=== PATIENT | female | born 1945 | race Caucasian/White ===

== ENCOUNTER → 2020-04-21 13:17 | Outpatient (BNVA) | payer MEDICARE, SELFPAY | PROVIDERS: Family Provider Family Medicine; Referring Provider Family Medicine; Visit Provider Specialist | DX: M25.551 Pain in right hip (principal) | CPT/HCPCS: 73502; 87081 ==

== ENCOUNTER 2020-05-14 16:09 | Outpatient (CLI) | payer MEDICARE, SELFPAY ==
--- NOTE | 2020-05-14 16:59 | PC.NURSE ---
Pt swabbed for COVID, specimen sent to lab.
[2020-05-16 11:09] LABS: Coronavirus Lab Test PTC SEE REPORT
== END 2020-05-14 16:10 | disposition home or self-care (01) ==
LOC: LAB 16:12
PROVIDERS: Visit Provider Specialist
DX: Z01.812 Encounter for preprocedural laboratory examination (principal)
CPT/HCPCS: 87635

== ENCOUNTER 2020-05-18 10:47 | Observation (INO) | payer MEDICARE, SELFPAY ==
--- NOTE | 2020-05-04 10:10 | ANES.PREANE2 ---
Pre-Anesthetic Assessment Pre-Anesthetic Assessment: Height/Weight: Height 1.7 m Weight 76.657 kg Preop Diagnosis: Degenerative osteoarthritis right hip Proposed Procedure: Operation Date: 05/18/20 07:00 Proposed Procedures p Total Hip Arthroplasty/Right/ 40965 M16.11(Right) - Carlita Rodriguez MD Familial anesthetic complications: None Social: Social History: No tobacco Comment: former smoker Exam: Pre-Anes Outpt Exam: alert, oriented x 3, clear to auscultation bilaterally and regular rate & rhythm Airway: Cervical ROM: WNL MP: 2 Dentition: False Pulmonary: Pulmonary: COPD (oxygen prn (2 L NC)) and Sleep apnea (has cpap but doesn't use) CV/HEM: CV/HEM: CAD (2009 stent) and HTN : : None reported Hepatic: Hepatic: None reported GI: GI: GERD Metabolic: Metabolic: DM Musc/skel: Musc/skel: None reported Neuropsych: Neuropsych: None reported Anesthetic Plan: ASA status: 3 Anesthesia: General Risk of > 500 ml blood loss (7ml/kg in children): No PFSH Anesthesia PFSH: Medical History (Updated 04/23/20 @ 12:13 by Carlita Rodriguez MD) Accelerated essential hypertension Angio-edema Osteoarthritis Type 2 diabetes mellitus Surgical History History of right knee joint replacement History of right knee surgery Hx of appendectomy Family History Mother Cancer Diabetes Father Cancer Social History Smoking and tobacco status: former smoker Alcohol intake: never Data Anesthesia Cardiac Studies: No Data to Display
[2020-05-04 10:19] LABS: Add Urine Microscopic? NO
[2020-05-04 10:20] LABS: Basophils % 0.2 %; Eosinophils # 0.1 10^3/uL (0.0-0.8); Eosinophils % 0.6 %; Hematocrit 48.6 % (37.0-47.0); Lymphocytes # 1.3 10^3/uL (0.8-4.8); Mean Corpuscular HGB Conc 30.9 g/dL (30.0-36.0); Mean Corpuscular Hemoglobin 27.9 pg (28.0-34.0); Mean Corpuscular Volume 90.5 fL (81-99); Mean Platelet Volume 9.5 fL (7.4-10.4); Monocytes # 0.5 10^3/uL (0.2-0.9); Monocytes % 5.4 %; Neutrophils % 80.5 %; Nucleated Red Blood Cells % 0 %; Platelet Count 330 10^3/cmm (130-400); Red Blood Count 5.37 10^6/uL (4.1-5.3); Red Cell Distribution Width 14.7 % (12.1-15.1); White Blood Count 9.9 10^3/uL (4.0-10.0)
[2020-05-04 10:34] LABS: Alanine Aminotransferase 20 U/L (0-33); Albumin Level 4.6 g/dL (3.5-5.2); Alkaline Phosphatase 69 IU/L (35-105); Anion Gap 19.9 (5-19); Aspartate Amino Transferase 22 U/L (0-32); Bilirubin Urine Neg (NEGATIVE); Blood Urea Nitrogen 27 mg/dL (8-23); Blood Urine Neg (Negative); Calcium 10.2 mg/dL (8.5-10.5); Carbon Dioxide 27 mmol/L (22-29); Chloride 100 mmol/L (98-107); Creatinine Clr Calc Pharmacy 51.8911; Globulin 3.5 g/dL (1.3-4.6); Glucose 126 mg/dL (65-115); Glucose Urine UA Norm (Normal); Ketones Urine Negative (Negative); Leukocyte Esterase Urine Negative (Negative); Nitrate Urine Negative (Negative); Osmolality Calculated 293 mOsm/kg (285-295); Potassium 4.9 mmol/L (3.5-5.1); Protein Urine Neg (Negative); Sodium 142 mmol/L (136-145); Total Bilirubin 0.3 mg/dL (0.15-1.2); Total Protein 8.1 g/dL (6.6-8.7); Urine Appearance Clear (CLEAR); Urine Color Yellow (Yellow); Urobilinogen Urine Norm (Negative)
[2020-05-18] VITALS (21 sets, daily range): BP systolic 89–153; BP diastolic 52–80; PULSE 54–98; RESP 16–22; TEMP 35.9–37.3; O2SAT 90–98
[2020-05-18] MEDS: sodium chloride 0.9% 1,000 ML 30 ML IV (06:41)
[2020-05-18] MEDS: CELEcoxib 200 mg Capsule 400 MG PO (06:42)
[2020-05-18 06:46] LABS: Glucose Point of Care 134 mg/dL (70-110)
--- NOTE | 2020-05-18 06:53 | W.PM.OPSUD ---
Surgery/Procedure H&P Update DATE OF PROCEDURE: May 18, 2020 DATE H&P PERFORMED: 04/21/20 H&P UPDATE INFORMATION: I have reviewed H&P completed within last 30 days, I have examined patient prior to procedure and H&P is in [facility] on date indicated PREOP DIAGNOSIS: Degenerative osteoarthritis right hip PLANNED PROCEDURE: Operation Date: 05/18/20 07:00 Proposed Procedures p Total Hip Arthroplasty/Right/ 48792 M16.11(Right) - Carlita Rodriguez MD
--- NOTE | 2020-05-18 06:55 | P.ANESASSM_ITS ---
Pre-Anesthetic Assessment Pre-Anesthetic Assessment: Height/Weight: Height 1.7 m Weight 76.657 kg Temp Pulse Resp BP Pulse Ox 99.2 F 86 20 H 153/80 90 05/18/20 06:24 05/18/20 06:24 05/18/20 06:24 05/18/20 06:24 05/18/20 06:24 Preop Diagnosis: Degenerative osteoarthritis right hip Proposed Procedure: Operation Date: 05/18/20 07:00 Proposed Procedures p Total Hip Arthroplasty/Right/ 19036 M16.11(Right) - Carlita Rodriguez MD Was Beta Ildefonso taken within 24 hours: Yes Last intake: Intake Last Liquid Date 05/18/20 Last Liquid Time 00:00 Last Solid Date 05/18/20 Last Solid Time 00:00 Social: Social History: No alcohol and No tobacco Exam: Pre-Anes Outpt Exam: alert, oriented x 3, clear to auscultation bilatera lly and regular rate & rhythm Airway: Submandibular: WNL Cervical ROM: WNL MP: 2 History/ROS: No significant complaints Pulmonary: Pulmonary: COPD CV/HEM: CV/HEM: CAD (S/P Stent x 1 in 2008) : : None reported Hepatic: Hepatic: None reported GI: GI: None reported Metabolic: Metabolic: DM Musc/skel: Musc/skel: OA/DJD Neuropsych: Neuropsych: None reported Comments: Anesthetic Plan: ASA status: 3 Anesthesia: General Risk of > 500 ml blood loss (7ml/kg in children): Yes, adequate IV access and fluids planned Meds/Allergies Current Medications: Current Medications Generic Name Dose Route Start Last Admin Trade Name Freq PRN Reason Stop Dose Admin Sodium Chloride 1,000 mls @ 30 ml s/hr 05/18/20 06:30 05/18/20 06:41 Sodium Chloride 0.9% IV 05/19/20 06:29 30 mls/hr .Q24H JUDY Administration PFSH Anesthesia PFSH: Medical History (Updated 04/23/20 @ 12:13 by Carlita Rodriguez MD) Accelerated essential hypertension Angio-edema Osteoarthritis Type 2 diabetes mellitus Surgical History History of right knee joint replacement History of right knee surgery Hx of appendectomy Family History Mother Cancer Diabetes Father Cancer Social History Smoking and tobacco status: former smoker Alcohol intake: never Data Anesthesia CBC & Chem 7: 05/04/20 10:05 05/04/20 10:05 Other Labs: Laboratory Results - last 48 hr 05/18/20 06:43 POC Glucose 134 Cardiac Studies: No Data to Display
[2020-05-18] MEDS: ceFAZolin 1,000 mg SDV 1000 MG IRRIGATION (08:09)
[2020-05-18] MEDS: vancomycin 1,000 MG SDV 1000 MG XX (08:10)
--- NOTE | 2020-05-18 09:57 | XRR_ITS ---
PROCEDURE INFORMATION: Exam: XR Pelvis Exam date and time: 05/18/2020 10:21 AM Age: 75 years old Clinical indication: Condition or disease; Other: S/P right total hip arthroplasty; Additional info: Status post right total hip arthroplasty TECHNIQUE: Imaging protocol: XR pelvis. Views: 1 or 2 view. COMPARISON: CR XR hip RT 2-3V wo/w pel* [id number] 04/21/2020 1:23 PM FINDINGS: Bones/joints: Right hip replacement in satisfactory alignment and position. No acute fracture. Soft tissues: Postoperative changes. XR/XR pelvis 1-2V* [id number] IMPRESSION: Satisfactory appearance status post right hip arthroplasty.
--- NOTE | 2020-05-18 10:02 | P.OP_ITS ---
Operative Report Date of procedure: May 18, 2020 Pre-op Diagnosis: Degenerative osteoarthritis right hip Post-op diagnosis: same (With severe limited range of motion, very large osteophytes, and near autofusion.) Post-op Findings: Severe degenerative osteoarthritis significant limitation in range of motion Procedure Done: Right total hip arthroplasty utilizing the following implants from the Karyn Accolade II total hip system: The size 52 mm solid back acetabular shell with an E alpha code and an MDM liner size 42 mm inner diameter by E alpha code. An Accolade II size 7 x 127 degree neck angle hip stem, femoral head size 28 mm outer diameter and +0 mm offset inside of an MDM insert size inner diameter 28 mm to match the 42E Specimens removed/disposition: Femoral head, disposed of Pathology: none sent Director Of [facility]: [facility] OR technicians Anesthesia: General (Intubated, ASA 3) Estimated blood loss (mL): 500 IV fluids (mL): 1,000 Urine output (mL): 100 Complications: None Findings: The hip was stable at 90 degrees of flexion with 30 degrees of adduction and 80 degrees of internal rotation. It was also stable to toe hang and to external rotation. Range of motion was significantly improved Condition: stable Disposition: PACU (Then to floor for observation and postoperative pain management and early physical therapy) Brief History: This 75-year-old woman presented with complaints of severe right hip pain with significant reduction in range of motion. She has had significant limitations in her activities of daily living. Risks and complications of surgery were discussed with the patient. She understood and wished to proceed. Consents were signed. Questions were answered. Procedure: Patient was brought to the operating theater. She was transferred to the operating room table and subsequently administered a general anesthetic intubated, ASA 3. Following administration of adequate anesthesia, the patient was placed in full lateral position and held in position with a pegboard. The patient's right lower extremity was then prepped and draped in usual fashion utilizing DuraPrep. It was draped free. Following prepping and draping a surgical pause was performed. At the time of surgical pause, we identified the site and side of surgery. We also identified the patient and preoperative surgical markings. Confirmation was made of equipment availability. Additionally, the patient's preoperative IV antibiotic, Ancef 2 g and TXA 1 g preoperatively was confirmed as being given in a timely fashion and being the appropriate. An additional dose was to be given postoperatively as well. Following the surgical pause, an incision was made centering over the patient's greater trochanter continuing proximally and distally as necessary to allow access to the hip joint. Dissection continued through skin and soft tissues using a scalpel, and hemostasis was obtained using electrocautery. The tensor fascia joey was identified and incised longitudinally. Sciatic nerve was identified and protected throughout the surgical procedure. A Charnley U retractor was placed after the tensor fascia joey had been incised longitudinally, and the sciatic nerve had been identified. The hip had significant limitation in range of motion, and most particularly, and internal rotation. Retractors were placed, and the piriformis muscle was identified and tagged. Piriformis muscle along with the remaining short external rotators were then incised from the posterior aspect of the hip joint. These were retracted posteriorly. The capsule was entered in a T-type fashion with the edges being tagged. Upon entry through the capsule, there were large osteophytes covering all the way nearly to the greater trochanter along all sides of the neck. In this manner, the hip was nearly autofused accounting for the severe reduction in range of motion. Head was noted to be very deformed. Appropriate osteotomy was performed of the femoral neck following hip dislocation. We then evaluated the acetabulum. The femur was retracted anteriorly. Soft tissues were retracted, osteophytes were excised, and the labrum was removed. We then began reaming with initial deepening of the acetabulum secondary to findings on preoperative x-ray. Reaming was accomplished sequentially. We reamed to a size 51 to allow for a size 52 acetabular shell. The acetabulum was impacted into position. The dome hole was filled with the appropriate metal plug. Also, we confirmed that the acetabular insert was completely seated prior to addressing the femur. After the acetabulum was in appropriate position, we placed the MDM liner without difficulty. The cup was noted to seat nicely and had good fixation upon impact. Attention was directed to the proximal femur. The proximal femur was lifted out of the wound. A canal finder was passed after the box chisel. The reamer was used to lateralize. We then began broaching. We broached sequentially, and initially placed a size 6 broach in position for trial reduction. A trial reduction was accomplished with a +0 mm femoral head inside the appropriate MDM insert. This construct was felt to be too loose and with concern for instability, we decided to increase to a size 7. With the size 7 broach, a trial reduction was again accomplished. This gave excellent stability, and with this in place, we had the above stabilities, and at that time, we felt that we had acceptable leg lengths. It had been determined preoperatively, that we would likely increase the leg length slightly, secondary to the patient's severe deformities. Therefore, the +0 mm offset femoral head was chosen. Therefore, trial components were removed after the hip was dislocated. The size 7 Accolade II 127 degree neck angle hip stem was impacted into position without difficulty and onto this was placed a +0 mm offset femoral head with the appropriate MDM liner. The hip was then reduced without difficulty. With this construct, we had the above-noted stability. The stem was noted to seat nicely prior to placement of the femoral head. The wound was then copiously irrigated with 20 mL of Betadine and 500 mL of normal saline mixed together. Subsequently, we suctioned this out and irrigated the wound copiously with lactated Ringer's. Following reduction of the prosthesis once again, we confirmed the stability of the hip. Leg lengths were also felt to be satisfactory. Being satisfied with the prosthesis, attention was directed to closure. Closure was accomplished with 0 Vicryl in the capsular tissues. Piriformis was reattached with 0 Vicryl as well. Tensor fascia joey was closed with 0 Vicryl in an interrupted fashion. The subcutaneous tissues were closed with 2-0 Monocryl. Vancomycin powder and a Gelfoam thrombin mixture was placed into the wound as well. The skin was closed with a running 3-0 Monocryl followed by Exofin and Steri-Strips. This was covered with Telfa and Tegaderm. The patient was placed in an abduction pillow. She was returned the Recovery Room in a satisfactory condition and will be discharged to the floor for postoperative rehabilitation and pain management. There were no complications. Associated Problem List Diagnoses (1) Primary osteoarthritis of right hip:
[2020-05-18] MEDS: fentaNYL 50 mcg/mL INJ 2mL IVP ×2 (10:15→10:33)
--- NOTE | 2020-05-18 10:30 | SUR.PHASEI ---
PT AWAKES EASILY TO VOICE , PT NOW ON 3LNC SATS 93-94% NO DISTRESS PT C/O OF PAIN EARLIER SEE PAIN MEDS PT STATES PAIN IS (MUCH BETTER) NOW, IV PATENT, DWYER TO DD YELLOW URINE NOTED TO TUBING, ABD PILLOW AND DRESSING TO RT HIP D/I X RAYS DONE, STRONG REGULAR PULSE NOTED TO RT FOOT , BILAT FOOT PUMPS ON AND WORKING.
--- NOTE | 2020-05-18 11:12 | SUR.PHASEI ---
1100 PT AWAKE ALERT TO FLOOR PER BED PT TALKATIVE WITH STAFF IN ROOM, BP 107/61, HR 63, RESP 18, SATS ON 3LNC 91%
[2020-05-18 11:44] LABS: Glucose Point of Care 152 mg/dL (70-110)
[2020-05-18] MEDS: sodium chloride 0.9% 1,000 ML 100 ML IV ×2 (11:47→20:41)
[2020-05-18] MEDS: CELEcoxib 200 mg Capsule PO (11:50)
[2020-05-18] MEDS: chlorhexidine gluconate 0.12% Btl 473 mL 30 ML MUCOUS MEM ×3 (14:35→20:42)
[2020-05-18] MEDS: metformin 500 mg Tablet 1000 MG PO (17:18)
[2020-05-18] MEDS: sennosides-docusate Tablet 2 TAB PO (17:18)
[2020-05-18] MEDS: mupirocin oint 22 gm 1 APPLIC NASAL (17:18)
[2020-05-18] MEDS: iron polysaccharide complex 150 mg Capsule PO (17:18)
[2020-05-18] MEDS: calcium carbonate 500 mg Chew Tablet 1000 MG PO (17:18)
[2020-05-18 20:07] LABS: Glucose Point of Care 146 mg/dL (70-110)
[2020-05-18] MEDS: oxyCODONE 5 mg IR Tab/Cap PO (20:42)
[2020-05-19] MEDS: CELEcoxib 200 mg Capsule PO ×2 (00:08→11:41)
[2020-05-19 00:58] VITALS: BP 110/64; PULSE 74; RESP 18; TEMP 36.5; O2SAT 93
[2020-05-19 04:26] VITALS: PULSE 89; RESP 18; O2SAT 95
[2020-05-19 04:45] LABS: Basophils % 0.3 %; Eosinophils # 0.1 10^3/uL (0.0-0.8); Eosinophils % 1.7 %; Hematocrit 34.6 % (37.0-47.0); Hemoglobin 10.3 g/dL (11.5-15.3); Lymphocytes # 1.3 10^3/uL (0.8-4.8); Lymphocytes % 20.2 %; Mean Corpuscular HGB Conc 29.8 g/dL (30.0-36.0); Mean Corpuscular Hemoglobin 27.9 pg (28.0-34.0); Mean Corpuscular Volume 93.8 fL (81-99); Mean Platelet Volume 10.5 fL (7.4-10.4); Monocytes # 0.5 10^3/uL (0.2-0.9); Monocytes % 8.3 %; Neutrophils # 4.49 10^3/uL (1.8-7.7); Nucleated Red Blood Cells % 0 %; Platelet Count 209 10^3/cmm (130-400); Red Blood Count 3.69 10^6/uL (4.1-5.3); White Blood Count 6.5 10^3/uL (4.0-10.0)
[2020-05-19 05:23] LABS: Anion Gap 9.2 (5-19); Blood Urea Nitrogen 19 mg/dL (8-23); Calcium 7.7 mg/dL (8.5-10.5); Carbon Dioxide 28 mmol/L (22-29); Chloride 107 mmol/L (98-107); Glucose 129 mg/dL (65-115); Osmolality Calculated 288 mOsm/kg (285-295); Potassium 4.2 mmol/L (3.5-5.1); Sodium 140 mmol/L (136-145)
[2020-05-19 05:29] VITALS: BP 105/66; PULSE 73; RESP 18; TEMP 36.5; O2SAT 95
[2020-05-19] MEDS: FUROsemide 20 mg Tablet PO (06:36)
[2020-05-19] MEDS: sodium chloride 0.9% 1,000 ML 100 ML IV (06:37)
[2020-05-19 06:59] LABS: Glucose Point of Care 135 mg/dL (70-110)
[2020-05-19 07:14] VITALS: BP 112/64; PULSE 76; RESP 18; TEMP 36.4; O2SAT 95
[2020-05-19] MEDS: iron polysaccharide complex 150 mg Capsule PO (09:24)
[2020-05-19] MEDS: potassium chloride ER 10 mEq Tablet 20 MEQ PO (09:24)
[2020-05-19] MEDS: multivitamin therapeutic Tablet 1 TAB PO (09:24)
[2020-05-19] MEDS: calcium carbonate 500 mg Chew Tablet 1000 MG PO (09:24)
[2020-05-19] MEDS: pantoprazole DR 40 mg Tablet PO (09:24)
[2020-05-19] MEDS: amlodipine 10 mg Tablet PO (09:24)
[2020-05-19] MEDS: sennosides-docusate Tablet 2 TAB PO (09:24)
[2020-05-19] MEDS: atorvastatin 40 mg Tablet 20 MG PO (09:24)
[2020-05-19] MEDS: atenolol 50 mg Tablet PO (09:24)
[2020-05-19] MEDS: metformin 500 mg Tablet 1000 MG PO (09:24)
[2020-05-19] MEDS: cholecalciferol (vitamin D3) 1,000 unit Tablet 1000 UNIT PO (09:24)
[2020-05-19] MEDS: aspirin 325 mg EC Tablet PO (09:24)
[2020-05-19] MEDS: chlorhexidine gluconate 0.12% Btl 473 mL 30 ML MUCOUS MEM (09:26)
[2020-05-19] MEDS: mupirocin oint 22 gm 1 APPLIC NASAL (09:27)
--- NOTE | 2020-05-19 09:57 | P.DS_ITS ---
Discharge Providers Date of Admission: 05/18/20 10:47 Date of Discharge: May 19, 2020 Attending Provider at Admission: Carlita Rodriguez MD Attending Provider at Discharge: Carilta Rodriguez MD Primary Care Provider: Micky Lindo Diagnoses at Discharge Discharge Diagnosis (1) Primary osteoarthritis of right hip: Status: Acute (2) History of total right hip arthroplasty: Status: Acute Reason for Visit Reason for Visit: Primary osteoarthritis right hip Physical Exam Urinary Catheter Management^: F: Cath Placed During This Visit: yes, but has since been removed by the nurse Reason for Continuing Indwelling Catheter: Decision to DC Catheter Urinary Catheter Date of Insertion: 05/18/20 Urinary Catheter Time of Insertion: : Date Urinary Catheter Removed: 05/19/20 Time Urinary Catheter Discontinued: : Discharge Data Data Completed and Pending: Completed Studies During Hospitalization Category Date Time Status XR pelvis 1-2V* 7 2170 Routine Exams 05/18/20 09:57 Completed Pending at discharge Category Date Time Status Complete Blood Co unt w/Auto AM LABS Lab 05/20/20 04:00 Ordered Complete Blood Co unt w/Auto AM LABS Lab 05/21/20 04:00 Ordered Labs from last 24 hours 05/19/20 05/19/20 05/19/20 06:53 04:10 04:10 WBC 6.5 RBC 3.69 L Hgb 10.3 L Hct 34.6 L MCV 93.8 MCH 27.9 L MCHC 29.8 L RDW 15.0 Plt Count 209 MPV 10.5 H Neut % (Auto) 69.0 Lymph % (Auto) 20.2 [place] % (Auto) 8.3 Eos % (Auto) 1.7 Baso % (Auto) 0.3 Neut # (Auto) 4.49 Lymph # (Auto) 1.3 [place] # (Auto) 0.5 Eos # (Auto) 0.1 Baso # (Auto) 0.0 Nucleated RBC % (a uto) 0 Nucleated RBCs # 0.0 Sodium 140 Potassium 4.2 Chloride 107 Carbon Dioxide 28 Anion Gap 9.2 BUN 19 Creatinine 0.8 Glucose 129 H POC Glucose 135 Calculated Osmolal ity 288 Calcium 7.7 L 05/18/20 05/18/20 20:03 11:41 WBC RBC Hgb Hct MCV MCH MCHC RDW Plt Count MPV Neut % (Auto) Lymph % (Auto) [place] % (Auto) Eos % (Auto) Baso % (Auto) Neut # (Auto) Lymph # (Auto) [place] # (Auto) Eos # (Auto) Baso # (Auto) Nucleated RBC % (a uto) Nucleated RBCs # Sodium Potassium Chloride Carbon Dioxide Anion Gap BUN Creatinine Glucose POC Glucose 146 152 Calculated Osmolal ity Calcium Vitals: Last Vital Signs Temp 97.6 F 05/19/20 07:14 Pulse 76 05/19/20 07:14 Resp 18 05/19/20 07:14 BP 112/64 05/19/20 07:14 Pulse Ox 95 05/19/20 07:14 Discharge Plan Discharge Patient Disposition: Home Health Service Condition: Stable Prescriptions: No Action albuterol sulfate 2.5 mg /3 mL (0.083 %) solution for nebulization 2.5 mg INHALATION Q4H PRN (Reason: Shortness Of Breath Or Wheezing) RF: 0 aspirin [Adult Low Dose Aspirin] 81 mg tablet,delayed release (DR/EC) 81 mg PO DAILY RF: 0 atenolol 50 mg tablet 50 mg PO DAILY RF: 0 atorvastatin 20 mg tablet 20 mg PO DAILY RF: 0 furosemide 20 mg tablet 20 mg PO QAM RF: 0 metformin 1,000 mg tablet 1,000 mg PO BID RF: 0 nitroglycerin [Nitrostat] 0.4 mg tablet, sublingual 0.4 mg SUBLINGUAL Q5M PRN (Reason: Chest Pain) RF: 0 pantoprazole 40 mg tablet,delayed release (DR/EC) 40 mg PO DAILY RF: 0 potassium chloride 20 mEq tablet extended release 20 meq PO DAILY RF: 0 amlodipine benzoate 10 mg 10 mg PO DAILY RF: 0 Discharge Orders: Discharge Order (Routine); Ordered 05/19/20 Ordered By: Carlita Rodriguez Referrals: Carlita Rodriguez MD [Physician] - 05/31/20 8:15 am Micky Lindo MD [Primary Care Provider] - 05/26/20 10:00 am Discharge Diet: Advance as tolerated, Usual diet and Diabetic Discharge Activity: Limit activity as instructed, Use walker/crutches as instructed and As per PT/OT instructions Activity Restrictions/Additional Instructions: Posterior hip precautions. Work with home health physical therapy. Coding Level of Care Code Acute Conductor Orchestra for g Fwd Diagnoses Primary osteoarthritis of right hip M16.11 History of total right hip arthroplasty Z96.641
--- NOTE | 2020-05-19 10:05 | P.DS_ITS ---
Discharge Providers Date of Admission: 05/18/20 10:47 Date of Discharge: May 19, 2020 Attending Provider at Admission: Carlita Rodriguez MD Attending Provider at Discharge: Carlita Rodriguez MD Primary Care Provider: Micky Lindo Diagnoses at Discharge Discharge Diagnosis (1) Primary osteoarthritis of right hip: Status: Acute (2) History of total right hip arthroplasty: Status: Acute Reason for Visit Reason for Visit: Primary osteoarthritis right hip Hospital Course Hospital Course: Patient was admitted for same-day surgery. She underwent a right total hip arthroplasty for severe degenerative osteoarthritis of the right hip. This was uneventful. She was admitted under observation status to manage pain and begin physical therapy. On the first postoperative day, the patient was doing well. She had taken very minimal pain medication and complained of no pain. She felt safe and stable to go home. She worked with physical therapy and provided continues to have an uneventful course of physical therapy today, the patient will be discharged to home to follow-up with me in the office as scheduled. Discharge Summary: The patient was admitted for same-day surgery for the following procedure: Right total hip arthroplasty utilizing the following implants from the [employer] Accolade II total hip system: The size 52 mm solid back acetabular shell with an E alpha code and an MDM liner size 42 mm inner diameter by E alpha code. An Accolade II size 7 x 127 degree neck angle hip stem, femoral head size 28 mm outer diameter and +0 mm offset inside of an MDM insert size inner diameter 28 mm to match the 42E. She was discharged home on the first postoperative day. Physical Exam Const: COMMON NORMALS: no acute distress, average body habitus, patient oriented x3 and alert GENERAL APPEARANCE: cooperative and comfortable ORIENTATION/CONSCIOUSNESS: Yes awake HENMT: COMMON NORMALS: normocephalic and atraumatic HEAD & SCALP: normocephalic and atraumatic Eye: GENERAL EYE: appearance normal, both eyes and all related structures Chest: COMMONS NORMALS: normal inspection of the chest Resp: COMMON NORMALS: normal respiratory effort EFFORT & INSPECTION: Yes able to speak in complete sentences and Yes symmetric chest movement Extremity: GENERAL: Yes normal exam except as noted RIGHT LOWER EXTREMITY: Yes hip joint Right hip: Yes inspection (There is minimal to no swelling about the hip joint. There is no drainage on the dressing.), Yes palpation (Minimal to no tenderness.), Yes ROM (Not evaluated) and Yes neurovascular exam (Intact for both motor and sensory function. Pulses are intact. There is no evidence of DVT.) Neuro: COMMON NORMALS: patient oriented x3 SENSORIUM/ORIENTATION: Yes alert Psych: COMMON NORMALS: mental status grossly normal APPEARANCE: Yes grossly normal ATTITUDE: Yes calm and Yes engaged ATTENTION/CONCENTRATION: Yes attention grossly intact Skin: COMMON NORMALS: no rashes or lesions noted GENERAL SKIN EXAM: no rashes or lesions noted Urinary Catheter Management^: F: Cath Placed During This Visit: yes, but has since been removed by the nurse Reason for Continuing Indwelling Catheter: Decision to DC Catheter Urinary Catheter Date of Insertion: 05/18/20 Urinary Catheter Time of Insertion: 07: Date Urinary Catheter Removed: 05/19/20 Time Urinary Catheter Discontinued: 06:20 Discharge Data Data Completed and Pending: Completed Studies During Hospitalization Category Date Time Status XR pelvis 1-2V* 7 2170 Routine Exams 05/18/20 09:57 Completed Pending at discharge Category Date Time Status Complete Blood Co unt w/Auto AM LABS Lab 05/20/20 04:00 Ordered Complete Blood Co unt w/Auto AM LABS Lab 05/21/20 04:00 Ordered Labs from last 24 hours 05/19/20 05/19/20 05/19/20 06:53 04:10 04:10 WBC 6.5 RBC 3.69 L Hgb 10.3 L Hct 34.6 L MCV 93.8 MCH 27.9 L MCHC 29.8 L RDW 15.0 Plt Count 209 MPV 10.5 H Neut % (Auto) 69.0 Lymph % (Auto) 20.2 [place] % (Auto) 8.3 Eos % (Auto) 1.7 Baso % (Auto) 0.3 Neut # (Auto) 4.49 Lymph # (Auto) 1.3 [place] # (Auto) 0.5 Eos # (Auto) 0.1 Baso # (Auto) 0.0 Nucleated RBC % (a uto) 0 Nucleated RBCs # 0.0 Sodium 140 Potassium 4.2 Chloride 107 Carbon Dioxide 28 Anion Gap 9.2 BUN 19 Creatinine 0.8 Glucose 129 H POC Glucose 135 Calculated Osmolal ity 288 Calcium 7.7 L 05/18/20 05/18/20 20:03 11:41 WBC RBC Hgb Hct MCV MCH MCHC RDW Plt Count MPV Neut % (Auto) Lymph % (Auto) [place] % (Auto) Eos % (Auto) Baso % (Auto) Neut # (Auto) Lymph # (Auto) [place] # (Auto) Eos # (Auto) Baso # (Auto) Nucleated RBC % (a uto) Nucleated RBCs # Sodium Potassium Chloride Carbon Dioxide Anion Gap BUN Creatinine Glucose POC Glucose 146 152 Calculated Osmolal ity Calcium Vitals: Last Vital Signs Temp 97.6 F 05/19/20 07:14 Pulse 76 05/19/20 07:14 Resp 18 05/19/20 07:14 BP 112/64 05/19/20 07:14 Pulse Ox 95 05/19/20 07:14 Discharge Plan Discharge Patient Disposition: Home Health Service Condition: Stable Prescriptions: New celecoxib 200 mg Capsule 200 mg PO DAILY Qty: 30 RF: 0 acetaminophen 500 mg Tablet 1,000 mg PO Q8H Qty: 0 RF: 0 aspirin 325 mg Tablet,Delayed Release (Dr/Ec) 325 mg PO DAILY Qty: 0 RF: 0 oxycodone 5 mg Tablet 5 - 10 mg PO Q4H PRN (Reason: Moderate Pain) Qty: 30 RF: 0 Continued albuterol sulfate 2.5 mg /3 mL (0.083 %) solution for nebulization 2.5 mg INHALATION Q4H PRN (Reason: Shortness Of Breath Or Wheezing) RF: 0 atenolol 50 mg tablet 50 mg PO DAILY RF: 0 atorvastatin 20 mg tablet 20 mg PO DAILY RF: 0 furosemide 20 mg tablet 20 mg PO QAM RF: 0 metformin 1,000 mg tablet 1,000 mg PO BID RF: 0 nitroglycerin [Nitrostat] 0.4 mg tablet, sublingual 0.4 mg SUBLINGUAL Q5M PRN (Reason: Chest Pain) RF: 0 pantoprazole 40 mg tablet,delayed release (DR/EC) 40 mg PO DAILY RF: 0 potassium chloride 20 mEq tablet extended release 20 meq PO DAILY RF: 0 amlodipine benzoate 10 mg 10 mg PO DAILY RF: 0 Held aspirin [Adult Low Dose Aspirin] 81 mg tablet,delayed release (DR/EC) 81 mg PO DAILY RF: 0 Hold Instructions: Resume on 06/19/20. Resume this dose after 1 month of 325 mg per day. Discharge Orders: Discharge Order (Routine); Ordered 05/19/20 Ordered By: Carlita Rodriguez Referrals: Carlita Rodriguez MD [Physician] - 05/31/20 8:15 am Micky Lindo MD [Primary Care Provider] - 05/26/20 10:00 am Discharge Diet: Advance as tolerated, Usual diet and Diabetic Discharge Activity: Limit activity as instructed, Use walker/crutches as instructed and As per PT/OT instructions Patient Instructions: Acetaminophen (By mouth), Aspirin (By mouth), Celecoxib (By mouth), Osteoarthritis (DC) Activity Restrictions/Additional Instructions: Posterior hip precautions. Work with home health physical therapy. Discharge Attestations Time Spent in Discharge Care*: greater than 30 min Specific Discharge Activities: Specific discharge activities: educating patient, discussing with pcp/other providers, documenting/other paperwork and evaluating patient/reviewing data Quality Metrics Clinical Quality Measures During this hospital stay, did patient experience: None Coding Level of Care Code Acute Circuit Recorder for Stanleyg Fwd Diagnoses Primary osteoarthritis of right hip M16.11 History of total right hip arthroplasty Z96.641
--- NOTE | 2020-05-19 10:08 | PC.CHAP ---
Pastoral Care Encounter/Spiritual Assessment Type of Contact [] Declined intensive care unit nurse visit [] Patient/Family/Request visit [] Outpatient visit [] Follow-up visit [] Physician referral [] Code/Alert [x] Routine visit [] Staff referral [] Actively dying [] Patient sleeping [] Family support [] [] Out of room [] Palliative care [] [] Receiving care in room [] Pre-surgical visit [] Trauma [] Long length of stay [] ICU visit [] Other: Relational/Emotional Strength [] Patient feels connected with others/family/visitors/staff [] Distress [] Loneliness/isolation [] Abandonment Spirituality of Patient [] Person of Alanis [] Attends Pentecostalism of their Alanis [] Believes in Prayer [] Reads Bible or Baptism materials [] 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 Interventions [x] Prayer [x] Active listening [x] Non-anxious presence [x] Spiritual/emotional support [] Crisis/trauma care [] Spiritual counseling [] Bereavement support [] Provided bereavement packet [] Provided Bible/devotional materials [] Provided toy/stuffed animal, coloring book to patient or family member [] Provided Communion [] Anointing/[place] [] Salvation [x] Completed spiritual assessment [] Other: Impact on Illness or Injury [] Angry [] Fearful [] Anxious [] Often cries [] Exhaustion [] Unable to work [] Unable to attend tenriism [] Unable to walk/stand [] Unable to read [] Unable to drive [] Unable to eat/drink [] Unable to sleep [] Unable to be with family [] Patient intubated [] Other: Summary Patient setting in chair.. feeling stronger. Looking to go home soon Time spent with patient 10 min
[2020-05-19 11:08] VITALS: BP 118/71; PULSE 84; RESP 18; TEMP 36.8; O2SAT 92
[2020-05-19] MEDS: acetaminophen 500 mg Tablet 1000 MG PO (11:40)
--- NOTE | 2020-05-19 12:52 | PC.NURSE ---
discharge instructions given to patient, patient verbalized understanding of instructions. patient called her for ride home. patient dressed and iv discontinued. patient waiting on for ride home.
[2020-05-19 14:23] VITALS: BP 118/71; PULSE 84; RESP 18; TEMP 36.8; O2SAT 92
== END 2020-05-19 14:24 | disposition home health service (06) ==
LOC: MEDSURG 10:48
PROVIDERS: Admitting Provider Specialist; PCP Family Medicine; Visit Provider Specialist
PROC: (CPT 27130; principal; 2020-05-18 07:00)
DX: M16.11 Unilateral primary osteoarthritis, right hip (principal); J44.9 Chronic obstructive pulmonary disease, unspecified; I25.10 Atherosclerotic heart disease of native coronary artery without angina pectoris; Z95.5 Presence of coronary angioplasty implant and graft; E11.9 Type 2 diabetes mellitus without complications; Z79.84 Long term (current) use of oral hypoglycemic drugs; M19.90 Unspecified osteoarthritis, unspecified site; Z87.891 Personal history of nicotine dependence; Z99.81 Dependence on supplemental oxygen; Z79.82 Long term (current) use of aspirin; Z96.651 Presence of right artificial knee joint
CPT/HCPCS: 27130; 12345; 36415; 36416; 51702; 72170; 80048; 80053; 81003; 82962; 85025; 96361; 96365; 96366; 97116; 97161; 97166; 97530; C1776; G0378; J0131; J0690; J2370; J2405; J2704; J2710; J3010; J3370; J3490; J7030

== ENCOUNTER → 2020-05-31 08:13 | Outpatient (BNVA) | payer MEDICARE, SELFPAY | PROVIDERS: PCP Family Medicine; Visit Provider Specialist | DX: Z96.641 Presence of right artificial hip joint (principal) | CPT/HCPCS: 73502 ==

== ENCOUNTER 2020-06-30 23:59 | Inpatient (IN) | payer MEDICARE, SELFPAY ==
[2020-07-01] VITALS (23 sets, daily range): BP systolic 95–139; BP diastolic 46–72; PULSE 76–116; RESP 18–44; TEMP 36.8–36.9; O2SAT 86–98; BMI 26.4
--- NOTE | 2020-07-01 00:03 | XR_ITS ---
WS: [id number] Portable AP upright chest, 07/01/2020. Clinical Data: sob Comparison: Portable chest, 11/07/2016. Findings: No nodules, masses or effusions are seen. The heart is normal. The pulmonary vascularity is not increased. No pneumonia or pneumothorax is seen. The diffuse calcified pleural plaques remain un changed. There is a calcified plaque at the left diaphragm with flattening. The aortic arch and desce nding aorta show calcification and mild tortuosity. Monitor leads are on the chest wall. XR/XR chest 1V portable [id number] Impression: 1. Atherosclerosis and hyperinflation. 2. No change in bilateral calcified pleural plaques.
--- NOTE | 2020-07-01 00:03 | ECG_ITS ---
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 Measurements Intervals [place] Rate: 109 P: 69 MO: 131 QRS: 76 QRSD: 79 T: -16 QT: 311 QTc: 420 Interpretive Statements SINUS TACHYCARDIA POSSIBLE LEFT ATRIAL ENLARGEMENT [-0.1mV P WAVE IN V1/V2] NONSPECIFIC ST & T-WAVE ABNORMALITY Compared to ECG 11/03/2016 14:57:47 Sinus rhythm no longer present Sinus arrhythmia no longer present Possible ischemia no longer present T-wave abnormality still present Electronically Signed On 07-02-2020 20:37:56 CDT by Deisy Bar M.D. [email or web address]
[2020-07-01] MEDS: ipratropium-albuterol 3 mL Neb INHALATION (00:10)
[2020-07-01 00:26] LABS: ABG PCO2 47.4 mmHg (35-45); ABG PH Result 7.35 (7.35-7.45); Arterial Blood Gas Hematocrit 33.4 % (37-47); Base Excess ABG 0.2 mmol/L (-2.0-2.0); Blood Gas Operator Identificat HARKR; Blood Gas Sample Site Brachial, right; Blood Gas Sample Type Arterial; Carboxyhemoglobin 1.3 %THgb (0.4-20.1); HCO3 ABG 26.1 mmol/L (22-26); HGB O2 Sat 97.9 % (95-100); Methemoglobin 0.8 % (0.4-1.5); Oxygen Device BIPAP; Total Hemoglobin 10.9 g/dL (12-16)
[2020-07-01 00:26] LABS: INR 0.92 (0.8-1.2)
--- NOTE | 2020-07-01 00:26 | ED_ITS ---
HPI - SOB/Dyspnea General: Chief Complaint: Shortness of Breath/Dyspnea Stated Complaint: SOB Time Seen by Provider: 07/01/20 00:00 Source: patient and EMS Mode of arrival: EMS Limitations: no limitations History of Present Illness: HPI Narrative: 75-year-old female who is here by EMS as a COPD exacerbation. Patient has a long history of COPD and is typically on 2 L. When EMS arrived she was in the 70s and and quite distressed. Patient brought in on CPAP and placed on BiPAP here. Patient denies any cough or fever. She is had no chest pain. Patient is in distress currently. MD elicited complaint: shortness of breath Pertinent past history: COPD Onset (ago): hour(s) Associated symptoms: Deny abdominal pain, chest pain, fever(s), nausea or vomiting Review of Systems Const: Denies: fever(s), chills, body aches or change in appetite Eyes: Denies: blurry vision or eye discomfort ENMT: Denies: throat pain or dental pain Card: Denies: chest pain Resp: Reports: dyspnea and wheezing GI: Denies: abdominal pain, nausea, vomiting or diarrhea : Denies: dysuria Musc: Denies: neck pain or back pain Skin/Breast: Denies: rash Neuro: Denies: headache(s) Psych: Denies: depression Tank/Lymph: Denies: easy bruising All/Imm: Denies: urticaria PFSH ED PFSH: Medical History Accelerated essential hypertension Angio-edema CAD (coronary artery disease) Carotid artery disease COPD (chronic obstructive pulmonary disease) Cyst at back: removed Diabetes LUNA (obstructive sleep apnea) Osteoarthritis Oxygen dependent Peripheral vascular disease Primary osteoarthritis of left hip Primary osteoarthritis of right hip Type 2 diabetes mellitus Urolithiasis Surgical History History of cardiac cath History of right knee joint replacement History of right knee surgery History of total right hip arthroplasty Hx of appendectomy Family History Mother Cancer Diabetes Father Cancer Social History Smoking and tobacco status: former smoker Alcohol intake: never Substance/Drug Use: never Household members: spouse Housing: House Physical Exam Const: COMMON NORMALS: patient oriented x3 GENERAL APPEARANCE: in distress HENMT: COMMON NORMALS: normocephalic and atraumatic HEAD & SCALP: normocephalic and atraumatic Eye: COMMON NORMALS: Equal, round and reactive pupils present and EOMs intact bilaterally PUPIL: Yes Equal, round and reactive pupils present Neck/C-Spine: COMMON NORMALS: full ROM and supple Chest: COMMONS NORMALS: normal inspection of the chest and normal palpation of entire chest wall Resp: EFFORT & INSPECTION: Yes tachypneic, Yes respiratory distress and Yes labored AUSCULTATION: wheezes and diminished lung sounds Cardio: COMMON NORMALS: regular rhythm and No murmurs present (Cardio) RATE: tachycardic RHYTHM: regular rhythm GI: COMMON NORMALS: Normal to inspection, nondistended, normoactive bowel sounds present, Soft to palpation, non-tender and no masses PALPATION: Yes Soft to palpation Extremity: COMMON NORMALS: normal to inspection and full ROM Neuro: COMMON NORMALS: patient oriented x3, moves all extremities and no focal motor deficits Psych: COMMON NORMALS: mental status grossly normal, Normal thought process present and cooperative THOUGHT PROCESS: Normal thought process present Skin: COMMON NORMALS: no rashes or lesions noted and no wounds GENERAL SKIN EXAM: no rashes or lesions noted Course Vital Signs: Vital signs: Vital Signs Pulse Rate 95 07/01/20 03:28 Respiratory Rate 19 H 07/01/20 03:20 Blood Pressure 127/72 07/01/20 03:02 Pulse Oximetry 96 07/01/20 03:25 MDM - SOB/Dyspnea MDM Narrative: Medical decision making narrative: Patient presents here with COPD exacerbation. Patient improved on BiPAP and was able to transfer to oxygen. Patient then became in more distress and placed back on BiPAP and is doing well currently. CT shows no PE. Patient has no fever no signs of coronavirus. I spoke to hospitalist and will admit at this time. Lab Data: Labs: Lab Results 07/01/20 07/01/20 07/01/20 Range/Units 00:10 00:10 00:10 WBC 11.4 H (4.0-10.0) 10^3/ uL RBC 4.26 (4.1-5.3) 10^6/u L Hgb 11.0 L (11.5-15.3) g/dL Hct 38.2 (37.0-47.0) % MCV 89.7 (81-99) fL MCH 25.8 L (28.0-34.0) pg MCHC 28.8 L (30.0-36.0) g/dL RDW 15.8 H (12.1-15.1) % Plt Count 395 (130-400) 10^3/c mm MPV 9.8 (7.4-10.4) fL Neut % (Auto) 80.8 % Lymph % (Auto) 11.5 % [place] % (Auto) 5.1 % Eos % (Auto) 1.8 % Baso % (Auto) 0.4 % Neut # (Auto) 9.20 H (1.8-7.7) 10^3/u L Lymph # (Auto) 1.3 (0.8-4.8) 10^3/u L [place] # (Auto) 0.6 (0.2-0.9) 10^3/u L Eos # (Auto) 0.2 (0.0-0.8) 10^3/u L Baso # (Auto) 0.0 (0.0-0.1) 10^3/u L Nucleated RBC % (a uto) 0 % Nucleated RBCs # 0.0 /100WBC PT 12.60 (12.1-14.9) SECO NDS INR 0.92 (0.8-1.2) Specimen Type Sample Site ABG pH (7.35-7.45) ABG pCO2 (35-45) mmHg ABG pO2 (80.0-100.0) mmH g ABG HCO3 (22-26) mmol/L ABG Base Excess (-2.0-2.0) mmol/ L Malik Test Hematocrit (37-47) % Hgb O2 Saturation (95-100) % Carboxyhemoglobin (0.4-20.1) %THgb Methemoglobin (0.4-1.5) % Total Hemoglobin (12-16) g/dL O2 Delivery Device FiO2 % Needle Punch Machine Operator ID Sodium 142 (136-145) mmol/L Potassium 3.7 (3.5-5.1) mmol/L Chloride 103 (98-107) mmol/L Carbon Dioxide 27 (22-29) mmol/L Anion Gap 15.7 (5-19) BUN 19 (8-23) mg/dL Creatinine 0.7 (0.5-0.9) mg/dL GFR Calculation Not Reportable Glucose 168 H (65-115) mg/dL Calculated Osmolal ity 294 (285-295) mOsm/k g Calcium 8.7 (8.5-10.5) mg/dL Total Bilirubin 0.4 (0.15-1.2) mg/dL AST 17 (0-32) U/L ALT 15 (0-33) U/L Alkaline Phosphata se 77 (35-105) IU/L NT-Pro-B Natriuret Pep 910 H (0-450) pg/mL Total Protein 7.2 (6.6-8.7) g/dL Albumin 4.0 (3.5-5.2) g/dL Globulin 3.2 (1.3-4.6) g/dL 07/01/20 Range/Units 00:15 WBC (4.0-10.0) 10^3/ uL RBC (4.1-5.3) 10^6/u L Hgb (11.5-15.3) g/dL Hct (37.0-47.0) % MCV (81-99) fL MCH (28.0-34.0) pg MCHC (30.0-36.0) g/dL RDW (12.1-15.1) % Plt Count (130-400) 10^3/c mm MPV (7.4-10.4) fL Neut % (Auto) % Lymph % (Auto) % [place] % (Auto) % Eos % (Auto) % Baso % (Auto) % Neut # (Auto) (1.8-7.7) 10^3/u L Lymph # (Auto) (0.8-4.8) 10^3/u L [place] # (Auto) (0.2-0.9) 10^3/u L Eos # (Auto) (0.0-0.8) 10^3/u L Baso # (Auto) (0.0-0.1) 10^3/u L Nucleated RBC % (a uto) % Nucleated RBCs # /100WBC PT (12.1-14.9) SECO NDS INR (0.8-1.2) Specimen Type Arterial Sample Site Brachial, right ABG pH 7.35 (7.35-7.45) ABG pCO2 47.4 H (35-45) mmHg ABG pO2 155.0 H (80.0-100.0) mmH g ABG HCO3 26.1 H (22-26) mmol/L ABG Base Excess 0.2 (-2.0-2.0) mmol/ L Malik Test N/a Hematocrit 33.4 L (37-47) % Hgb O2 Saturation 97.9 (95-100) % Carboxyhemoglobin 1.3 (0.4-20.1) %THgb Methemoglobin 0.8 (0.4-1.5) % Total Hemoglobin 10.9 L (12-16) g/dL O2 Delivery Device Bipap FiO2 45.0 % Needle Punch Machine Operator ID Harkr Sodium (136-145) mmol/L Potassium (3.5-5.1) mmol/L Chloride (98-107) mmol/L Carbon Dioxide (22-29) mmol/L Anion Gap (5-19) BUN (8-23) mg/dL Creatinine (0.5-0.9) mg/dL GFR Calculation Glucose (65-115) mg/dL Calculated Osmolal ity (285-295) mOsm/k g Calcium (8.5-10.5) mg/dL Total Bilirubin (0.15-1.2) mg/dL AST (0-32) U/L ALT (0-33) U/L Alkaline Phosphata se (35-105) IU/L NT-Pro-B Natriuret Pep (0-450) pg/mL Total Protein (6.6-8.7) g/dL Albumin (3.5-5.2) g/dL Globulin (1.3-4.6) g/dL Imaging Data^: CT Chest: Radiologist's impression: [address] [address] [address] Scan Report Signed Patient: Purvi Mathis Unit #: [id number] : 1945 Age/Sex: 75 / F ADM Date: 06/30/20 Loc: ER Room/Bed: Attending Dr: Ordering Provider/Ordering MD: Marian Christian MD Date of Service: 07/01/20 Procedure(s): CT angio chest PE protcl [id number] Accession Number(s): [id number] Report Number: [id number] PROCEDURE INFORMATION: Exam: CT Angiography Chest With Contrast Exam date and time: 07/01/2020 1:47 AM Age: 75 years old Clinical indication: Shortness of breath; Chest pain; Additional info: SOB TECHNIQUE: Imaging protocol: Computed tomographic angiography of the chest with intravenous contrast. 3D rendering (Not supervised by radiologist): MIP and/or 3D reconstructed images were created by the technologist. Radiation optimization: All CT scans at this facility use at least one of these dose optimization techniques: automated exposure control; mA and/or kV adjustment per patient size (includes targeted exams where dose is matched to clinical indication); or iterative reconstruction. Contrast material: OMNI 350; Contrast volume: 95 ml; Contrast route: INTRAVENOUS (IV); COMPARISON: CR XR chest 1V portable [id number] 07/01/2020 12:14 AM RADIATION DOSE METRICS: Total DLP (mGy-cm): 690.92 FINDINGS: Pulmonary arteries: Normal. No pulmonary emboli. Aorta: Unremarkable. No aortic aneurysm. No aortic dissection. Lungs: Lungs COPD changes are present. No consolidation. No masses. Pleural space: Bilateral extensive calcified pleural plaques are present. Small bilateral pleural effusions are seen, larger on the left. Heart: Unremarkable. No cardiomegaly. No pericardial effusion. Lymph nodes: Unremarkable. No enlarged lymph nodes. Bones/joints: Unremarkable. No acute fracture. Soft tissues: Unremarkable. CT/CT angio chest PE protcl [id number] IMPRESSION: 1. The examination is negative for pulmonary embolism. Negative for aortic aneurysm or dissection. 2. Extensive pleural plaques are present. Bilateral small pleural effusions are seen. Most common etiology for bilateral small pleural effusions is CHF. No pulmonary edema is seen at this time. 3. COPD changes are noted. EKG Data^: EKG 1: Attestation: I personally reviewed and interpreted this EKG as follows: EKG Interpretation Date: 07/01/20 EKG interpretation time: 00:13 Interpretation: sinus tach hr [address] or t wave abnormalities qrs 79 qtc 375 Discharge Plan Discharge Patient Disposition: Admitted As Inpatient Admit Provider: Jennifer Burch Clinical Impression: COPD exacerbation Condition: Stable Discharge Date/Time: 07/01/20 03:35 Coding Level of Care Code ED Screw Machine Operator for Chg Fwd Exam Comprehensive
[2020-07-01 00:29] LABS: Basophils % 0.4 %; Eosinophils # 0.2 10^3/uL (0.0-0.8); Eosinophils % 1.8 %; Hematocrit 38.2 % (37.0-47.0); Lymphocytes # 1.3 10^3/uL (0.8-4.8); Lymphocytes % 11.5 %; Mean Corpuscular HGB Conc 28.8 g/dL (30.0-36.0); Mean Corpuscular Hemoglobin 25.8 pg (28.0-34.0); Mean Corpuscular Volume 89.7 fL (81-99); Mean Platelet Volume 9.8 fL (7.4-10.4); Monocytes # 0.6 10^3/uL (0.2-0.9); Monocytes % 5.1 %; Neutrophils % 80.8 %; Nucleated Red Blood Cells % 0 %; Platelet Count 395 10^3/cmm (130-400); Red Blood Count 4.26 10^6/uL (4.1-5.3); Red Cell Distribution Width 15.8 % (12.1-15.1); White Blood Count 11.4 10^3/uL (4.0-10.0)
[2020-07-01 00:58] LABS: Alanine Aminotransferase 15 U/L (0-33); Alkaline Phosphatase 77 IU/L (35-105); Anion Gap 15.7 (5-19); Aspartate Amino Transferase 17 U/L (0-32); Blood Urea Nitrogen 19 mg/dL (8-23); Calcium 8.7 mg/dL (8.5-10.5); Carbon Dioxide 27 mmol/L (22-29); Chloride 103 mmol/L (98-107); Globulin 3.2 g/dL (1.3-4.6); Glucose 168 mg/dL (65-115); NT Pro B Type Natriuretic Pept 910 pg/mL (0-450); Osmolality Calculated 294 mOsm/kg (285-295); Potassium 3.7 mmol/L (3.5-5.1); Sodium 142 mmol/L (136-145); Total Bilirubin 0.4 mg/dL (0.15-1.2); Total Protein 7.2 g/dL (6.6-8.7)
[2020-07-01] MEDS: sodium chloride 0.9% 1,000 ML 999 ML IV (00:59)
--- NOTE | 2020-07-01 01:17 | PC.NURSE ---
Trial with home O2 of 2L, saturation 86% so increased to 4L.
--- NOTE | 2020-07-01 01:29 | CTR_ITS ---
PROCEDURE INFORMATION: Exam: CT Angiography Chest With Contrast Exam date and time: 07/01/2020 1:47 AM Age: 75 years old Clinical indication: Shortness of breath; Chest pain; Additional info: SOB TECHNIQUE: Imaging protocol: Computed tomographic angiography of the chest with intravenous contrast. 3D rendering (Not supervised by radiologist): MIP and/or 3D reconstructed images were created by the technologist. Radiation optimization: All CT scans at this facility use at least one of these dose optimization techniques: automated exposure control; mA and/or kV adjustment per patient size (includes targeted exams where dose is matched to clinical indication); or iterative reconstruction. Contrast material: OMNI 350; Contrast volume: 95 ml; Contrast route: INTRAVENOUS (IV); COMPARISON: CR XR chest 1V portable [id number] 07/01/2020 12:14 AM RADIATION DOSE METRICS: Total DLP (mGy-cm): 690.92 FINDINGS: Pulmonary arteries: Normal. No pulmonary emboli. Aorta: Unremarkable. No aortic aneurysm. No aortic dissection. Lungs: Lungs COPD changes are present. No consolidation. No masses. Pleural space: Bilateral extensive calcified pleural plaques are present. Small bilateral pleural effusions are seen, larger on the left. Heart: Unremarkable. No cardiomegaly. No pericardial effusion. Lymph nodes: Unremarkable. No enlarged lymph nodes. Bones/joints: Unremarkable. No acute fracture. Soft tissues: Unremarkable. CT/CT angio chest PE protcl [id number] IMPRESSION: 1. The examination is negative for pulmonary embolism. Negative for aortic aneurysm or dissection. 2. Extensive pleural plaques are present. Bilateral small pleural effusions are seen. Most common etiology for bilateral small pleural effusions is CHF. No pulmonary edema is seen at this time. 3. COPD changes are noted. Radiation Dose CTDIVOL = (mGy): DLP = 690.92 (mGy-cm)
[2020-07-01] MEDS: iohexol 350 mg/mL 100 mL Btl IV (02:36)
--- NOTE | 2020-07-01 03:24 | PM.HP ---
Providers/Chief Complaint Primary Care Provider: Micky Lindo Chief Complaint: SOB History of Present Illness Purvi Mathis is a 75 year old female who has history of nocturnal hypoxemia uses 2 L of oxygen at night, obstructive sleep apnea, type 2 diabetes, coronary disease, recent right knee replacement came in today with gradual worsening of shortness of breath. Patient is stating that even before her knee surgery she was experiencing shortness of breath on exertion, her symptoms have been getting worse over time, now the shortness of breath is happening on mild activities and at rest, she has not noticed any fever, nausea, vomiting, chest pain, palpitations, diarrhea, dysuria. No sick contacts. Patient has been using celecoxib since her surgery along high-dose aspirin. Diagnostics in the ER revealed mild leukocytosis, she was hypoxic requiring 6 to 8 L of oxygen currently on BiPAP settings 12 and 6 with good tidal volume 500-600, her heart rate increased after getting 7.5 mg of albuterol, right-sided pneumonia, PE ruled out, she is afebrile, received normal saline in the ER, clinically fluid overloaded, BNP 900, her ABG was taken while she was on BiPAP looks compensated Review of Systems Const: Reports: chills, body aches and fatigue; Denies: fever(s) Eyes: Denies: change in vision ENMT: Denies: throat pain Card: Reports: edema, swelling of feet/ankles, dyspnea on exertion and orthopnea; Denies: chest pain, palpitations or irregular heart rhythm Resp: Reports: dyspnea; Denies: productive cough or non-productive cough GI: Denies: abdominal pain, nausea, vomiting, diarrhea or constipation : Denies: flank pain Musc: Denies: neck pain Skin/Breast: Denies: rash Neuro: Denies: headache(s) Psych: Reports: anxiety Endo: Denies: polyuria Tank/Lymph: Denies: easy bruising All/Imm: Denies: urticaria Medications/Allergies Home Medications Medication Instructions Recorded Confirmed Last Taken Type albuterol sulfate 2.5 mg INHALATION Q4H PRN 04/21/20 05/31/20 Unknown History aspirin 81 mg tablet,delayed 81 mg PO DAILY 04/21/20 05/31/20 05/16/20 History release atenolol 50 mg tablet 50 mg PO DAILY 04/21/20 05/31/20 05/18/20 05:00 History atorvastatin 20 mg tablet 20 mg PO DAILY 04/21/20 05/31/20 05/17/20 History furosemide 20 mg tablet 20 mg PO QAM 04/21/20 05/31/20 05/17/20 History metformin 1,000 mg tablet 1,000 mg PO BID 04/21/20 05/31/20 05/17/20 History nitroglycerin 0.4 mg sublingual 0.4 mg SUBLINGUAL Q5M PRN 04/21/20 05/31/20 Unknown History tablet pantoprazole 40 mg tablet,delayed 40 mg PO DAILY 04/21/20 05/31/20 05/17/20 History release potassium chloride 20 mEq 20 meq PO DAILY 04/21/20 05/31/20 05/17/20 History tablet,extended release amlodipine benzoate 10 mg PO DAILY 05/04/20 05/31/20 Unknown History acetaminophen 1,000 mg PO Q8H #0 tab 05/19/20 05/31/20 Unknown Rx aspirin 325 mg PO DAILY #0 tab 05/19/20 05/31/20 Unknown Rx celecoxib 200 mg PO DAILY #30 cap 05/19/20 05/31/20 Unknown Rx oxycodone 5 - 10 mg PO Q4H PRN #30 tab 05/19/20 05/31/20 Unknown Rx Allergies Allergy/AdvReac Type Severity Reaction Status Date / Time levofloxacin Allergy ALGY-Difficulty Verified 05/31/20 08:17 Breathing PFSH Acute PFSH: Medical History Accelerated essential hypertension Angio-edema CAD (coronary artery disease) Carotid artery disease COPD (chronic obstructive pulmonary disease) Cyst at back: removed Diabetes LUNA (obstructive sleep apnea) Osteoarthritis Oxygen dependent Peripheral vascular disease Primary osteoarthritis of left hip Primary osteoarthritis of right hip Type 2 diabetes mellitus Urolithiasis Surgical History History of cardiac cath History of right knee joint replacement History of right knee surgery History of total right hip arthroplasty Hx of appendectomy Family History Mother Cancer Diabetes Father Cancer Social History Smoking and tobacco status: former smoker Alcohol intake: never Substance/Drug Use: never Household members: spouse Housing: House Vitals/I&O/Wt Last Vital Signs Pulse 105 H 07/01/20 03:02 Resp 24 H 07/01/20 03:02 BP 127/72 07/01/20 03:02 Pulse Ox 94 07/01/20 03:02 Weight last 48 hrs Weight 76.657 kg Physical Exam Narrative: EXAM NARRATIVE: Elderly female currently on BiPAP settings 12 and 6 good tidal volume 500-600 She is tachycardic after getting 7.5 mg of albuterol, No source of infection has been identified No skin ulcers Right leg venous stasis dermatitis Right leg swollen and asymmetrical as compared to left leg Bilateral assisted breath sounds S1, S2 active signs of mild CHF decompensation Abdomen soft nontender bowel sound present Neurologically nonfocal exam, GCS 15 EOMI, PERRLA Awake alert oriented x3 Data : 07/01/20 00:10 07/01/20 00:10 A&P Assessment and plan (1) Community acquired pneumonia: Status: Acute (2) Sepsis: Status: Acute (3) Acute and chronic respiratory failure with hypoxia: Status: Acute (4) Oxygen dependent: Status: Acute (5) Acute CHF: Status: Acute Additional A&P Information Sepsis secondary to community-acquired pneumonia Extensive pleural plaques identified, however on review of CT scan, patient has right upper lobe pneumonia, my personal interpretation (image 209, series 2), no PE identified Patient is not complaining of active chest pain, no ischemic or infarctive changes identified EKG Patient is tachycardic, tachypnea, leukocytosis positive I will go ahead and treat her with ceftriaxone and azithromycin check urine antigen PE ruled out New onset congestive heart failure Previously reported normal ejection fraction I will get echo in the morning Start her on Lasix 40 mg, patient has increased work of breathing, I will give her 20 mg of IV Lasix, received normal saline in the ER, clinical signs of fluid overload Check TSH Of note, patient has been taking celecoxib since her knee surgery which is known for fluid retention, primary edema and congestive heart failure exacerbation, discontinue celecoxib, amlodipine discontinued, hold atenolol due to acute CHF Acute COPD exacerbation with acute on chronic hypoxic hypercarbic respiratory failure Of note, blood gas has been taking while she was on BiPAP Bicarb on BMP is 27 which is a stronger evidence of hypercarbic chronic compensated respiratory failure Patient is a former smoker Xopenex and ipratropium every 4 as needed Continue BiPAP Full code Cardiac diet DVT prophylaxis Lovenox Attestations Medical Necessity Statement*: Patient might need more than 2 midnights in the hospital because of sepsis secondary to pneumonia with acute CHF onset Time Spent in Patient Care: (>than 50% of time spent in counselling and/or direct pt care on unit). 50-minute Coding Level of Care Code Acute Lead Ingot Molder for Stanleyg Fwlorrie Diagnoses Community acquired pneumonia J18.9 Sepsis A41.9 Acute and chronic respiratory failure with hypoxia J96.21 Oxygen dependent Z99.81 Acute CHF I50.9
--- NOTE | 2020-07-01 03:59 | USCV_ITS ---
Purvi Mathis Age: 75 Gender: F : 1945 Exam Date: 07/01/2020 06:19 Ordering Phys: Jennifer Burch MD Technologist: Narinder Redmond Exam Location: [facility] [place] Indication: CHF BP: 134 / 72 HR: 98 Rhythm: Sinus Technical Quality: Fair MEASUREMENTS (Male / Female) Normal Values 2D ECHO LV Diastolic Diameter PLAX 4.3 cm 4.2 - 5.9 / 3.9 - 5.3 cm LV Systolic Diameter PLAX 3.0 cm IVS Diastolic Thickness 0.9 cm 0.6 - 1.0 / 0.6 - 0.9 cm IVS Systolic Thickness 1.0 cm LVPW Diastolic Thickness 0.9 cm 0.6 - 1.0 / 0.6 - 0.9 cm LVPW Systolic Thickness 1.2 cm LVOT Diameter 2.0 cm LV Ejection Fraction 2D Teich 60.3 % LV Ejection Fraction MOD 2C 60.8 % LV Ejection Fraction 2C AL 61.6 % LA Diameter 4.5 cm LA Width 3.6 cm LA Height 3.8 cm RA Width 3.1 cm RA Height 4.2 cm Aorta at Sinotubular Diameter 0.9 cm M-MODE LV Diastolic Diameter MM 4.6 cm 4.2 - 5.9 / 3.9 - 5.3 cm LV Systolic Diameter MM 2.8 cm LV Ejection Fraction MM Teich 71.0 % IVS Diastolic Thickness MM 0.8 cm 0.6 - 1.0 / 0.6 - 0.9 cm IVS Systolic Thickness MM 1.6 cm LVPW Diastolic Thickness MM 1.0 cm 0.6 - 1.0 / 0.6 - 0.9 cm LVPW Systolic Thickness MM 1.5 cm RV Diastolic Diameter MM 2.1 cm Aortic Annulus Diameter 3.8 cm LA Ao Ratio MM 1.2 MV E Point Septal Separation 0.7 cm DOPPLER AV Peak Velocity 135.0 cm/s LVOT Peak Velocity 120.0 cm/s AV Area Cont Eq vti 3.1 cm squared AV Area Cont Eq pk 2.9 cm squared MV Area PHT 5.0 cm squared Mitral E to A Ratio 1.2 MV E' Velocity 7.0 cm/s Mitral E to MV E' Ratio 16.3 Mitral E to LV E' Lateral Ratio 17.5 Mitral E to LV E' Septal Ratio 15.5 TR Peak Velocity 272.0 cm/s TR Peak Gradient 29.5 mmHg TV Peak E Velocity 74.0 cm/s Right Atrial Pressure 3.0 mmHg Pulmonary Artery Systolic Pressu 32.6 mmHg FINDINGS Left Ventricle Normal left ventricular size, systolic function and wall thickness, with no diagnostic regional wall motion abnormalities. Left ventricular ejection fraction is estimated at 60%. Normal diastolic function. Right Ventricle Normal right ventricular size and systolic function. Right ventricular systolic pressure 32.6 mmHg. Right Atrium Normal right atrial size. Left Atrium Normal left atrial size. Mitral Valve Mildly thickened mitral valve. No mitral valve stenosis. Mild mitral valve regurgitation. Aortic Valve Aortic valve not well visualized. Tricuspid Valve Tricuspid valve not well visualized. Trace tricuspid valve regurgitation. Pulmonic Valve Pulmonic valve not well visualized. No significant pulmonary valve regurgitation. Pericardium Normal-sized inferior vena cava. Aorta Normal-sized aortic root. CONCLUSIONS 1. Normal left ventricular size, systolic function and wall thickness, with no diagnostic regional wall motion abnormalities. Left ventricular ejection fraction is estimated at 60%. Normal diastolic function. 2. Mild mitral valve regurgitation. 3. Pulmonary artery pressure estimated at 33 mmHg. 4. No prior similar studies to compare. Deisy Bar MD (Electronically Signed) Final Date: 01 July 2020 12:18 S
--- NOTE | 2020-07-01 03:59 | USCV_ITS ---
Purvi Mathis Age: 75 Gender: F : 1945 Exam Date: 07/01/2020 06:35 Ordering Phys: Jennifer Burch MD Technologist: Narinder Redmond Exam Location: [facility] [place] Indication: RT LEG SWELLING HISTORY: Lower extremity swelling. PROCEDURES: Venous duplex imaging was performed in only the right lower extremity. In addition, the posterior tibial and peroneal trunk were evaluated. On the right side, the common femoral, superficial femoral, profunda femoral, popliteal, posterior tibial, greater saphenous veins and the peroneal trunk were identified and interrogated in the standard fashion. These veins were found to be easily compressible with spontaneous blood flow. No evidence of insufficiency or thrombus noted. FINDINGS: Normal 2-D Doppler and augmentation and compressibility throughout the lower extremity venous structures. Additional imaging through the proximal calf veins also reveals no thrombus. Limited evaluation of the greater saphenous vein is patent with no thrombus.. CONCLUSIONS No evidence of DVT in the above-mentioned identifiable veins. No venous thrombosis was noted in the proximal segments of the greater saphenous vein Dr Destini Perez MD [facility] (Electronically Signed) Final Date: 03 July 2020 19:58 S
[2020-07-01] MEDS: FUROsemide 10 mg/mL SDV 2mL 20 MG IVP (05:01)
[2020-07-01] MEDS: enoxaparin 40 mg/0.4 mL Syringe SUBCUT (05:02)
[2020-07-01 05:09] LABS: Basophils % 0.1 %; Hematocrit 36.4 % (37.0-47.0); Hemoglobin 10.4 g/dL (11.5-15.3); Lymphocytes # 0.2 10^3/uL (0.8-4.8); Lymphocytes % 1.7 %; Mean Corpuscular HGB Conc 28.6 g/dL (30.0-36.0); Mean Corpuscular Hemoglobin 25.6 pg (28.0-34.0); Mean Corpuscular Volume 89.7 fL (81-99); Monocytes # 0.1 10^3/uL (0.2-0.9); Monocytes % 0.5 %; Neutrophils # 10.62 10^3/uL (1.8-7.7); Neutrophils % 97.3 %; Nucleated Red Blood Cells % 0 %; Platelet Count 370 10^3/cmm (130-400); Red Blood Count 4.06 10^6/uL (4.1-5.3); Red Cell Distribution Width 15.8 % (12.1-15.1); White Blood Count 10.9 10^3/uL (4.0-10.0)
[2020-07-01 06:05] LABS: Anion Gap 18.3 (5-19); Blood Urea Nitrogen 20 mg/dL (8-23); Calcium 8.7 mg/dL (8.5-10.5); Carbon Dioxide 25 mmol/L (22-29); Chloride 105 mmol/L (98-107); Glucose 179 mg/dL (65-115); Osmolality Calculated 299 mOsm/kg (285-295); Potassium 4.3 mmol/L (3.5-5.1); Sodium 144 mmol/L (136-145); Thyroid Stimulating Hormone 1.09 uIU/mL (0.27-4.20)
[2020-07-01 06:41] LABS: Glucose Point of Care 181 mg/dL (70-110)
[2020-07-01] MEDS: FUROsemide 40 mg Tablet PO (07:47)
[2020-07-01] MEDS: potassium chloride ER 10 mEq Tablet 20 MEQ PO (08:01)
[2020-07-01] MEDS: atorvastatin 40 mg Tablet 20 MG PO (08:01)
[2020-07-01] MEDS: aspirin 81 mg EC Tablet PO (08:02)
[2020-07-01] MEDS: pantoprazole DR 40 mg Tablet PO (08:13)
[2020-07-01] MEDS: cefTRIAXone 1,000 MG in sodium chloride 0.9% (plus) 50 ML 100 MG IV (08:38)
[2020-07-01 08:58] LABS: Procalcitonin 0.08 ng/mL (0-0.5)
[2020-07-01 09:11] LABS: C Reactive Protein 7.5 mg/L (0.0-4.9)
[2020-07-01] MEDS: azithromycin 500 MG in sodium chloride 0.9% 250 ML 250 MG IV (09:16)
[2020-07-01 10:46] LABS: Glucose Point of Care 220 mg/dL (70-110)
--- NOTE | 2020-07-01 13:58 | PM.PN ---
Subjective Subjective: Interval history: This morning patient was taken off BiPAP, onto nasal cannula, she states that she is doing better, no fevers, no chills, no nausea, no vomiting, she states that for the last 2 days she just has not been feeling well, increased shortness of breath, shortness of breath with exertion, no fevers, no sick contacts, no recent travel, she tells me that she has a history of pleural plaques concerning for asbestos exposure Vitals/I&O/Wt Last Vital Signs Temp 98.5 F 07/01/20 11:16 Pulse 102 H 07/01/20 11:16 Resp 18 07/01/20 11:16 BP 129/67 07/01/20 11:16 Pulse Ox 94 07/01/20 11:16 06/30/20 07/01/20 07/01/20 22:59 06:59 14:59 Intake Total 0 / 0 620 / 620 Output Total 500 / 500 975 / 975 Balance -500 / -500 -355 / -355 Weight last 48 hrs Weight 76.657 kg Physical Exam Const: COMMON NORMALS: no acute distress and patient oriented x3 HENMT: COMMON NORMALS: normocephalic HEAD & SCALP: normocephalic Neck/C-Spine: COMMON NORMALS: no JVD Resp: COMMON NORMALS: normal respiratory effort, No retractions, No use of accessory muscles and clear to auscultation bilaterally AUSCULTATION: clear to auscultation bilaterally Cardio: COMMON NORMALS: no JVD, regular rate, regular rhythm, S1 normal heart sound present and S2 normal heart sound present RATE: regular rate RHYTHM: regular rhythm HEART SOUNDS: S1 normal heart sound present and S2 normal heart sound present GI: COMMON NORMALS: Normal to inspection, nondistended, normoactive bowel sounds present, Soft to palpation, non-tender, No hepatosplenomegaly present, no masses and no bruits PALPATION: Yes Soft to palpation and Yes No hepatosplenomegaly present Extremity: COMMON NORMALS: capillary refill normal, no clubbing, cyanosis or edema, no calf tenderness and no pedal edema Neuro: COMMON NORMALS: patient oriented x3 Psych: COMMON NORMALS: mental status grossly normal Data : 07/01/20 04:12 07/01/20 04:12 A&P Assessment and plan (1) Community acquired pneumonia: Status: Acute (2) Sepsis: Status: Acute (3) Acute and chronic respiratory failure with hypoxia: Status: Acute (4) Oxygen dependent: Status: Acute (5) Acute CHF: Status: Acute Additional A&P Information Sepsis secondary to community-acquired pneumonia Right middle and right lower lobe pneumonia Pro-Alf 0.08, CRP 7.5 white blood cell count 10.9 Continue Rocephin and azithromycin Sputum cultures, blood cultures, urine bacterial antigens CTA negative for pulmonary embolism Extensive pleural plaques has a history of pleural plaques, no known exposure to asbestos On review of imaging, I am concerned for the possibility of pleural tumor Will have patient follow-up with Dr. Beasley for consideration of biopsy New onset congestive heart failure Previously reported normal ejection fraction We will get an echocardiogram Lasix 40 mg IV twice daily, fluid restrictions 1200 cc Of note, patient has been taking celecoxib since her knee surgery which is known for fluid retention, primary edema and congestive heart failure exacerbation, discontinue celecoxib, amlodipine discontinued, hold atenolol due to acute CHF Acute COPD exacerbation with acute on chronic hypoxic hypercarbic respiratory failure Of note, blood gas has been taking while she was on BiPAP Bicarb on BMP is 27 which is a stronger evidence of hypercarbic chronic compensated respiratory failure Patient is a former smoker Xopenex and ipratropium every 4 as needed Lasix Solu-Medrol 40 IV push every 12 hours Continue BiPAP, BiPAP overnight Full code Cardiac diet DVT prophylaxis Lovenox Attestations Medical Necessity Statement*: Patient requires hospitalization due to community acquired pneumonia, COPD exacerbation, CHF exacerbation Coding Level of Care Code 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
[2020-07-01 16:45] LABS: Glucose Point of Care 132 mg/dL (70-110)
[2020-07-01] MEDS: FUROsemide 10 mg/mL SDV 4mL 40 MG IVP (21:33)
[2020-07-01 22:00] LABS: Glucose Point of Care 177 mg/dL (70-110)
[2020-07-02] VITALS (15 sets, daily range): BP systolic 127–153; BP diastolic 68–75; PULSE 78–98; RESP 16–18; TEMP 35.9–37.1; O2SAT 73–97
[2020-07-02] MEDS: enoxaparin 40 mg/0.4 mL Syringe SUBCUT (03:47)
--- NOTE | 2020-07-02 05:55 | PC.NURSE ---
Shift Summary Pt slept well tonight, other than being up to go to the bathroom and to take meds. Pt had good urinary output and no c/o pain throughout the night.
[2020-07-02 06:44] LABS: Glucose Point of Care 197 mg/dL (70-110)
[2020-07-02] MEDS: FUROsemide 10 mg/mL SDV 4mL 40 MG IVP (08:01)
[2020-07-02 08:42] LABS: Basophils % 0.1 %; Eosinophils % 0.1 %; Hematocrit 39.8 % (37.0-47.0); Hemoglobin 11.9 g/dL (11.5-15.3); Lymphocytes # 0.4 10^3/uL (0.8-4.8); Lymphocytes % 3.9 %; Mean Corpuscular HGB Conc 29.9 g/dL (30.0-36.0); Mean Corpuscular Hemoglobin 26.3 pg (28.0-34.0); Mean Corpuscular Volume 87.9 fL (81-99); Mean Platelet Volume 9.6 fL (7.4-10.4); Monocytes # 0.2 10^3/uL (0.2-0.9); Neutrophils # 10.01 10^3/uL (1.8-7.7); Neutrophils % 93.7 %; Nucleated Red Blood Cells % 0 %; Platelet Count 392 10^3/cmm (130-400); Red Blood Count 4.53 10^6/uL (4.1-5.3); Red Cell Distribution Width 15.9 % (12.1-15.1); White Blood Count 10.7 10^3/uL (4.0-10.0)
[2020-07-02] MEDS: azithromycin 500 MG in sodium chloride 0.9% 250 ML 250 MG IV (08:50)
[2020-07-02] MEDS: potassium chloride ER 10 mEq Tablet 20 MEQ PO (08:52)
[2020-07-02] MEDS: pantoprazole DR 40 mg Tablet PO (08:52)
[2020-07-02] MEDS: atorvastatin 40 mg Tablet 20 MG PO (08:53)
[2020-07-02] MEDS: aspirin 81 mg EC Tablet PO (08:54)
[2020-07-02 09:10] LABS: Alanine Aminotransferase 18 U/L (0-33); Albumin Level 4.4 g/dL (3.5-5.2); Alkaline Phosphatase 81 IU/L (35-105); Blood Urea Nitrogen 17 mg/dL (8-23); Calcium 9.3 mg/dL (8.5-10.5); Carbon Dioxide 32 mmol/L (22-29); Chloride 98 mmol/L (98-107); Globulin 3.9 g/dL (1.3-4.6); Glucose 177 mg/dL (65-115); Osmolality Calculated 293 mOsm/kg (285-295); Sodium 141 mmol/L (136-145); Total Bilirubin 0.5 mg/dL (0.15-1.2); Total Protein 8.3 g/dL (6.6-8.7)
[2020-07-02 09:11] LABS: Anion Gap 15.1 (5-19); Potassium 4.1 mmol/L (3.5-5.1)
[2020-07-02 09:12] LABS: Aspartate Amino Transferase 22 U/L (0-32)
--- NOTE | 2020-07-02 09:55 | PC.RESP ---
PULMONARY REHAB INFORMATION SENT TO PATIENT.
[2020-07-02] MEDS: cefTRIAXone 1,000 MG in sodium chloride 0.9% (plus) 50 ML 100 MG IV (10:57)
[2020-07-02] MEDS: oxyCODONE 5 mg IR Tab/Cap PO ×2 (10:57→17:40)
[2020-07-02 11:36] LABS: Glucose Point of Care 160 mg/dL (70-110)
--- NOTE | 2020-07-02 16:39 | PM.PN ---
Subjective Subjective: Interval history: Patient is doing better this morning, still having a cough, some shortness of breath with exertion, no fevers or chills, no nausea, vomiting Vitals/I&O/Wt Last Vital Signs Temp 98.0 F 07/02/20 15:39 Pulse 84 07/02/20 15:39 Resp 16 07/02/20 15:39 BP 134/73 07/02/20 15:39 Pulse Ox 90 07/02/20 15:39 07/02/20 07/02/20 07/02/20 06:59 14:59 22:59 Intake Total 420 / 420 Output Total 500 / 3125 600 / 600 Balance -500 / -1845 -180 / -180 Weight last 48 hrs Weight 76.657 kg Physical Exam Const: COMMON NORMALS: no acute distress and patient oriented x3 HENMT: COMMON NORMALS: normocephalic HEAD & SCALP: normocephalic Neck/C-Spine: COMMON NORMALS: no JVD Resp: COMMON NORMALS: normal respiratory effort, No retractions, No use of accessory muscles and clear to auscultation bilaterally AUSCULTATION: clear to auscultation bilaterally Cardio: COMMON NORMALS: no JVD, regular rate, regular rhythm, S1 normal heart sound present and S2 normal heart sound present RATE: regular rate RHYTHM: regular rhythm HEART SOUNDS: S1 normal heart sound present and S2 normal heart sound present GI: COMMON NORMALS: Normal to inspection, nondistended, normoactive bowel sounds present, Soft to palpation, non-tender, No hepatosplenomegaly present, no masses and no bruits PALPATION: Yes Soft to palpation and Yes No hepatosplenomegaly present Extremity: COMMON NORMALS: capillary refill normal, no clubbing, cyanosis or edema, no calf tenderness and no pedal edema Neuro: COMMON NORMALS: patient oriented x3 Psych: COMMON NORMALS: mental status grossly normal Data : 07/02/20 08:30 07/02/20 08:30 Micro: Microbiology 07/01/20 14:42 Blood Culture - Preliminary Blood NEGATIVE TO DATE 07/01/20 14:36 Blood Culture - Preliminary Blood NEGATIVE TO DATE A&P Assessment and plan (1) Community acquired pneumonia: Status: Acute (2) Sepsis: Status: Acute (3) Acute and chronic respiratory failure with hypoxia: Status: Acute (4) Oxygen dependent: Status: Acute (5) Acute CHF: Status: Acute Additional A&P Information Sepsis secondary to community-acquired pneumonia Right middle and right lower lobe pneumonia, with concerns for underlying malignant process Pro-Alf 0.08, CRP 7.5 white blood cell count 10.9 Continue Rocephin and azithromycin Sputum cultures, blood cultures, urine bacterial antigens CTA negative for pulmonary embolism Will require outpatient follow with pulmonary, with repeat CT imaging Extensive pleural plaques has a history of pleural plaques, no known exposure to asbestos On review of imaging, I am concerned for the possibility of pleural tumor Will have patient follow-up with pulmonary New onset congestive heart failure Previously reported normal ejection fraction Echocardiogram shows EF of 60%, normal diastolic dysfunction Lasix 40 mg IV twice daily, fluid restrictions 1200 cc Of note, patient has been taking celecoxib since her knee surgery which is known for fluid retention, primary edema and congestive heart failure exacerbation, discontinue celecoxib, amlodipine discontinued, hold atenolol due to acute CHF Acute COPD exacerbation with acute on chronic hypoxic hypercarbic respiratory failure Of note, blood gas has been taking while she was on BiPAP Bicarb on BMP is 27 which is a stronger evidence of hypercarbic chronic compensated respiratory failure Patient is a former smoker Xopenex and ipratropium every 4 as needed Lasix Solu-Medrol 40 IV push every 12 hours Continue BiPAP, BiPAP overnight Full code Cardiac diet DVT prophylaxis Lovenox Attestations Medical Necessity Statement*: Patient requires hospitalization, inpatient, community-acquired pneumonia, COPD exacerbation, CHF exacerbation Coding Level of Care Code 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
[2020-07-02 17:18] LABS: Glucose Point of Care 195 mg/dL (70-110)
--- NOTE | 2020-07-02 17:26 | PC.NURSE ---
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
[2020-07-02 21:01] LABS: Glucose Point of Care 137 mg/dL (70-110)
[2020-07-02] MEDS: levalbuterol 1.25 mg/3 mL Neb INHALATION (21:37)
[2020-07-02] MEDS: ipratropium 0.5 mg/2.5 mL Neb INHALATION (21:37)
[2020-07-03] VITALS: BP 133/76; PULSE 84; RESP 18; TEMP 36.9; O2SAT 93
[2020-07-03 04:00] VITALS: BP 128/69; PULSE 86; RESP 17; TEMP 36.9; O2SAT 93
[2020-07-03] MEDS: enoxaparin 40 mg/0.4 mL Syringe SUBCUT (04:12)
[2020-07-03 04:14] LABS: Hematocrit 36.5 % (37.0-47.0); Hemoglobin 10.8 g/dL (11.5-15.3); Lymphocytes # 0.5 10^3/uL (0.8-4.8); Lymphocytes % 4.4 %; Mean Corpuscular HGB Conc 29.6 g/dL (30.0-36.0); Mean Corpuscular Hemoglobin 25.7 pg (28.0-34.0); Mean Corpuscular Volume 86.9 fL (81-99); Mean Platelet Volume 9.8 fL (7.4-10.4); Monocytes # 0.4 10^3/uL (0.2-0.9); Monocytes % 3.6 %; Neutrophils # 10.57 10^3/uL (1.8-7.7); Neutrophils % 91.7 %; Nucleated Red Blood Cells % 0 %; Platelet Count 383 10^3/cmm (130-400); Red Cell Distribution Width 15.5 % (12.1-15.1); White Blood Count 11.5 10^3/uL (4.0-10.0)
[2020-07-03 04:34] LABS: Alanine Aminotransferase 17 U/L (0-33); Albumin Level 3.9 g/dL (3.5-5.2); Alkaline Phosphatase 75 IU/L (35-105); Anion Gap 10.1 (5-19); Aspartate Amino Transferase 18 U/L (0-32); Blood Urea Nitrogen 20 mg/dL (8-23); Calcium 9.6 mg/dL (8.5-10.5); Carbon Dioxide 34 mmol/L (22-29); Chloride 99 mmol/L (98-107); Globulin 3.4 g/dL (1.3-4.6); Glucose 163 mg/dL (65-115); Magnesium 1.8 mg/dL (1.7-2.3); Osmolality Calculated 288 mOsm/kg (285-295); Phosphorus 2.8 mg/dL (2.5-4.5); Potassium 4.1 mmol/L (3.5-5.1); Sodium 139 mmol/L (136-145); Total Bilirubin 0.3 mg/dL (0.15-1.2); Total Protein 7.3 g/dL (6.6-8.7)
--- NOTE | 2020-07-03 06:18 | PC.NURSE ---
Shift Summary Pt slept off and on throughout the night with no c/o pain or SOB to this nurse when asked. Pt up and to BSC with standby assist. Pt had good urinary output throughout the night.
[2020-07-03 06:45] LABS: Glucose Point of Care 158 mg/dL (70-110)
[2020-07-03 07:30] VITALS: BP 153/74; PULSE 88; RESP 18; TEMP 36.8; O2SAT 90
[2020-07-03 08:42] VITALS: PULSE 87; RESP 18; O2SAT 92
[2020-07-03] MEDS: cefTRIAXone 1,000 MG in sodium chloride 0.9% (plus) 50 ML 100 MG IV (08:54)
[2020-07-03] MEDS: potassium chloride ER 10 mEq Tablet 20 MEQ PO (08:55)
[2020-07-03] MEDS: atorvastatin 40 mg Tablet 20 MG PO (08:55)
[2020-07-03] MEDS: pantoprazole DR 40 mg Tablet PO (08:55)
[2020-07-03] MEDS: aspirin 81 mg EC Tablet PO (08:55)
[2020-07-03] MEDS: FUROsemide 10 mg/mL SDV 4mL 40 MG IVP (08:55)
[2020-07-03] MEDS: azithromycin 500 MG in sodium chloride 0.9% 250 ML 250 MG IV (10:15)
[2020-07-03 11:29] VITALS: BP 150/74; PULSE 90; RESP 18; TEMP 36.8; O2SAT 94
[2020-07-03 11:32] LABS: Glucose Point of Care 180 mg/dL (70-110)
--- NOTE | 2020-07-03 11:46 | P.DS_ITS ---
Discharge Providers Date of Admission: 07/01/20 03:14 Date of Discharge: July 03, 2020 Attending Provider at Admission: Jennifer Burch MD Attending Provider at Discharge: Shayne Rose MD Primary Care Provider: Micky Lindo Diagnoses at Discharge Discharge Diagnosis (1) Community acquired pneumonia: Status: Acute (2) Sepsis: Status: Acute (3) Acute and chronic respiratory failure with hypoxia: Status: Acute (4) Oxygen dependent: Status: Acute (5) Acute CHF: Status: Acute Reason for Visit Reason for Visit: SOB Hospital Course Discharge Summary: This is a 75-year-old female with a past medical history of nocturnal hypoxemia on 2 L nasal cannula, obstructive sleep apnea, type 2 diabetes mellitus, CAD, recent history of right knee replacement who presents to [facility] for shortness of breath Patient was admitted [facility] for acute hypoxic respiratory failure and sepsis secondary to community-acquired pneumonia and COPD, right middle and right lower lobe pneumonia, received IV antibiotics and steroid therapy, she clinically improved, ambulating without significant symptomatology. Patient was discharged on doxycycline for 7 days, prednisone taper, 2 L oxygen throughout the day, and close follow with primary care provider as outpatient. Patient was advised if she were to have worsening shortness of breath, fevers to come back to the emergency room. Patient has CT evidence of pleural plaques, and given the dense pneumonia in the right middle and right lower lobe, concerning for underlying malignancy. I will have patient follow-up with Dr. Colón as outpatient for repeat imaging in 1 month. Physical Exam Const: COMMON NORMALS: no acute distress and patient oriented x3 HENMT: COMMON NORMALS: normocephalic HEAD & SCALP: normocephalic Neck/C-Spine: COMMON NORMALS: no JVD Resp: COMMON NORMALS: normal respiratory effort, No retractions, No use of accessory muscles and clear to auscultation bilaterally AUSCULTATION: clear to auscultation bilaterally Cardio: COMMON NORMALS: no JVD, regular rate, regular rhythm, S1 normal heart sound present and S2 normal heart sound present RATE: regular rate RHYTHM: regular rhythm HEART SOUNDS: S1 normal heart sound present and S2 normal heart sound present GI: COMMON NORMALS: Normal to inspection, nondistended, normoactive bowel sounds present, Soft to palpation, non-tender, No hepatosplenomegaly present, no masses and no bruits PALPATION: Yes Soft to palpation and Yes No hepatosplenomegaly present Extremity: COMMON NORMALS: capillary refill normal, no clubbing, cyanosis or edema, no calf tenderness and no pedal edema Neuro: COMMON NORMALS: patient oriented x3 Psych: COMMON NORMALS: mental status grossly normal Discharge Data Data Completed and Pending: Completed Studies During Hospitalization Category Date Time Status CT angio chest PE protcl 30104 Urge nt Cat Scan 07/01/20 01:29 Completed XR chest 1V rylee ble 85949 Urgent Exams 07/01/20 00:03 Completed CV echo complete* 20803 Routine Ultrasound 07/01/20 03:59 Completed Pending at discharge Category Date Time Status Blood Culture Sta t Lab 07/01/20 14:42 Results Complete Blood Co unt w/Auto AM LABS Lab 07/04/20 04:00 Ordered Complete Blood Co unt w/Auto AM LABS Lab 07/05/20 04:00 Ordered Comprehensive Met abolic Panel AM LA BS Lab 07/04/20 04:00 Ordered Comprehensive Met abolic Panel AM LA BS Lab 07/05/20 04:00 Ordered Magnesium AM LABS Lab 07/04/20 04:00 Ordered Magnesium AM LABS Lab 07/05/20 04:00 Ordered Phosphorus AM LAB S Lab 07/04/20 04:00 Ordered Phosphorus AM LAB S Lab 07/05/20 04:00 Ordered Sputum Culture an d Gram Stain Stat Lab 07/01/20 14:00 [place] [address] Routin e Ultrasound 07/01/20 03:59 Taken Labs from last 24 hours 07/03/20 07/03/20 07/03/20 11:07 06:40 03:49 WBC RBC Hgb Hct MCV MCH MCHC RDW Plt Count MPV Neut % (Auto) Lymph % (Auto) Mcculloch % (Auto) Eos % (Auto) Baso % (Auto) Neut # (Auto) Lymph # (Auto) M[place]ulloch # (Auto) Eos # (Auto) Baso # (Auto) Nucleated RBC % (a uto) Nucleated RBCs # Sodium 139 Potassium 4.1 Chloride 99 Carbon Dioxide 34 H Anion Gap 10.1 BUN 20 Creatinine 0.7 GFR Calculation Not Reportable Glucose 163 H POC Glucose 180 158 Calculated Osmolal ity 288 Calcium 9.6 Phosphorus 2.8 Magnesium 1.8 Total Bilirubin 0.3 AST 18 ALT 17 Alkaline Phosphata se 75 Total Protein 7.3 Albumin 3.9 Globulin 3.4 07/03/20 07/02/20 07/02/20 03:49 20:44 17:04 WBC 11.5 H RBC 4.20 Hgb 10.8 L Hct 36.5 L MCV 86.9 MCH 25.7 L MCHC 29.6 L RDW 15.5 H Plt Count 383 MPV 9.8 Neut % (Auto) 91.7 Lymph % (Auto) 4.4 Mcculloch % (Auto) 3.6 Eos % (Auto) 0.0 Baso % (Auto) 0.0 Neut # (Auto) 10.57 H Lymph # (Auto) 0.5 L Mcculloch # (Auto) 0.4 Eos # (Auto) 0.0 Baso # (Auto) 0.0 Nucleated RBC % (a uto) 0 Nucleated RBCs # 0.0 Sodium Potassium Chloride Carbon Dioxide Anion Gap BUN Creatinine GFR Calculation Glucose POC Glucose 137 195 Calculated Osmolal ity Calcium Phosphorus Magnesium Total Bilirubin AST ALT Alkaline Phosphata se Total Protein Albumin Globulin Vitals: Last Vital Signs Temp 98.3 F 07/03/20 11:29 Pulse 90 07/03/20 11:29 Resp 18 07/03/20 11:29 BP 150/74 07/03/20 11:29 Pulse Ox 94 07/03/20 11:29 Discharge Plan Discharge Patient Disposition: Home Condition: Stable Prescriptions: New aspirin 81 mg Tablet,Delayed Release (Dr/Ec) 81 mg PO DAILY 30 Days Qty: 30 RF: 0 oxycodone 5 mg Tablet 5 mg PO Q4H PRN (Reason: Moderate Pain) 30 Days RF: 0 prednisone 10 mg tablet See Rx Instructions .ROUTE .COMPLEX 25 Days Qty: 53 RF: 0 Advair Diskus 100-50 mcg/dose blister with device 1 inh INHALATION DAILY Qty: 60 RF: 0 doxycycline hyclate 100 mg capsule 100 mg PO BID 7 Days Qty: 14 RF: 0 Continued atenolol 50 mg tablet 50 mg PO DAILY RF: 0 atorvastatin 20 mg tablet 20 mg PO DAILY RF: 0 furosemide 20 mg tablet 20 mg PO QAM RF: 0 metformin 1,000 mg tablet 1,000 mg PO BID RF: 0 nitroglycerin [Nitrostat] 0.4 mg tablet, sublingual 0.4 mg SUBLINGUAL Q5M PRN (Reason: Chest Pain) RF: 0 pantoprazole 40 mg tablet,delayed release (DR/EC) 40 mg PO DAILY RF: 0 potassium chloride 20 mEq tablet extended release 20 meq PO DAILY RF: 0 amlodipine 10 mg Tablet 10 mg PO DAILY RF: 0 budesonide 0.5 mg/2 mL Suspension For Nebulization 0.5 mg INHALATION BID RF: 0 albuterol sulfate 2.5 mg /3 mL (0.083 %) solution for nebulization 2.5 mg INHALATION Q4H PRN (Reason: Shortness Of Breath Or Wheezing) 30 Days Qty: 15 RF: 0 celecoxib 200 mg Capsule 200 mg PO DAILY Qty: 30 RF: 0 acetaminophen 500 mg Tablet 1,000 mg PO Q8H Qty: 0 RF: 0 Discontinued aspirin 325 mg Tablet,Delayed Release (Dr/Ec) 325 mg PO DAILY Qty: 0 RF: 0 Discharge Orders: Discharge Order (Routine); Ordered 07/03/20 Ordered By: Shayne Rose Other Ambulatory Orders: DME: Oxygen (Order) Location: None Selected Ordered By: Shayne Rose Referrals: [facility] [Other] Tesfaye Colón MD [Physician] - 1 month ([facility] densit, evaluate for malignancy, pleural plaques. Please call patient at home with a hospital follow up appointment for 1 month from today. Faxed information to clinic) Discharge Diet: Regular Discharge Activity: Resume usual activity Patient Instructions: Doxycycline (By mouth), Oxycodone/Acetaminophen (By mouth), Prednisone (By mouth), Aspirin (By mouth), Fluticasone/Salmeterol (By breathing), Heart Failure (DC), Osteoarthritis (DC), Chronic Obstructive Pulmonary Disease (DC), Sepsis (DC), Community-acquired Pneumonia (DC), CHF Stoplight, COPD Stoplight Activity Restrictions/Additional Instructions: -Please drink plenty of electrolyte balance fluids -Please take antibiotics as prescribed -Please take steroid taper as prescribed -If you have worsening shortness of breath, fevers, chills, cough come back to emergency room -Please follow-up with pulmonary in 1 month Discharge Attestations Time Spent in Discharge Care*: less than 30 min Quality Metrics Clinical Quality Measures During this hospital stay, did patient experience: None Coding Level of Care Code 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
[2020-07-03 12:38] VITALS: BP 150/74; PULSE 90; RESP 18; TEMP 36.8; O2SAT 94
== END 2020-07-03 12:39 | disposition home or self-care (01) | DRG 871 ==
LOC: ER 07-01 00:17 → MEDSURG 07-01 03:30
PROVIDERS: Emergency Medicine; Admitting Provider Internal Medicine; PCP Family Medicine; Visit Provider Family Medicine
DX: A41.9 Sepsis, unspecified organism (principal); I50.21 Acute systolic (congestive) heart failure; J18.9 Pneumonia, unspecified organism; J96.21 Acute and chronic respiratory failure with hypoxia; J44.1 Chronic obstructive pulmonary disease with (acute) exacerbation; J44.0 Chronic obstructive pulmonary disease with (acute) lower respiratory infection; J96.12 Chronic respiratory failure with hypercapnia; Z99.81 Dependence on supplemental oxygen; G47.33 Obstructive sleep apnea (adult) (pediatric); E11.51 Type 2 diabetes mellitus with diabetic peripheral angiopathy without gangrene; I25.10 Atherosclerotic heart disease of native coronary artery without angina pectoris; Z96.651 Presence of right artificial knee joint; Z96.641 Presence of right artificial hip joint; I11.0 Hypertensive heart disease with heart failure; Z87.442 Personal history of urinary calculi; Z87.891 Personal history of nicotine dependence; Z79.84 Long term (current) use of oral hypoglycemic drugs
CPT/HCPCS: 12345; 36415; 36416; 36600; 71045; 71275; 80048; 80053; 82805; 82962; 83735; 83880; 84100; 84145; 84443; 85025; 85610; 86140; 87040; 93005; 93306; 93971; 94640; 94660; 94664; 96372; 96375; 99283; J0456; J0696; J1650; J1815; J1940; J2920; J2930; J7030; J7050; J7611; J7614; J7644; Q9967

== ENCOUNTER → 2020-08-12 09:46 | Outpatient (BNVA) | payer MEDICARE, SELFPAY | PROVIDERS: PCP Family Medicine; Visit Provider Specialist | DX: Z96.641 Presence of right artificial hip joint (principal) | CPT/HCPCS: 73502 ==

== ENCOUNTER 2020-08-20 11:36 | Inpatient (IN) | payer MEDICARE, SELFPAY ==
[2020-08-20] VITALS (39 sets, daily range): BP systolic 110–154; BP diastolic 60–81; PULSE 75–116; RESP 17–44; TEMP 36.6–36.8; O2SAT 59–100; BMI 24.4
--- NOTE | 2020-08-20 11:41 | XR_ITS ---
WS: [id number] Portable AP upright chest, 08/20/2020 Clinical Data: Dyspnea Comparison: Portable chest, 07/01/2020. Findings: There are bilateral calcified pleural plaques. There are calcifications of both diaphragms. The diaphragms are flattened. The heart size is at the upper limits of normal. No definite pneumonia or pneumothorax is seen. The pulmonary vascularity is not increased. No nodules, masses or effusions are seen. Monitor leads are on the chest wall. XR/XR chest 1V portable 08199 Impression: 1. Atherosclerosis and hyperinflation. 2. No change in bilateral calcified pleural plaques.
--- NOTE | 2020-08-20 11:42 | ECG_ITS ---
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 Measurements Intervals [place] Rate: 84 P: 60 ME: 133 QRS: 67 QRSD: 82 T: 218 QT: 375 QTc: 444 Interpretive Statements SINUS RHYTHM POSSIBLE LEFT ATRIAL ENLARGEMENT [-0.1mV P WAVE IN V1/V2] SEPTAL MYOCARDIAL INFARCTION , OF INDETERMINATE AGE [40+ ms Q WAVE IN V1/V2] MODERATE T-WAVE ABNORMALITY, CONSIDER ANTEROLATERAL ISCHEMIA MODERATE T-WAVE ABNORMALITY, CONSIDER INFERIOR ISCHEMIA Compared to ECG 07/01/2020 00:13:46 Myocardial infarct finding now present Possible ischemia now present Sinus tachycardia no longer present T-wave abnormality still present Electronically Signed On 08-20-2020 17:56:20 CDT by Deisy Bar M.D. [id number]
--- NOTE | 2020-08-20 11:47 | W.ED.SOB ---
HPI - SOB/Dyspnea General: Chief Complaint: Shortness of Breath/Dyspnea Stated Complaint: SOB Time Seen by Provider: 08/20/20 11:41 Source: patient Mode of arrival: wheelchair Limitations: other (Respiratory distress) History of Present Illness: HPI Narrative: Purvi is a 75-year-old female who arrives to the ER in respiratory distress. History is very limited secondary to this respiratory distress. Patient has a history of COPD requiring 3 L of nasal cannula oxygen at all times. Patient arrives with a pulse ox of 59%. Patient states that she just felt sick this morning with a subjective fever and increased shortness of breath. Review of Systems General: Reports: ROS unobtainable due to medical condition (Respiratory distress) PFSH ED PFSH: Medical History (Updated 08/20/20 @ 14:43 by Camron Garcia MD) Accelerated essential hypertension Angio-edema CAD (coronary artery disease) Carotid artery disease COPD (chronic obstructive pulmonary disease) Chronically on 2 L per nasal cannula Cyst at back: removed Diabetes LUNA (obstructive sleep apnea) Osteoarthritis Oxygen dependent Peripheral vascular disease Primary osteoarthritis of left hip Primary osteoarthritis of right hip Type 2 diabetes mellitus Urolithiasis Surgical History (Updated 08/20/20 @ 14:54 by Camron Garcia MD) History of cardiac cath Need to define if stenting was performed History of right knee joint replacement History of right knee surgery History of total right hip arthroplasty Hx of appendectomy Family History Mother Cancer Diabetes Father Cancer Social History Smoking and tobacco status: former smoker Quit status (tobacco): has quit using tobacco Year quit tobacco: 2008 [id number] Second hand smoke exposure: No Alcohol intake: never Lives independently: Yes Household members: spouse Housing: House Marital status: Current occupational status: retired History of recent travel: No Current gender identity: Female Physical Exam Const: COMMON NORMALS: alert GENERAL APPEARANCE: in distress, anxious and ill appearing ORIENTATION/CONSCIOUSNESS: Yes awake, Yes oriented to person, Yes oriented to place and Yes oriented to time HENMT: COMMON NORMALS: normocephalic, atraumatic, hearing grossly normal bilaterally, EAC's normal, TM's normal bilaterally and Normal external nose present HEAD & SCALP: normocephalic and atraumatic NOSE: Normal external nose present EXTERNAL AUDITORY CANAL: EAC's normal TYMPANIC MEMBRANE: TM's normal bilaterally Eye: COMMON NORMALS: Equal, round and reactive pupils present, EOMs intact bilaterally, conjunctivae normal and no scleral icterus CONJUNCTIVA: Yes conjunctivae normal PUPIL: Yes Equal, round and reactive pupils present Neck/C-Spine: COMMON NORMALS: full ROM, no lymphadenopathy, supple and no meningeal signs Chest: COMMONS NORMALS: normal inspection of the chest Resp: EFFORT & INSPECTION: Yes respiratory distress, Yes labored, Yes retractions, Yes uses accessory muscles and Yes audible wheezes AUSCULTATION: rhonchi, wheezes and diminished lung sounds Cardio: COMMON NORMALS: regular rhythm, S1 normal heart sound present and S2 normal heart sound present RATE: tachycardic RHYTHM: regular rhythm HEART SOUNDS: S1 normal heart sound present and S2 normal heart sound present GI: COMMON NORMALS: Normal to inspection, nondistended, normoactive bowel sounds present, Soft to palpation, non-tender, No hepatosplenomegaly present and no masses PALPATION: Yes Soft to palpation and Yes No hepatosplenomegaly present : COMMON NORMALS: Yes no CVA tenderness and Yes normal external appearance BLADDER/KIDNEY EXAM: Yes no CVA tenderness Back/Pelvis: COMMON NORMALS: no CVA tenderness, thoracic and lumbar spine normal to inspection and no thoracic nor lumbar tenderness Extremity: COMMON NORMALS: normal to inspection, full ROM, capillary refill normal, no joint enlargement, no clubbing, cyanosis or edema, no calf tenderness and no pedal edema Neuro: SENSORIUM/ORIENTATION: Yes alert, Yes oriented to person, Yes oriented to place and Yes oriented to time MENINGEAL SIGNS: Yes no meningeal signs Course Vital Signs: Vital signs: Vital Signs Temperature 98.1 F 08/20/20 20:00 Pulse Rate 96 08/20/20 22:00 Respiratory Rate 20 H 08/20/20 22:00 Blood Pressure 141/63 08/20/20 22:00 Pulse Oximetry 97 08/20/20 22:00 MDM - SOB/Dyspnea MDM Narrative: Medical decision making narrative: 1407 -patient is still significantly hypoxic after coming off BiPAP for CAT scan. She still is mildly labored. She be placed back on the BiPAP. The case was endorsed to Dr. Garcia he will come to evaluate the patient in the ER. Lab Data: Attestation: I reviewed the patient's lab results. Labs: Lab Results 08/20/20 08/20/20 08/20/20 Range/Units 11:45 11:45 11:45 WBC 9.3 (4.0-10.0) 10^3/ uL RBC 4.86 (4.1-5.3) 10^6/u L Hgb 12.1 (11.5-15.3) g/dL Hct 40.8 (37.0-47.0) % MCV 84.0 (81-99) fL MCH 24.9 L (28.0-34.0) pg MCHC 29.7 L (30.0-36.0) g/dL RDW 17.4 H (12.1-15.1) % Plt Count 445 H (130-400) 10^3/c mm MPV 10.0 (7.4-10.4) fL Neut % (Auto) 82.3 % Lymph % (Auto) 11.8 % [place] % (Auto) 4.7 % Eos % (Auto) 0.5 % Baso % (Auto) 0.3 % Neut # (Auto) 7.66 (1.8-7.7) 10^3/u L Lymph # (Auto) 1.1 (0.8-4.8) 10^3/u L [place] # (Auto) 0.4 (0.2-0.9) 10^3/u L Eos # (Auto) 0.1 (0.0-0.8) 10^3/u L Baso # (Auto) 0.0 (0.0-0.1) 10^3/u L Nucleated RBC % (a uto) 0 % Nucleated RBCs # 0.0 /100WBC PT 12.80 (12.1-14.9) SECO NDS INR 0.94 (0.8-1.2) Fibrinogen 566 H (174-498) mg/dL D-Dimer 2.42 H (0-0.59) ug/mIFE U Specimen Type Sample Site ABG pH (7.35-7.45) ABG pCO2 (35-45) mmHg ABG pO2 (80.0-100.0) mmH g ABG HCO3 (22-26) mmol/L ABG O2 Saturation ABG Base Excess (-2.0-2.0) mmol/ L Malik Test A-a O2 Gradient (5-10) mmHg Hematocrit (37-47) % Hgb O2 Saturation (95-100) % Carboxyhemoglobin (0.4-20.1) %THgb Methemoglobin (0.4-1.5) % Total Hemoglobin (12-16) g/dL Ionized Calcium (1.1-1.4) mmol/L O2 Delivery Device O2 Liters/Min % FiO2 % [employer] Operator ID Sodium 143 (136-145) mmol/L Potassium 3.7 (3.5-5.1) mmol/L Chloride 102 (98-107) mmol/L Carbon Dioxide 28 (22-29) mmol/L Anion Gap 16.7 (5-19) BUN 14 (8-23) mg/dL Creatinine 0.6 (0.5-0.9) mg/dL GFR Calculation Not Reportable Glucose 139 H (65-115) mg/dL Calculated Osmolal ity 299 H (285-295) mOsm/k g Lactic Acid (0.5-2.2) mmol/L Calcium 9.8 (8.5-10.5) mg/dL Magnesium 1.1 L (1.7-2.3) mg/dL Ferritin 26 (15-150) ng/mL Total Bilirubin 0.5 (0.15-1.2) mg/dL AST 19 (0-32) U/L ALT 13 (0-33) U/L Alkaline Phosphata se 79 (35-105) IU/L Lactate Dehydrogen ase 265 H (135-214) U/L Troponin T Baselin e (0-10) ng/L Troponin T 120 Min [place] (0-10) ng/L Delta Troponin T (0-10) ABS# C-Reactive Protein 10.4 H (0.0-4.9) mg/L NT-Pro-B Natriuret Pep 958 H (0-450) pg/mL Total Protein 7.2 (6.6-8.7) g/dL Albumin 4.0 (3.5-5.2) g/dL Globulin 3.2 (1.3-4.6) g/dL Procalcitonin 0.07 (0-0.5) ng/mL Influenza Type A A g (Negative) Influenza Type B A g (Negative) SARS-CoV-2 Ag (Rap id) (Negative) 08/20/20 08/20/20 08/20/20 Range/Units 11:45 11:45 12:00 WBC (4.0-10.0) 10^3/ uL RBC (4.1-5.3) 10^6/u L Hgb (11.5-15.3) g/dL Hct (37.0-47.0) % MCV (81-99) fL MCH (28.0-34.0) pg MCHC (30.0-36.0) g/dL RDW (12.1-15.1) % Plt Count (130-400) 10^3/c mm MPV (7.4-10.4) fL Neut % (Auto) % Lymph % (Auto) % [place] % (Auto) % Eos % (Auto) % Baso % (Auto) % Neut # (Auto) (1.8-7.7) 10^3/u L Lymph # (Auto) (0.8-4.8) 10^3/u L [place] # (Auto) (0.2-0.9) 10^3/u L Eos # (Auto) (0.0-0.8) 10^3/u L Baso # (Auto) (0.0-0.1) 10^3/u L Nucleated RBC % (a uto) % Nucleated RBCs # /100WBC PT (12.1-14.9) SECO NDS INR (0.8-1.2) Fibrinogen (174-498) mg/dL D-Dimer (0-0.59) ug/mIFE U Specimen Type Arterial Sample Site Radial, right ABG pH 7.40 (7.35-7.45) ABG pCO2 45.4 H (35-45) mmHg ABG pO2 183.0 H (80.0-100.0) mmH g ABG HCO3 27.8 H (22-26) mmol/L ABG O2 Saturation > 100.0 ABG Base Excess 2.5 H (-2.0-2.0) mmol/ L Malik Test Pos A-a O2 Gradient 62.4 H (5-10) mmHg Hematocrit 35.2 L (37-47) % Hgb O2 Saturation 98.0 (95-100) % Carboxyhemoglobin 1.5 (0.4-20.1) %THgb Methemoglobin 0.7 (0.4-1.5) % Total Hemoglobin 11.5 L (12-16) g/dL Ionized Calcium 1.2 (1.1-1.4) mmol/L O2 Delivery Device Nrb O2 Liters/Min 15.0 % FiO2 100.0 % [employer] Operator ID Bd Sodium 143.0 (136-145) mmol/L Potassium 3.8 (3.5-5.1) mmol/L Chloride (98-107) mmol/L Carbon Dioxide (22-29) mmol/L Anion Gap (5-19) BUN (8-23) mg/dL Creatinine (0.5-0.9) mg/dL GFR Calculation Glucose 128.0 H (65-115) mg/dL Calculated Osmolal ity (285-295) mOsm/k g Lactic Acid 1.4 (0.5-2.2) mmol/L Calcium (8.5-10.5) mg/dL Magnesium (1.7-2.3) mg/dL Ferritin (15-150) ng/mL Total Bilirubin (0.15-1.2) mg/dL AST (0-32) U/L ALT (0-33) U/L Alkaline Phosphata se (35-105) IU/L Lactate Dehydrogen ase (135-214) U/L Troponin T Baselin e 20 H (0-10) ng/L Troponin T 120 Min [place] (0-10) ng/L Delta Troponin T (0-10) ABS# C-Reactive Protein (0.0-4.9) mg/L NT-Pro-B Natriuret Pep (0-450) pg/mL Total Protein (6.6-8.7) g/dL Albumin (3.5-5.2) g/dL Globulin (1.3-4.6) g/dL Procalcitonin (0-0.5) ng/mL Influenza Type A A g (Negative) Influenza Type B A g (Negative) SARS-CoV-2 Ag (Rap id) (Negative) 08/20/20 08/20/20 08/20/20 Range/Units 12:08 13:59 14:00 WBC (4.0-10.0) 10^3/ uL RBC (4.1-5.3) 10^6/u L Hgb (11.5-15.3) g/dL Hct (37.0-47.0) % MCV (81-99) fL MCH (28.0-34.0) pg MCHC (30.0-36.0) g/dL RDW (12.1-15.1) % Plt Count (130-400) 10^3/c mm MPV (7.4-10.4) fL Neut % (Auto) % Lymph % (Auto) % [place] % (Auto) % Eos % (Auto) % Baso % (Auto) % Neut # (Auto) (1.8-7.7) 10^3/u L Lymph # (Auto) (0.8-4.8) 10^3/u L [place] # (Auto) (0.2-0.9) 10^3/u L Eos # (Auto) (0.0-0.8) 10^3/u L Baso # (Auto) (0.0-0.1) 10^3/u L Nucleated RBC % (a uto) % Nucleated RBCs # /100WBC PT (12.1-14.9) SECO NDS INR (0.8-1.2) Fibrinogen (174-498) mg/dL D-Dimer (0-0.59) ug/mIFE U Specimen Type Sample Site ABG pH (7.35-7.45) ABG pCO2 (35-45) mmHg ABG pO2 (80.0-100.0) mmH g ABG HCO3 (22-26) mmol/L ABG O2 Saturation ABG Base Excess (-2.0-2.0) mmol/ L Malik Test A-a O2 Gradient (5-10) mmHg Hematocrit (37-47) % Hgb O2 Saturation (95-100) % Carboxyhemoglobin (0.4-20.1) %THgb Methemoglobin (0.4-1.5) % Total Hemoglobin (12-16) g/dL Ionized Calcium (1.1-1.4) mmol/L O2 Delivery Device O2 Liters/Min % FiO2 % [employer] Operator ID Sodium (136-145) mmol/L Potassium (3.5-5.1) mmol/L Chloride (98-107) mmol/L Carbon Dioxide (22-29) mmol/L Anion Gap (5-19) BUN (8-23) mg/dL Creatinine (0.5-0.9) mg/dL GFR Calculation Glucose (65-115) mg/dL Calculated Osmolal ity (285-295) mOsm/k g Lactic Acid (0.5-2.2) mmol/L Calcium (8.5-10.5) mg/dL Magnesium (1.7-2.3) mg/dL Ferritin (15-150) ng/mL Total Bilirubin (0.15-1.2) mg/dL AST (0-32) U/L ALT (0-33) U/L Alkaline Phosphata se (35-105) IU/L Lactate Dehydrogen ase (135-214) U/L Troponin T Baselin e (0-10) ng/L Troponin T 120 Min [place] 20.15 H (0-10) ng/L Delta Troponin T 0.15 (0-10) ABS# C-Reactive Protein (0.0-4.9) mg/L NT-Pro-B Natriuret Pep (0-450) pg/mL Total Protein (6.6-8.7) g/dL Albumin (3.5-5.2) g/dL Globulin (1.3-4.6) g/dL Procalcitonin (0-0.5) ng/mL Influenza Type A A g Negative (Negative) Influenza Type B A g Negative (Negative) SARS-CoV-2 Ag (Rap id) Negative (Negative) Imaging Data^: CXR: Attestation: I personally reviewed and interpreted this imaging study as follows: My impression: COPD changes with pleural plaques unchanged from previous. EKG Data^: EKG 1: Attestation: I personally reviewed and interpreted this EKG as follows: EKG Interpretation Date: 08/20/20 EKG interpretation time: 11:57 Interpretation: Normal sinus rhythm at 84 beats a minute, normal axis, no blocks, normal intervals, biphasic T waves in V3 with T wave inversions V4 through V6. EKG 2: Attestation: I personally reviewed and interpreted this EKG as follows: EKG Interpretation Date: 08/20/20 EKG interpretation time: 14:06 Interpretation: Normal sinus rhythm at 90 beats a minute, normal axis, no blocks, normal intervals. Biphasic T waves in V3 with T wave inversions V4 through V6 unchanged from previous today. Discharge Plan Discharge Patient Disposition: Admitted As Inpatient Admit Provider: Camrno Garcia Clinical Impression: Acute exacerbation of chronic obstructive airways disease Respiratory failure with hypoxia Qualifiers: Chronicity: acute on chronic Qualified Code(s): J96.21 - Acute and chronic respiratory failure with hypoxia Condition: Stable Referrals: Micky Lindo MD [Primary Care Provider] - Discharge Date/Time: 08/20/20 15:50 Coding Level of Care Code ED Portfolio Accountant for Chg Fwd Exam Comprehensive
[2020-08-20] MEDS: ondansetron 2 mg/ML SDV 2 mL 4 MG IVP (11:57)
[2020-08-20] MEDS: dexamethasone 10 mg/mL INJ IVP (11:57)
[2020-08-20] MEDS: sodium chloride 0.9% 1,000 ML 100 ML IV (11:57)
[2020-08-20 12:09] LABS: ABG PCO2 45.4 mmHg (35-45); Alveolar-Arterial Oxygen Gradi 62.4 mmHg (5-10); Arterial Blood Gas Hematocrit 35.2 % (37-47); Base Excess ABG 2.5 mmol/L (-2.0-2.0); Blood Gas Allen Test Pos; Blood Gas Operator Identificat BD; Blood Gas Sample Site Radial, right; Blood Gas Sample Type Arterial; Carboxyhemoglobin 1.5 %THgb (0.4-20.1); HCO3 ABG 27.8 mmol/L (22-26); Ionized Calcium Level - ABG 1.2 mmol/L (1.1-1.4); Methemoglobin 0.7 % (0.4-1.5); Oxygen Device NRB; Oxygen Saturation ABG > 100.0; Potassium Level - ABG 3.8 mmol/L (3.5-5.0); Total Hemoglobin 11.5 g/dL (12-16)
[2020-08-20] MEDS: ipratropium-albuterol 3 mL Neb 9 ML INHALATION (12:18)
[2020-08-20 12:20] LABS: Basophils % 0.3 %; Eosinophils # 0.1 10^3/uL (0.0-0.8); Eosinophils % 0.5 %; Hematocrit 40.8 % (37.0-47.0); Hemoglobin 12.1 g/dL (11.5-15.3); Lymphocytes # 1.1 10^3/uL (0.8-4.8); Lymphocytes % 11.8 %; Mean Corpuscular HGB Conc 29.7 g/dL (30.0-36.0); Mean Corpuscular Hemoglobin 24.9 pg (28.0-34.0); Monocytes # 0.4 10^3/uL (0.2-0.9); Monocytes % 4.7 %; Neutrophils # 7.66 10^3/uL (1.8-7.7); Neutrophils % 82.3 %; Nucleated Red Blood Cells % 0 %; Platelet Count 445 10^3/cmm (130-400); Red Blood Count 4.86 10^6/uL (4.1-5.3); Red Cell Distribution Width 17.4 % (12.1-15.1); White Blood Count 9.3 10^3/uL (4.0-10.0)
[2020-08-20 12:31] LABS: Fibrinogen 566 mg/dL (174-498); INR 0.94 (0.8-1.2)
[2020-08-20 12:31] LABS: SARS Covid-2 Antigen Negative (Negative)
[2020-08-20 12:34] LABS: D Dimer 2.42 ug/mIFEU (0-0.59)
--- NOTE | 2020-08-20 12:41 | CT_ITS ---
WS: [id number] CT CHEST ANGIOGRAPHY WITH REFORMATS HISTORY: Dyspnea, positive D-dimer TECHNIQUE: Contiguous axial images are obtained through the chest during arterial injection of intrav enous contrast. Images are reconstructed to evaluate the pulmonary arteries. MIP imaging also reviewe d. All CT scans at [facility] use at least one of these dose optimization techniques: aut omated exposure control; mA and/or kV adjustment per patient size (includes targeted exams where dose is matched to clinical indication); or iterative reconstruction. CONTRAST: Omnipaque 350; 95 mL IV. DLP: 644.19 mGy.cm COMPARISON: 07/01/2020 Good opacification of the pulmonary arteries. There are no pulmonary emboli identified. Pulmonary art angela is enlarged secondary to pulmonary hypertension. Moderate atherosclerosis aorta. Atherosclerosis extends into the great vessels. Mild enlargement of the heart chambers with coronary artery calcifica tion. Small hiatal hernia. Extensive pleural-based plaques. There is mild CHF. No focal pneumonia. Very small layering LEFT pleu ral effusion. Mild reactive adenopathy at the hilar regions is similar to the prior study. Exophytic solid-appearing mass from the mid to lower LEFT kidney measures 3.[address]/CT angio chest PE protcl [id number] IMPRESSION: 1. No pulmonary embolism. 2. Extensive pleural plaques, emphysema and mild fluid overload are stable. 3. Solid mass mid to lower pole LEFT kidney measures 3.0 x 2.7 cm. Suspicious for renal cell neoplasm. 4. Small hiatal hernia.
[2020-08-20 12:51] LABS: Lactic Sepsis W/Reflex 1.4 mmol/L (0.5-2.2)
[2020-08-20 12:52] LABS: Troponin(5th) Baseline 20 ng/L (0-10)
[2020-08-20 13:02] LABS: Alanine Aminotransferase 13 U/L (0-33); Alkaline Phosphatase 79 IU/L (35-105); Anion Gap 16.7 (5-19); Aspartate Amino Transferase 19 U/L (0-32); Blood Urea Nitrogen 14 mg/dL (8-23); Calcium 9.8 mg/dL (8.5-10.5); Carbon Dioxide 28 mmol/L (22-29); Chloride 102 mmol/L (98-107); Globulin 3.2 g/dL (1.3-4.6); Glucose 139 mg/dL (65-115); Lactate Dehydrogenase 265 U/L (135-214); Magnesium 1.1 mg/dL (1.7-2.3); NT Pro B Type Natriuretic Pept 958 pg/mL (0-450); Osmolality Calculated 299 mOsm/kg (285-295); Potassium 3.7 mmol/L (3.5-5.1); Sodium 143 mmol/L (136-145); Total Bilirubin 0.5 mg/dL (0.15-1.2); Total Protein 7.2 g/dL (6.6-8.7)
[2020-08-20 13:24] LABS: Procalcitonin 0.07 ng/mL (0-0.5)
[2020-08-20] MEDS: iohexol 350 mg/mL 100 mL Btl IV (13:26)
[2020-08-20 13:35] LABS: C Reactive Protein 10.4 mg/L (0.0-4.9); Ferritin 26 ng/mL (15-150)
--- NOTE | 2020-08-20 13:42 | ECG_ITS ---
[facility] Test Date: 2020-08-20 Pat Name: Purvi Mathis Department: Room: Gender: Female Mesmerist: : 1945 Requested By: Leida Dexter Order Number: [id number] Resendez MD: Deisy Bar M.D. Measurements Intervals [place] Rate: 90 P: 59 HI: 129 QRS: 76 QRSD: 86 T: -55 QT: 362 QTc: 444 Interpretive Statements SINUS RHYTHM POSSIBLE LEFT ATRIAL ENLARGEMENT [-0.1mV P WAVE IN V1/V2] SEPTAL MYOCARDIAL INFARCTION , OF INDETERMINATE AGE MODERATE T-WAVE ABNORMALITY, CONSIDER ANTEROLATERAL ISCHEMIA MODERATE T-WAVE ABNORMALITY, CONSIDER INFERIOR ISCHEMIA Compared to ECG 08/20/2020 11:57:54 No significant changes Electronically Signed On 08-20-2020 18:11:13 CDT by Deisy Bar M.D. [email or web address]
[2020-08-20] MEDS: magnesium sulfate premix 2 GM/50 ML PIGGYBACK IV (13:55)
--- NOTE | 2020-08-20 14:22 | P.HP_ITS ---
Providers/Chief Complaint Primary Care Provider: Micky Lindo Chief Complaint: SOB History of Present Illness Purvi Mathis is a 75 year old female that presents with at least 1 day history of significant shortness of breath. She reports some low-grade fevers at home. No nausea or vomiting. No history of positive Covid test, or personal history of Covid. No diarrhea. History is somewhat limited as she is on BiPAP. She denies any blood in her stool, black or tarry stools. She has had no chest pain. She was in the hospital with a similar presentation, around July 01. Review of Systems General: Reports: 10 or more systems reviewed and unremarkable except in HPI and below Const: Reports: fever(s) and chills Eyes: Denies: change in vision ENMT: Denies: throat pain Card: Denies: chest pain Resp: Reports: dyspnea and non-productive cough GI: Denies: abdominal pain : Denies: flank pain Musc: Denies: neck pain Skin/Breast: Denies: rash Psych: Denies: anxiety Endo: Denies: polyuria Tank/Lymph: Denies: easy bruising All/Imm: Denies: urticaria Medications/Allergies Home Medications Medication Instructions Recorded Confirmed Last Taken Type atenolol 50 mg tablet 50 mg PO DAILY 04/21/20 08/12/20 06/30/20 History atorvastatin 20 mg tablet 20 mg PO DAILY 04/21/20 08/12/20 06/30/20 History furosemide 20 mg tablet 20 mg PO QAM 04/21/20 08/12/20 06/30/20 History metformin 1,000 mg tablet 1,000 mg PO BID 04/21/20 08/12/20 06/30/20 History nitroglycerin 0.4 mg sublingual 0.4 mg SUBLINGUAL Q5M PRN 04/21/20 08/12/20 Unknown History tablet pantoprazole 40 mg tablet,delayed 40 mg PO DAILY 04/21/20 08/12/20 06/30/20 Hist ory release potassium chloride 20 mEq 20 meq PO DAILY 04/21/20 08/12/20 06/30/20 History tablet,extended release acetaminophen 1,000 mg PO Q8H #0 tab 05/19/20 08/12/20 Unknown Rx amlodipine 10 mg PO DAILY 07/01/20 08/12/20 06/30/20 History budesonide 0.5 mg INHALATION BID 07/01/20 08/12/20 06/30/20 History albuterol sulfate 2.5 mg INHALATION Q4H PRN 30 Days 07/03/20 08/12/20 Unknown Rx #15 ml albuterol sulfate 90 mcg/actuation 2 inh INHALATION Q6H PRN 30 Days 08/03/20 08/12/20 Unknown Rx breath activated powder inhaler #1 each aspirin 81 mg tablet,delayed 81 mg PO DAILY 08/03/20 08/12/20 Unknown History release umeclidinium 62.5 mcg-vilanterol 1 inh INHALATION Q24H 30 Days #60 08/03/20 08/12/20 Unknown Rx 25 mcg/actuation powdr for each inhalation Allergies Allergy/AdvReac Type Severity Reaction Status Date / Time levofloxacin Allergy ALGY-Difficulty Verified 08/12/20 10:19 Breathing PFSH Acute PFSH: Medical History (Updated 08/20/20 @ 14:43 by Camron Garcia MD) Accelerated essential hypertension Angio-edema CAD (coronary artery disease) Carotid artery disease COPD (chronic obstructive pulmonary disease) Chronically on 2 L per nasal cannula Cyst at back: removed Diabetes LUNA (obstructive sleep apnea) Osteoarthritis Oxygen dependent Peripheral vascular disease Primary osteoarthritis of left hip Primary osteoarthritis of right hip Type 2 diabetes mellitus Urolithiasis Surgical History (Updated 08/20/20 @ 14:54 by Camron Garcia MD) History of cardiac cath Need to define if stenting was performed History of right knee joint replacement History of right knee surgery History of total right hip arthroplasty Hx of appendectomy Family History Mother Cancer Diabetes Father Cancer Social History Smoking and tobacco status: former smoker Quit status (tobacco): has quit using tobacco Year quit tobacco: 2008 [id number] Second hand smoke exposure: No Alcohol intake: never Lives independently: Yes Household members: spouse Housing: House Marital status: Current occupational status: retired History of recent travel: No Current gender identity: Female Vitals/I&O/Wt Last Vital Signs Temp 98.2 F 08/20/20 11:39 Pulse 96 08/20/20 13:48 Resp 26 H 08/20/20 13:48 BP 116/63 08/20/20 13:48 Pulse Ox 92 08/20/20 13:48 Weight last 48 hrs Weight 70.76 kg Physical Exam Narrative: EXAM NARRATIVE: General exam is a white female, requiring BiPAP, on 40%, with moderate dyspnea HEENT: Pupils equally round. Oropharynx clear. Neck is supple no lymphadenopathy thyromegaly Cardiovascular regular rate and rhythm without murmur, no S3 or S4 Lungs diminished breath sounds bilaterally with a few wheezes Abdomen is soft nontender with positive bowel sounds. No obvious organomegaly was deferred Extremities show trace to 1+ edema bilaterally. Skin without rash Neuro no obvious focal deficits Data : 08/20/20 11:45 08/20/20 11:45 Micro: Microbiology 08/20/20 13:59 Blood Culture - Preliminary Blood SPECIMEN COLLECTED 08/20/20 11:45 Blood Culture - Preliminary Blood SPECIMEN COLLECTED Other data: Dimer elevated at 2.42 ABG with pH of 7.4, PCO2 45, PO2 of 183 on nonrebreather Magnesium 1.1 LDH elevated at 265, troponin at 20, CRP at 10.4, BNP at 958, pro calcitonin 1.07 TSH in June was normal Urinalysis has yet to be obtained Rapid Covid negative. Influenza negative Chest x-ray with hyperinflation, calcified pleural plaques. CTA No pulmonary embolism, question mass left kidney 3 x 2.7 cm that may require further work-up, hiatal hernia EKG demonstrated sinus rhythm, normal axis, flipped T waves V3 through 6 as well as inferiorly. No ST elevation was noted. Previous EKG in June demonstrated similar findings although T wave inversion was not as apparent in V4 through 6(m ore T wave flattening). It is more consistent with previous EKG done in 2016 A&P Assessment and plan (1) Acute exacerbation of chronic obstructive airways disease: Patient resorts symptoms for 1 day. Likely this is an acute exacerbation of COPD. IV steroids Doxycycline p.o. Chest x-ray does not appear to have pneumonia. Will provide doxycycline for concern of bronchitis CTA demonstrates no pulmonary embolism Although rapid Covid is negative other indicators such as elevated D-dimer and inflammatory levels and negative pro calcitonin are still worrisome for this. PTC Covid sent. BiPAP Note that she is on 2 L of oxygen chronically at home Status: Acute (2) Respiratory failure with hypoxia: See notations above Status: Acute Qualifiers: Chronicity: acute on chronic Qualified Code(s): J96.21 - Acute and chronic respiratory failure with hypoxia (3) CHF (congestive heart failure): Serial troponins Lasix 40 mg IV now. Reevaluate early tomorrow morning for additional need of dosage or if she can go to oral diuretic treatment. Close follow-up of electrolyte Note that recent echocardiogram at the end of June demonstrated preserved EF. Therefore this appears to be acute exacerbation of congestive heart failure, with preserved ejection fraction Status: Acute (4) Hypomagnesemia: Replace magnesium Status: Acute Additional A&P Information Type 2 diabetes. Sliding scale insulin Hypertension. Continue home medications. For this hospital stay change atenolol to metoprolol GERD. Continue proton pump inhibitor Hyperlipidemia. Continue statin Full code Lovenox will suffice for DVT prophylaxis. Await urinalysis Attestations Medical Necessity Statement*: Will need greater than 2 midnight stay for treatment of COPD exacerbation and CHF Time Spent in Patient Care: Greater than 35 minutes Coding Level of Care Code Acute Windshield Repair Technician for Trever Machado Diagnoses Acute exacerbation of chronic obstructive airways disease J44.1 Respiratory failure with hypoxia J96.21 Chronicity: acute on chronic CHF (congestive heart failure) I50.9 Hypomagnesemia E83.42
[2020-08-20 14:30] LABS: Influenza A by IFA Negative (Negative); Influenza B by IFA Negative (Negative)
[2020-08-20 14:32] LABS: Troponin 5 2HR 20.15 ng/L (0-10); Troponin 5 2HR Delta 0.15 ABS# (0-10)
[2020-08-20] MEDS: doxycycline 100 MG in sodium chloride 0.9% (plus) 100 ML IV (14:40)
[2020-08-20] MEDS: FUROsemide 10 mg/mL SDV 4mL 40 MG IVP (14:42)
[2020-08-20 16:27] LABS: Glucose Point of Care 166 mg/dL (70-110)
[2020-08-20] MEDS: doxycycline 100 mg Tablet PO (16:34)
[2020-08-20] MEDS: enoxaparin 40 mg/0.4 mL Syringe SUBCUT (16:34)
[2020-08-20] MEDS: metoprolol tartrate 25 mg Tablet PO (16:35)
--- NOTE | 2020-08-20 17:26 | PC.NURSE ---
PATIENT HAS A NOTED LEFT FACIAL DROOP BUT STATES THATS THE WAY HER FACE HAS ALWAYS BEEN. ARMS EQUAL, FAIRLY STRONG, RECIENT HIP REPLACEMENT ON RIGHT SIDE, LEFT DUE TO BE DONE SOON. GOT UP TO BSC ON 6L NC AND SATS DROPPED TO 84 , SHE RECOVERED OVER THE NEXT 3 MIN TO 92%, WILL ALLOW TO EAT SOME AND WILL REPLACE BIPAP. URINE SPECIMEN COLLECTED
[2020-08-20 17:34] LABS: Add Urine Microscopic? NO
--- NOTE | 2020-08-20 17:42 | ECG_ITS ---
[facility] Test Date: 2020-08-20 Pat Name: Purvi Mathis Department: Room: ICU01 Gender: Female Dietitian Chief: : 1945 Requested By: Leida Dexter Order Number: [id number] Mal MD: Deisy Bar M.D. Measurements Intervals [place] Rate: -1 P: TX: -1 QRS: 0 QRSD: -1 T: 0 QT: -1 QTc: Interpretive Statements SINUS RHYTHM POSSIBLE LEFT ATRIAL ENLARGEMENT [-0.1mV P WAVE IN V1/V2] SEPTAL MYOCARDIAL INFARCTION , OF INDETERMINATE AGE MODERATE T-WAVE ABNORMALITY, CONSIDER ANTEROLATERAL ISCHEMIA MODERATE T-WAVE ABNORMALITY, CONSIDER INFERIOR ISCHEMIA Compared to ECG 08/20/2020 14:06:09 No significant change Electronically Signed On 08-20-2020 23:39:16 CDT by Deisy Bar M.D. [email or web address]
[2020-08-20 17:55] LABS: Bilirubin Urine Neg (Negative); Blood Urine Neg (Negative); Glucose Urine UA Norm (Normal); Ketones Urine Negative (Negative); Nitrate Urine Negative (Negative); Protein Urine Neg (Negative); Urine Appearance Clear (CLEAR); Urine Color Straw (Yellow); pH Urine 5 (5-7)
[2020-08-20 17:58] LABS: Leukocyte Esterase Urine Negative (Negative); Urobilinogen Urine Neg (Negative)
[2020-08-20 18:45] LABS: Troponin 5 6HR 18.22 ng/L (0-10)
[2020-08-20 18:48] LABS: Troponin 5 6HR Delta -1.78 ng/L (0-12)
[2020-08-20 22:19] LABS: Glucose Point of Care 194 mg/dL (70-110)
[2020-08-21] VITALS (32 sets, daily range): BP systolic 105–151; BP diastolic 56–78; PULSE 66–128; RESP 14–33; TEMP 36.7–37.1; O2SAT 85–98
[2020-08-21] MEDS: ipratropium-albuterol 3 mL Neb INHALATION ×5 (00:13→15:38)
[2020-08-21] MEDS: budesonide 0.5 mg/2 mL Neb INHALATION ×2 (00:13→08:07)
[2020-08-21 05:59] LABS: Hematocrit 35.4 % (37.0-47.0); Hemoglobin 10.4 g/dL (11.5-15.3); Lymphocytes # 0.5 10^3/uL (0.8-4.8); Lymphocytes % 8.2 %; Mean Corpuscular HGB Conc 29.4 g/dL (30.0-36.0); Mean Corpuscular Hemoglobin 24.9 pg (28.0-34.0); Mean Corpuscular Volume 84.7 fL (81-99); Mean Platelet Volume 9.8 fL (7.4-10.4); Monocytes # 0.1 10^3/uL (0.2-0.9); Monocytes % 1.1 %; Neutrophils # 5.72 10^3/uL (1.8-7.7); Neutrophils % 90.4 %; Nucleated Red Blood Cells % 0 %; Platelet Count 362 10^3/cmm (130-400); Red Blood Count 4.18 10^6/uL (4.1-5.3); Red Cell Distribution Width 17.3 % (12.1-15.1); White Blood Count 6.3 10^3/uL (4.0-10.0)
[2020-08-21 06:25] LABS: Alanine Aminotransferase 11 U/L (0-33); Albumin Level 3.7 g/dL (3.5-5.2); Alkaline Phosphatase 68 IU/L (35-105); Anion Gap 13.8 (5-19); Aspartate Amino Transferase 16 U/L (0-32); Blood Urea Nitrogen 16 mg/dL (8-23); Calcium 9.5 mg/dL (8.5-10.5); Carbon Dioxide 28 mmol/L (22-29); Chloride 103 mmol/L (98-107); Globulin 2.8 g/dL (1.3-4.6); Glucose 187 mg/dL (65-115); Magnesium 1.6 mg/dL (1.7-2.3); Osmolality Calculated 298 mOsm/kg (285-295); Potassium 3.8 mmol/L (3.5-5.1); Sodium 141 mmol/L (136-145); Total Bilirubin 0.3 mg/dL (0.15-1.2); Total Protein 6.5 g/dL (6.6-8.7)
--- NOTE | 2020-08-21 07:39 | PM.PN ---
Subjective Subjective: Interval history: Purvi reports she feels much better. She is wondering why she had acute shortness of breath at night. Again denies any chest discomfort, nausea. Feels much better today. Denies any significant cough. Medications: Reviewed: Yes Vitals/I&O/Wt Last Vital Signs Temp 98.0 F 08/21/20 04:00 Pulse 83 08/21/20 06:00 Resp 24 H 08/21/20 06:00 BP 132/70 08/21/20 06:00 Pulse Ox 98 08/21/20 06:00 08/20/20 08/21/20 08/21/20 22:59 06:59 14:59 Intake Total 310 / 581.667 50 / 631.667 Output Total 800 / 800 200 / 1000 Balance -490 / -218.333 -150 / -368.333 Weight last 48 hrs Weight 70.443 kg Weight 70.76 kg Physical Exam Narrative: EXAM NARRATIVE: General exam is no apparent distress Cardiovascular regular rate and rhythm without murmur, no S3 or S4 Lungs diminished breath sounds bilaterally but clear Abdomen is soft nontender with positive bowel sounds. No obvious organomegaly Extremities show trace to 1+ edema bilaterally. Data : 08/21/20 05:12 08/21/20 05:12 Micro: Microbiology 08/20/20 13:59 Blood Culture - Preliminary Blood SPECIMEN COLLECTED 08/20/20 11:45 Blood Culture - Preliminary Blood SPECIMEN COLLECTED A&P Assessment and plan (1) Acute exacerbation of chronic obstructive airways disease: Reduce IV steroids Doxycycline p.o. Chest x-ray does not appear to have pneumonia. Will provide doxycycline for concern of bronchitis CTA demonstrates no pulmonary embolism Although rapid Covid is negative other indicators such as elevated D-dimer and inflammatory levels and negative pro calcitonin are still worrisome for this. PTC Covid sent and pending She has now come off BiPAP and requiring 3 L of oxygen by nasal cannula and appears stable Status: Acute (2) Respiratory failure with hypoxia: See notations above Status: Acute Qualifiers: Chronicity: acute on chronic Qualified Code(s): J96.21 - Acute and chronic respiratory failure with hypoxia (3) CHF (congestive heart failure): Serial troponins Lasix 40 mg IV every 12 hours Note that recent echocardiogram at the end of June demonstrated preserved EF. Therefore this appears to be acute exacerbation of congestive heart failure, with preserved ejection fraction EKG changes are somewhat worrisome. As she reports she had a cardiac stent in 2008 episode of acute pulmonary edema secondary to ischemia would have to be entertained. Troponins did not have significant delta. Nuclear stress test can be considered on Sunday. Status: Acute (4) Hypomagnesemia: Replace magnesium Status: Acute Additional A&P Information Type 2 diabetes. Sliding scale insulin Hypertension. Continue home medications. Continue metoprolol. Increase to 50 mg twice daily GERD. Continue proton pump inhibitor Hyperlipidemia. Continue statin Full code Lovenox will suffice for DVT prophylaxis. Urinalysis was checked and negative If remains off BiPAP can transfer out of ICU around noon. Attestations Medical Necessity Statement*: Needs continued hospitalization for evaluation, and treatment of respiratory failure. Coding Level of Care Code Acute Nurses Assistant for Tre[facility] Machado Diagnoses Acute exacerbation of chronic obstructive airways disease J44.1 Respiratory failure with hypoxia J96.21 Chronicity: acute on chronic CHF (congestive heart failure) I50.9 Hypomagnesemia E83.42
[2020-08-21] MEDS: FUROsemide 10 mg/mL SDV 4mL 40 MG IVP ×2 (08:28→21:37)
[2020-08-21] MEDS: metoprolol tartrate 50 mg Tablet PO ×2 (08:28→18:02)
[2020-08-21] MEDS: aspirin 81 mg EC Tablet PO (08:29)
[2020-08-21] MEDS: doxycycline 100 mg Tablet PO ×2 (08:29→21:38)
[2020-08-21] MEDS: pantoprazole DR 40 mg Tablet PO (08:29)
[2020-08-21] MEDS: amlodipine 10 mg Tablet PO (08:29)
[2020-08-21] MEDS: vancomycin 1,000 MG in sodium chloride 0.9% 250 ML 250 MG IV (14:55)
[2020-08-21 17:44] LABS: Glucose Point of Care 153 mg/dL (70-110)
[2020-08-21 17:44] LABS: Glucose Point of Care 207 mg/dL (70-110)
[2020-08-21 17:44] LABS: Glucose Point of Care 211 mg/dL (70-110)
[2020-08-21] MEDS: enoxaparin 40 mg/0.4 mL Syringe SUBCUT (18:01)
--- NOTE | 2020-08-21 18:36 | PC.NURSE ---
pt transferred to med-surg floor room 253 via wheelchair. O2 at 6L via NC. No c/o voiced. Nursing staff aware of pt arrival.
[2020-08-21 21:35] LABS: Glucose Point of Care 163 mg/dL (70-110)
[2020-08-22] VITALS (8 sets, daily range): BP systolic 136–152; BP diastolic 74–82; PULSE 74–88; RESP 16–23; TEMP 36.6–37.1; O2SAT 91–97
[2020-08-22 04:22] LABS: D Dimer 1.75 ug/mIFEU (0-0.59)
[2020-08-22 05:12] LABS: Basophils % 0.1 %; Hematocrit 35.7 % (37.0-47.0); Hemoglobin 10.5 g/dL (11.5-15.3); Lymphocytes # 0.5 10^3/uL (0.8-4.8); Lymphocytes % 3.3 %; Mean Corpuscular HGB Conc 29.4 g/dL (30.0-36.0); Mean Corpuscular Hemoglobin 24.8 pg (28.0-34.0); Mean Corpuscular Volume 84.4 fL (81-99); Mean Platelet Volume 9.9 fL (7.4-10.4); Monocytes # 0.5 10^3/uL (0.2-0.9); Monocytes % 3.5 %; Neutrophils # 13.67 10^3/uL (1.8-7.7); Neutrophils % 92.8 %; Nucleated Red Blood Cells % 0 %; Platelet Count 379 10^3/cmm (130-400); Red Blood Count 4.23 10^6/uL (4.1-5.3); Red Cell Distribution Width 17.4 % (12.1-15.1); White Blood Count 14.7 10^3/uL (4.0-10.0)
[2020-08-22] MEDS: vancomycin 1,000 MG in sodium chloride 0.9% 250 ML 250 MG IV ×2 (05:23→17:46)
--- NOTE | 2020-08-22 05:35 | PC.NURSE ---
This RN had permission from Dr. Burch to change the time on Pt's vanc due to it being late.
[2020-08-22 07:09] LABS: Glucose Point of Care 133 mg/dL (70-110)
--- NOTE | 2020-08-22 08:25 | P.PN_ITS ---
Subjective Subjective: Interval history: Purvi reports she is feeling better. She is requiring less oxygen. No chest pain. Less short of breath. Occasional cough. Medications: Reviewed: Yes Vitals/I&O/Wt Last Vital Signs Temp 98.5 F 08/22/20 04:00 Pulse 88 08/22/20 04:00 Resp 16 08/22/20 04:00 BP 136/77 08/22/20 04:00 Pulse Ox 96 08/22/20 04:00 08/21/20 08/22/20 08/22/20 22:59 06:59 14:59 Intake Total 600 / 1050 Output Total 1650 / 2300 Balance 600 / 400 -1650 / -1250 Weight last 48 hrs Weight 75.841 kg Weight 70.443 kg Weight 70.76 kg Physical Exam Narrative: EXAM NARRATIVE: General exam is no apparent distress Cardiovascular regular rate and rhythm without murmur, no S3 or S4 Lungs diminished breath sounds bilaterally but clear Abdomen is soft nontender with positive bowel sounds. No obvious organomegaly Extremities show trace edema bilaterally. Data : 08/22/20 03:50 08/21/20 05:12 Micro: Microbiology 08/21/20 13:43 Blood Culture - Preliminary Blood SPECIMEN COLLECTED 08/21/20 13:38 Blood Culture - Preliminary Blood SPECIMEN COLLECTED 08/20/20 11:45 Blood Culture - Preliminary Blood Gram positive cocci 08/20/20 13:59 Blood Culture - Preliminary Blood Gram positive cocci A&P Assessment and plan (1) Acute exacerbation of chronic obstructive airways disease: Changed to prednisone 40 mg daily Continue doxycycline p.o. Chest x-ray does not appear to have pneumonia. Will provide doxycycline for concern of bronchitis CTA demonstrates no pulmonary embolism Although rapid Covid is negative other indicators such as elevated D-dimer and inflammatory levels and negative pro calcitonin are still worrisome for this. PTC Covid sent and pending. Still awaiting this test. Dimer has decreased to 1.75. White blood cell increase attributed to steroids No need for BiPAP currently. On 5 L oxygen Status: Acute (2) Respiratory failure with hypoxia: See notations above Status: Acute Qualifiers: Chronicity: acute on chronic Qualified Code(s): J96.21 - Acute and chronic respiratory failure with hypoxia (3) CHF (congestive heart failure): Serial troponins Lasix 40 mg IV every 12 hours Await CMP today Note that recent echocardiogram at the end of June demonstrated preserved EF. Therefore this appears to be acute exacerbation of congestive heart failure, with preserved ejection fraction EKG changes are somewhat worrisome. As she reports she had a cardiac stent in 2008 episode of acute pulmonary edema secondary to ischemia would have to be entertained. Troponins did not have significant delta. Nuclear stress test can be considered when PTC Covid is negative Status: Acute (4) Hypomagnesemia: Magnesium was replaced. Recheck tomorrow Status: Acute Additional A&P Information Positive blood culture, 2 out of 4 bottles gram-positive cocci. Repeat cultures drawn. Placed on vancomycin when this result was known. She does not appear septic. Type 2 diabetes. Sliding scale insulin Hypertension. Continue home medications. Continue metoprolol. Increase to 50 mg twice daily GERD. Continue proton pump inhibitor Hyperlipidemia. Continue statin Full code Lovenox will suffice for DVT prophylaxis. Urinalysis was checked and negative If remains off BiPAP can transfer out of ICU around noon. Attestations Medical Necessity Statement*: Needs continued hospital stay, secondary to respiratory failure requiring more than baseline oxygen requirement, COPD exacerbation requiring IV steroids, pulmonary toilet Coding Level of Care Code Acute [employer] Material for [facility] Fwd Diagnoses Acute exacerbation of chronic obstructive airways disease J44.1 Respiratory failure with hypoxia J96.21 Chronicity: acute on chronic CHF (congestive heart failure) I50.9 Hypomagnesemia E83.42
[2020-08-22 08:52] LABS: C Reactive Protein 5.5 mg/L (0.0-4.9)
[2020-08-22] MEDS: pantoprazole DR 40 mg Tablet PO (09:22)
[2020-08-22] MEDS: doxycycline 100 mg Tablet PO ×2 (09:22→21:12)
[2020-08-22] MEDS: predniSONE 20 mg Tablet 40 MG PO (09:22)
[2020-08-22] MEDS: aspirin 81 mg EC Tablet PO (09:22)
[2020-08-22] MEDS: amlodipine 10 mg Tablet PO (09:22)
[2020-08-22] MEDS: metoprolol tartrate 50 mg Tablet PO ×2 (09:22→18:11)
[2020-08-22] MEDS: FUROsemide 10 mg/mL SDV 4mL 40 MG IVP ×2 (09:33→20:06)
[2020-08-22 10:31] LABS: Ferritin 28 ng/mL (15-150)
[2020-08-22 10:55] LABS: Alanine Aminotransferase 11 U/L (0-33); Albumin Level 3.7 g/dL (3.5-5.2); Alkaline Phosphatase 69 IU/L (35-105); Anion Gap 14.2 (5-19); Aspartate Amino Transferase 15 U/L (0-32); Blood Urea Nitrogen 26 mg/dL (8-23); Calcium 9.5 mg/dL (8.5-10.5); Carbon Dioxide 32 mmol/L (22-29); Chloride 104 mmol/L (98-107); Globulin 2.5 g/dL (1.3-4.6); Glucose 163 mg/dL (65-115); Osmolality Calculated 310 mOsm/kg (285-295); Potassium 4.2 mmol/L (3.5-5.1); Sodium 146 mmol/L (136-145); Total Bilirubin 0.3 mg/dL (0.15-1.2); Total Protein 6.2 g/dL (6.6-8.7)
[2020-08-22 11:13] LABS: Glucose Point of Care 172 mg/dL (70-110)
[2020-08-22 16:36] LABS: Vancomycin Trough 10.5 ug/mL (10-15)
[2020-08-22 16:48] LABS: Coronavirus Lab Test PTC Negative
[2020-08-22 16:53] LABS: Glucose Point of Care 170 mg/dL (70-110)
[2020-08-22] MEDS: enoxaparin 40 mg/0.4 mL Syringe SUBCUT (17:46)
[2020-08-22 20:55] LABS: Glucose Point of Care 146 mg/dL (70-110)
[2020-08-23] VITALS (8 sets, daily range): BP systolic 114–138; BP diastolic 62–76; PULSE 66–100; RESP 16–18; TEMP 36.4–36.8; O2SAT 93–99
[2020-08-23] MEDS: vancomycin 1,000 MG in sodium chloride 0.9% 250 ML 250 MG IV ×2 (05:40→17:43)
[2020-08-23 05:46] LABS: Basophils % 0.1 %; Eosinophils % 0.1 %; Hematocrit 37.3 % (37.0-47.0); Lymphocytes # 1.3 10^3/uL (0.8-4.8); Lymphocytes % 10.2 %; Mean Corpuscular HGB Conc 29.5 g/dL (30.0-36.0); Mean Corpuscular Volume 84.8 fL (81-99); Mean Platelet Volume 9.9 fL (7.4-10.4); Monocytes # 1.1 10^3/uL (0.2-0.9); Monocytes % 8.4 %; Neutrophils # 10.16 10^3/uL (1.8-7.7); Neutrophils % 80.6 %; Nucleated Red Blood Cells % 0 %; Platelet Count 401 10^3/cmm (130-400); Red Cell Distribution Width 17.3 % (12.1-15.1); White Blood Count 12.6 10^3/uL (4.0-10.0)
[2020-08-23 06:13] LABS: Magnesium 1.8 mg/dL (1.7-2.3)
[2020-08-23 06:15] LABS: Alanine Aminotransferase 13 U/L (0-33); Albumin Level 3.6 g/dL (3.5-5.2); Alkaline Phosphatase 61 IU/L (35-105); Anion Gap 12.6 (5-19); Aspartate Amino Transferase 18 U/L (0-32); Blood Urea Nitrogen 29 mg/dL (8-23); Calcium 9.2 mg/dL (8.5-10.5); Carbon Dioxide 32 mmol/L (22-29); Chloride 104 mmol/L (98-107); Globulin 2.9 g/dL (1.3-4.6); Glucose 118 mg/dL (65-115); Osmolality Calculated 307 mOsm/kg (285-295); Potassium 3.6 mmol/L (3.5-5.1); Sodium 145 mmol/L (136-145); Total Bilirubin 0.4 mg/dL (0.15-1.2); Total Protein 6.5 g/dL (6.6-8.7)
[2020-08-23 06:46] LABS: Glucose Point of Care 108 mg/dL (70-110)
--- NOTE | 2020-08-23 07:28 | ECG_ITS ---
[facility] Test Date: 2020-08-23 Pat Name: Purvi Mathis Department: Room: 279 Gender: Female Money Counter: Aydevlad Villegaser : 1945 Requested By: Camron Dutta Order Number: [id number] Mal MD: Destini Perez M.D. Interpretive Statements NAME OF STUDY: LEXISCAN SESTAMIBI STRESS TEST INDICATION: Chest Pain, PROCEDURE: At the baseline, the EKG revealed normal sinus rhythm with short SC interval. Diffuse nonspecific ST-T changes. The baseline blood pressure was 135/63 mm Hg with a heart rate of 77 beats/min. Lexiscan was infused over a period of 20 seconds. A total of 0.4 milligrams of Lexiscan was infused. The stress phase was continued for a total of 5 minutes. Heart rate at the end of the stress phase was 87 with a blood pressure 127/63. The EKG at the peak infusion revealed more prominent ST changes. Sestamibi was injected 20 seconds after the Lexiscan infusion. Blood pressure at the end of the recovery phase was 127/64 with a heart rate of 99 per minute. CONCLUSION: 1. No significant EKG changes with the LexiScan infusion 2. No LexiScan induced chest pain or cardiac arrhythmia 3. Normal blood pressure and heart rate response 4. Sestamibi/sestamibi perfusion scan pending; see separate report. Electronically Signed On 08-23-2020 21:52:15 CDT by Destini Perez M.D. [email or web address]
--- NOTE | 2020-08-23 09:13 | PC.RESP ---
PULMONARY REHAB INFORMATION SENT TO PATIENT.
--- NOTE | 2020-08-23 09:16 | PC.SOCIAL ---
IMM Update Pg.2 of IMM updated and reviewed with patient who verbalized understanding.
[2020-08-23] MEDS: FUROsemide 10 mg/mL SDV 4mL 40 MG IVP ×2 (10:06→20:50)
[2020-08-23] MEDS: aspirin 81 mg EC Tablet PO (10:07)
[2020-08-23] MEDS: pantoprazole DR 40 mg Tablet PO (10:07)
[2020-08-23] MEDS: doxycycline 100 mg Tablet PO ×2 (10:07→20:51)
[2020-08-23] MEDS: amlodipine 10 mg Tablet PO (10:07)
[2020-08-23] MEDS: predniSONE 20 mg Tablet 40 MG PO (10:08)
[2020-08-23] MEDS: metoprolol tartrate 50 mg Tablet PO ×2 (10:09→17:44)
[2020-08-23 10:43] LABS: Glucose Point of Care 92 mg/dL (70-110)
--- NOTE | 2020-08-23 12:08 | PM.PN ---
Subjective Subjective: Interval history: See is not complaining of shortness of breath today. Supplemental oxygen requirement is going down. She is on room air, and occasionally on 2 L. Status post stress test today. Medications: Reviewed: Yes Vitals/I&O/Wt Last Vital Signs Temp 98.1 F 08/23/20 11:30 Pulse 75 08/23/20 11:30 Resp 18 08/23/20 11:30 BP 131/74 08/23/20 11:30 Pulse Ox 97 08/23/20 11:30 08/22/20 08/23/20 08/23/20 22:59 06:59 14:59 Intake Total 890 / 1370 250 / 1620 Output Total 1900 / 1900 900 / 2800 400 / 400 Balance -1010 / -530 -650 / -1180 -400 / -400 Weight last 48 hrs Weight 74.021 kg Weight 75.841 kg Physical Exam Const: COMMON NORMALS: patient oriented x3 HENMT: COMMON NORMALS: normocephalic, atraumatic, hearing grossly normal bilaterally and external ears normal HEAD & SCALP: normocephalic and atraumatic EXTERNAL EAR: Yes external ears normal Eye: COMMON NORMALS: no scleral icterus GENERAL EYE: appearance normal, both eyes and all related structures Chest: COMMONS NORMALS: normal inspection of the chest and normal palpation of entire chest wall CHEST: Yes Symmetrical chest wall rise Resp: COMMON NORMALS: normal respiratory effort, No retractions, No use of accessory muscles and clear to auscultation bilaterally EFFORT & INSPECTION: Yes symmetric chest movement AUSCULTATION: clear to auscultation bilaterally Cardio: COMMON NORMALS: regular rate, regular rhythm, S1 normal heart sound present, S2 normal heart sound present, No gallops present (Cardio), No murmurs present (Cardio), No rub (Cardio) and Peripheral pulses 2+ throughout RATE: regular rate RHYTHM: regular rhythm HEART SOUNDS: S1 normal heart sound present and S2 normal heart sound present PERIPHERAL PULSES: Peripheral pulses 2+ throughout GI: COMMON NORMALS: Normal to inspection, nondistended, normoactive bowel sounds present, Soft to palpation, non-tender, No hepatosplenomegaly present and no masses AUSCULTATION: Yes normoactive bowel sounds PALPATION: Yes Soft to palpation and Yes No hepatosplenomegaly present RECTAL EXAM: deferred Extremity: COMMON NORMALS: no clubbing, cyanosis or edema and no pedal edema Neuro: COMMON NORMALS: patient oriented x3 Data : 08/23/20 05:21 08/23/20 05:21 Micro: Microbiology 08/20/20 11:45 Blood Culture - Preliminary Blood Coagulase negativ staphylococc 08/20/20 13:59 Blood Culture - Preliminary Blood Coagulase negativ staphylococc 08/21/20 13:43 Blood Culture - Preliminary Blood NEGATIVE TO DATE 08/21/20 13:38 Blood Culture - Preliminary Blood NEGATIVE TO DATE A&P Assessment and plan (1) Acute exacerbation of chronic obstructive airways disease: Continue prednisone 40 mg daily Continue doxycycline p.o. Chest x-ray does not appear to have pneumonia. Will provide doxycycline for concern of bronchitis CTA demonstrates no pulmonary embolism Rapid and PTC for Covid is negative White blood cell increase attributed to steroids No need for BiPAP currently. On 2 L oxygen via nasal cannula Status: Acute (2) Respiratory failure with hypoxia: See notations above Status: Acute Qualifiers: Chronicity: acute on chronic Qualified Code(s): J96.21 - Acute and chronic respiratory failure with hypoxia (3) CHF (congestive heart failure): Serial troponins Lasix 40 mg IV every 12 hours Note that recent echocardiogram at the end of June demonstrated preserved EF. Therefore this appears to be acute exacerbation of congestive heart failure, with preserved ejection fraction EKG changes are somewhat worrisome. As she reports she had a cardiac stent in 2008 episode of acute pulmonary edema secondary to ischemia would have to be entertained. Troponins did not have significant delta. Nuclear stress test can be considered when PTC Covid is negative Status: Acute (4) Hypomagnesemia: Magnesium was replaced. Recheck tomorrow Status: Acute Additional A&P Information Positive blood culture, 2 out of 4 bottles gram-positive cocci. Initially she was on vancomycin. Which was discontinued on 08/23. As repeat blood culture is negative. And prior cultures have grown coagulase-negative staph. Type 2 diabetes. Sliding scale insulin Hypertension. Continue home medications. Continue metoprolol. Continue 50 mg twice daily GERD. Continue proton pump inhibitor Hyperlipidemia. Continue statin Full code Lovenox will suffice for DVT prophylaxis. Urinalysis was checked and negative Attestations Medical Necessity Statement*: Patient needs to be in hospital for management of COPD exacerbation. Coding Level of Care Code Acute Neurosurgical Physician Assistant for [facility] Fwd Diagnoses Acute exacerbation of chronic obstructive airways disease J44.1 Respiratory failure with hypoxia J96.21 Chronicity: acute on chronic CHF (congestive heart failure) I50.9 Hypomagnesemia E83.42
[2020-08-23] MEDS: regadenoson 0.4 Mg/5 ml Syringe IVP (12:38)
[2020-08-23 16:44] LABS: Glucose Point of Care 176 mg/dL (70-110)
[2020-08-23] MEDS: enoxaparin 40 mg/0.4 mL Syringe SUBCUT (17:44)
--- NOTE | 2020-08-23 18:38 | NMCV_ITS ---
NM patricia perf SPECT r/s* [id number] Purvi Mathis Age: 75 Gender: F : 1945 Exam Date: 08/23/2020 18:38 Ordering Phys: Camron Garcia MD Technologist: JACOBO Kwok Exam Location: [facility] Indications: SOB STRESS TEST Please see separate stress test report in [facility] for full findings IMAGE PROTOCOL Rest/Stress 1 Lexiscan Day Radiopharmaceutical Dose (mCi) Administration Site Administered by Rest: Tc-99m 11.0 IV JACOBO Kwok Sestamibi Stress:Tc-99m 32.9 IV JACOBO Lopez Sestamibi Rest: 23-Aug-2020 60 Discovery 630 Stress: 23-Aug-2020 45 Discovery 630 0.4mg Lexiscan. Images obtained in supine and prone position. SPECT RESULTS Technical Quality: Good Raw Data Analysis: Breast attenuation, Subdiaphragmatic activity Image Corrections: No attenuation or motion correction applied Summed Stress Score: 0 Summed Rest Score: 1 Summed Difference Score: 0 PERFUSION FINDINGS Fairly uniform myocardial tracer uptake. Some attenuation artifacts are noted in the anteroseptal region. Increased tracer uptake in the right ventricular free wall FUNCTIONAL RESULTS (calculated via Gated SPECT) Stress Image LV EF (%): 69 Stress EDV (mL):71 TID: 1 Stress ESV (mL):22 FUNCTIONAL FINDINGS: Segmental wall motion analysis revealed a focal area of dyskinesis in the apex #1. IMPRESSIONS 1. Unremarkable myocardial perfusion imaging 2. Normal LV ejection fraction of 69%. 3. LV wall motion analysis revealing a focal area of dyskinesis in the apex, could be nonspecific 4. Normal LV volume. Low probability for coronary ischemia, based on the above findings Dr Destini Perez MD FACC (Electronically Signed) Final Date: 23 August 2020 16:40 S
[2020-08-23 20:38] LABS: Glucose Point of Care 160 mg/dL (70-110)
[2020-08-24] VITALS (8 sets, daily range): BP systolic 117–132; BP diastolic 63–70; PULSE 65–82; RESP 16–18; TEMP 36.4–37.2; O2SAT 90–98; BMI 25.5
[2020-08-24 05:24] LABS: Basophils % 0.1 %; Eosinophils # 0.1 10^3/uL (0.0-0.8); Eosinophils % 0.8 %; Hematocrit 41.3 % (37.0-47.0); Hemoglobin 12.1 g/dL (11.5-15.3); Lymphocytes % 18.3 %; Mean Corpuscular HGB Conc 29.3 g/dL (30.0-36.0); Mean Corpuscular Hemoglobin 24.6 pg (28.0-34.0); Mean Corpuscular Volume 83.9 fL (81-99); Mean Platelet Volume 9.5 fL (7.4-10.4); Monocytes # 0.9 10^3/uL (0.2-0.9); Monocytes % 8.5 %; Neutrophils # 7.73 10^3/uL (1.8-7.7); Neutrophils % 71.7 %; Nucleated Red Blood Cells % 0 %; Platelet Count 421 10^3/cmm (130-400); Red Blood Count 4.92 10^6/uL (4.1-5.3); Red Cell Distribution Width 17.1 % (12.1-15.1); White Blood Count 10.8 10^3/uL (4.0-10.0)
[2020-08-24 06:01] LABS: Anion Gap 14.5 (5-19); Blood Urea Nitrogen 23 mg/dL (8-23); Calcium 9.4 mg/dL (8.5-10.5); Carbon Dioxide 30 mmol/L (22-29); Chloride 99 mmol/L (98-107); Glucose 93 mg/dL (65-115); Osmolality Calculated 293 mOsm/kg (285-295); Potassium 3.5 mmol/L (3.5-5.1); Sodium 140 mmol/L (136-145)
--- NOTE | 2020-08-24 06:41 | PC.NURSE ---
Oxygen Patient was weaned down on her oxygen from 6L to 4L @ 0540. Her o2 was 98 at that time. Checked on patient an hour later and she was doing well. Her o2 is 97 at this time. Will continue to monitor.
[2020-08-24 06:47] LABS: Glucose Point of Care 96 mg/dL (70-110)
[2020-08-24] MEDS: doxycycline 100 mg Tablet PO (08:23)
[2020-08-24] MEDS: aspirin 81 mg EC Tablet PO (08:23)
[2020-08-24] MEDS: pantoprazole DR 40 mg Tablet PO (08:24)
[2020-08-24] MEDS: metoprolol tartrate 50 mg Tablet PO (08:24)
[2020-08-24] MEDS: amlodipine 10 mg Tablet PO (08:24)
[2020-08-24] MEDS: predniSONE 20 mg Tablet 40 MG PO (08:24)
[2020-08-24] MEDS: FUROsemide 10 mg/mL SDV 4mL 40 MG IVP (08:25)
--- NOTE | 2020-08-24 10:30 | PM.DCS ---
Discharge Providers Date of Admission: 08/20/20 14:29 Date of Discharge: August 24, 2020 Attending Provider at Admission: Camron Garcia MD Attending Provider at Discharge: Braden Rendon MD Primary Care Provider: Micky Lindo Diagnoses at Discharge Discharge Diagnosis (1) Acute exacerbation of chronic obstructive airways disease: Status: Resolved (2) Respiratory failure with hypoxia: Status: Resolved Qualifiers: Chronicity: acute on chronic Qualified Code(s): J96.21 - Acute and chronic respiratory failure with hypoxia (3) CHF (congestive heart failure): Status: Resolved (4) Hypomagnesemia: Status: Resolved Reason for Visit Reason for Visit: SOB Hospital Course Hospital Course: 5-year-old female with past medical history, COPD, chronically on 2 L home oxygen via nasal cannula, CAD s/p BMS , stent, diabetes, obstructive sleep apnea, peripheral arterial disease, was admitted with chief complaint of worsening shortness of breath of 1 day duration and low-grade fever at home, during this hospital stay she was worked up for, possible Covid pneumonia, Covid test was rapid and PTC was negative. She was managed for COPD exacerbation, she was kept on steroids, nebs, supplemental oxygen and doxycycline. She responded to the current medical management and at the time of discharge her oxygen requirement has gone down to the base line, she also received a stress test (myocardial perfusion scan) : Which was unremarkable:Low probability for coronary ischemia. CT angio chest was done: And PE was ruled out.Extensive pleural plaques, emphysema . There was incidental finding of Solid mass mid to lower pole LEFT kidney measures 3.0 x 2.7 cm. Suspicious for renal cell neoplasm. She will follow urology and oncology as an outpatient for further work-up. Blood culture during the hospital grew gram-positive cocci: Was initially kept on vancomycin which was later discontinued as, the final culture grew coagulase negative staph likely contaminant. At the time of discharge patient is in stable condition. Physical Exam Const: COMMON NORMALS: patient oriented x3 HENMT: COMMON NORMALS: normocephalic, atraumatic, hearing grossly normal bilaterally and external ears normal HEAD & SCALP: normocephalic and atraumatic EXTERNAL EAR: Yes external ears normal Eye: COMMON NORMALS: no scleral icterus GENERAL EYE: appearance normal, both eyes and all related structures Chest: COMMONS NORMALS: normal inspection of the chest and normal palpation of entire chest wall CHEST: Yes Symmetrical chest wall rise Resp: COMMON NORMALS: normal respiratory effort, No retractions, No use of accessory muscles and clear to auscultation bilaterally EFFORT & INSPECTION: Yes symmetric chest movement AUSCULTATION: clear to auscultation bilaterally OTHER: Decreased air entry bilaterally. No wheezing no rhonchi, no crackles. Cardio: COMMON NORMALS: regular rate, regular rhythm, S1 normal heart sound present, S2 normal heart sound present, No gallops present (Cardio), No murmurs present (Cardio), No rub (Cardio) and Peripheral pulses 2+ throughout RATE: regular rate RHYTHM: regular rhythm HEART SOUNDS: S1 normal heart sound present and S2 normal heart sound present PERIPHERAL PULSES: Peripheral pulses 2+ throughout GI: COMMON NORMALS: Normal to inspection, nondistended, normoactive bowel sounds present, Soft to palpation, non-tender, No hepatosplenomegaly present and no masses AUSCULTATION: Yes normoactive bowel sounds PALPATION: Yes Soft to palpation and Yes No hepatosplenomegaly present RECTAL EXAM: deferred Extremity: COMMON NORMALS: no clubbing, cyanosis or edema and no pedal edema Neuro: COMMON NORMALS: patient oriented x3 Discharge Data Data Completed and Pending: Completed Studies During Hospitalization Category Date Time Status CT angio chest PE protcl [id number] Stat Cat Scan 08/20/20 12:[address] MIBI [Sestamibi Stress Test Reque st Exams 08/23/20 07:28 Completed ] Routine XR chest 1V rylee ble [id number] Stat Exams 08/20/20 11:41 Completed NM patricia perf SPECT r/s* [id number] Routin e Nuc Med 08/23/20 18:38 Completed Pending at discharge Category Date Time Status Sestamibi Stress Test Request Routi ne Exams 08/22/20 18:38 Ordered Blood Culture Sta t Lab 08/20/20 13:59 Results Blood Culture Sta t Lab 08/21/20 13:43 Results Labs from last 24 hours 08/24/20 08/24/20 08/24/20 06:42 05:09 05:09 WBC 10.8 H RBC 4.92 Hgb 12.1 Hct 41.3 MCV 83.9 MCH 24.6 L MCHC 29.3 L RDW 17.1 H Plt Count 421 H MPV 9.5 Neut % (Auto) 71.7 Lymph % (Auto) 18.3 [place] % (Auto) 8.5 Eos % (Auto) 0.8 Baso % (Auto) 0.1 Neut # (Auto) 7.73 H Lymph # (Auto) 2.0 [place] # (Auto) 0.9 Eos # (Auto) 0.1 Baso # (Auto) 0.0 Nucleated RBC % (a uto) 0 Nucleated RBCs # 0.0 Sodium 140 Potassium 3.5 Chloride 99 Carbon Dioxide 30 H Anion Gap 14.5 BUN 23 Creatinine 0.8 GFR Calculation Not Reportable Glucose 93 POC Glucose 96 Calculated Osmolal ity 293 Calcium 9.4 08/23/20 08/23/20 08/23/20 20:22 16:40 10:29 WBC RBC Hgb Hct MCV MCH MCHC RDW Plt Count MPV Neut % (Auto) Lymph % (Auto) [place] % (Auto) Eos % (Auto) Baso % (Auto) Neut # (Auto) Lymph # (Auto) [place] # (Auto) Eos # (Auto) Baso # (Auto) Nucleated RBC % (a uto) Nucleated RBCs # Sodium Potassium Chloride Carbon Dioxide Anion Gap BUN Creatinine GFR Calculation Glucose POC Glucose 160 176 92 Calculated Osmolal ity Calcium Vitals: Last Vital Signs Temp 98.1 F 08/24/20 08:00 Pulse 77 08/24/20 09:04 Resp 17 08/24/20 09:04 BP 127/64 08/24/20 08:00 Pulse Ox 95 08/24/20 09:04 Discharge Plan Discharge Patient Disposition: Home Condition: Stable Prescriptions: New metoprolol succinate 100 mg tablet extended release 24 hr 100 mg PO DAILY Qty: 30 RF: 0 Medrol (Mitchell) 4 mg tablets,dose pack See Rx Instructions .ROUTE .COMPLEX Qty: 21 RF: 0 Continued atorvastatin 20 mg tablet 20 mg PO DAILY RF: 0 furosemide 20 mg tablet 20 mg PO QAM RF: 0 metformin 1,000 mg tablet 1,000 mg PO BID RF: 0 nitroglycerin [Nitrostat] 0.4 mg tablet, sublingual 0.4 mg SUBLINGUAL Q5M PRN (Reason: Chest Pain) RF: 0 pantoprazole 40 mg tablet,delayed release (DR/EC) 40 mg PO DAILY RF: 0 potassium chloride 20 mEq tablet extended release 20 meq PO DAILY RF: 0 aspirin [Adult Low Dose Aspirin] 81 mg tablet,delayed release (DR/EC) 81 mg PO DAILY RF: 0 Anoro Ellipta 62.5-25 mcg/actuation blister with device 1 inh INHALATION Q24H 30 Days Qty: 60 RF: 3 albuterol sulfate 90 mcg/actuation aerosol powdr breath activated 2 inh INHALATION Q6H PRN (Reason: shortness of breath or wheezing) 30 Days Qty: 1 RF: 3 amlodipine 10 mg Tablet 10 mg PO DAILY RF: 0 budesonide 0.5 mg/2 mL Suspension For Nebulization 0.5 mg INHALATION BID RF: 0 albuterol sulfate 2.5 mg /3 mL (0.083 %) solution for nebulization 2.5 mg INHALATION Q4H PRN (Reason: Shortness Of Breath Or Wheezing) 30 Days Qty: 15 RF: 0 Discontinued atenolol 50 mg tablet 50 mg PO DAILY RF: 0 acetaminophen 500 mg Tablet 1,000 mg PO Q8H Qty: 0 RF: 0 Discharge Orders: Discharge Order (Routine); Ordered 08/24/20 Ordered By: Braden Rendon Referrals: Guevara Ordonez MD [Physician] - 2 weeks Rohan Beasley MD [Hospitalist] - 2 weeks Tesfaye Colón MD [Physician] - 09/07/20 2:45 pm Micky Lindo MD [Primary Care Provider] - 09/02/20 10:30 am Deisy Bar MD [Physician] - 09/07/20 1:00 pm Discharge Diet: Diabetic and Low Salt Discharge Activity: Resume usual activity Discharge Attestations Time Spent in Discharge Care*: greater than 30 min Specific Discharge Activities: Specific discharge activities: educating patient, educating and/or supporting family/caregiver, discussing with pcp/other providers, discussing with welfare case worker/social workers/dc planners, documenting/other paperwork and evaluating patient/reviewing data Status at Discharge: Cognitive status at discharge: cognitively intact, Behavioral status at discharge: cooperative, Functional status at discharge: independent ambulation Overall status at discharge: patient is back to baseline Quality Metrics Clinical Quality Measures During this hospital stay, did patient experience: None Coding Level of Care Code Acute Apprentice Lineman [facility] Fwd Exam Comprehensive Diagnoses Acute exacerbation of chronic obstructive airways disease J44.1 Respiratory failure with hypoxia J96.21 Chronicity: acute on chronic CHF (congestive heart failure) I50.9 Hypomagnesemia E83.42
[2020-08-24 11:25] LABS: Glucose Point of Care 183 mg/dL (70-110)
--- NOTE | 2020-08-24 13:39 | PC.NURSE ---
Reviewed patient discharge with patient. Reinforced importance of keeping appointments with physicians. Patient verbalized understanding.
== END 2020-08-24 14:00 | disposition home or self-care (01) | DRG 291 ==
LOC: ER 14:08 → ICU 14:39 → MEDSURG 08-21 18:31
PROVIDERS: Admitting Provider Internal Medicine; Emergency Provider Emergency Medicine; PCP Family Medicine; Visit Provider Internal Medicine
DX: I11.0 Hypertensive heart disease with heart failure (principal); J96.21 Acute and chronic respiratory failure with hypoxia; J44.1 Chronic obstructive pulmonary disease with (acute) exacerbation; E83.42 Hypomagnesemia; I50.33 Acute on chronic diastolic (congestive) heart failure; Z99.81 Dependence on supplemental oxygen; I25.10 Atherosclerotic heart disease of native coronary artery without angina pectoris; Z95.5 Presence of coronary angioplasty implant and graft; E11.9 Type 2 diabetes mellitus without complications; G47.33 Obstructive sleep apnea (adult) (pediatric); Z20.828 Contact with and (suspected) exposure to other viral communicable diseases; Z79.82 Long term (current) use of aspirin; Z79.84 Long term (current) use of oral hypoglycemic drugs; M19.90 Unspecified osteoarthritis, unspecified site; M16.0 Bilateral primary osteoarthritis of hip; Z96.641 Presence of right artificial hip joint; Z96.651 Presence of right artificial knee joint; K21.9 Gastro-esophageal reflux disease without esophagitis; E78.5 Hyperlipidemia, unspecified
CPT/HCPCS: 12345; 36415; 36416; 36600; 71045; 71275; 78452; 80048; 80051; 80053; 80202; 81003; 82728; 82810; 82962; 83605; 83615; 83735; 83880; 83986; 84145; 84484; 85025; 85378; 85384; 85610; 86140; 87040; 87077; 87186; 87205; 87426; 87635; 87804; 93005; 93017; 94640; 94660; 96372; 96375; 99284; A9500; J1100; J1650; J1815; J1940; J2405; J2785; J2930; J3370; J3475; J3490; J7030; J7050; J7512; J7626; Q9967

== ENCOUNTER 2020-09-08 10:11 | Outpatient (CLI) | payer MEDICARE, SELFPAY ==
[2020-09-08 12:15] VITALS: BP 126/66
== END 2020-09-08 10:12 | disposition home or self-care (01) ==
PROVIDERS: PCP Family Medicine; Visit Provider Internal Medicine Critical Care Medicine
DX: J44.9 Chronic obstructive pulmonary disease, unspecified (principal)
CPT/HCPCS: 94618

== ENCOUNTER 2020-09-08 11:00 | Outpatient (CLI) | payer MEDICARE, SELFPAY | END 2020-09-08 11:01 | disposition home or self-care (01) | LOC: SLEEP 09-09 10:34 | PROVIDERS: PCP Family Medicine; Visit Provider Internal Medicine Critical Care Medicine | DX: J44.9 Chronic obstructive pulmonary disease, unspecified (principal) | CPT/HCPCS: 94618; 94762 ==

== ENCOUNTER 2020-09-24 03:35 | Inpatient (IN) | payer MEDICARE, SELFPAY ==
[2020-09-24] VITALS (111 sets, daily range): BP systolic 85–177; BP diastolic 46–131; PULSE 76–162; RESP 14–36; TEMP 36.7–37.9; O2SAT 60–100; BMI 24.3
--- NOTE | 2020-09-24 03:36 | XR_ITS ---
WS: [id number] Exam: XR chest 1V portable [id number] Date/Time of Exam: 09/24/2020 3:40 AM Reason For Exam: Dyspnea Comparison 08/20/2020. The lungs are fully expanded. No consolidating infiltrates. Extensive bilateral calcified pleural josé luis que formation with calcified granulomas in the mediastinum and both lungs. There are also extensive b ilateral calcified diaphragmatic plaques. No pneumothorax. Normal cardiomediastinal structures and [place] elements. XR/XR chest 1V portable [id number] IMPRESSION: 1. Pulmonary hyperinflation. No acute infiltrate noted. 2. Extensive calcified granulomatous disease with calcified pleural and diaphra gmatic plaques. The appearance is nonspecific however exposure to asbestos or t alc might be considered.
--- NOTE | 2020-09-24 03:37 | ECG_ITS ---
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 Measurements Intervals [place] Rate: 131 P: 66 ND: 134 QRS: 82 QRSD: 82 T: 270 QT: 275 QTc: 407 Interpretive Statements SINUS TACHYCARDIA ST DEVIATION AND MODERATE T-WAVE ABNORMALITY, CONSIDER LATERAL ISCHEMIA [-0.1+ mV T WAVE IN I/aVL/V5/V6] ST DEVIATION AND MODERATE T-WAVE ABNORMALITY, CONSIDER INFERIOR ISCHEMIA [-0.1+ mV T WAVE IN II/aVF] Compared to ECG 08/20/2020 18:29:08 Sinus rhythm no longer present Myocardial infarct finding no longer present T-wave abnormality still present Possible ischemia still present Electronically Signed On 09-24-2020 10:24:51 RUBBER DOWN by Deisy Bar M.D. [id number]
--- NOTE | 2020-09-24 03:44 | W.ED.SOB ---
HPI - SOB/Dyspnea General: Chief Complaint: Shortness of Breath/Dyspnea Stated Complaint: copd resp diss Time Seen by Provider: 09/24/20 03:36 Source: EMS Mode of arrival: EMS Limitations: physical limitation History of Present Illness: HPI Narrative: History of present illness extremely limited secondary to patient's respiratory distress. All information is taken from EMS. EMS reports the patient became more short of breath the night from her normal. Upon their arrival the patient had a pulse ox of 72% on the patient's normal 4 L of nasal cannula oxygen. She has a history of COPD and congestive heart failure. Patient arrives in obvious respiratory distress. EMS placed her on a 15 L nonrebreather in route to the hospital to maintain oxygenation above 95%. She also received 1 albuterol treatment, 1 DuoNeb treatment and 2 0.25 mg doses of terbutaline. All further information is taken from old charts. Review of Systems General: Reports: ROS unobtainable due to medical condition PFSH ED PFSH: Medical History Accelerated essential hypertension Acute exacerbation of chronic obstructive airways disease Angio-edema CAD (coronary artery disease) Carotid artery disease CHF (congestive heart failure) COPD (chronic obstructive pulmonary disease) Chronically on 2 L per nasal cannula Cyst at back: removed Diabetes Hypomagnesemia LUNA (obstructive sleep apnea) Osteoarthritis Oxygen dependent Peripheral vascular disease Primary osteoarthritis of left hip Primary osteoarthritis of right hip Respiratory failure with hypoxia Type 2 diabetes mellitus Urolithiasis Surgical History History of cardiac cath Need to define if stenting was performed History of right knee joint replacement History of right knee surgery History of total right hip arthroplasty Hx of appendectomy Family History Mother Cancer Diabetes Father Cancer Social History Smoking and tobacco status: former smoker Quit status (tobacco): has quit using tobacco Year quit tobacco: 2008 [id number] Second hand smoke exposure: No Alcohol intake: never Lives independently: Yes Household members: spouse Housing: House Marital status: Current occupational status: retired History of recent travel: No Current gender identity: Female Female Reproductive History: Date of last menstrual period: 11/05/83 Physical Exam Const: COMMON NORMALS: alert GENERAL APPEARANCE: in distress, anxious and frail appearing HENMT: COMMON NORMALS: normocephalic, atraumatic, external ears normal, EAC's normal and Normal external nose present HEAD & SCALP: normal to inspection, normocephalic and atraumatic FACE & SINUS: normal facial exam and face symmetric NOSE: Normal external nose present and Normal nares present EXTERNAL EAR: Yes external ears normal EXTERNAL AUDITORY CANAL: EAC's normal MOUTH: Normal oral and palatal mucosa present, lip normal and tongue normal Eye: COMMON NORMALS: Equal, round and reactive pupils present and conjunctivae normal GENERAL EYE: appearance normal, both eyes and all related structures ALIGNMENT: Yes alignment normal PERIORBITAL: periorbital findings normal EYELID: eyelids normal CONJUNCTIVA: Yes conjunctivae normal SCLERA: sclerae normal PUPIL: Yes Equal, round and reactive pupils present Neck/C-Spine: COMMON NORMALS: full ROM, no lymphadenopathy, supple, no meningeal signs and no JVD GENERAL: Yes normal visual inspection and Yes trachea midline Resp: EFFORT & INSPECTION: Yes respiratory distress, Yes labored, Yes uses accessory muscles and Yes audible wheezes AUSCULTATION: rales, rhonchi, wheezes and diminished lung sounds Cardio: COMMON NORMALS: no JVD, regular rhythm, S1 normal heart sound present and S2 normal heart sound present RATE: tachycardic RHYTHM: regular rhythm HEART SOUNDS: S1 normal heart sound present, S2 normal heart sound present, no click, no gallops, no murmurs and no rubs GI: COMMON NORMALS: Soft to palpation and No hepatosplenomegaly present PALPATION: Yes Soft to palpation, No Tenderness to palpation present (GI), No Guarding due to palpation present (GI), No Rigid due to palpation, Yes No hepatosplenomegaly present, No Hernia present, No Palpable mass present and No Pulsatile mass present : COMMON NORMALS: Yes no CVA tenderness BLADDER/KIDNEY EXAM: Yes no CVA tenderness EXTERNAL FEMALE EXAM: No Hernia present Back/Pelvis: COMMON NORMALS: no CVA tenderness, thoracic and lumbar spine normal to inspection, no thoracic nor lumbar tenderness and thoraco-lumbar ROM normal Extremity: COMMON NORMALS: normal to inspection, full ROM, capillary refill normal, no joint enlargement and no calf tenderness Neuro: MAGALY COMA SCALE: document GCS findings Magaly coma scale eye opening: Spontaneous Magaly coma scale verbal response: Confused Magaly coma scale motor response: Obey commands [place] coma scale total score: 14 COMMON NORMALS: CN's II-XII intact bilaterally, moves all extremities, no focal motor deficits and no sensory deficits noted SENSORIUM/ORIENTATION: Yes alert MENINGEAL SIGNS: Yes no meningeal signs Skin: COMMON NORMALS: no rashes or lesions noted, turgor normal, no jaundice, no petechiae and no mottling GENERAL SKIN EXAM: no rashes or lesions noted and turgor normal Course Vital Signs: Vital signs: Vital Signs Temperature 100.3 F H 09/24/20 03:36 Pulse Rate 102 H 09/24/20 05:25 Respiratory Rate 28 H 09/24/20 05:25 Blood Pressure 89/54 09/24/20 05:25 Pulse Oximetry 96 09/24/20 05:25 MDM - SOB/Dyspnea MDM Narrative: Medical decision making narrative: 0539 -the case was reviewed with Dr. Burch, he will come to see and evaluate the patient here in the ER. Clinic at this time the patient is much improved. Her heart rate is improved, her work of breathing is improved and her ABG is mildly improved. Her fever has subsided and she is resting comfortably. He will come down to evaluate to see about how he wants to proceed with her breathing as her pH is still low but is better than previous. This time the patient's BNP is elevated but clinically she appears to have more of a COPD/infective bronchitis type of process. Lab Data: Attestation: I reviewed the patient's lab results. Labs: Lab Results 09/24/20 09/24/20 09/24/20 Range/Units 03:40 04:20 04:20 WBC 13.3 H (4.0-10.0) 10^3/ uL RBC 4.32 (4.1-5.3) 10^6/u L Hgb 10.3 L (11.5-15.3) g/dL Hct 36.1 L (37.0-47.0) % MCV 83.6 (81-99) fL MCH 23.8 L (28.0-34.0) pg MCHC 28.5 L (30.0-36.0) g/dL RDW 19.2 H (12.1-15.1) % Plt Count 441 H (130-400) 10^3/c mm MPV 9.2 (7.4-10.4) fL Neut % (Auto) 93.2 % Lymph % (Auto) 3.2 % [place] % (Auto) 2.6 % Eos % (Auto) 0.2 % Baso % (Auto) 0.2 % Neut # (Auto) 12.42 H (1.8-7.7) 10^3/u L Lymph # (Auto) 0.4 L (0.8-4.8) 10^3/u L [place] # (Auto) 0.3 (0.2-0.9) 10^3/u L Eos # (Auto) 0.0 (0.0-0.8) 10^3/u L Baso # (Auto) 0.0 (0.0-0.1) 10^3/u L Nucleated RBC % (a uto) 0 % Nucleated RBCs # 0.0 /100WBC PT (12.1-14.9) SECO NDS INR (0.8-1.2) Specimen Type Arterial Sample Site Radial, right ABG pH 7.31 L (7.35-7.45) ABG pCO2 59.4 H (35-45) mmHg ABG pO2 99.1 (80.0-100.0) mmH g ABG HCO3 29.9 H (22-26) mmol/L ABG Base Excess 2.5 H (-2.0-2.0) mmol/ L Malik Test Pos Hematocrit 33.9 L (37-47) % O2 Delivery Device Bipap Vent Mode FiO2 50.0 % Specimen Drawn By Tower Control Operator ID Harkr Sodium 145 (136-145) mmol/L Potassium 3.8 (3.5-5.1) mmol/L Chloride 105 (98-107) mmol/L Carbon Dioxide 30 H (22-29) mmol/L Anion Gap 13.8 (5-19) BUN 15 (8-23) mg/dL Creatinine 0.6 (0.5-0.9) mg/dL GFR Calculation Not Reportable Glucose 274 H (65-115) mg/dL Calculated Osmolal ity 311 H (285-295) mOsm/k g Lactic Acid (0.5-2.2) mmol/L Calcium 8.9 (8.5-10.5) mg/dL Magnesium 1.1 L (1.7-2.3) mg/dL Total Bilirubin 0.4 (0.15-1.2) mg/dL AST 18 (0-32) U/L ALT 13 (0-33) U/L Alkaline Phosphata se 77 (35-105) IU/L Troponin T Baselin e (0-10) ng/L NT-Pro-B Natriuret Pep 1705 H (0-450) pg/mL Total Protein 6.1 L (6.6-8.7) g/dL Albumin 3.5 (3.5-5.2) g/dL Globulin 2.6 (1.3-4.6) g/dL Influenza Type A A g (Negative) Influenza Type B A g (Negative) SARS-CoV-2 Ag (Rap id) (Negative) 09/24/20 09/24/20 09/24/20 Range/Units 04:20 04:20 04:20 WBC (4.0-10.0) 10^3/ uL RBC (4.1-5.3) 10^6/u L Hgb (11.5-15.3) g/dL Hct (37.0-47.0) % MCV (81-99) fL MCH (28.0-34.0) pg MCHC (30.0-36.0) g/dL RDW (12.1-15.1) % Plt Count (130-400) 10^3/c mm MPV (7.4-10.4) fL Neut % (Auto) % Lymph % (Auto) % [place] % (Auto) % Eos % (Auto) % Baso % (Auto) % Neut # (Auto) (1.8-7.7) 10^3/u L Lymph # (Auto) (0.8-4.8) 10^3/u L [place] # (Auto) (0.2-0.9) 10^3/u L Eos # (Auto) (0.0-0.8) 10^3/u L Baso # (Auto) (0.0-0.1) 10^3/u L Nucleated RBC % (a uto) % Nucleated RBCs # /100WBC PT 13.60 (12.1-14.9) SECO NDS INR 1.01 (0.8-1.2) Specimen Type Sample Site ABG pH (7.35-7.45) ABG pCO2 (35-45) mmHg ABG pO2 (80.0-100.0) mmH g ABG HCO3 (22-26) mmol/L ABG Base Excess (-2.0-2.0) mmol/ L Malik Test Hematocrit (37-47) % O2 Delivery Device Vent Mode FiO2 % Specimen Drawn By Tower Control Operator ID Sodium (136-145) mmol/L Potassium (3.5-5.1) mmol/L Chloride (98-107) mmol/L Carbon Dioxide (22-29) mmol/L Anion Gap (5-19) BUN (8-23) mg/dL Creatinine (0.5-0.9) mg/dL GFR Calculation Glucose (65-115) mg/dL Calculated Osmolal ity (285-295) mOsm/k g Lactic Acid 2.4 H (0.5-2.2) mmol/L Calcium (8.5-10.5) mg/dL Magnesium (1.7-2.3) mg/dL Total Bilirubin (0.15-1.2) mg/dL AST (0-32) U/L ALT (0-33) U/L Alkaline Phosphata se (35-105) IU/L Troponin T Baselin e 32 H (0-10) ng/L NT-Pro-B Natriuret Pep (0-450) pg/mL Total Protein (6.6-8.7) g/dL Albumin (3.5-5.2) g/dL Globulin (1.3-4.6) g/dL Influenza Type A A g (Negative) Influenza Type B A g (Negative) SARS-CoV-2 Ag (Rap id) (Negative) 09/24/20 09/24/20 09/24/20 Range/Units 04:41 04:41 04:49 WBC (4.0-10.0) 10^3/ uL RBC (4.1-5.3) 10^6/u L Hgb (11.5-15.3) g/dL Hct (37.0-47.0) % MCV (81-99) fL MCH (28.0-34.0) pg MCHC (30.0-36.0) g/dL RDW (12.1-15.1) % Plt Count (130-400) 10^3/c mm MPV (7.4-10.4) fL Neut % (Auto) % Lymph % (Auto) % [place] % (Auto) % Eos % (Auto) % Baso % (Auto) % Neut # (Auto) (1.8-7.7) 10^3/u L Lymph # (Auto) (0.8-4.8) 10^3/u L [place] # (Auto) (0.2-0.9) 10^3/u L Eos # (Auto) (0.0-0.8) 10^3/u L Baso # (Auto) (0.0-0.1) 10^3/u L Nucleated RBC % (a uto) % Nucleated RBCs # /100WBC PT (12.1-14.9) SECO NDS INR (0.8-1.2) Specimen Type Arterial Sample Site Brachial, left ABG pH 7.32 L (7.35-7.45) ABG pCO2 57.8 H (35-45) mmHg ABG pO2 88.2 (80.0-100.0) mmH g ABG HCO3 29.5 H (22-26) mmol/L ABG Base Excess 2.5 H (-2.0-2.0) mmol/ L Malik Test N/a Hematocrit 30.2 L (37-47) % O2 Delivery Device Bipap Vent Mode bipap FiO2 45.0 % Specimen Drawn By harkr Tower Control Operator ID Harkr Sodium (136-145) mmol/L Potassium (3.5-5.1) mmol/L Chloride (98-107) mmol/L Carbon Dioxide (22-29) mmol/L Anion Gap (5-19) BUN (8-23) mg/dL Creatinine (0.5-0.9) mg/dL GFR Calculation Glucose (65-115) mg/dL Calculated Osmolal ity (285-295) mOsm/k g Lactic Acid (0.5-2.2) mmol/L Calcium (8.5-10.5) mg/dL Magnesium (1.7-2.3) mg/dL Total Bilirubin (0.15-1.2) mg/dL AST (0-32) U/L ALT (0-33) U/L Alkaline Phosphata se (35-105) IU/L Troponin T Baselin e (0-10) ng/L NT-Pro-B Natriuret Pep (0-450) pg/mL Total Protein (6.6-8.7) g/dL Albumin (3.5-5.2) g/dL Globulin (1.3-4.6) g/dL Influenza Type A A g Negative (Negative) Influenza Type B A g Negative (Negative) SARS-CoV-2 Ag (Rap id) Negative (Negative) Imaging Data^: CXR: Attestation: I personally reviewed and interpreted this imaging study as follows: My impression: Stable chronic pulmonary disease with pleural plaques. EKG Data^: EKG 1: Attestation: I personally reviewed and interpreted this EKG as follows: EKG Interpretation Date: 09/24/20 EKG interpretation time: 03:38 Interpretation: Sinus tachycardia to 131 beats a minute, nonspecific ST and T wave changes, similar to previous. EKG 2: Attestation: I personally reviewed and interpreted this EKG as follows: EKG Interpretation Date: 09/24/20 EKG interpretation time: 05:12 Interpretation: Sinus tachycardia 108 beats a minute, normal axis, no blocks, normal intervals, nonspecific ST-T wave changes. Unchanged from previous. Discharge Plan Discharge Patient Disposition: Admitted As Inpatient Clinical Impression: Sepsis, Acute exacerbation of chronic obstructive pulmonary disease, Acute hypercapnic respiratory failure, COPD with hypoxia Condition: Stable Prescriptions: No Action Trelegy Ellipta 100-62.5-25 mcg blister with device 1 inh INHALATION Q24H 30 Days Qty: 60 RF: 3 nitroglycerin [Nitrostat] 0.4 mg tablet, sublingual 0.4 mg SUBLINGUAL Q5M PRN (Reason: Chest Pain) Qty: 25 RF: 6 atorvastatin 20 mg tablet 20 mg PO DAILY RF: 0 furosemide 20 mg tablet 20 mg PO QAM RF: 0 metformin 1,000 mg tablet 1,000 mg PO BID RF: 0 pantoprazole 40 mg tablet,delayed release (DR/EC) 40 mg PO DAILY RF: 0 potassium chloride 20 mEq tablet extended release 20 meq PO DAILY RF: 0 aspirin [Adult Low Dose Aspirin] 81 mg tablet,delayed release (DR/EC) 81 mg PO DAILY RF: 0 Anoro Ellipta 62.5-25 mcg/actuation blister with device 1 inh INHALATION Q24H 30 Days Qty: 60 RF: 3 amlodipine 10 mg Tablet 10 mg PO DAILY RF: 0 budesonide 0.5 mg/2 mL Suspension For Nebulization 0.5 mg INHALATION BID RF: 0 Referrals: Micky Lindo MD [Primary Care Provider] - Coding Level of Care Code ED Wagon Washer for Chg Fwd Exam Comprehensive
[2020-09-24 03:50] LABS: ABG PCO2 59.4 mmHg (35-45); ABG PH Result 7.31 (7.35-7.45); Arterial Blood Gas Hematocrit 33.9 % (37-47); Base Excess ABG 2.5 mmol/L (-2.0-2.0); Blood Gas Allen Test Pos; Blood Gas Sample Type Arterial; HCO3 ABG 29.9 mmol/L (22-26); PO2 ABG 99.1 mmHg (80.0-100.0)
[2020-09-24 03:51] LABS: Blood Gas Operator Identificat HARKR; Blood Gas Sample Site Radial, right; Oxygen Device BIPAP
[2020-09-24] MEDS: ipratropium-albuterol 3 mL Neb 9 ML INHALATION (04:00)
[2020-09-24] MEDS: ondansetron 2 mg/ML SDV 2 mL 4 MG IVP (04:11)
[2020-09-24] MEDS: piperacillin-tazobactam 3.375 GM in sodium chloride 0.9% (plus) 50 ML IV ×3 (04:22→17:06)
[2020-09-24 04:31] LABS: Basophils % 0.2 %; Eosinophils % 0.2 %; Hematocrit 36.1 % (37.0-47.0); Hemoglobin 10.3 g/dL (11.5-15.3); Lymphocytes # 0.4 10^3/uL (0.8-4.8); Lymphocytes % 3.2 %; Mean Corpuscular HGB Conc 28.5 g/dL (30.0-36.0); Mean Corpuscular Hemoglobin 23.8 pg (28.0-34.0); Mean Corpuscular Volume 83.6 fL (81-99); Mean Platelet Volume 9.2 fL (7.4-10.4); Monocytes # 0.3 10^3/uL (0.2-0.9); Monocytes % 2.6 %; Neutrophils # 12.42 10^3/uL (1.8-7.7); Neutrophils % 93.2 %; Nucleated Red Blood Cells % 0 %; Platelet Count 441 10^3/cmm (130-400); Red Blood Count 4.32 10^6/uL (4.1-5.3); Red Cell Distribution Width 19.2 % (12.1-15.1); White Blood Count 13.3 10^3/uL (4.0-10.0)
[2020-09-24] MEDS: sodium chloride 0.9% 1,000 ML 999 ML IV ×2 (04:32→06:51)
[2020-09-24 04:45] LABS: INR 1.01 (0.8-1.2)
[2020-09-24 04:53] LABS: Lactic Sepsis W/Reflex 2.4 mmol/L (0.5-2.2)
[2020-09-24 04:56] LABS: Troponin(5th) Baseline 32 ng/L (0-10)
[2020-09-24 05:01] LABS: Blood Gas Sample Site Brachial, left; Oxygen Device BIPAP
[2020-09-24 05:02] LABS: Blood Gas Vent Mode bipap
[2020-09-24 05:05] LABS: Alanine Aminotransferase 13 U/L (0-33); Albumin Level 3.5 g/dL (3.5-5.2); Alkaline Phosphatase 77 IU/L (35-105); Anion Gap 13.8 (5-19); Aspartate Amino Transferase 18 U/L (0-32); Blood Urea Nitrogen 15 mg/dL (8-23); Calcium 8.9 mg/dL (8.5-10.5); Carbon Dioxide 30 mmol/L (22-29); Chloride 105 mmol/L (98-107); Globulin 2.6 g/dL (1.3-4.6); Glucose 274 mg/dL (65-115); Magnesium 1.1 mg/dL (1.7-2.3); NT Pro B Type Natriuretic Pept 1705 pg/mL (0-450); Osmolality Calculated 311 mOsm/kg (285-295); Potassium 3.8 mmol/L (3.5-5.1); Sodium 145 mmol/L (136-145); Total Bilirubin 0.4 mg/dL (0.15-1.2); Total Protein 6.1 g/dL (6.6-8.7)
[2020-09-24 05:08] LABS: Influenza A by IFA Negative (Negative); Influenza B by IFA Negative (Negative); SARS Covid-2 Antigen Negative (Negative)
--- NOTE | 2020-09-24 05:23 | P.HP_ITS ---
Providers/Chief Complaint Primary Care Provider: Micky Lindo Chief Complaint: copd resp diss History of Present Illness Purvi Mathis is a 75 year old female who has history of asbestos exposure, pleural plaques, calcification, gold D COPD, chronic hypoxic respiratory failure uses 2 to 3 L [id number], former smoker, has followed up with after recent discharge from the hospital, sees Dr. Ordonez for solid mass left kidney with suspicion for renal cell carcinoma, came in today for shortness of breath. EMS brought her to the hospital, initially thoughts were given to intubate her secondary to increased work of breathing, she perked up after getting albuterol, Solu-Medrol with nonrebreather mask which improved her hypoxia, she was saturating 72% on 2 to 3 L, after getting nonrebreather her O2 saturation improved and intubation was deferred by the EMS. On arrival to the ER she was put on BiPAP because of conversational dyspnea, initial blood gas 731/59/99 45% O2, second gas showed 732/57/88. At home patient is using Anoro, she has [id number] smoking history, no previous history of PE she carries ejection fraction of 60%. Patient is stating that she was watching television when she suddenly started n oticing shortness of breath, she is stating that this shortness of breath is different from her baseline, she did not experience any chest pain, she took her inhaler regimen at home which did not seem to improve her symptoms, she called for help, her woke up and called 911. In the emergency department she was doing well on BiPAP settings 20/10 pressure rate 12, FiO2 40% she was awake alert oriented x3 GCS 15, she was not experiencing any chest pain, abdominal pain, she was very pleasant during my evaluation, was at the bedside, both patient and endorsed full CODE STATUS, she has been given albuterol, therapeutic dose of Lovenox because of high D-dimer, CTA chest is pending, high BNP 1700, clinically she looks fluid overloaded, she was hypotensive received 1 L normal saline bolus which seemed to improve her blood pressure She meet sepsis criteria with tachypnea tachycardia low-grade fever and leukocytosis, I will start her on vancomycin and Zosyn considering multiple comorbid condition Review of Systems Const: Reports: body aches, fatigue and malaise; Denies: fever(s) Eyes: Denies: change in vision ENMT: Denies: throat pain Card: Reports: swelling of feet/ankles, dyspnea on exertion and orthopnea Resp: Reports: dyspnea GI: Denies: abdominal pain : Denies: flank pain Musc: Reports: extremity swelling; Denies: neck pain Skin/Breast: Reports: lesions Neuro: Denies: headache(s) Psych: Denies: anxiety Endo: Denies: polyuria Tank/Lymph: Denies: easy bruising All/Imm: Denies: urticaria Medications/Allergies Home Medications Medication Instructions Recorded Confirmed Last Taken Type atorvastatin 20 mg tablet 20 mg PO DAILY 04/21/20 09/07/20 06/30/20 History furosemide 20 mg tablet 20 mg PO QAM 04/21/20 09/07/20 06/30/20 History metformin 1,000 mg tablet 1,000 mg PO BID 04/21/20 09/07/20 06/30/20 History pantoprazole 40 mg tablet,delayed 40 mg PO DAILY 04/21/20 09/07/20 06/30/20 History release potassium chloride 20 mEq 20 meq PO DAILY 04/21/20 09/07/20 06/30/20 History tablet,extended release amlodipine 10 mg PO DAILY 07/01/20 09/07/20 06/30/20 History budesonide 0.5 mg INHALATION BID 07/01/20 09/07/20 06/30/20 History aspirin 81 mg tablet,delayed 81 mg PO DAILY 08/03/20 09/07/20 Unknown History release umeclidinium 62.5 mcg-vilanterol 1 inh INHALATION Q24H 30 Days #60 08/03/20 09/07/20 Unknown Rx 25 mcg/actuation powdr for each inhalation fluticasone fur. 100 mcg-umeclid 1 inh INHALATION Q24H 30 Days #60 09/06/20 09/07/20 Unknown Rx 62.5 mcg-vilant 25 mcg each inhalat.powder nitroglycerin 0.4 mg sublingual 0.4 mg SUBLINGUAL Q5M PRN #25 tab 09/08/20 09/08/20 Unknown Rx tablet Allergies Allergy/AdvReac Type Severity Reaction Status Date / Time levofloxacin Allergy ALGY-Difficulty Verified 09/06/20 11:18 Breathing PFSH Acute PFSH: Medical History Accelerated essential hypertension Acute exacerbation of chronic obstructive airways disease Angio-edema CAD (coronary artery disease) Carotid artery disease CHF (congestive heart failure) COPD (chronic obstructive pulmonary disease) Chronically on 2 L per nasal cannula Cyst at back: removed Diabetes Hypomagnesemia LUNA (obstructive sleep apnea) Osteoarthritis Oxygen dependent Peripheral vascular disease Primary osteoarthritis of left hip Primary osteoarthritis of right hip Respiratory failure with hypoxia Type 2 diabetes mellitus Urolithiasis Surgical History History of cardiac cath Need to define if stenting was performed History of right knee joint replacement History of right knee surgery History of total right hip arthroplasty Hx of appendectomy Family History Mother Cancer Diabetes Father Cancer Social History Smoking and tobacco status: former smoker Quit status (tobacco): has quit using tobacco Year quit tobacco: 2008 [id number] Second hand smoke exposure: No Alcohol intake: never Lives independently: Yes Household members: spouse Housing: House Marital status: Current occupational status: retired History of recent travel: No Current gender identity: Female Female Reproductive History: Date of last menstrual period: 11/05/83 Vitals/I&O/Wt Last Vital Signs Temp 100.3 F H 09/24/20 03:36 Pulse 112 H 09/24/20 04:40 Resp 36 H 09/24/20 04:40 BP 89/51 09/24/20 04:40 Pulse Ox 92 09/24/20 04:40 Weight last 48 hrs Weight 70.307 kg Physical Exam Narrative: EXAM NARRATIVE: Very pleasant elderly female Initially had conversational dyspnea which improved with BiPAP Currently she is on BiPAP settings 20/10 FiO2 40% respiratory 12 with good tidal volume Her work of breathing has been decreased, she is currently saturating 94% No active chest pain No cyanosis Assisted breath sounds with crackles at the bases S1, S2 sinus tachycardia noted with active signs of fluid overload Bilateral lower extremity 1+ pitting edema Appropriate mood and affect Awake alert oriented x3 GCS 15 Abdomen soft, distended, nontender Neurologically nonfocal exam EOMI, PERRLA Mild crusting of left eye Data : 09/24/20 04:20 09/24/20 04:20 Micro: Microbiology 09/24/20 04:20 Blood Culture - Preliminary Blood SPECIMEN COLLECTED 09/24/20 04:20 Blood Culture - Preliminary Blood SPECIMEN COLLECTED A&P Assessment and plan (1) Sepsis: Status: Acute Qualifiers: Sepsis acute organ dysfunction status: unspecified Sepsis type: sepsis due to unspecified organism Qualified Code(s): A41.9 - Sepsis, unspecified organism (2) Acute exacerbation of chronic obstructive pulmonary disease: Status: Acute (3) COPD with hypoxia: Status: Acute (4) Respiratory failure with hypoxia and hypercapnia: Status: Acute (5) Diabetes: Status: Acute (6) Left renal mass: Status: Acute (7) CHF exacerbation: Status: Acute Additional A&P Information Sepsis secondary to possible hospital-acquired pneumonia She had received IV antibiotics in the past 90 days, she has had multiple admissions in the past secondary to COPD Previous blood culture grew gram-positive cocci I would start her on vancomycin Zosyn and Levaquin Judicious use of fluids secondary to active CHF At home she has been taking increased dose of Lasix because of lower extremity edema We will obtain blood culture, sputum culture Acute on chronic hypoxic hypercarbic respiratory failure Most likely secondary to hospital-acquired pneumonia She has extensive pleural plaques with calcification Currently doing well on BiPAP, patient and her both endorse full CODE STATUS Her work of breathing has been decreased with use of BiPAP Plan another blood gas in 2 hours Currently her blood gases showing respiratory acidosis with hypoxia Secondary to D-dimer I would start her on therapeutic dose of Lovenox, will obtain CTA chest, previous CT chest did not reveal PE Left renal mass Case was discussed with Dr. Ordonez who had extensive discussion with the family, they decided to pursue conservative management High risk of PE Acute CHF exacerbation Clinically fluid overloaded, required 1 L normal saline because of hypotension Judicious use of fluids in setting of sepsis Hold Lasix for now Recent echo showed ejection fraction 60% with normal diastolic function pulmonary arterial pressure 33 mmHg I would not obtain another echo, I do believe this is secondary to her underlying pulmonary parenchymal disease Goals of care: Full code N.p.o. for now, can resume her diet once she is more stable and off BiPAP High risk for intubation DVT prophylaxis not needed currently she will need therapeutic dose of Lovenox Attestations Medical Necessity Statement*: Anticipating stay in the hospital course more than 2 midnights currently need ICU for respiratory acidosis acute hypoxia and sepsis Time Spent in Patient Care: (>than 50% of time spent in counselling and/or direct pt care on unit) . 50mins Coding Level of Care Code Acute Human Services Assistant for Stanleyg Fwd Diagnoses Sepsis A41.9 Sepsis acute organ dysfunction status: unspecified Sepsis type: sepsis due to unspecified organism Acute exacerbation of chronic obstructive pulmonary disease J44.1 COPD with hypoxia J44.9; R09.02 Respiratory failure with hypoxia and hypercapnia J96.91; J96.92 Diabetes E11.9 Left renal mass N28.89 CHF exacerbation I50.9
--- NOTE | 2020-09-24 05:37 | ECG_ITS ---
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 Measurements Intervals [place] Rate: 108 P: 61 TN: 120 QRS: 73 QRSD: 88 T: -47 QT: 346 QTc: 466 Interpretive Statements SINUS TACHYCARDIA LEFT ATRIAL ENLARGEMENT [-0.15mV P WAVE IN V1/V2] ST DEVIATION AND MODERATE T-WAVE ABNORMALITY, CONSIDER LATERAL ISCHEMIA [-0.1+ mV T WAVE IN I/aVL/V5/V6] ST DEVIATION AND MODERATE T-WAVE ABNORMALITY, CONSIDER INFERIOR ISCHEMIA [-0.1+ mV T WAVE IN II/aVF] Compared to ECG 09/24/2020 03:38:54 Atrial abnormality now present T-wave abnormality still present Possible ischemia still present Electronically Signed On 09-24-2020 10:27:50 STEEL CHECKER by Deisy Bar M.D. [id number] joaquin
[2020-09-24 05:42] LABS: D Dimer 2.61 ug/mIFEU (0-0.59)
[2020-09-24] MEDS: magnesium sulfate premix 2 GM/50 ML PIGGYBACK IV (05:49)
[2020-09-24] MEDS: enoxaparin 80 mg/0.8 mL Syringe 70 MG SUBCUT ×2 (05:56→17:06)
[2020-09-24 06:16] LABS: Reflex Lactate Order REFLEX LACTIC ORDERD
--- NOTE | 2020-09-24 06:48 | CT_ITS ---
WS: [id number] CT CHEST ANGIOGRAPHY WITH REFORMATS HISTORY: Pulmonary embolism. TECHNIQUE: Contiguous axial images are obtained through the chest during arterial injection of intrav enous contrast. Images are reconstructed to evaluate the pulmonary arteries. MIP imaging also reviewe d. All CT scans at [facility] use at least one of these dose optimization techniques: aut omated exposure control; mA and/or kV adjustment per patient size (includes targeted exams where dose is matched to clinical indication); or iterative reconstruction. CONTRAST: Omnipaque 350; 95 mL IV. DLP: 617.12 mGy.cm COMPARISON: 08/20/2020 Adequate opacification of the pulmonary arteries. Centrally and into the segmental branches no pulmon verónica embolism is identified. Pulmonary artery is mildly dilated. Extensive atherosclerosis aorta. No a neurysm. Heart size is normal to slightly enlarged. No pericardial effusion. Extensive pleural plaque s throughout the thorax bilaterally. Small bilateral pleural effusions have slightly increased in siz e since the prior study. Atelectasis at the lung bases. Severe changes of centrilobular emphysema. No pneumonia. Prominent mediastinal and hilar lymphoid tissue. Similar to the prior study and probably reactive. Extensive coronary artery calcifications. Splenic granulomatous. LEFT renal mass is not included on today's study. CT/CT angio chest PE protcl [id number] IMPRESSION: 1. No pulmonary embolism. 2. New very small bilateral pleural effusions, LEFT greater than RIGHT with at electasis. 3. 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 4. Prominent mediastinal and hilar lymphoid tissue may be reactive. No interva l change. 5. Severe emphysema. 6. Pulmonary hypertension.
[2020-09-24] MEDS: iohexol 350 mg/mL 100 mL Btl IV (08:01)
[2020-09-24 08:11] LABS: Lactic Acid level (Lactate) 1.4 mmol/L (0.5-2.2)
--- NOTE | 2020-09-24 09:37 | ECG_ITS ---
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 Measurements Intervals Vera Rate: 86 P: 45 FL: 112 QRS: 65 QRSD: 84 T: 246 QT: 379 QTc: 455 Interpretive Statements SINUS RHYTHM WITH SHORT FL INTERVAL POSSIBLE LEFT ATRIAL ENLARGEMENT [-0.1mV P WAVE IN V1/V2] ST DEVIATION AND MODERATE T-WAVE ABNORMALITY, CONSIDER ANTEROLATERAL ISCHEMIA [-0.1+ mV T WAVE IN V3-V6] ST DEVIATION AND MODERATE T-WAVE ABNORMALITY, CONSIDER INFERIOR ISCHEMIA [-0.1+ mV T WAVE IN II/aVF] Compared to ECG 09/24/2020 05:12:47 Short FL interval now present Sinus tachycardia no longer present T-wave abnormality still present Possible ischemia still present Electronically Signed On 09-24-2020 10:27:30 SIZER MACHINE by Deisy Bar M.D. [id number]
[2020-09-24 09:46] LABS: ABG PCO2 56.7 mmHg (35-45); ABG PH Result 7.32 (7.35-7.45); Arterial Blood Gas Hematocrit 29.7 % (37-47); Blood Gas Allen Test Pos; Blood Gas Operator Identificat CAK; Blood Gas Sample Site Brachial, left; Blood Gas Sample Type Arterial; HCO3 ABG 28.9 mmol/L (22-26); Oxygen Device BIPAP; PO2 ABG 90.4 mmHg (80.0-100.0)
[2020-09-24 09:49] LABS: ABG PCO2 57.2 mmHg (35-45); ABG PH Result 7.32 (7.35-7.45); Arterial Blood Gas Hematocrit 28.6 % (37-47); Base Excess ABG 2.6 mmol/L (-2.0-2.0); Blood Gas Allen Test Pos; Blood Gas Operator Identificat HARKR; Blood Gas Sample Type Arterial; HCO3 ABG 29.5 mmol/L (22-26); PO2 ABG 89.9 mmHg (80.0-100.0)
[2020-09-24 10:58] LABS: Procalcitonin 0.14 ng/mL (0-0.5)
[2020-09-24] MEDS: cefepime 1,000 MG in sodium chloride 0.9% (plus) 50 ML 100 MG IV ×2 (11:10→22:03)
[2020-09-24 12:27] LABS: Troponin 5 6HR 38.69 ng/L (0-10); Troponin 5 6HR Delta 6.69 ng/L (0-12)
--- NOTE | 2020-09-24 12:36 | PM.PN ---
Subjective Subjective: Interval history: Patient reports feeling better this morning. She still requires BiPAP and is on 40% FiO2 saturating in the mid 90s. She quit smoking 9 years ago. Her troponin is elevated but patient denies chest pain. Her troponin is trending down. Patient had evidence of non-ST elevation SC which appears to be of type II secondary to her acute hypoxic and hypercapnic respiratory failure. She does have evidence of heart failure which again appears to be brought by acute COPD exacerbation. Her EKG changes improved which are mostly involving the lateral leads. She is definitely a high risk for underlying coronary artery disease and will need to have further evaluation once she is optimized. Blood pressure normalized. Reports that she has chronic occasionally productive cough which is unchanged for many years. Vitals/I&O/Wt Last Vital Signs Temp 98.7 F 09/24/20 07:30 Pulse 86 09/24/20 11:45 Resp 22 H 09/24/20 11:45 BP 90/69 09/24/20 12:15 Pulse Ox 100 09/24/20 12:15 Weight last 48 hrs Weight 70.307 kg Physical Exam Const: COMMON NORMALS: no acute distress and patient oriented x3 Resp: COMMON NORMALS: normal respiratory effort and clear to auscultation bilaterally AUSCULTATION: clear to auscultation bilaterally Cardio: COMMON NORMALS: regular rate, regular rhythm and S2 normal heart sound present RATE: regular rate RHYTHM: regular rhythm HEART SOUNDS: S2 normal heart sound present OTHER: 1-2+ lower extremity edema GI: COMMON NORMALS: Normal to inspection, nondistended, normoactive bowel sounds present, Soft to palpation and non-tender PALPATION: Yes Soft to palpation Neuro: COMMON NORMALS: patient oriented x3 and no focal motor deficits Data : 09/24/20 04:20 09/24/20 04:20 Micro: Microbiology 09/24/20 04:20 Blood Culture - Preliminary Blood SPECIMEN COLLECTED 09/24/20 04:20 Blood Culture - Preliminary Blood SPECIMEN COLLECTED A&P Assessment and plan (1) Sepsis: Currently patient does not appear to have evidence of pneumonia. Status: Acute Qualifiers: Sepsis acute organ dysfunction status: unspecified Sepsis type: sepsis due to unspecified organism Qualified Code(s): A41.9 - Sepsis, unspecified organism (2) Acute exacerbation of chronic obstructive pulmonary disease: Status: Acute (3) COPD with hypoxia: Status: Acute (4) Respiratory failure with hypoxia and hypercapnia: Status: Acute (5) Diabetes: Status: Acute (6) Left renal mass: Status: Acute (7) CHF exacerbation: Status: Acute (8) Non-ST elevation SC (NSTEMI): Appears to be type II. Status: Acute (9) Mediastinal lymphadenopathy: And hilar lymphadenopathy. Status: Acute Additional A&P Information Sepsis secondary to possible hospital-acquired pneumonia She had received IV antibiotics in the past 90 days, she has had multiple admissions in the past secondary to COPD Previous blood culture grew gram-positive cocci I would start her on vancomycin Zosyn and Levaquin Judicious use of fluids secondary to active CHF At home she has been taking increased dose of Lasix because of lower extremity edema We will obtain blood culture, sputum culture Acute on chronic hypoxic hypercarbic respiratory failure Most likely secondary to hospital-acquired pneumonia She has extensive pleural plaques with calcification Currently doing well on BiPAP, patient and her both endorse full CODE STATUS Her work of breathing has been decreased with use of BiPAP Plan another blood gas in 2 hours Currently her blood gases showing respiratory acidosis with hypoxia Secondary to D-dimer I would start her on therapeutic dose of Lovenox, will obtain CTA chest, previous CT chest did not reveal PE Left renal mass Case was discussed with Dr. Ordonez who had extensive discussion with the family, they decided to pursue conservative management High risk of PE Acute CHF exacerbation Clinically fluid overloaded, required 1 L normal saline because of hypotension Judicious use of fluids in setting of sepsis Hold Lasix for now Recent echo showed ejection fraction 60% with normal diastolic function pulmonary arterial pressure 33 mmHg I would not obtain another echo, I do believe this is secondary to her underlying pulmonary parenchymal disease Hypomagnesemia. Goals of care: Full code N.p.o. for now, can resume her diet once she is more stable and off BiPAP High risk for intubation DVT prophylaxis not needed currently she will need therapeutic dose of Lovenox PLAN: Will request UA to be performed now to rule out UTI. Continue current antibiotics for now. Patient definitely shows evidence of fluid overload and since blood pressure improved I will go ahead and diurese with Lasix and spironolactone. Add potassium and monitor daily CBC and CMP. Continue bronchodilators and steroids. Will request limited echocardiogram to evaluate wall motion and ejection fraction. Continue therapeutic anticoagulation for 1 more day and change to prophylactic dose tomorrow. Replete magnesium. Continue aspirin and statin. Patient will require further outpatient evaluation of renal mass and lymphadenopathy. Attestations Medical Necessity Statement*: Patient with acute CHF and COPD exacerbation requires close ICU monitoring and treatment. Time Spent in Patient Care: Greater than 35 minutes Coding Level of Care Code Acute Cement Mason Apprentice for g Fwd Diagnoses Sepsis A41.9 Sepsis acute organ dysfunction status: unspecified Sepsis type: sepsis due to unspecified organism Acute exacerbation of chronic obstructive pulmonary disease J44.1 COPD with hypoxia J44.9; R09.02 Respiratory failure with hypoxia and hypercapnia J96.91; J96.92 Diabetes E11.9 Left renal mass N28.89 CHF exacerbation I50.9 Non-ST elevation SC (NSTEMI) I21.4 Mediastinal lymphadenopathy R59.0
--- NOTE | 2020-09-24 13:01 | USCV_ITS ---
Purvi Mathis Age: 75 Gender: F : 1945 Exam Date: 09/24/2020 13:46 Ordering Phys: Bobo López MD Technologist: Shayy Donovan [place] [facility] [place] BP: / HR: 84 Rhythm: Sinus Technical Quality: Adequate MEASUREMENTS (Male / Female) Normal Values 2D ECHO LV Diastolic Diameter PLAX 3.7 cm 4.2 - 5.9 / 3.9 - 5.3 cm LV Systolic Diameter PLAX 3.4 cm LV Chamber Size 3.2 cm IVS Diastolic Thickness 1.1 cm 0.6 - 1.0 / 0.6 - 0.9 cm IVS Systolic Thickness 1.7 cm LVPW Diastolic Thickness 1.5 cm 0.6 - 1.0 / 0.6 - 0.9 cm LVPW Systolic Thickness 1.3 cm RV Chamber Size 2.5 cm LVOT Diameter 2.1 cm LV Ejection Fraction 2D Teich 2.6 % LV Ejection Fraction MOD 2C 64.0 % LV Ejection Fraction 2C AL 65.5 % LA Diameter 3.9 cm LA Width 2.3 cm LA Height 2.9 cm RA Width 3.4 cm RA Height 3.4 cm Aorta at Sinotubular Diameter 3.4 cm M-MODE LV Diastolic Diameter MM 4.9 cm 4.2 - 5.9 / 3.9 - 5.3 cm LV Systolic Diameter MM 1.8 cm LV Ejection Fraction MM Teich 91.3 % IVS Diastolic Thickness MM 1.1 cm 0.6 - 1.0 / 0.6 - 0.9 cm IVS Systolic Thickness MM 1.8 cm LVPW Diastolic Thickness MM 1.0 cm 0.6 - 1.0 / 0.6 - 0.9 cm LVPW Systolic Thickness MM 1.7 cm RV Diastolic Diameter MM 1.8 cm Aortic Annulus Diameter 3.0 cm LA Ao Ratio MM 1.5 MV E Point Septal Separation 0.4 cm FINDINGS Left Ventricle Normal left ventricular size. Grossly LV systolic function is normal. Wall motion abnormalities cannot be assessed because of poor visualization. Right Ventricle The right ventricle is normal in size and function. Right Atrium The right atrium is normal in size. RA pressure is elevated. Left Atrium The left atrium is normal in size. Mitral Valve Grossly normal Aortic Valve Grossly normal Tricuspid Valve Grossly normal Pulmonic Valve Not well-visualized. Pericardium Normal pericardium without effusion. Aorta Normal ascending aorta dimension. CONCLUSIONS LV systolic function is grossly normal. Regional wall motion abnormalities cannot be assessed because of poor visualization. Valves are grossly normal, Doppler evaluation not performed. Elevated right-sided pressures. Compared to prior echocardiogram from 07/01/2020, no significant change is noted. Marty Mantilla MD (Electronically Signed) Final Date: 24 September 2020 16:25 S
[2020-09-24 13:36] LABS: Glucose Point of Care 249 mg/dL (70-110)
[2020-09-24] MEDS: FUROsemide 10 mg/mL SDV 4mL 40 MG IVP (14:13)
[2020-09-24] MEDS: aspirin 81 mg EC Tablet PO (14:14)
[2020-09-24] MEDS: pantoprazole DR 40 mg Tablet PO (14:14)
[2020-09-24] MEDS: atorvastatin 40 mg Tablet 20 MG PO (14:15)
[2020-09-24] MEDS: spironolactone 25 mg Tablet PO (14:16)
[2020-09-24] MEDS: potassium chloride ER 20 mEq Tablet 40 MEQ PO (14:16)
[2020-09-24] MEDS: ipratropium-albuterol 3 mL Neb INHALATION ×2 (14:50→20:20)
[2020-09-24] MEDS: magnesium sulfate premix 4 GM/100 ML PREMIX IV (14:52)
[2020-09-24 15:04] LABS: Add Urine Microscopic? YES; Bilirubin Urine Neg (Negative); Blood Urine 2+ (Negative); Glucose Urine UA Norm (Normal); Ketones Urine Negative (Negative); Leukocyte Esterase Urine Negative (Negative); Nitrate Urine Negative (Negative); Protein Urine 1+ (Negative); Specific Gravity, Urine 1.015 (1.005-1.030); Urine Appearance SL Hazy (CLEAR); Urine Color Yellow (Yellow); Urobilinogen Urine 1 mg/dL (Negative); pH Urine 5 (5-7)
[2020-09-24 15:05] LABS: Add Urine Culture? Yes; Bacteria Urine 4+ /hpf; RBC Urine 0-4 /hpf (0-2); Squamous Epithelial Cell Urine 0-4 /hpf (0-5)
[2020-09-24 18:17] LABS: Glucose Point of Care 239 mg/dL (70-110)
[2020-09-24] MEDS: vancomycin 1,250 MG/250 ML PIGGYBACK 250 MG IV (23:00)
--- NOTE | 2020-09-24 23:43 | PC.NURSE ---
Patient resting in bed soundly with eyes closed. Patient is very pleasant and cooperative with staff. Patient does have nasal cannula in place. V/S are WNL. Patient denies any pain. No s/s of distress. Call light within reach. Continue care.
[2020-09-25] VITALS (68 sets, daily range): BP systolic 103–143; BP diastolic 52–93; PULSE 64–133; RESP 15–33; TEMP 36.6–36.8; O2SAT 4–98
[2020-09-25] MEDS: piperacillin-tazobactam 3.375 GM in sodium chloride 0.9% (plus) 50 ML IV ×3 (01:01→17:37)
[2020-09-25] MEDS: enoxaparin 80 mg/0.8 mL Syringe 70 MG SUBCUT (04:08)
[2020-09-25 04:39] LABS: Basophils % 0.1 %; Hematocrit 33.6 % (37.0-47.0); Hemoglobin 9.6 g/dL (11.5-15.3); Lymphocytes # 0.5 10^3/uL (0.8-4.8); Lymphocytes % 4.1 %; Mean Corpuscular HGB Conc 28.6 g/dL (30.0-36.0); Mean Corpuscular Hemoglobin 24.1 pg (28.0-34.0); Mean Corpuscular Volume 84.4 fL (81-99); Mean Platelet Volume 9.8 fL (7.4-10.4); Monocytes # 0.3 10^3/uL (0.2-0.9); Monocytes % 2.9 %; Neutrophils # 10.03 10^3/uL (1.8-7.7); Neutrophils % 92.3 %; Nucleated Red Blood Cells % 0 %; Platelet Count 338 10^3/cmm (130-400); Red Blood Count 3.98 10^6/uL (4.1-5.3); Red Cell Distribution Width 19.5 % (12.1-15.1); White Blood Count 10.9 10^3/uL (4.0-10.0)
--- NOTE | 2020-09-25 05:03 | PC.NURSE ---
Patient continues to rest well throughout the night. Patient denies any pain, v/s have been wnl. Patient was transition to bipap throughout the night by respiratory and was switched back to NC at at approximately 0400, at patients request. Patient does sleep with mouth open and O2 sats will decrease slightly until patient closes mouth and breaths through nose again. Patient is a&o x4. Call light within reach. Continue care.
[2020-09-25 05:18] LABS: Alanine Aminotransferase 10 U/L (0-33); Albumin Level 3.1 g/dL (3.5-5.2); Alkaline Phosphatase 60 IU/L (35-105); Blood Urea Nitrogen 12 mg/dL (8-23); Calcium 8.7 mg/dL (8.5-10.5); Carbon Dioxide 25 mmol/L (22-29); Chloride 104 mmol/L (98-107); Glucose 185 mg/dL (65-115); Magnesium 2.8 mg/dL (1.7-2.3); Osmolality Calculated 293 mOsm/kg (285-295); Sodium 139 mmol/L (136-145); Total Bilirubin 0.3 mg/dL (0.15-1.2); Total Protein 6.1 g/dL (6.6-8.7)
[2020-09-25 05:21] LABS: Anion Gap 14.6 (5-19); Aspartate Amino Transferase 16 U/L (0-32); Potassium 4.6 mmol/L (3.5-5.1)
[2020-09-25] MEDS: ipratropium-albuterol 3 mL Neb INHALATION ×4 (08:30→23:49)
[2020-09-25] MEDS: pantoprazole DR 40 mg Tablet PO (10:50)
[2020-09-25] MEDS: aspirin 81 mg EC Tablet PO (10:50)
[2020-09-25] MEDS: atorvastatin 40 mg Tablet 20 MG PO (10:50)
[2020-09-25] MEDS: potassium chloride ER 20 mEq Tablet 40 MEQ PO (10:50)
[2020-09-25] MEDS: spironolactone 25 mg Tablet PO (10:50)
[2020-09-25] MEDS: cefepime 1,000 MG in sodium chloride 0.9% (plus) 50 ML 100 MG IV (10:55)
--- NOTE | 2020-09-25 11:17 | PM.PN ---
Subjective Subjective: Interval history: She saturating 89-90% on 4 L by nasal cannula during my evaluation. She reports feeling much better compared to yesterday. Reports that her breathing is comfortable and she denies any chest pain. She reports bilateral pain with deep inspiration under her both breasts which she reports having off-and-on for the last couple months. She is tender on palpation of her ribs bilaterally. White blood cell count improved. hemoglobin slightly down. Van has significant amount of sediment. Urine is growing gram-negative rods. Vitals/I&O/Wt Last Vital Signs Temp 97.8 F 09/25/20 00:00 Pulse 83 09/25/20 08:30 Resp 21 H 09/25/20 08:30 BP 138/67 09/25/20 08:30 Pulse Ox 95 09/25/20 08:30 09/24/20 09/25/20 09/25/20 22:59 06:59 14:59 Intake Total 110 / 210 450 / 660 Output Total 1350 / 1350 725 / 2075 Balance -1240 / -1140 -275 / -1415 Weight last 48 hrs Weight 70.307 kg Physical Exam Const: COMMON NORMALS: no acute distress and patient oriented x3 Resp: COMMON NORMALS: normal respiratory effort OTHER: Significantly decreased air movement. Cardio: COMMON NORMALS: regular rate, regular rhythm and S2 normal heart sound present RATE: regular rate RHYTHM: regular rhythm HEART SOUNDS: S2 normal heart sound present OTHER: No lower extremity edema GI: COMMON NORMALS: Normal to inspection, nondistended, normoactive bowel sounds present, Soft to palpation and non-tender PALPATION: Yes Soft to palpation Neuro: COMMON NORMALS: patient oriented x3 and no focal motor deficits Urinary Catheter Management^: Van: Cath Placed During This Visit: yes Reason for Continuing Indwelling Catheter: Accurate Measurement of Urinary Output in Critically Ill Patients Urinary Catheter Date of Insertion: 09/24/20 Urinary Catheter Time of Insertion: 14:25 Data : 09/25/20 04:02 09/25/20 04:02 Micro: Microbiology 09/24/20 14:25 Urine Culture - Preliminary Urine,Clean Catch Gram Negative Rods 09/24/20 04:20 Blood Culture - Preliminary Blood NEGATIVE TO DATE 09/24/20 04:20 Blood Culture - Preliminary Blood SPECIMEN COLLECTED 09/24/20 14:25 Legionella Urinary Antigen - Final Urine,Clean Catch Bacterial Antigens - Final A&P Assessment and plan (1) Sepsis: Currently patient does not appear to have evidence of pneumonia. Status: Acute Qualifiers: Sepsis acute organ dysfunction status: unspecified Sepsis type: sepsis due to unspecified organism Qualified Code(s): A41.9 - Sepsis, unspecified organism (2) Acute exacerbation of chronic obstructive pulmonary disease: Status: Acute (3) COPD with hypoxia: Status: Acute (4) Respiratory failure with hypoxia and hypercapnia: Status: Acute (5) Diabetes: Status: Acute (6) Left renal mass: Status: Acute (7) CHF exacerbation: Status: Acute (8) Non-ST elevation [place] (NSTEMI): Appears to be type II. Status: Acute (9) Mediastinal lymphadenopathy: And hilar lymphadenopathy. Status: Acute Additional A&P Information Sepsis secondary to possible hospital-acquired pneumonia She had received IV antibiotics in the past 90 days, she has had multiple admissions in the past secondary to COPD Previous blood culture grew gram-positive cocci I would start her on vancomycin Zosyn and Levaquin Judicious use of fluids secondary to active CHF At home she has been taking increased dose of Lasix because of lower extremity edema We will obtain blood culture, sputum culture Acute on chronic hypoxic hypercarbic respiratory failure Most likely secondary to hospital-acquired pneumonia She has extensive pleural plaques with calcification Currently doing well on BiPAP, patient and her both endorse full CODE STATUS Her work of breathing has been decreased with use of BiPAP Plan another blood gas in 2 hours Currently her blood gases showing respiratory acidosis with hypoxia Secondary to D-dimer I would start her on therapeutic dose of Lovenox, will obtain CTA chest, previous CT chest did not reveal PE Left renal mass Case was discussed with Dr. Ordonez who had extensive discussion with the family, they decided to pursue conservative management High risk of PE Acute CHF exacerbation Clinically fluid overloaded, required 1 L normal saline because of hypotension Judicious use of fluids in setting of sepsis Hold Lasix for now Recent echo showed ejection fraction 60% with normal diastolic function pulmonary arterial pressure 33 mmHg I would not obtain another echo, I do believe this is secondary to her underlying pulmonary parenchymal disease Hypomagnesemia. Goals of care: Full code N.p.o. for now, can resume her diet once she is more stable and off BiPAP High risk for intubation DVT prophylaxis not needed currently she will need therapeutic dose of Lovenox PLAN: Change anticoagulation to 40 mg daily for DVT prophylaxis and continue monitoring CBC. Continue cefepime and Zosyn for now and discontinue vancomycin. Continue steroids but switch to prednisone daily. Patient will require further outpatient evaluation of renal mass and lymphadenopathy. Physical therapy. Remove Van catheter and make sure patient can urinate. We will transfer patient out of ICU and continue close monitoring. Hold amlodipine for now. Monitor blood pressure Attestations Medical Necessity Statement*: Patient was acute COPD exacerbation and UTI requires close inpatient monitoring and treatment Coding Level of Care Code Acute Passenger Service Representative for [facility] F[facility] Diagnoses Sepsis A41.9 Sepsis acute organ dysfunction status: unspecified Sepsis type: sepsis due to unspecified organism Acute exacerbation of chronic obstructive pulmonary disease J44.1 COPD with hypoxia J44.9; R09.02 Respiratory failure with hypoxia and hypercapnia J96.91; J96.92 Diabetes E11.9 Left renal mass N28.89 CHF exacerbation I50.9 Non-ST elevation [place] (NSTEMI) I21.4 Mediastinal lymphadenopathy R59.0
[2020-09-25] MEDS: predniSONE 20 mg Tablet 40 MG PO (11:35)
[2020-09-25] MEDS: LORazepam 2 mg/mL INJ 1 mL 1 MG IVP (21:20)
[2020-09-26] VITALS (28 sets, daily range): BP systolic 125–171; BP diastolic 66–108; PULSE 75–105; RESP 17–30; TEMP 36.2–36.4; O2SAT 91–99
--- NOTE | 2020-09-26 00:49 | PC.NURSE ---
2300 - patient attempting to get out of bed, pulled iv out. Returned patient to bed, respiratory rate elevated, O2 sat decreased to 68%. Placed on Bipap per RT. Patient currently oriented to person, place and situation. When asked where she was trying to go when attempting to get out of bed stated I don't know where I was going .
[2020-09-26] MEDS: cefepime 1,000 MG in sodium chloride 0.9% (plus) 50 ML 100 MG IV ×3 (01:05→23:11)
[2020-09-26] MEDS: piperacillin-tazobactam 3.375 GM in sodium chloride 0.9% (plus) 50 ML IV (01:57)
[2020-09-26 07:08] LABS: Basophils % 0.1 %; Hematocrit 34.7 % (37.0-47.0); Hemoglobin 9.8 g/dL (11.5-15.3); Lymphocytes # 0.7 10^3/uL (0.8-4.8); Lymphocytes % 6.2 %; Mean Corpuscular HGB Conc 28.2 g/dL (30.0-36.0); Mean Corpuscular Hemoglobin 23.6 pg (28.0-34.0); Mean Corpuscular Volume 83.4 fL (81-99); Mean Platelet Volume 9.7 fL (7.4-10.4); Monocytes # 0.5 10^3/uL (0.2-0.9); Monocytes % 4.6 %; Neutrophils % 88.6 %; Nucleated Red Blood Cells % 0 %; Platelet Count 432 10^3/cmm (130-400); Red Blood Count 4.16 10^6/uL (4.1-5.3); Red Cell Distribution Width 19.6 % (12.1-15.1); White Blood Count 10.9 10^3/uL (4.0-10.0)
--- NOTE | 2020-09-26 07:27 | P.PN_ITS ---
Subjective Subjective: Interval history: Patient feels better this morning. Her breathing worsened significantly yesterday therefore patient was not transferred from ICU. She was wheezing and was placed back on BiPAP. She denies chest pain and reports her discomfort under her ribs is gone. She denies abdominal pain but reports that she needs to have a bowel movement as she did not have for the last couple of days. Vitals/I&O/Wt Last Vital Signs Temp 97.2 F L 09/26/20 04:00 Pulse 81 09/26/20 04:44 Resp 25 H 09/26/20 04:00 BP 162/99 09/26/20 04:00 Pulse Ox 99 09/26/20 04:44 09/25/20 09/26/20 09/26/20 22:59 06:59 14:59 Intake Total 700 / 900 50 / 950 Output Total 550 / 1275 650 / 1925 Balance 150 / -375 -600 / -975 Weight last 48 hrs Weight 75.024 kg Physical Exam Const: COMMON NORMALS: no acute distress and patient oriented x3 Resp: COMMON NORMALS: normal respiratory effort and clear to auscultation bilaterally AUSCULTATION: clear to auscultation bilaterally OTHER: Air movement much improved but overall decreased. No wheezing rales or rhonchi appreciated Cardio: COMMON NORMALS: regular rate, regular rhythm and S2 normal heart sound present RATE: regular rate RHYTHM: regular rhythm HEART SOUNDS: S2 normal heart sound present OTHER: No lower extremity edema GI: COMMON NORMALS: Normal to inspection, nondistended, normoactive bowel sounds present, Soft to palpation and non-tender PALPATION: Yes Soft to palpation Neuro: COMMON NORMALS: patient oriented x3 and no focal motor deficits Urinary Catheter Management^: Van: Cath Placed During This Visit: yes Reason for Continuing Indwelling Catheter: Chronic Indwelling Urinary Catheter on Admission Urinary Catheter Date of Insertion: 09/24/20 Urinary Catheter Time of Insertion: 14:25 Data : 09/26/20 06:39 09/25/20 04:02 Micro: Microbiology 09/24/20 14:25 Urine Culture - Preliminary Urine,Clean Catch Gram Negative Rods 09/24/20 04:20 Blood Culture - Preliminary Blood NEGATIVE TO DATE A&P Assessment and plan (1) Sepsis: Currently patient does not appear to have evidence of pneumonia. Status: Acute Qualifiers: Sepsis acute organ dysfunction status: unspecified Sepsis type: sepsis due to unspecified organism Qualified Code(s): A41.9 - Sepsis, unspecified organism (2) Acute exacerbation of chronic obstructive pulmonary disease: Status: Acute (3) COPD with hypoxia: Status: Acute (4) Respiratory failure with hypoxia and hypercapnia: Status: Acute (5) Diabetes: Status: Acute (6) Left renal mass: Status: Acute (7) CHF exacerbation: Status: Acute (8) Non-ST elevation [place] (NSTEMI): Appears to be type II. Status: Acute (9) Mediastinal lymphadenopathy: And hilar lymphadenopathy. Status: Acute Additional A&P Information Sepsis secondary to possible hospital-acquired pneumonia She had received IV antibiotics in the past 90 days, she has had multiple admissions in the past secondary to COPD Previous blood culture grew gram-positive cocci I would start her on vancomycin Zosyn and Levaquin Judicious use of fluids secondary to active CHF At home she has been taking increased dose of Lasix because of lower extremity edema We will obtain blood culture, sputum culture Acute on chronic hypoxic hypercarbic respiratory failure Most likely secondary to hospital-acquired pneumonia She has extensive pleural plaques with calcification Currently doing well on BiPAP, patient and her both endorse full CODE STATUS Her work of breathing has been decreased with use of BiPAP Plan another blood gas in 2 hours Currently her blood gases showing respiratory acidosis with hypoxia Secondary to D-dimer I would start her on therapeutic dose of Lovenox, will obtain CTA chest, previous CT chest did not reveal PE Left renal mass Case was discussed with Dr. Ordonez who had extensive discussion with the family, they decided to pursue conservative management High risk of PE Acute CHF exacerbation Clinically fluid overloaded, required 1 L normal saline because of hypotension Judicious use of fluids in setting of sepsis Hold Lasix for now Recent echo showed ejection fraction 60% with normal diastolic function pulmonary arterial pressure 33 mmHg I would not obtain another echo, I do believe this is secondary to her underlying pulmonary parenchymal disease Hypomagnesemia. Constipation Goals of care: Full code N.p.o. for now, can resume her diet once she is more stable and off BiPAP High risk for intubation DVT prophylaxis not needed currently she will need therapeutic dose of Lovenox PLAN: Discussed with ARANZA, RN and we will remove Van catheter and make sure patient can urinate. We will get PT/OT and change patient's DuoNeb to standing dose for now. Continue steroid and cefepime but discontinue Zosyn. Awaiting urine culture. Will give patient MiraLAX and start on senna/Colace twice daily Will see how she is doing and consider transfer to [facility] later today or tomorrow. Attestations Medical Necessity Statement*: Patient with acute COPD exacerbation requires close ICU monitoring and treatment until deemed safe for transfer. Coding Level of Care Code Acute Resin Coater for [facility] Fwd Diagnoses Sepsis A41.9 Sepsis acute organ dysfunction status: unspecified Sepsis type: sepsis due to unspecified organism Acute exacerbation of chronic obstructive pulmonary disease J44.1 COPD with hypoxia J44.9; R09.02 Respiratory failure with hypoxia and hypercapnia J96.91; J96.92 Diabetes E11.9 Left renal mass N28.89 CHF exacerbation I50.9 Non-ST elevation [place] (NSTEMI) I21.4 Mediastinal lymphadenopathy R59.0
[2020-09-26 07:41] LABS: Alanine Aminotransferase 11 U/L (0-33); Albumin Level 3.4 g/dL (3.5-5.2); Alkaline Phosphatase 57 IU/L (35-105); Anion Gap 12.7 (5-19); Aspartate Amino Transferase 14 U/L (0-32); Blood Urea Nitrogen 15 mg/dL (8-23); Calcium 9.1 mg/dL (8.5-10.5); Carbon Dioxide 29 mmol/L (22-29); Chloride 103 mmol/L (98-107); Glucose 167 mg/dL (65-115); Osmolality Calculated 295 mOsm/kg (285-295); Potassium 4.7 mmol/L (3.5-5.1); Sodium 140 mmol/L (136-145); Total Bilirubin 0.3 mg/dL (0.15-1.2); Total Protein 6.4 g/dL (6.6-8.7)
[2020-09-26] MEDS: ipratropium-albuterol 3 mL Neb INHALATION ×3 (08:25→20:12)
[2020-09-26] MEDS: aspirin 81 mg EC Tablet PO (08:41)
[2020-09-26] MEDS: potassium chloride ER 20 mEq Tablet 40 MEQ PO (08:41)
[2020-09-26] MEDS: spironolactone 25 mg Tablet PO (08:41)
[2020-09-26] MEDS: pantoprazole DR 40 mg Tablet PO (08:41)
[2020-09-26] MEDS: atorvastatin 40 mg Tablet 20 MG PO (08:41)
[2020-09-26] MEDS: sennosides 8.6 mg Tablet PO (08:41)
[2020-09-26] MEDS: predniSONE 20 mg Tablet 40 MG PO (08:41)
[2020-09-26] MEDS: polyethylene glycol 3350 Pkt 17 gm PO (08:42)
[2020-09-26] MEDS: enoxaparin 40 mg/0.4 mL Syringe SUBCUT (08:42)
--- NOTE | 2020-09-26 09:57 | PC.NURSE ---
up in room with assist and rt very dyspnic o2 sat down to 77 in chair to rest at this time am meds given
[2020-09-26 12:57] LABS: Vancomycin Trough 4.6 ug/mL (10-15)
[2020-09-27] VITALS (18 sets, daily range): BP systolic 120–162; BP diastolic 68–88; PULSE 64–107; RESP 16–24; TEMP 36.3–37.1; O2SAT 90–98
[2020-09-27] MEDS: ipratropium-albuterol 3 mL Neb INHALATION ×4 (02:47→20:57)
--- NOTE | 2020-09-27 03:07 | PC.NURSE ---
Report called to Veronika Daniel LPN. Patient transferred via wheelchair to [facility].
[2020-09-27 03:50] LABS: Basophils % 0.1 %; Eosinophils % 0.4 %; Hematocrit 34.4 % (37.0-47.0); Hemoglobin 9.8 g/dL (11.5-15.3); Lymphocytes # 1.2 10^3/uL (0.8-4.8); Lymphocytes % 11.8 %; Mean Corpuscular HGB Conc 28.5 g/dL (30.0-36.0); Mean Corpuscular Hemoglobin 23.2 pg (28.0-34.0); Mean Corpuscular Volume 81.5 fL (81-99); Mean Platelet Volume 9.6 fL (7.4-10.4); Monocytes # 0.7 10^3/uL (0.2-0.9); Monocytes % 7.2 %; Neutrophils # 8.07 10^3/uL (1.8-7.7); Neutrophils % 80.2 %; Nucleated Red Blood Cells % 0 %; Platelet Count 418 10^3/cmm (130-400); Red Blood Count 4.22 10^6/uL (4.1-5.3); Red Cell Distribution Width 19.3 % (12.1-15.1); White Blood Count 10.1 10^3/uL (4.0-10.0)
[2020-09-27 04:54] LABS: Alanine Aminotransferase 13 U/L (0-33); Albumin Level 3.7 g/dL (3.5-5.2); Alkaline Phosphatase 58 IU/L (35-105); Anion Gap 10.7 (5-19); Aspartate Amino Transferase 15 U/L (0-32); Blood Urea Nitrogen 11 mg/dL (8-23); Calcium 9.4 mg/dL (8.5-10.5); Carbon Dioxide 32 mmol/L (22-29); Chloride 100 mmol/L (98-107); Globulin 2.6 g/dL (1.3-4.6); Glucose 156 mg/dL (65-115); Magnesium 1.8 mg/dL (1.7-2.3); Osmolality Calculated 289 mOsm/kg (285-295); Potassium 4.7 mmol/L (3.5-5.1); Sodium 138 mmol/L (136-145); Total Bilirubin 0.4 mg/dL (0.15-1.2); Total Protein 6.3 g/dL (6.6-8.7)
[2020-09-27] MEDS: predniSONE 20 mg Tablet 40 MG PO (09:56)
[2020-09-27] MEDS: atorvastatin 40 mg Tablet 20 MG PO (09:56)
[2020-09-27] MEDS: pantoprazole DR 40 mg Tablet PO (09:56)
[2020-09-27] MEDS: sennosides 8.6 mg Tablet PO (09:56)
[2020-09-27] MEDS: potassium chloride ER 20 mEq Tablet 40 MEQ PO (09:56)
[2020-09-27] MEDS: spironolactone 25 mg Tablet PO (09:56)
[2020-09-27] MEDS: aspirin 81 mg EC Tablet PO (09:56)
[2020-09-27] MEDS: enoxaparin 40 mg/0.4 mL Syringe SUBCUT (09:57)
[2020-09-27] MEDS: cefepime 1,000 MG in sodium chloride 0.9% (plus) 50 ML 100 MG IV ×2 (09:59→22:19)
--- NOTE | 2020-09-27 10:02 | DCPLANNER ---
Pg 2 of IM updated and explained to pt. No questions, copy provided.
--- NOTE | 2020-09-27 12:16 | PM.PN ---
Subjective Subjective: Interval history: Purvi reports she is doing okay. Reports her breathing is easier. She is able to get up and move around some. Medications: Reviewed: Yes Vitals/I&O/Wt Last Vital Signs Temp 98.0 F 09/27/20 11:19 Pulse 107 H 09/27/20 11:19 Resp 17 09/27/20 11:19 BP 162/68 09/27/20 11:19 Pulse Ox 90 09/27/20 11:19 09/26/20 09/27/20 09/27/20 22:59 06:59 14:59 Intake Total 450 / 1050 50 / 1100 240 / 240 Output Total 3000 / 3000 1250 / 4250 Balance -2550 / -1950 -1200 / -3150 240 / 240 Weight last 48 hrs Weight 75.024 kg Physical Exam Narrative: EXAM NARRATIVE: General exam no apparent distress Cardiovascular regular rate and rhythm without murmur Lungs clear. Diminished breath sounds are noted bilaterally Abdomen is soft nontender with positive bowel sounds Extremities no cyanosis clubbing or edema Urinary Catheter Management^: Van: Cath Placed During This Visit: yes Reason for Continuing Indwelling Catheter: Accurate Measurement of Urinary Output in Critically Ill Patients Urinary Catheter Date of Insertion: 09/24/20 Urinary Catheter Time of Insertion: 14:25 Data : 09/27/20 02:52 09/27/20 02:52 Micro: Microbiology 09/24/20 14:25 Urine Culture - Final Urine,Clean Catch Klebsiella pneumoniae A&P Assessment and plan (1) Sepsis: Resolved Secondary to hospital-acquired pneumonia Currently on cefepime. Status: Acute Qualifiers: Sepsis acute organ dysfunction status: unspecified Sepsis type: sepsis due to unspecified organism Qualified Code(s): A41.9 - Sepsis, unspecified organism (2) Acute exacerbation of chronic obstructive pulmonary disease: Appears to be improving Continue prednisone Continue DuoNeb Improving CTA did not demonstrate pulmonary embolism. Severe emphysema was noted. Status: Acute (3) COPD with hypoxia: See above Status: Acute (4) Respiratory failure with hypoxia and hypercapnia: Resolving Acute on chronic hypercarbic respiratory failure. Status: Acute (5) Diabetes: Add sliding scale insulin Status: Acute (6) Left renal mass: Continue to follow-up with urology as an outpatient. Status: Acute (7) CHF exacerbation: Currently appears compensated Status: Acute (8) Non-ST elevation [place] (NSTEMI): Type II Status: Acute (9) Mediastinal lymphadenopathy: Reactive hilar lymphadenopathy. Status: Acute Additional A&P Information UTI. Urine has grown a small number of Klebsiella. Continue cefepime. Hypertension. Restart patient's Norvas Full code Lovenox for DVT prophylaxis PT/OT consultations Possible discharge in the next 1 to 2 days. 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
[2020-09-27 15:59] LABS: Glucose Point of Care 188 mg/dL (70-110)
[2020-09-27 21:05] LABS: Glucose Point of Care 186 mg/dL (70-110)
[2020-09-28] VITALS (11 sets, daily range): BP systolic 143–172; BP diastolic 77–85; PULSE 78–95; RESP 16–18; TEMP 36.3–36.7; O2SAT 86–96
[2020-09-28] MEDS: ipratropium-albuterol 3 mL Neb INHALATION ×2 (02:52→10:03)
[2020-09-28 05:37] LABS: Eosinophils # 0.1 10^3/uL (0.0-0.8); Eosinophils % 0.7 %; Hematocrit 39.2 % (37.0-47.0); Hemoglobin 11.5 g/dL (11.5-15.3); Lymphocytes # 1.3 10^3/uL (0.8-4.8); Lymphocytes % 13.8 %; Mean Corpuscular HGB Conc 29.3 g/dL (30.0-36.0); Mean Corpuscular Hemoglobin 23.5 pg (28.0-34.0); Mean Platelet Volume 9.7 fL (7.4-10.4); Monocytes # 0.7 10^3/uL (0.2-0.9); Monocytes % 7.6 %; Neutrophils # 7.25 10^3/uL (1.8-7.7); Neutrophils % 77.7 %; Nucleated Red Blood Cells % 0 %; Platelet Count 490 10^3/cmm (130-400); Red Cell Distribution Width 18.8 % (12.1-15.1); White Blood Count 9.3 10^3/uL (4.0-10.0)
[2020-09-28 05:49] LABS: Anion Gap 13.4 (5-19); Blood Urea Nitrogen 12 mg/dL (8-23); Calcium 9.8 mg/dL (8.5-10.5); Carbon Dioxide 33 mmol/L (22-29); Chloride 100 mmol/L (98-107); Glucose 127 mg/dL (65-115); Osmolality Calculated 295 mOsm/kg (285-295); Potassium 4.4 mmol/L (3.5-5.1); Sodium 142 mmol/L (136-145)
[2020-09-28 06:48] LABS: Glucose Point of Care 97 mg/dL (70-110)
--- NOTE | 2020-09-28 08:24 | PM.PN ---
Subjective Subjective: Interval history: Purvi reports she is feeling fine today. She would like to go home. She reports she is still short of breath when she exerts herself, but it is not unlike what she has when she is at home. Medications: Reviewed: Yes Vitals/I&O/Wt Last Vital Signs Temp 97.8 F 09/28/20 07:57 Pulse 89 09/28/20 07:57 Resp 18 09/28/20 07:57 BP 160/85 09/28/20 07:57 Pulse Ox 91 09/28/20 07:57 09/27/20 09/28/20 09/28/20 22:59 06:59 14:59 Intake Total 290 / 820 Output Total 200 / 200 500 / 700 Balance 90 / 620 -500 / 120 Physical Exam Const: COMMON NORMALS: no acute distress, average body habitus, patient oriented x3, alert and well nourished GENERAL APPEARANCE: cooperative and comfortable ORIENTATION/CONSCIOUSNESS: Yes awake HENMT: COMMON NORMALS: normocephalic and atraumatic HEAD & SCALP: normocephalic and atraumatic Eye: COMMON NORMALS: EOMs intact bilaterally, conjunctivae normal and no scleral icterus GENERAL EYE: appearance normal, both eyes and all related structures CONJUNCTIVA: Yes conjunctivae normal PUPIL: Yes Pupil accommodation reflex normal Neck/C-Spine: COMMON NORMALS: no JVD Chest: COMMONS NORMALS: normal inspection of the chest and normal palpation of entire chest wall CHEST: Yes Symmetrical chest wall rise Resp: COMMON NORMALS: normal respiratory effort, No use of accessory muscles and clear to auscultation bilaterally EFFORT & INSPECTION: Yes able to speak in complete sentences and Yes symmetric chest movement AUSCULTATION: clear to auscultation bilaterally Cardio: COMMON NORMALS: no JVD, regular rate, regular rhythm, S1 normal heart sound present, S2 normal heart sound present, No gallops present (Cardio), No clicks present (Cardio), No murmurs present (Cardio) and No rub (Cardio) JUGULAR VENOUS DISTENTION: no JVD RATE: regular rate RHYTHM: regular rhythm HEART SOUNDS: S1 normal heart sound present and S2 normal heart sound present Neuro: COMMON NORMALS: patient oriented x3 SENSORIUM/ORIENTATION: Yes alert Urinary Catheter Management^: Van: Cath Placed During This Visit: yes Reason for Continuing Indwelling Catheter: Accurate Measurement of Urinary Output in Critically Ill Patients Urinary Catheter Date of Insertion: 09/24/20 Urinary Catheter Time of Insertion: 14:25 Data : 09/28/20 04:56 09/28/20 04:56 A&P Assessment and plan (1) Sepsis: Resolved Secondary to hospital-acquired pneumonia Currently on cefepime. Status: Acute Qualifiers: Sepsis acute organ dysfunction status: unspecified Sepsis type: sepsis due to unspecified organism Qualified Code(s): A41.9 - Sepsis, unspecified organism (2) Acute exacerbation of chronic obstructive pulmonary disease: Appears to be improving Continue prednisone Continue DuoNeb CTA did not demonstrate pulmonary embolism. Severe emphysema was noted. Continues to improve significantly Status: Acute (3) COPD with hypoxia: See above She is nearing her baseline oxygen requirement Status: Acute (4) Respiratory failure with hypoxia and hypercapnia: Resolving Acute on chronic hypercarbic respiratory failure. Status: Acute (5) Diabetes: Continue sliding scale insulin Status: Acute (6) Left renal mass: Continue to follow-up with urology as an outpatient. Status: Acute (7) CHF exacerbation: Currently appears compensated Status: Acute (8) Non-ST elevation [place] (NSTEMI): Type II Status: Acute (9) Mediastinal lymphadenopathy: Reactive hilar lymphadenopathy. Status: Acute Additional A&P Information UTI. Urine has grown a small number of Klebsiella. Continue cefepime. Hypertension. Restart patient's Norvasc Full code Lovenox for DVT prophylaxis PT/OT consultations Possible discharge today. Will discuss in multidisciplinary rounds. Will need home health. Attestations Medical Necessity Statement*: Possible discharge today Coding Level of Care Code Acute Paperhanger Supervisor for [facility] Fwd Exam Detailed Diagnoses Sepsis A41.9 Sepsis acute organ dysfunction status: unspecified Sepsis type: sepsis due to unspecified organism Acute exacerbation of chronic obstructive pulmonary disease J44.1 COPD with hypoxia J44.9; R09.02 Respiratory failure with hypoxia and hypercapnia J96.91; J96.92 Diabetes E11.9 Left renal mass N28.89 CHF exacerbation I50.9 Non-ST elevation [place] (NSTEMI) I21.4 Mediastinal lymphadenopathy R59.0
--- NOTE | 2020-09-28 08:35 | P.PN_ITS ---
Subjective Subjective: Interval history: Purvi Vitals/I&O/Wt Last Vital Signs Temp 97.8 F 09/28/20 07:57 Pulse 89 09/28/20 07:57 Resp 18 09/28/20 07:57 BP 160/85 09/28/20 07:57 Pulse Ox 91 09/28/20 07:57 09/27/20 09/28/20 09/28/20 22:59 06:59 14:59 Intake Total 290 / 820 Output Total 200 / 200 500 / 700 Balance 90 / 620 -500 / 120 Physical Exam Urinary Catheter Management^: Van: Cath Placed During This Visit: yes Reason for Continuing Indwelling Catheter: Accurate Measurement of Urinary Output in Critically Ill Patients Urinary Catheter Date of Insertion: 09/24/20 Urinary Catheter Time of Insertion: 14:25 Data : 09/28/20 04:56 09/28/20 04:56 Coding Level of Care Code Acute Procurement Internship for [facility]
[2020-09-28] MEDS: sennosides 8.6 mg Tablet PO (09:15)
[2020-09-28] MEDS: spironolactone 25 mg Tablet PO (09:15)
[2020-09-28] MEDS: atorvastatin 40 mg Tablet 20 MG PO (09:15)
[2020-09-28] MEDS: amlodipine 10 mg Tablet PO (09:16)
[2020-09-28] MEDS: aspirin 81 mg EC Tablet PO (09:16)
[2020-09-28] MEDS: predniSONE 20 mg Tablet 40 MG PO (09:16)
[2020-09-28] MEDS: potassium chloride ER 20 mEq Tablet 40 MEQ PO (09:16)
[2020-09-28] MEDS: pantoprazole DR 40 mg Tablet PO (09:16)
[2020-09-28] MEDS: enoxaparin 40 mg/0.4 mL Syringe SUBCUT (09:16)
[2020-09-28] MEDS: cefepime 1,000 MG in sodium chloride 0.9% (plus) 50 ML 100 MG IV (10:28)
[2020-09-28 12:01] LABS: Glucose Point of Care 139 mg/dL (70-110)
--- NOTE | 2020-09-28 12:51 | PC.RESP ---
PULMONARY REHAB INFORMATION SENT TO PATIENT.
--- NOTE | 2020-09-28 12:54 | PM.DCS ---
Discharge Providers Date of Admission: 09/24/20 06:37 Date of Discharge: September 28, 2020 Attending Provider at Admission: Jennifer Burch MD Attending Provider at Discharge: Camron Garcia MD Primary Care Provider: Micky Lindo Diagnoses at Discharge Discharge Diagnosis (1) Sepsis: Status: Acute Permanent problem details: Resolved Qualifiers: Sepsis acute organ dysfunction status: unspecified Sepsis type: sepsis due to unspecified organism Qualified Code(s): A41.9 - Sepsis, unspecified organism (2) Acute exacerbation of chronic obstructive pulmonary disease: Status: Acute (3) COPD with hypoxia: Status: Acute (4) Respiratory failure with hypoxia and hypercapnia: Status: Acute (5) Diabetes: Status: Acute (6) Left renal mass: Status: Acute (7) CHF exacerbation: Status: Acute (8) Non-ST elevation GA (NSTEMI): Status: Acute (9) Mediastinal lymphadenopathy: Status: Acute Reason for Visit Reason for Visit: copd resp diss Hospital Course Hospital Course Purvi is a 75-year-old white female who presented to the hospital with shortness of breath, through the emergency department on September 24. At that time there was concern of COPD exacerbation, sepsis. She was initially placed on Zosyn and vancomycin. Steroids were initiated. Pulmonary toilet started. BiPAP was required. Levaquin was later added. With this treatment she had gradual improvement. Other minor medicine adjustments were made such as addition of Aldactone. Urine was also obtained which demonstrated evidence of urinary tract infection and eventually grew Klebsiella. A limited echocardiogram demonstrated preserved EF. A CTA demonstrated small bilateral pleural effusions, extensive pleural plaques from prior asbestos exposure, reactive mediastinal adenopathy, severe emphysema and no evidence of pulmonary embolism. By the end of her hospital stay she was on 4 L of oxygen which she reported was near her baseline. Home oxygen evaluation recommended this amount as well. It was thought she could be discharged home, with home health. I discussed this with the patient as well as her . She will follow-up with pulmonary, and her primary care provider. She has ongoing follow-up with urology secondary to renal mass. Physical Exam Narrative: EXAM NARRATIVE: General exam no apparent distress Cardiovascular regular rate and rhythm, no murmur Lungs clear but with diminished breath sounds bilaterally Abdomen is soft positive bowel sounds Extremities no cyanosis clubbing or edema Urinary Catheter Management^: Van: Cath Placed During This Visit: yes Reason for Continuing Indwelling Catheter: Accurate Measurement of Urinary Output in Critically Ill Patients Urinary Catheter Date of Insertion: 09/24/20 Urinary Catheter Time of Insertion: 14:25 Discharge Data Data Completed and Pending: Completed Studies During Hospitalization Category Date Time Status CT angio chest PE protcl [id number] Stat Cat Scan 09/24/20 06:48 Completed XR chest 1V rylee ble [id number] Stat Exams 09/24/20 03:36 Completed CV echo limited 9 [id number] Routine Ultrasound 09/24/20 13:01 Completed Pending at discharge Category Date Time Status Blood Culture Sta t Lab 09/24/20 04:20 Results Sputum Culture an d Gram Stain Stat Lab 09/24/20 08:25 Uncollected Labs from last 24 hours 09/28/20 09/28/20 09/28/20 11:54 06:44 04:56 WBC RBC Hgb Hct MCV MCH MCHC RDW Plt Count MPV Neut % (Auto) Lymph % (Auto) [place] % (Auto) Eos % (Auto) Baso % (Auto) Neut # (Auto) Lymph # (Auto) [place] # (Auto) Eos # (Auto) Baso # (Auto) Nucleated RBC % (a uto) Nucleated RBCs # Sodium 142 Potassium 4.4 Chloride 100 Carbon Dioxide 33 H Anion Gap 13.4 BUN 12 Creatinine 0.4 L GFR Calculation Not Reportable Glucose 127 H POC Glucose 139 97 Calculated Osmolal ity 295 Calcium 9.8 09/28/20 09/27/20 09/27/20 04:56 20:59 15:55 WBC 9.3 RBC 4.90 Hgb 11.5 Hct 39.2 MCV 80.0 L MCH 23.5 L MCHC 29.3 L RDW 18.8 H Plt Count 490 H MPV 9.7 Neut % (Auto) 77.7 Lymph % (Auto) 13.8 [place] % (Auto) 7.6 Eos % (Auto) 0.7 Baso % (Auto) 0.0 Neut # (Auto) 7.25 Lymph # (Auto) 1.3 [place] # (Auto) 0.7 Eos # (Auto) 0.1 Baso # (Auto) 0.0 Nucleated RBC % (a uto) 0 Nucleated RBCs # 0.0 Sodium Potassium Chloride Carbon Dioxide Anion Gap BUN Creatinine GFR Calculation Glucose POC Glucose 186 188 Calculated Osmolal ity Calcium Vitals: Last Vital Signs Temp 97.5 F L 09/28/20 11:57 Pulse 90 09/28/20 11:57 Resp 18 09/28/20 11:57 BP 147/78 09/28/20 11:57 Pulse Ox 91 09/28/20 11:57 Discharge Plan Discharge Patient Disposition: Home Health Service Condition: Stable Prescriptions: New Xanax 0.25 mg tablet 0.25 mg PO TID PRN (Reason: anxiety) Qty: 20 RF: 0 spironolactone 25 mg Tablet 25 mg PO DAILY Qty: 30 RF: 0 cefdinir 300 mg capsule 300 mg PO BID 7 Days Qty: 14 RF: 0 albuterol sulfate 2.5 mg /3 mL (0.083 %) solution for nebulization 2.5 mg inhalation Q6H PRN (Reason: shortness of breath or wheezing) Qty: 180 RF: 0 prednisone 20 mg Tablet 40 mg PO DAILY Qty: 8 RF: 0 Continued Trelegy Ellipta 100-62.5-25 mcg blister with device 1 inh INHALATION Q24H 30 Days Qty: 60 RF: 3 nitroglycerin [Nitrostat] 0.4 mg tablet, sublingual 0.4 mg SUBLINGUAL Q5M PRN (Reason: Chest Pain) Qty: 25 RF: 6 atorvastatin 20 mg tablet 20 mg PO DAILY RF: 0 metformin 1,000 mg tablet 1,000 mg PO BID RF: 0 pantoprazole 40 mg tablet,delayed release (DR/EC) 40 mg PO DAILY RF: 0 aspirin [Adult Low Dose Aspirin] 81 mg tablet,delayed release (DR/EC) 81 mg PO DAILY RF: 0 amlodipine 10 mg Tablet 10 mg PO DAILY RF: 0 Discontinued furosemide 20 mg tablet 20 mg PO QAM RF: 0 potassium chloride 20 mEq tablet extended release 20 meq PO DAILY RF: 0 Anoro Ellipta 62.5-25 mcg/actuation blister with device 1 inh INHALATION Q24H 30 Days Qty: 60 RF: 3 budesonide 0.5 mg/2 mL Suspension For Nebulization 0.5 mg INHALATION BID RF: 0 Discharge Orders: Discharge Order (Routine); Ordered 09/28/20 Ordered By: Camron Garcia Other Ambulatory Orders: DME: Oxygen (Order) Location: None Selected Ordered By: Camron Garcia Referrals: Tesfaye Colón MD [Physician] - 2 weeks Micky Lindo MD [Primary Care Provider] - 4-7 days Discharge Diet: Cardiac and Diabetic Discharge Activity: Increase activity as tolerated Patient Instructions: COPD, COPD Stoplight, Using Oxygen at Home Activity Restrictions/Additional Instructions: Take all medicine as prescribed. Discharge Attestations Time Spent in Discharge Care*: greater than 30 min Status at Discharge: Cognitive status at discharge: cognitively intact, Behavioral status at discharge: cooperative, Quality Metrics Clinical Quality Measures During this hospital stay, did patient experience: None Coding Level of Care Code Acute Publications Inspector for Chg Fwd Diagnoses Sepsis A41.9 Sepsis acute organ dysfunction status: unspecified Sepsis type: sepsis due to unspecified organism Acute exacerbation of chronic obstructive pulmonary disease J44.1 COPD with hypoxia J44.9; R09.02 Respiratory failure with hypoxia and hypercapnia J96.91; J96.92 Diabetes E11.9 Left renal mass N28.89 CHF exacerbation I50.9 Non-ST elevation GA (NSTEMI) I21.4 Mediastinal lymphadenopathy R59.0
--- NOTE | 2020-09-28 15:27 | PC.NURSE ---
discharged Pt taken down in wheelchair where took pt home in private vehicle.
== END 2020-09-28 15:31 | disposition home health service (06) | DRG 871 ==
LOC: ER 05:41 → ICU 06:53 → MEDSURG 09-27 02:54
PROVIDERS: Internal Medicine; Admitting Provider Internal Medicine; Emergency Provider Emergency Medicine; PCP Family Medicine; Visit Provider Internal Medicine
DX: A41.9 Sepsis, unspecified organism (principal); J18.9 Pneumonia, unspecified organism; J96.21 Acute and chronic respiratory failure with hypoxia; J96.22 Acute and chronic respiratory failure with hypercapnia; I21.A1 Myocardial infarction type 2; E87.2 Acidosis; N39.0 Urinary tract infection, site not specified; Z77.090 Contact with and (suspected) exposure to asbestos; J43.9 Emphysema, unspecified; Z99.81 Dependence on supplemental oxygen; Z87.891 Personal history of nicotine dependence; N28.89 Other specified disorders of kidney and ureter; I50.9 Heart failure, unspecified; I10 Essential (primary) hypertension; I25.10 Atherosclerotic heart disease of native coronary artery without angina pectoris; E11.51 Type 2 diabetes mellitus with diabetic peripheral angiopathy without gangrene; G47.33 Obstructive sleep apnea (adult) (pediatric); M19.90 Unspecified osteoarthritis, unspecified site; Z87.442 Personal history of urinary calculi; Z96.651 Presence of right artificial knee joint; Z96.641 Presence of right artificial hip joint; R59.0 Localized enlarged lymph nodes; E83.42 Hypomagnesemia; Z79.82 Long term (current) use of aspirin; B96.1 Klebsiella pneumoniae [K. pneumoniae] as the cause of diseases classified elsewhere
CPT/HCPCS: 12345; 36415; 36416; 36600; 51702; 71045; 71275; 80048; 80053; 80202; 81001; 82803; 82962; 83605; 83735; 83880; 84145; 84484; 85025; 85378; 85610; 86403; 87040; 87077; 87086; 87186; 87426; 87449; 87804; 93005; 93308; 94640; 94660; 96372; 96375; 97110; 97116; 97163; 97166; 97530; 97535; 99284; 99291; J0131; J0692; J1650; J1815; J1940; J2060; J2405; J2543; J2920; J3370; J3475; J7030; J7050; J7512; Q9967

== ENCOUNTER 2020-10-26 12:08 | Observation (INO) | payer MEDICARE, SELFPAY ==
[2020-10-26] VITALS (13 sets, daily range): BP systolic 125–135; BP diastolic 62–76; PULSE 73–92; RESP 16–20; TEMP 36.5–36.6; O2SAT 81–99; BMI 25.5
--- NOTE | 2020-10-26 12:35 | XRR_ITS ---
PROCEDURE INFORMATION: Exam: XR Chest, 1 View Exam date and time: 10/26/2020 12:53 PM Age: 75 years old Clinical indication: Cough and shortness of breath; Additional info: Cough/shortness of breath TECHNIQUE: Imaging protocol: XR of the chest Views: 1 view. COMPARISON: CR XR chest 1V portable [id number] 09/24/2020 3:34 AM FINDINGS: Lungs: Unremarkable. No consolidation. Pleural space: Calcified pleural plaque is seen in the right and left hemithorax appearing stable since prior examination. No pleural effusion. No pneumothorax. Heart/Mediastinum: Unremarkable. No cardiomegaly. Bones/joints: Unremarkable. XR/XR chest 1V portable [id number] IMPRESSION: 1. Stable bilateral chest wall calcified pleural plaque. 2. No acute findings.
--- NOTE | 2020-10-26 12:36 | ECG_ITS ---
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 Measurements Intervals [place] Rate: 75 P: 58 [place]: 135 QRS: 63 QRSD: 85 T: 183 QT: 412 QTc: 461 Interpretive Statements SINUS RHYTHM POSSIBLE LEFT ATRIAL ENLARGEMENT [-0.1mV P WAVE IN V1/V2] MODERATE T-WAVE ABNORMALITY, CONSIDER ANTEROLATERAL ISCHEMIA [-0.1+ mV T WAVE IN V3-V6] MODERATE T-WAVE ABNORMALITY, CONSIDER INFERIOR ISCHEMIA [-0.1+ mV T WAVE IN II/aVF] Compared to ECG 09/24/2020 09:20:04 Short [place] interval no longer present T-wave abnormality still present Possible ischemia still present Electronically Signed On 10-26-2020 18:34:46 [employer] by Marty Mantilla M.D. [id number]
--- NOTE | 2020-10-26 13:14 | W.ED.SOB ---
HPI - SOB/Dyspnea General: Chief Complaint: Shortness of Breath/Dyspnea Stated Complaint: SOB Time Seen by Provider: 10/26/20 12:29 Source: patient and family Limitations: no limitations History of Present Illness: HPI Narrative: Purvi is a very nice 75-year-old female who comes in with shortness of breath. Patient has had increased shortness of breath since this morning. Briefly Y going to see Dr. Colón in his clinic the patient's oxygen ran out and her oxygen level dropped to 81% on room air. Patient states that she has had postnasal drainage and an upper respiratory type infection. Dr. Colón was specifically concerned about a DVT or PE and sent her here for evaluation. Patient denies any fevers or chills. She has a cough that she states is nonproductive. Denies any chest pain. She is unaware of any exacerbating or alleviating factors. Associated symptoms: Reports chest congestion; Deny abdominal pain, chest pain, diaphoresis, dizziness, extremity pain, fever(s), hemoptysis, lightheadedness, nausea, orthopnea, palpitations, syncope or vomiting Review of Systems Const: Denies: fever(s), chills, body aches, fatigue, malaise or diaphoresis Eyes: Denies: change in vision, blurry vision, photophobia, eye discomfort, eye discharge, eye redness or yellow eyes ENMT: Reports: throat pain; Denies: odynophagia, hoarseness, swelling of lips/tongue, ear or mastoid pain, ear discharge, change in hearing or nasal discharge Card: Denies: chest pain, palpitations, irregular heart rhythm, edema, lightheadedness, syncope, pre-syncope, dyspnea on exertion or orthopnea Resp: Reports: dyspnea, non-productive cough, wheezing and chest congestion; Denies: productive cough or hemoptysis GI: Denies: abdominal pain, nausea, vomiting, hematemesis, coffee ground emesis, heartburn, diarrhea, constipation, GI cramping, hematochezia or melena : Denies: flank pain, dysuria, urinary frequency, urinary urgency or hematuria Musc: Denies: neck pain, back pain, extremity pain, extremity swelling, joint pain, joint swelling, joint redness, joint warmth or joint stiffness Skin/Breast: Denies: rash, pruritus, erythema, skin pain or skin tenderness Neuro: Denies: headache(s), numbness in extremities, weakness in extremities, sensory changes, lack of coordination, difficulty walking, dizziness, vertigo, confusion, Slurred speech present or seizure-like activity Tank/Lymph: Denies: easy bruising, easy bleeding, petechiae, purpura or enlarged lymph nodes All/Imm: Denies: urticaria, throat swelling, tongue swelling, facial swelling or acute wheezing PFSH ED PFSH: Medical History Accelerated essential hypertension Acute exacerbation of chronic obstructive airways disease Angio-edema CAD (coronary artery disease) Carotid artery disease CHF (congestive heart failure) COPD (chronic obstructive pulmonary disease) Chronically on 2 L per nasal cannula Cyst at back: removed Diabetes Hypomagnesemia LUNA (obstructive sleep apnea) Osteoarthritis Oxygen dependent Peripheral vascular disease Primary osteoarthritis of left hip Primary osteoarthritis of right hip Respiratory failure with hypoxia Type 2 diabetes mellitus Urolithiasis Surgical History History of cardiac cath Need to define if stenting was performed History of right knee joint replacement History of right knee surgery History of total right hip arthroplasty Hx of appendectomy Family History Mother Cancer Diabetes Father Cancer Social History Smoking and tobacco status: former smoker Quit status (tobacco): has quit using tobacco Year quit tobacco: 2008 [id number] Second hand smoke exposure: No Alcohol intake: never Lives independently: Yes Household members: spouse Housing: House Marital status: Current occupational status: retired History of recent travel: No Current gender identity: Female Female Reproductive History: Date of last menstrual period: 11/05/83 Physical Exam Const: COMMON NORMALS: no acute distress, patient oriented x3, no limitations and alert GENERAL APPEARANCE: cooperative HENMT: COMMON NORMALS: normocephalic, atraumatic, external ears normal, EAC's normal and Normal external nose present HEAD & SCALP: normal to inspection, normocephalic and atraumatic FACE & SINUS: normal facial exam and face symmetric NOSE: Normal external nose present and Normal nares present EXTERNAL EAR: Yes external ears normal EXTERNAL AUDITORY CANAL: EAC's normal MOUTH: Normal oral and palatal mucosa present, lip normal and tongue normal Eye: COMMON NORMALS: Equal, round and reactive pupils present and conjunctivae normal GENERAL EYE: appearance normal, both eyes and all related structures ALIGNMENT: Yes alignment normal PERIORBITAL: periorbital findings normal EYELID: eyelids normal CONJUNCTIVA: Yes conjunctivae normal SCLERA: sclerae normal PUPIL: Yes Equal, round and reactive pupils present Neck/C-Spine: COMMON NORMALS: full ROM, no lymphadenopathy, supple, no meningeal signs and no JVD GENERAL: Yes normal visual inspection and Yes trachea midline Chest: COMMONS NORMALS: normal inspection of the chest and normal palpation of entire chest wall Resp: AUSCULTATION: rhonchi, wheezes and diminished lung sounds Cardio: COMMON NORMALS: no JVD, regular rate, regular rhythm, S1 normal heart sound present and S2 normal heart sound present RATE: regular rate RHYTHM: regular rhythm HEART SOUNDS: S1 normal heart sound present, S2 normal heart sound present, no click, no gallops, no murmurs and no rubs GI: COMMON NORMALS: Soft to palpation and No hepatosplenomegaly present PALPATION: Yes Soft to palpation, No Tenderness to palpation present (GI), No Guarding due to palpation present (GI), No Rigid due to palpation, Yes No hepatosplenomegaly present, No Hernia present, No Palpable mass present and No Pulsatile mass present : COMMON NORMALS: Yes no CVA tenderness BLADDER/KIDNEY EXAM: Yes no CVA tenderness EXTERNAL FEMALE EXAM: No Hernia present Back/Pelvis: COMMON NORMALS: no CVA tenderness, thoracic and lumbar spine normal to inspection, no thoracic nor lumbar tenderness and thoraco-lumbar ROM normal Extremity: COMMON NORMALS: normal to inspection, full ROM, capillary refill normal, no joint enlargement, no clubbing, cyanosis or edema and no calf tenderness Neuro: COMMON NORMALS: patient oriented x3, CN's II-XII intact bilaterally, moves all extremities, no focal motor deficits and no sensory deficits noted SENSORIUM/ORIENTATION: Yes alert MENINGEAL SIGNS: Yes no meningeal signs SPEECH: speech normal Psych: COMMON NORMALS: mental status grossly normal, Normal thought process present, cooperative, normal affect, speech normal and activity/motor behavior normal SPEECH: Yes normal speech THOUGHT PROCESS: Normal thought process present Skin: COMMON NORMALS: no rashes or lesions noted, turgor normal, no jaundice, no petechiae and no mottling GENERAL SKIN EXAM: no rashes or lesions noted and turgor normal Course Vital Signs: Vital signs: Vital Signs Temperature 97.7 F 10/26/20 12:20 Pulse Rate 82 10/26/20 15:52 Respiratory Rate 16 10/26/20 15:52 Blood Pressure 130/68 10/26/20 13:25 Pulse Oximetry 98 10/26/20 15:52 MDM - SOB/Dyspnea MDM Narrative: Medical decision making narrative: The patient is mildly better after treatments. The case was reviewed in its entirety with Dr. Bryant, she agrees to go and admit the patient for COPD exacerbation. She understands that CTA of the lungs are pending at this time. If the patient has a CTA that looks like viral infiltrates she would like a PTC done on her. Lab Data: Labs: Lab Results 10/26/20 10/26/20 10/26/20 Range/Units 13:11 13:17 14:00 WBC (4.0-10.0) 10^3/ uL RBC (4.1-5.3) 10^6/u L Hgb (11.5-15.3) g/dL Hct (37.0-47.0) % MCV (81-99) fL MCH (28.0-34.0) pg MCHC (30.0-36.0) g/dL RDW (12.1-15.1) % Plt Count (130-400) 10^3/c mm MPV (7.4-10.4) fL Neut % (Auto) % Lymph % (Auto) % [place] % (Auto) % Eos % (Auto) % Baso % (Auto) % Neut # (Auto) (1.8-7.7) 10^3/u L Lymph # (Auto) (0.8-4.8) 10^3/u L [place] # (Auto) (0.2-0.9) 10^3/u L Eos # (Auto) (0.0-0.8) 10^3/u L Baso # (Auto) (0.0-0.1) 10^3/u L Nucleated RBC % (a uto) % Nucleated RBCs # /100WBC PT (12.1-14.9) SECO NDS INR (0.8-1.2) D-Dimer (0-0.59) ug/mIFE U Specimen Type Arterial Sample Site Brachial, right ABG pH 7.46 H (7.35-7.45) ABG pCO2 46.1 H (35-45) mmHg ABG pO2 64.1 L (80.0-100.0) mmH g ABG HCO3 32.9 H (22-26) mmol/L ABG Base Excess 8.1 H (-2.0-2.0) mmol/ L Malik Test N/a Hematocrit 32.7 L (37-47) % O2 Delivery Device Nc O2 Liters/Min 4.0 % FiO2 36.0 % Invoicing Machine Operator ID Amh Sodium (136-145) mmol/L Potassium (3.5-5.1) mmol/L Chloride (98-107) mmol/L Carbon Dioxide (22-29) mmol/L Anion Gap (5-19) BUN (8-23) mg/dL Creatinine (0.5-0.9) mg/dL GFR Calculation Glucose (65-115) mg/dL POC Glucose 118 H (70-110) mg/dL Calculated Osmolal ity (285-295) mOsm/k g Lactic Acid (0.5-2.2) mmol/L Calcium (8.5-10.5) mg/dL Magnesium (1.7-2.3) mg/dL Total Bilirubin (0.15-1.2) mg/dL AST (0-32) U/L ALT (0-33) U/L Alkaline Phosphata se (35-105) IU/L Troponin T Baselin e (0-10) ng/L NT-Pro-B Natriuret Pep (0-450) pg/mL Total Protein (6.6-8.7) g/dL Albumin (3.5-5.2) g/dL Globulin (1.3-4.6) g/dL Influenza Type A A g Negative (Negative) Influenza Type B A g Negative (Negative) SARS-CoV-2 Ag (Rap id) (Negative) 10/26/20 10/26/20 10/26/20 Range/Units 14:00 14:50 14:50 WBC 7.4 (4.0-10.0) 10^3/ uL RBC 4.41 (4.1-5.3) 10^6/u L Hgb 10.6 L (11.5-15.3) g/dL Hct 35.4 L (37.0-47.0) % MCV 80.3 L (81-99) fL MCH 24.0 L (28.0-34.0) pg MCHC 29.9 L (30.0-36.0) g/dL RDW 20.9 H (12.1-15.1) % Plt Count 351 (130-400) 10^3/c mm MPV 9.5 (7.4-10.4) fL Neut % (Auto) 75.4 % Lymph % (Auto) 17.7 % [place] % (Auto) 5.2 % Eos % (Auto) 1.0 % Baso % (Auto) 0.3 % Neut # (Auto) 5.55 (1.8-7.7) 10^3/u L Lymph # (Auto) 1.3 (0.8-4.8) 10^3/u L [place] # (Auto) 0.4 (0.2-0.9) 10^3/u L Eos # (Auto) 0.1 (0.0-0.8) 10^3/u L Baso # (Auto) 0.0 (0.0-0.1) 10^3/u L Nucleated RBC % (a uto) 0 % Nucleated RBCs # 0.0 /100WBC PT 13.80 (12.1-14.9) SECO NDS INR 1.03 (0.8-1.2) D-Dimer 1.79 H (0-0.59) ug/mIFE U Specimen Type Sample Site ABG pH (7.35-7.45) ABG pCO2 (35-45) mmHg ABG pO2 (80.0-100.0) mmH g ABG HCO3 (22-26) mmol/L ABG Base Excess (-2.0-2.0) mmol/ L Malik Test Hematocrit (37-47) % O2 Delivery Device O2 Liters/Min % FiO2 % Invoicing Machine Operator ID Sodium (136-145) mmol/L Potassium (3.5-5.1) mmol/L Chloride (98-107) mmol/L Carbon Dioxide (22-29) mmol/L Anion Gap (5-19) BUN (8-23) mg/dL Creatinine (0.5-0.9) mg/dL GFR Calculation Glucose (65-115) mg/dL POC Glucose (70-110) mg/dL Calculated Osmolal ity (285-295) mOsm/k g Lactic Acid (0.5-2.2) mmol/L Calcium (8.5-10.5) mg/dL Magnesium (1.7-2.3) mg/dL Total Bilirubin (0.15-1.2) mg/dL AST (0-32) U/L ALT (0-33) U/L Alkaline Phosphata se (35-105) IU/L Troponin T Baselin e (0-10) ng/L NT-Pro-B Natriuret Pep (0-450) pg/mL Total Protein (6.6-8.7) g/dL Albumin (3.5-5.2) g/dL Globulin (1.3-4.6) g/dL Influenza Type A A g (Negative) Influenza Type B A g (Negative) SARS-CoV-2 Ag (Rap id) Negative (Negative) 10/26/20 10/26/20 10/26/20 Range/Units 14:50 14:50 14:50 WBC (4.0-10.0) 10^3/ uL RBC (4.1-5.3) 10^6/u L Hgb (11.5-15.3) g/dL Hct (37.0-47.0) % MCV (81-99) fL MCH (28.0-34.0) pg MCHC (30.0-36.0) g/dL RDW (12.1-15.1) % Plt Count (130-400) 10^3/c mm MPV (7.4-10.4) fL Neut % (Auto) % Lymph % (Auto) % [place] % (Auto) % Eos % (Auto) % Baso % (Auto) % Neut # (Auto) (1.8-7.7) 10^3/u L Lymph # (Auto) (0.8-4.8) 10^3/u L [place] # (Auto) (0.2-0.9) 10^3/u L Eos # (Auto) (0.0-0.8) 10^3/u L Baso # (Auto) (0.0-0.1) 10^3/u L Nucleated RBC % (a uto) % Nucleated RBCs # /100WBC PT (12.1-14.9) SECO NDS INR (0.8-1.2) D-Dimer (0-0.59) ug/mIFE U Specimen Type Sample Site ABG pH (7.35-7.45) ABG pCO2 (35-45) mmHg ABG pO2 (80.0-100.0) mmH g ABG HCO3 (22-26) mmol/L ABG Base Excess (-2.0-2.0) mmol/ L Malik Test Hematocrit (37-47) % O2 Delivery Device O2 Liters/Min % FiO2 % Invoicing Machine Operator ID Sodium 143 (136-145) mmol/L Potassium 3.6 (3.5-5.1) mmol/L Chloride 100 (98-107) mmol/L Carbon Dioxide 29 (22-29) mmol/L Anion Gap 17.6 (5-19) BUN 13 (8-23) mg/dL Creatinine 0.5 (0.5-0.9) mg/dL GFR Calculation Not Reportable Glucose 113 (65-115) mg/dL POC Glucose (70-110) mg/dL Calculated Osmolal ity 297 H (285-295) mOsm/k g Lactic Acid 1.3 (0.5-2.2) mmol/L Calcium 9.3 (8.5-10.5) mg/dL Magnesium 1.0 L (1.7-2.3) mg/dL Total Bilirubin 0.5 (0.15-1.2) mg/dL AST 15 (0-32) U/L ALT 11 (0-33) U/L Alkaline Phosphata se 74 (35-105) IU/L Troponin T Baselin e 16 H (0-10) ng/L NT-Pro-B Natriuret Pep 1087 H (0-450) pg/mL Total Protein 7.0 (6.6-8.7) g/dL Albumin 3.7 (3.5-5.2) g/dL Globulin 3.3 (1.3-4.6) g/dL Influenza Type A A g (Negative) Influenza Type B A g (Negative) SARS-CoV-2 Ag (Rap id) (Negative) Imaging Data^: CXR: Attestation: I personally reviewed and interpreted this imaging study as follows: My impression: Stable bilateral pleural plaques. Unchanged from previous. EKG Data^: EKG 1: Attestation: I personally reviewed and interpreted this EKG as follows: EKG Interpretation Date: 10/26/20 EKG interpretation time: 13:21 Interpretation: Normal sinus rhythm at 75 beats a minute, no blocks, normal intervals, T waves inverted inferiorly in leads V3 through V6. Similar to previous. Discharge Plan Discharge Patient Disposition: Placed in Observation Clinical Impression: Acute exacerbation of chronic obstructive airways disease Condition: Stable Prescriptions: No Action Trelegy Ellipta 100-62.5-25 mcg blister with device 1 inh INHALATION Q24H 30 Days Qty: 60 RF: 3 nitroglycerin [Nitrostat] 0.4 mg tablet, sublingual 0.4 mg SUBLINGUAL Q5M PRN (Reason: Chest Pain) Qty: 25 RF: 6 atorvastatin 20 mg tablet 20 mg PO DAILY@0700 RF: 0 metformin 1,000 mg tablet 1,000 mg PO BID@0700,1700 RF: 0 pantoprazole 40 mg tablet,delayed release (DR/EC) 40 mg PO DAILY@0700 RF: 0 aspirin [Adult Low Dose Aspirin] 81 mg tablet,delayed release (DR/EC) 81 mg PO DAILY@0700 RF: 0 amlodipine 10 mg Tablet See Rx Instructions .ROUTE .COMPLEX RF: 0 albuterol sulfate 2.5 mg /3 mL (0.083 %) solution for nebulization 2.5 mg inhalation Q6H PRN (Reason: shortness of breath or wheezing) Qty: 180 RF: 0 alprazolam [Xanax] 0.25 mg tablet 0.25 mg PO TID PRN (Reason: anxiety) Qty: 20 RF: 0 furosemide 20 mg tablet 20 mg PO DAILY@0700 RF: 0 atenolol 50 mg tablet 50 mg PO DAILY@0700 RF: 0 spironolactone 25 mg tablet 25 mg PO DAILY@0700 RF: 0 Referrals: Micky Lindo MD [Primary Care Provider] - Coding Level of Care Code ED Object Oriented Developer for Chg Fwd Exam Comprehensive
[2020-10-26 13:23] LABS: ABG PCO2 46.1 mmHg (35-45); ABG PH Result 7.46 (7.35-7.45); Arterial Blood Gas Hematocrit 32.7 % (37-47); Base Excess ABG 8.1 mmol/L (-2.0-2.0); Blood Gas Operator Identificat AMH; Blood Gas Sample Site Brachial, right; Blood Gas Sample Type Arterial; HCO3 ABG 32.9 mmol/L (22-26); Oxygen Device NC; PO2 ABG 64.1 mmHg (80.0-100.0)
[2020-10-26 13:26] LABS: Glucose Point of Care 118 mg/dL (70-110)
[2020-10-26] MEDS: albuterol 8 gm MDI 6 PUFF INHALATION (14:01)
[2020-10-26 14:26] LABS: Influenza A by IFA Negative (Negative); Influenza B by IFA Negative (Negative); SARS Covid-2 Antigen Negative (Negative)
--- NOTE | 2020-10-26 14:36 | ECG_ITS ---
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 Measurements Intervals Ferdinand Rate: 76 P: 66 LA: 134 QRS: 71 QRSD: 85 T: 220 QT: 406 QTc: 457 Interpretive Statements SINUS RHYTHM WITH MARKED SINUS ARRHYTHMIA POSSIBLE LEFT ATRIAL ENLARGEMENT [-0.1mV P WAVE IN V1/V2] SEPTAL MYOCARDIAL INFARCTION , PROBABLY OLD [40+ ms Q WAVE IN V1/V2] MODERATE T-WAVE ABNORMALITY, CONSIDER ANTEROLATERAL ISCHEMIA [-0.1+ mV T WAVE IN V3-V6] MODERATE T-WAVE ABNORMALITY, CONSIDER INFERIOR ISCHEMIA [-0.1+ mV T WAVE IN II/aVF] Compared to ECG 10/26/2020 13:21:24 Myocardial infarct finding now present T-wave abnormality still present Possible ischemia still present Electronically Signed On 10-26-2020 18:37:14 BULLDOGGER by Marty Mantilla M.D. [id number]
[2020-10-26 15:08] LABS: Basophils % 0.3 %; Eosinophils # 0.1 10^3/uL (0.0-0.8); Hematocrit 35.4 % (37.0-47.0); Hemoglobin 10.6 g/dL (11.5-15.3); Lymphocytes # 1.3 10^3/uL (0.8-4.8); Lymphocytes % 17.7 %; Mean Corpuscular HGB Conc 29.9 g/dL (30.0-36.0); Mean Corpuscular Volume 80.3 fL (81-99); Mean Platelet Volume 9.5 fL (7.4-10.4); Monocytes # 0.4 10^3/uL (0.2-0.9); Monocytes % 5.2 %; Neutrophils # 5.55 10^3/uL (1.8-7.7); Neutrophils % 75.4 %; Nucleated Red Blood Cells % 0 %; Platelet Count 351 10^3/cmm (130-400); Red Blood Count 4.41 10^6/uL (4.1-5.3); Red Cell Distribution Width 20.9 % (12.1-15.1); White Blood Count 7.4 10^3/uL (4.0-10.0)
[2020-10-26] MEDS: ipratropium-albuterol 3 mL Neb 9 ML INHALATION (15:28)
[2020-10-26 15:31] LABS: INR 1.03 (0.8-1.2)
[2020-10-26 15:33] LABS: D Dimer 1.79 ug/mIFEU (0-0.59)
[2020-10-26 15:41] LABS: Lactic Sepsis W/Reflex 1.3 mmol/L (0.5-2.2)
[2020-10-26 15:43] LABS: Troponin(5th) Baseline 16 ng/L (0-10)
--- NOTE | 2020-10-26 16:23 | CTR_ITS ---
PROCEDURE INFORMATION: Exam: CT Angiography Chest With Contrast Exam date and time: 10/26/2020 4:30 PM Age: 75 years old Clinical indication: Shortness of breath; Prior surgery; Surgery type: Stents; Additional info: Dyspnea, positive d-dimer TECHNIQUE: Imaging protocol: Computed tomographic angiography of the chest with intravenous contrast. 3D rendering (Not supervised by radiologist): MIP and/or 3D reconstructed images were created by the technologist. Total images: 961 Radiation optimization: All CT scans at this facility use at least one of these dose optimization techniques: automated exposure control; mA and/or kV adjustment per patient size (includes targeted exams where dose is matched to clinical indication); or iterative reconstruction. Contrast material: OMNI 350; Contrast volume: 73 ml; Contrast route: INTRAVENOUS (IV); COMPARISON: CT angio chest PE protcl [id number] 09/24/2020 7:51 AM RADIATION DOSE METRICS: Total DLP (mGy-cm): 662.91 FINDINGS: Pulmonary arteries: No visible evidence of pulmonary embolism/pulmonary arterial thrombus. Aorta: The thoracic aorta is nonaneurysmal. No visible intimal flap or dissection. Extensive arterial sclerotic disease. Bovine aortic arch which is a normal anatomical variant. Lungs: Advanced centrilobular emphysema. COPD/chronic bronchitis. No visible active interstitial or alveolar airspace disease. Calcified granulomas of antecedent disease. Pleural space: Again note of numerous calcified pleural plaques. No visible pleural effusion. No visible pneumothorax. Heart: Advanced 3 vessel coronary artery disease. Cardiac size upper limits of normal. Left ventricular prominence. No visible pericardial effusion. Mediastinal space: Small hiatal hernia. Lymph nodes: No visible active mediastinal or hilar lymphadenopathy. Calcified complexes of antecedent granulomatous disease. Liver: Scattered both hepatic and splenic calcified granulomas of antecedent disease. Kidneys and ureters: Right nephrolithiasis. Suspected large hemorrhagic cyst equator left kidney measuring 33 mm. Recommend follow-up ultrasound for confirmation. Bones/joints: Mild scoliotic curvature of the spine. Degenerative disease and degenerative disc disease of the spine age-appropriate. Old right rib fractures. No visible osteolytic or osteoblastic destructive process. Soft tissues: Unremarkable for age. CT/CT angio chest PE protcl [id number] IMPRESSION: 1. No visible evidence of pulmonary embolism/pulmonary arterial thrombus. 2. Chronic lung disease as detailed in text above. 3. Advanced 3 vessel coronary artery disease. 4. Right nephrolithiasis. 5. Suspected large hemorrhagic cyst equator left kidney. Recommend follow-up ultrasound for confirmation. COMMENTS: Consistent with the [place] [employer]'s Incidental Findings Committee white paper (J Am Damián Radiol 2018): Any incidental renal lesion less than 1 cm or classified as too small to characterize, or any incidental cystic renal lesion characterized as simple-appearing, is likely benign. No follow-up imaging is recommended for these lesions per consensus recommendations based on imaging criteria. Radiation Dose CTDIVOL = (mGy): DLP = 662.91 (mGy-cm)
[2020-10-26 16:38] LABS: Alanine Aminotransferase 11 U/L (0-33); Albumin Level 3.7 g/dL (3.5-5.2); Alkaline Phosphatase 74 IU/L (35-105); Anion Gap 17.6 (5-19); Aspartate Amino Transferase 15 U/L (0-32); Blood Urea Nitrogen 13 mg/dL (8-23); Calcium 9.3 mg/dL (8.5-10.5); Carbon Dioxide 29 mmol/L (22-29); Chloride 100 mmol/L (98-107); Globulin 3.3 g/dL (1.3-4.6); Glucose 113 mg/dL (65-115); NT Pro B Type Natriuretic Pept 1087 pg/mL (0-450); Osmolality Calculated 297 mOsm/kg (285-295); Potassium 3.6 mmol/L (3.5-5.1); Sodium 143 mmol/L (136-145); Total Bilirubin 0.5 mg/dL (0.15-1.2)
[2020-10-26 17:46] LABS: Troponin 5 2HR 15.31 ng/L (0-10)
[2020-10-26] MEDS: iohexol 350 mg/mL 100 mL Btl IV (17:47)
[2020-10-26 17:48] LABS: Troponin 5 2HR Delta -0.69 ABS# (0-10)
--- NOTE | 2020-10-26 18:36 | ECG_ITS ---
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 Measurements Intervals [place] Rate: 85 P: 85 OR: 142 QRS: 75 QRSD: 87 T: 252 QT: 414 QTc: 494 Interpretive Statements SINUS RHYTHM SEPTAL MYOCARDIAL INFARCTION , OF INDETERMINATE AGE [40+ ms Q WAVE IN V1/V2] MODERATE T-WAVE ABNORMALITY, CONSIDER ANTEROLATERAL ISCHEMIA [-0.1+ mV T WAVE IN V3-V6] MODERATE T-WAVE ABNORMALITY, CONSIDER INFERIOR ISCHEMIA [-0.1+ mV T WAVE IN II/aVF] Compared to ECG 10/26/2020 15:18:19 Sinus arrhythmia no longer present Myocardial infarct finding still present T-wave abnormality still present Possible ischemia still present Electronically Signed On 10-26-2020 18:40:41 ATTENDANCE SECRETARY by Marty Mantilla M.D. [id number]
--- NOTE | 2020-10-26 19:56 | PM.HP ---
Providers/Chief Complaint Admitting Physician: Radha Bryant MD Primary Care Provider: Micky Lindo Chief Complaint: SOB History of Present Illness Purvi Mathis is a 75 year old female with know COPD, home 02 dependent sent over after follow up visit with pulm clinic after being found to be hypoxic while walking back to parking lot. Patient states her 02 on gurmeet cylinder was not on. Tachypenic initially upon exam. CTA chest negative for PE . Review of Systems General: Reports: 10 or more systems reviewed and unremarkable except in HPI and below Const: Denies: fever(s), chills or body aches Eyes: Denies: change in vision, blurry vision or photophobia ENMT: Reports: hoarseness; Denies: throat pain, enlarged tonsils, odynophagia or nasal congestion Card: Denies: chest pain, palpitations, irregular heart rhythm, edema, swelling of feet/ankles, lightheadedness, pre-syncope, dyspnea on exertion or orthopnea Resp: Denies: dyspnea, productive cough, non-productive cough, wheezing, stridor, pain on inspiration, change in phlegm color, hemoptysis or chest congestion GI: Denies: abdominal pain, nausea, vomiting, hematemesis, coffee ground emesis, dysphagia, heartburn, diarrhea, constipation, GI cramping, change in stool character, hematochezia or melena : Denies: flank pain, difficulty voiding, dysuria, urinary frequency, urinary urgency, urinary hesitancy or hematuria Musc: Denies: neck pain, back pain, extremity pain, joint swelling, joint warmth or deformity Neuro: Denies: headache(s), numbness in extremities, weakness in extremities, sensory changes, difficulty walking, frequent falls, dizziness, vertigo, behavioral changes, Slurred speech present or seizure-like activity Psych: Denies: anxiety, depression, suicidal ideation or homicidal ideation Endo: Denies: polyuria, polydipsia, tired all the time, cold intolerance or hot flashes Tank/Lymph: Denies: easy bruising or easy bleeding Medications/Allergies Home Medications Medication Instructions Recorded Confirmed Last Taken Type atorvastatin 20 mg tablet 20 mg PO DAILY@0700 04/21/20 10/26/20 10/26/20 History metformin 1,000 mg tablet 1,000 mg PO BID@0700,1700 04/21/20 10/26/20 10/26/20 History pantoprazole 40 mg tablet,delayed 40 mg PO DAILY@0700 04/21/20 10/26/20 10/26/20 History release amlodipine See Rx Instructions .ROUTE .COMPLEX 07/01/20 10/26/20 10/26/20 History aspirin 81 mg tablet,delayed 81 mg PO DAILY@0700 08/03/20 10/26/20 10/26/20 History release fluticasone fur. 100 mcg-umeclid 1 inh INHALATION Q24H 30 Days #60 09/06/20 10/26/20 10/26/20 Rx 62.5 mcg-vilant 25 mcg each inhalat.powder nitroglycerin 0.4 mg sublingual 0.4 mg SUBLINGUAL Q5M PRN #25 tab 09/08/20 10/26/20 Unknown Rx tablet albuterol sulfate 2.5 mg INHALATION Q6H PRN #180 ml 09/28/20 10/26/20 Unknown Rx alprazolam [Xanax] 0.25 mg PO TID PRN #20 tab 09/28/20 10/26/20 10/25/20 Rx atenolol 50 mg PO DAILY@0700 10/26/20 10/26/20 10/26/20 History furosemide 20 mg PO DAILY@0700 10/26/20 10/26/20 10/26/20 History spironolactone 25 mg PO DAILY@0700 10/26/20 10/26/20 10/26/20 History Allergies Allergy/AdvReac Type Severity Reaction Status Date / Time levofloxacin Allergy ALGY-Difficulty Verified 10/26/20 11:47 Breathing PFSH Acute PFSH: Medical History Accelerated essential hypertension Acute exacerbation of chronic obstructive airways disease Angio-edema CAD (coronary artery disease) Carotid artery disease CHF (congestive heart failure) COPD (chronic obstructive pulmonary disease) Chronically on 2 L per nasal cannula Cyst at back: removed Diabetes Hypomagnesemia LUNA (obstructive sleep apnea) Osteoarthritis Oxygen dependent Peripheral vascular disease Primary osteoarthritis of left hip Primary osteoarthritis of right hip Respiratory failure with hypoxia Type 2 diabetes mellitus Urolithiasis Surgical History History of cardiac cath Need to define if stenting was performed History of right knee joint replacement History of right knee surgery History of total right hip arthroplasty Hx of appendectomy Family History Mother Cancer Diabetes Father Cancer Social History Smoking and tobacco status: former smoker Quit status (tobacco): has quit using tobacco Year quit tobacco: 2008 [id number] Second hand smoke exposure: No Alcohol intake: never Lives independently: Yes Household members: spouse Housing: House Marital status: Current occupational status: retired History of recent travel: No Current gender identity: Female Female Reproductive History: Date of last menstrual period: 11/05/83 Vitals/I&O/Wt Last Vital Signs Temp 97.7 F 10/26/20 12:20 Pulse 82 10/26/20 15:52 Resp 16 10/26/20 15:52 BP 130/68 10/26/20 13:25 Pulse Ox 98 10/26/20 15:52 Weight last 48 hrs Weight 73.936 kg Physical Exam Const: COMMON NORMALS: no acute distress, average body habitus, patient oriented x3, no limitations, healthy appearing, alert and well nourished HENMT: COMMON NORMALS: normocephalic and atraumatic HEAD & SCALP: normocephalic and atraumatic Eye: COMMON NORMALS: Equal, round and reactive pupils present, EOMs intact bilaterally, conjunctivae normal and no scleral icterus CONJUNCTIVA: Yes conjunctivae normal PUPIL: Yes Equal, round and reactive pupils present Neck/C-Spine: COMMON NORMALS: no JVD Resp: COMMON NORMALS: normal respiratory effort, No retractions, No use of accessory muscles, clear to auscultation bilaterally and percussion normal AUSCULTATION: clear to auscultation bilaterally PERCUSSION: percussion normal Cardio: COMMON NORMALS: no JVD, regular rate, regular rhythm, S1 normal heart sound present, S2 normal heart sound present, No gallops present (Cardio), No clicks present (Cardio), No murmurs present (Cardio), No rub (Cardio) and Peripheral pulses 2+ throughout RATE: regular rate RHYTHM: regular rhythm HEART SOUNDS: S1 normal heart sound present and S2 normal heart sound present PERIPHERAL PULSES: Peripheral pulses 2+ throughout GI: COMMON NORMALS: Normal to inspection, nondistended, normoactive bowel sounds present, Soft to palpation, non-tender, No hepatosplenomegaly present, no masses and no bruits PALPATION: Yes Soft to palpation and Yes No hepatosplenomegaly present Extremity: COMMON NORMALS: normal to inspection, full ROM, capillary refill normal, no joint enlargement, no clubbing, cyanosis or edema, no calf tenderness and no pedal edema Neuro: COMMON NORMALS: patient oriented x3, CN's II-XII intact bilaterally, moves all extremities, no focal motor deficits, no sensory deficits noted, deep tendon reflexes 2+ bilaterally and gait normal SENSORIUM/ORIENTATION: Yes alert Psych: COMMON NORMALS: mental status grossly normal, Normal thought process present, cooperative, normal affect, speech normal, activity/motor behavior normal, denies hallucinations, denies homicidal ideation and denies suicidal ideation SPEECH: Yes normal speech THOUGHT PROCESS: Normal thought process present Skin: COMMON NORMALS: no rashes or lesions noted, no wounds, turgor normal, no jaundice, no petechiae and no mottling GENERAL SKIN EXAM: no rashes or lesions noted and turgor normal Data : 10/26/20 14:50 10/26/20 14:50 Micro: Microbiology 10/26/20 14:55 Blood Culture - Preliminary Blood SPECIMEN COLLECTED 10/26/20 14:50 Blood Culture - Preliminary Blood SPECIMEN COLLECTED A&P Assessment and plan (1) Acute exacerbation of chronic obstructive airways disease: observation on med/surg ABG within range sytemic steroids solumedrol duoneb and budesonide scheduled nebulization supplemental 02 as needed CTa negative for PE or consolidation influenza and covid ag negative Status: Acute Attestations Medical Necessity Statement*: less than 2 midnight anticipated for COPD exacerbation Coding Level of Care Code Acute Customer Sales Service Manager for [facility] Fwd Diagnoses Acute exacerbation of chronic obstructive airways disease J44.1
--- NOTE | 2020-10-26 20:30 | PC.NURSE ---
ADMIT NOTE Pt received to floor from ER at 2004. Alert and oriented. O2 in place at 4l per NC. Says this is her baseline O2 at home now. Reports SOB with exertion. Denies pain with cough or deep breaths now. Says some earlier. Has an occ nonprod cough. Denies pain or discomfort. Is requesting a BSC for use. Says when she has to go she usually has to go fast. PIID intact to right ac area. ER nurse reports difficult time getting IV in. VS check done. RN to complete admission assessment
[2020-10-26 20:57] LABS: Glucose Point of Care 248 mg/dL (70-110)
[2020-10-26] MEDS: sodium chloride 0.9% 1,000 ML 100 ML IV (21:23)
[2020-10-26 22:13] LABS: Troponin 5 6HR 12.13 ng/L (0-10)
[2020-10-26 22:14] LABS: Troponin 5 6HR Delta -3.87 ng/L (0-12)
[2020-10-27] VITALS (10 sets, daily range): BP systolic 119–137; BP diastolic 67–77; PULSE 84–96; RESP 18; TEMP 36.4–36.6; O2SAT 93–98
[2020-10-27] MEDS: ipratropium-albuterol 3 mL Neb INHALATION ×3 (01:26→07:46)
[2020-10-27 04:40] LABS: Bilirubin Urine Neg (Negative); Blood Urine Neg (Negative); Glucose Urine UA Norm (Normal); Ketones Urine Negative (Negative); Leukocyte Esterase Urine Negative (Negative); Nitrate Urine Negative (Negative); Protein Urine Neg (Negative); Specific Gravity, Urine 1.005 (1.005-1.030); Urine Appearance Clear (CLEAR); Urine Color Straw (Yellow); Urobilinogen Urine Norm (Negative); pH Urine 7 (5-7)
--- NOTE | 2020-10-27 05:13 | PC.NURSE ---
SHIFT SUMMARY Has done well since admission last evening. Says is supposed to get to go home this morning. Has denied SOB or any pain. IV infusing at 100ml/hr rate. Urinating well. UA was sent to lab josue
[2020-10-27] MEDS: aspirin 81 mg EC Tablet PO (06:10)
[2020-10-27] MEDS: atorvastatin 40 mg Tablet 20 MG PO (06:10)
[2020-10-27] MEDS: spironolactone 25 mg Tablet PO (06:10)
[2020-10-27] MEDS: pantoprazole DR 40 mg Tablet PO (06:10)
[2020-10-27] MEDS: atenolol 50 mg Tablet PO (06:10)
[2020-10-27] MEDS: sodium chloride 0.9% 1,000 ML 100 ML IV (06:12)
[2020-10-27 06:18] LABS: Glucose Point of Care 178 mg/dL (70-110)
[2020-10-27] MEDS: budesonide 0.5 mg/2 mL Neb INHALATION (07:46)
[2020-10-27] MEDS: amlodipine 10 mg Tablet 5 MG PO (09:26)
[2020-10-27 10:02] LABS: Hemoglobin 9.8 g/dL (11.5-15.3); Lymphocytes # 0.4 10^3/uL (0.8-4.8); Lymphocytes % 7.3 %; Mean Corpuscular HGB Conc 29.7 g/dL (30.0-36.0); Mean Corpuscular Volume 80.7 fL (81-99); Mean Platelet Volume 9.9 fL (7.4-10.4); Monocytes # 0.1 10^3/uL (0.2-0.9); Monocytes % 1.7 %; Neutrophils # 5.21 10^3/uL (1.8-7.7); Neutrophils % 90.5 %; Nucleated Red Blood Cells % 0 %; Platelet Count 339 10^3/cmm (130-400); Red Blood Count 4.09 10^6/uL (4.1-5.3); Red Cell Distribution Width 20.8 % (12.1-15.1); White Blood Count 5.8 10^3/uL (4.0-10.0)
[2020-10-27 10:45] LABS: Alanine Aminotransferase 9 U/L (0-33); Albumin Level 3.7 g/dL (3.5-5.2); Alkaline Phosphatase 62 IU/L (35-105); Anion Gap 14.6 (5-19); Aspartate Amino Transferase 13 U/L (0-32); Blood Urea Nitrogen 13 mg/dL (8-23); Calcium 8.8 mg/dL (8.5-10.5); Carbon Dioxide 28 mmol/L (22-29); Chloride 102 mmol/L (98-107); Globulin 2.9 g/dL (1.3-4.6); Glucose 269 mg/dL (65-115); Osmolality Calculated 302 mOsm/kg (285-295); Potassium 3.6 mmol/L (3.5-5.1); Sodium 141 mmol/L (136-145); Total Bilirubin 0.4 mg/dL (0.15-1.2); Total Protein 6.6 g/dL (6.6-8.7)
--- NOTE | 2020-10-27 11:03 | PM.DCS ---
Discharge Providers Date of Admission: 10/26/20 17:17 Date of Discharge: October 27, 2020 Attending Provider at Admission: Radha Bryant MD Attending Provider at Discharge: Radha Bryant MD Primary Care Provider: Micky Lindo Diagnoses at Discharge Discharge Diagnosis (1) Acute exacerbation of chronic obstructive airways disease: Status: Acute Reason for Visit Reason for Visit: SOB Hospital Course Hospital Course Purvi Mathis is a 75 year old female with know COPD, home 02 dependent sent over after follow up visit with pulm clinic after being found to be hypoxic while walking back to parking [facility]. Patient states her 02 on gurmeet cylinder was not on. Tachypenic initially upon exam, improved with nebuliaztion and steroid. CTA chest negative for PE . She was treated for COPD exacerbation, being discharged today in baseline state of health. No consolidation on CT chest. Covid and influenza antigens negative. Covid PCR pending at discharge, may be followed up as outpatient, no current signs of infiltrates or covid pneumonia Physical Exam Narrative: EXAM NARRATIVE: GEN: Awake, alert and oriented, no acute distress CVS: S1S2 N RS: CTA B/L Abd: Soft, nt/nd , bs+ FREEZER UNLOADER: no focal neuro deficits Discharge Data Data Completed and Pending: Completed Studies During Hospitalization Category Date Time Status CT angio chest PE protcl [id number] Stat Cat Scan 10/26/20 16:23 Completed XR chest 1V rylee ble [id number] Stat Exams 10/26/20 12:35 Completed Pending at discharge Category Date Time Status Blood Culture Sta t Lab 10/26/20 14:55 Results Coronavirus Test [facility] Lab 10/27/20 05:30 Received Labs from last 24 hours 10/27/20 10/27/20 10/27/20 09:40 09:40 06:09 WBC 5.8 RBC 4.09 L Hgb 9.8 L Hct 33.0 L MCV 80.7 L MCH 24.0 L MCHC 29.7 L RDW 20.8 H Plt Count 339 MPV 9.9 Neut % (Auto) 90.5 Lymph % (Auto) 7.3 [place] % (Auto) 1.7 Eos % (Auto) 0.0 Baso % (Auto) 0.0 Neut # (Auto) 5.21 Lymph # (Auto) 0.4 L [place] # (Auto) 0.1 L Eos # (Auto) 0.0 Baso # (Auto) 0.0 Nucleated RBC % (a uto) 0 Nucleated RBCs # 0.0 PT INR D-Dimer Specimen Type Sample Site ABG pH ABG pCO2 ABG pO2 ABG HCO3 ABG Base Excess Malik Test Hematocrit O2 Delivery Device O2 Liters/Min FiO2 Shaper And Presser ID Sodium 141 Potassium 3.6 Chloride 102 Carbon Dioxide 28 Anion Gap 14.6 BUN 13 Creatinine 0.6 GFR Calculation Not Reportable Glucose 269 H POC Glucose 178 H Calculated Osmolal ity 302 H Lactic Acid Calcium 8.8 Magnesium Total Bilirubin 0.4 AST 13 ALT 9 Alkaline Phosphata se 62 Troponin T Baselin e Troponin T 120 Min igiugig Delta Troponin T Troponin T Hi Sens 6Hr Troponin T Hi Sens 6Hr Delta NT-Pro-B Natriuret Pep Total Protein 6.6 Albumin 3.7 Globulin 2.9 Urine Color Urine Appearance Urine pH Ur Specific Gravit y Urine Protein Urine Glucose (UA) Urine Ketones Urine Blood Urine Nitrate Urine Bilirubin Urine Urobilinogen Ur Leukocyte Eli ase Urine RBC Urine WBC Ur Squamous Epith Cells Amorphous Sediment Urine Bacteria Nasal/Oral COVID-1 9 PCR Influenza Type A A g Influenza Type B A g SARS-CoV-2 Ag (Rap id) 10/27/20 10/26/20 10/26/20 04:00 21:32 20:51 WBC RBC Hgb Hct MCV MCH MCHC RDW Plt Count MPV Neut % (Auto) Lymph % (Auto) [place] % (Auto) Eos % (Auto) Baso % (Auto) Neut # (Auto) Lymph # (Auto) [place] # (Auto) Eos # (Auto) Baso # (Auto) Nucleated RBC % (a uto) Nucleated RBCs # PT INR D-Dimer Specimen Type Sample Site ABG pH ABG pCO2 ABG pO2 ABG HCO3 ABG Base Excess Malik Test Hematocrit O2 Delivery Device O2 Liters/Min FiO2 Shaper And Presser ID Sodium Potassium Chloride Carbon Dioxide Anion Gap BUN Creatinine GFR Calculation Glucose POC Glucose 248 H Calculated Osmolal ity Lactic Acid Calcium Magnesium Total Bilirubin AST ALT Alkaline Phosphata se Troponin T Baselin e Troponin T 120 Min igiugig Delta Troponin T Troponin T Hi Sens 6Hr 12.13 H Troponin T Hi Sens 6Hr Delta -3.87 L NT-Pro-B Natriuret Pep Total Protein Albumin Globulin Urine Color Straw Urine Appearance Clear Urine pH 7 Ur Specific Gravit y 1.005 Urine Protein Neg Urine Glucose (UA) Norm Urine Ketones Negative Urine Blood Neg Urine Nitrate Negative Urine Bilirubin Neg Urine Urobilinogen Norm Ur Leukocyte Eli ase Negative Urine RBC None Urine WBC None Ur Squamous Epith Cells None Amorphous Sediment Not Reportable Urine Bacteria None Nasal/Oral COVID-1 9 PCR Influenza Type A A g Influenza Type B A g SARS-CoV-2 Ag (Rap id) 10/26/20 10/26/20 10/26/20 16:42 14:50 14:50 WBC RBC Hgb Hct MCV MCH MCHC RDW Plt Count MPV Neut % (Auto) Lymph % (Auto) [place] % (Auto) Eos % (Auto) Baso % (Auto) Neut # (Auto) Lymph # (Auto) [place] # (Auto) Eos # (Auto) Baso # (Auto) Nucleated RBC % (a uto) Nucleated RBCs # PT INR D-Dimer Specimen Type Sample Site ABG pH ABG pCO2 ABG pO2 ABG HCO3 ABG Base Excess Malik Test Hematocrit O2 Delivery Device O2 Liters/Min FiO2 Shaper And Presser ID Sodium Potassium Chloride Carbon Dioxide Anion Gap BUN Creatinine GFR Calculation Glucose POC Glucose Calculated Osmolal ity Lactic Acid 1.3 Calcium Magnesium Total Bilirubin AST ALT Alkaline Phosphata se Troponin T Baselin e 16 H Troponin T 120 Min igiugig 15.31 H Delta Troponin T -0.69 L Troponin T Hi Sens 6Hr Troponin T Hi Sens 6Hr Delta NT-Pro-B Natriuret Pep Total Protein Albumin Globulin Urine Color Urine Appearance Urine pH Ur Specific Gravit y Urine Protein Urine Glucose (UA) Urine Ketones Urine Blood Urine Nitrate Urine Bilirubin Urine Urobilinogen Ur Leukocyte Eli ase Urine RBC Urine WBC Ur Squamous Epith Cells Amorphous Sediment Urine Bacteria Nasal/Oral COVID-1 9 PCR Influenza Type A A g Influenza Type B A g SARS-CoV-2 Ag (Rap id) 10/26/20 10/26/20 10/26/20 14:50 14:50 14:50 WBC 7.4 RBC 4.41 Hgb 10.6 L Hct 35.4 L MCV 80.3 L MCH 24.0 L MCHC 29.9 L RDW 20.9 H Plt Count 351 MPV 9.5 Neut % (Auto) 75.4 Lymph % (Auto) 17.7 [place] % (Auto) 5.2 Eos % (Auto) 1.0 Baso % (Auto) 0.3 Neut # (Auto) 5.55 Lymph # (Auto) 1.3 [place] # (Auto) 0.4 Eos # (Auto) 0.1 Baso # (Auto) 0.0 Nucleated RBC % (a uto) 0 Nucleated RBCs # 0.0 PT 13.80 INR 1.03 D-Dimer 1.79 H Specimen Type Sample Site ABG pH ABG pCO2 ABG pO2 ABG HCO3 ABG Base Excess Malik Test Hematocrit O2 Delivery Device O2 Liters/Min FiO2 Shaper And Presser ID Sodium 143 Potassium 3.6 Chloride 100 Carbon Dioxide 29 Anion Gap 17.6 BUN 13 Creatinine 0.5 GFR Calculation Not Reportable Glucose 113 POC Glucose Calculated Osmolal ity 297 H Lactic Acid Calcium 9.3 Magnesium 1.0 L Total Bilirubin 0.5 AST 15 ALT 11 Alkaline Phosphata se 74 Troponin T Baselin e Troponin T 120 Min ig[place]ugig Delta Troponin T Troponin T Hi Sens 6Hr Troponin T Hi Sens 6Hr Delta NT-Pro-B Natriuret Pep 1087 H Total Protein 7.0 Albumin 3.7 Globulin 3.3 Urine Color Urine Appearance Urine pH Ur Specific Gravit y Urine Protein Urine Glucose (UA) Urine Ketones Urine Blood Urine Nitrate Urine Bilirubin Urine Urobilinogen Ur Leukocyte Eli ase Urine RBC Urine WBC Ur Squamous Epith Cells Amorphous Sediment Urine Bacteria Nasal/Oral COVID-1 9 PCR Influenza Type A A g Influenza Type B A g SARS-CoV-2 Ag (Rap id) 10/26/20 10/26/20 10/26/20 14:00 14:00 14:00 WBC RBC Hgb Hct MCV MCH MCHC RDW Plt Count MPV Neut % (Auto) Lymph % (Auto) [place] % (Auto) Eos % (Auto) Baso % (Auto) Neut # (Auto) Lymph # (Auto) [place] # (Auto) Eos # (Auto) Baso # (Auto) Nucleated RBC % (a uto) Nucleated RBCs # PT INR D-Dimer Specimen Type Sample Site ABG pH ABG pCO2 ABG pO2 ABG HCO3 ABG Base Excess Malik Test Hematocrit O2 Delivery Device O2 Liters/Min FiO2 Shaper And Presser ID Sodium Potassium Chloride Carbon Dioxide Anion Gap BUN Creatinine GFR Calculation Glucose POC Glucose Calculated Osmolal ity Lactic Acid Calcium Magnesium Total Bilirubin AST ALT Alkaline Phosphata se Troponin T Baselin e Troponin T 120 Min igiugig Delta Troponin T Troponin T Hi Sens 6Hr Troponin T Hi Sens 6Hr Delta NT-Pro-B Natriuret Pep Total Protein Albumin Globulin Urine Color Urine Appearance Urine pH Ur Specific Gravit y Urine Protein Urine Glucose (UA) Urine Ketones Urine Blood Urine Nitrate Urine Bilirubin Urine Urobilinogen Ur Leukocyte Eli ase Urine RBC Urine WBC Ur Squamous Epith Cells Amorphous Sediment Urine Bacteria Nasal/Oral COVID-1 9 PCR Pending Influenza Type A A g Negative Influenza Type B A g Negative SARS-CoV-2 Ag (Rap id) Negative 10/26/20 10/26/20 13:17 13:11 WBC RBC Hgb Hct MCV MCH MCHC RDW Plt Count MPV Neut % (Auto) Lymph % (Auto) [place] % (Auto) Eos % (Auto) Baso % (Auto) Neut # (Auto) Lymph # (Auto) [place] # (Auto) Eos # (Auto) Baso # (Auto) Nucleated RBC % (a uto) Nucleated RBCs # PT INR D-Dimer Specimen Type Arterial Sample Site Brachial, right ABG pH 7.46 H ABG pCO2 46.1 H ABG pO2 64.1 L ABG HCO3 32.9 H ABG Base Excess 8.1 H Malik Test N/a Hematocrit 32.7 L O2 Delivery Device Nc O2 Liters/Min 4.0 FiO2 36.0 Shaper And Presser ID Amh Sodium Potassium Chloride Carbon Dioxide Anion Gap BUN Creatinine GFR Calculation Glucose POC Glucose 118 H Calculated Osmolal ity Lactic Acid Calcium Magnesium Total Bilirubin AST ALT Alkaline Phosphata se Troponin T Baselin e Troponin T 120 Min igiugig Delta Troponin T Troponin T Hi Sens 6Hr Troponin T Hi Sens 6Hr Delta NT-Pro-B Natriuret Pep Total Protein Albumin Globulin Urine Color Urine Appearance Urine pH Ur Specific Gravit y Urine Protein Urine Glucose (UA) Urine Ketones Urine Blood Urine Nitrate Urine Bilirubin Urine Urobilinogen Ur Leukocyte Eli ase Urine RBC Urine WBC Ur Squamous Epith Cells Amorphous Sediment Urine Bacteria Nasal/Oral COVID-1 9 PCR Influenza Type A A g Influenza Type B A g SARS-CoV-2 Ag (Rap id) Vitals: Last Vital Signs Temp 97.9 F 10/27/20 08:00 Pulse 86 10/27/20 08:00 Resp 18 10/27/20 08:00 BP 137/77 10/27/20 08:00 Pulse Ox 93 10/27/20 08:00 Discharge Plan Discharge Patient Disposition: Home Condition: Stable Prescriptions: New prednisone 5 mg tablets,dose pack See Rx Instructions .ROUTE .COMPLEX Qty: 21 RF: 0 Continued Trelegy Ellipta 100-62.5-25 mcg blister with device 1 inh INHALATION Q24H 30 Days Qty: 60 RF: 3 nitroglycerin [Nitrostat] 0.4 mg tablet, sublingual 0.4 mg SUBLINGUAL Q5M PRN (Reason: Chest Pain) Qty: 25 RF: 6 atorvastatin 20 mg tablet 20 mg PO DAILY@0700 RF: 0 metformin 1,000 mg tablet 1,000 mg PO BID@0700,1700 RF: 0 pantoprazole 40 mg tablet,delayed release (DR/EC) 40 mg PO DAILY@0700 RF: 0 aspirin [Adult Low Dose Aspirin] 81 mg tablet,delayed release (DR/EC) 81 mg PO DAILY@0700 RF: 0 amlodipine 10 mg Tablet See Rx Instructions .ROUTE .COMPLEX RF: 0 albuterol sulfate 2.5 mg /3 mL (0.083 %) solution for nebulization 2.5 mg inhalation Q6H PRN (Reason: shortness of breath or wheezing) Qty: 180 RF: 0 alprazolam [Xanax] 0.25 mg tablet 0.25 mg PO TID PRN (Reason: anxiety) Qty: 20 RF: 0 furosemide 20 mg tablet 20 mg PO DAILY@0700 RF: 0 atenolol 50 mg tablet 50 mg PO DAILY@0700 RF: 0 spironolactone 25 mg tablet 25 mg PO DAILY@0700 RF: 0 Discharge Orders: Discharge Order (Routine); Ordered 10/27/20 Ordered By: Radha Bryant Referrals: Micky Lindo MD [Primary Care Provider] - Discharge Diet: Usual diet Discharge Activity: Resume usual activity Discharge Attestations Time Spent in Discharge Care*: less than 30 min Status at Discharge: Cognitive status at discharge: cognitively intact, Behavioral status at discharge: cooperative, Quality Metrics Clinical Quality Measures During this hospital stay, did patient experience: None Coding Level of Care Code Acute Head Baker for Trever Machado Diagnoses Acute exacerbation of chronic obstructive airways disease J44.1
[2020-10-27 11:23] LABS: Glucose Point of Care 265 mg/dL (70-110)
--- NOTE | 2020-10-27 13:34 | PC.NURSE ---
Went over discharge instruction with patient, all questions answered. IV removed tip intact. Dressing applied. Patient tolerated well. Patient discharged at this time in stable condition.
--- NOTE | 2020-10-27 17:10 | PC.RESP ---
Pulmonary Rehab information sent to patient.
[2020-10-27 18:27] LABS: Coronavirus Test Green County Not Detected
== END 2020-10-27 13:35 | disposition home or self-care (01) ==
LOC: ER 17:28 → MEDSURG 17:49
PROVIDERS: Internal Medicine; Admitting Provider Student in an Organized Health Care Education/Training Program; Emergency Provider Emergency Medicine; PCP Family Medicine; Visit Provider Student in an Organized Health Care Education/Training Program
DX: J44.1 Chronic obstructive pulmonary disease with (acute) exacerbation (principal); Z99.81 Dependence on supplemental oxygen; Z79.82 Long term (current) use of aspirin; I25.10 Atherosclerotic heart disease of native coronary artery without angina pectoris; I11.0 Hypertensive heart disease with heart failure; I50.9 Heart failure, unspecified; G47.33 Obstructive sleep apnea (adult) (pediatric); M19.90 Unspecified osteoarthritis, unspecified site; Z87.891 Personal history of nicotine dependence
CPT/HCPCS: 12345; 36415; 36416; 36600; 71045; 71275; 80053; 81001; 82803; 82962; 83605; 83735; 83880; 84484; 85025; 85378; 85610; 87040; 87426; 87635; 87804; 93005; 94640; 96361; 96372; 96374; 96375; 96376; 99283; 99285; G0378; J1815; J2920; J2930; J3535; J7030; J7626; Q9967

== ENCOUNTER 2021-01-03 09:17 | Outpatient (CLI) | payer MEDICARE, SELFPAY ==
--- NOTE | 2021-01-03 09:15 | XRR_ITS ---
PROCEDURE INFORMATION: Exam: XR Abdomen Exam date and time: 01/03/2021 9:27 AM Clinical indication: Condition or disease; Kidney or ureter condition; Other: Left kidney mass; Prior surgery; Surgery type: Appy; Additional info: Renal mass TECHNIQUE: Imaging protocol: XR of the abdomen. Views: Frontal supine view of the abdomen. 1 View. COMPARISON: No relevant prior studies available. FINDINGS: Gastrointestinal tract: bowel gas pattern is nonspecific. Air filled large bowel including distal rectal gas. . Large amount of stool throughout the large bowel. Organs: Calculus lower pole right kidney of nearly 2 cm Bones/joints: Severe degenerative changes within the left hip including joint space narrowing, bony sclerosis, osteophytosis and mild remodeling. XR/XR KUB [id number] IMPRESSION: 1. Bowel gas pattern is nonspecific. Air filled large bowel including distal rectal gas. 2. Large amount of stool throughout the large bowel. 3. Hip including joint space narrowing, bony sclerosis, osteophytosis and mild remodeling.
--- NOTE | 2021-01-03 09:30 | US_ITS ---
WS: [id number] RENAL ULTRASOUND HISTORY: RENAL MASS COMPARISON: 09/24/2020, 07/01/2020 and 10/26/2020 TECHNIQUE: 2-D and color Doppler imaging of the kidney submitted. Right kidney: 9.8 cm x 4.9 cm x 4.4 cm. Normal kidney with normal cortex. No obstruction. Calcification in the inferior pelvis measures 1.7 x 1.2 cm. Left kidney: 9.7 cm x 5.6 cm x 4.1 cm. Normal size kidney. There is a very minimally complex cyst with through transmission from the inferio r pole. This cyst measures 3.3 x 3.1 x 3.3 cm. Corresponds to the abnormality seen on prior CT is pro bably a hemorrhagic cyst. No increase in size since 07/01/2020. There is an additional smaller cysts f rom the inferior pole with a maximum diameter of 7 mm. Aorta: Poorly visualized. Mild atherosclerosis. Urinary Bladder: Minimally distended. US/US renal BI* [id number] IMPRESSION: 1. No hydronephrosis. 2. Stable cyst from the lower pole LEFT kidney measures 3.3 x 3.1 x 3.3 cm. No increase in size since 07/01/2020. No solid mass.
== END 2021-01-03 09:18 | disposition home or self-care (01) ==
LOC: RAD 09:18
PROVIDERS: PCP Family Medicine; Visit Provider Urology
DX: N28.89 Other specified disorders of kidney and ureter (principal); N28.1 Cyst of kidney, acquired
CPT/HCPCS: 74018; 76770; 81003

== ENCOUNTER 2021-05-23 10:47 | Outpatient (CLI) | payer MEDICARE, SELFPAY ==
--- NOTE | 2021-05-23 11:00 | USCV_ITS ---
Purvi Mathis Age: 76 Gender: F : 1945 Exam Date: 05/23/2021 11:17 Ordering Phys: Deisy Bar MD ([email or web address]) Technologist: KEIKO Exam Location: [facility] – [place] Indication: EVAL FOR CAROTID STENOSIS Risk Factors: Previous Vascular Surgery: Right Brachial BP: / Left Brachial BP: / Right Left Velocity (cm/s) Spectral Plaque Velocity (cm/s) Spectral Plaque Syst/Diast Broadening Syst/Diast Broadening 88.40/ 13.50 Prox CCA 68.80 / 15.20 80.50/ 15.40 Mid CCA 64.60 / 13.20 68.40/ 14.30 Distal CCA 61.00 / 15.70 72.60/ 13.70 Prox ICA 96.60 / 22.20 73.50/ 17.10 Mid ICA 92.30 / 26.50 61.30/ 17.00 Distal ICA 57.40 / 19.40 82.00 ECA 103.40 0.83 ICA/CCA 1.40 Antegrade Vertebral Antegrade 51.30/ 17.90 cm/s 35.70/ 9.30 cm/s Tri Subclavian Tri 240.0 142.0 0 0 FINDINGS Comparison:. 03/20/14. Diffuse bilateral scattered calcified plaque and intimal thickening throughout the common carotid arteries and extending through the bifurcation. Greatest plaque on the left with only mild elevation of velocity. Antegrade vertebral arteries. CONCLUSIONS Bilateral ICA stenosis less than 50%. Mild progression of atherosclerosis, greatest on the left. Dr. Elizabeth Rocha DO (Electronically Signed) Final Date: 23 May 2021 12:26 S
== END 2021-05-23 10:48 | disposition home or self-care (01) ==
LOC: RAD 10:53
PROVIDERS: PCP Family Medicine; Visit Provider Internal Medicine Cardiovascular Disease
DX: I77.9 Disorder of arteries and arterioles, unspecified (principal); I65.23 Occlusion and stenosis of bilateral carotid arteries
CPT/HCPCS: 93880

== ENCOUNTER 2021-07-07 09:08 | Outpatient (CLI) | payer MEDICARE, SELFPAY ==
--- NOTE | 2021-07-07 09:30 | US_ITS ---
WS: [id number] RENAL ULTRASOUND HISTORY: HYPERDENSE RENAL CYST COMPARISON: 01/03/2021 TECHNIQUE: 2-D and color Doppler imaging of the kidney submitted. Right kidney: 9.5 cm x 5.1 cm x 5.0 cm. Normal echogenicity with no hydronephrosis or mass. Left kidney: 9.1 cm x 4.9 cm x 5.1 cm. Normal size kidney. Cyst in the mid LEFT kidney measures 3.5 x 3.1 x 3.3 cm. There is an additional t iny exophytic cyst from the inferior pole with a maximum diameter of 1.0 cm. Aorta: Normal. Urinary Bladder: Only mild distention of the bladder. Mild diffuse wall thickening is probably due to underdistention. No focal mass. US/US renal BI* [id number] IMPRESSION: 1. Negative RIGHT kidney. 2. 2 cysts associated with the LEFT kidney. The largest cyst has minimally inc reased in size since the prior examination. No solid masses.
== END 2021-07-07 09:09 | disposition home or self-care (01) ==
LOC: RAD 09:14
PROVIDERS: PCP Family Medicine; Visit Provider Urology
DX: N28.1 Cyst of kidney, acquired (principal)
CPT/HCPCS: 76770; 81003

== ENCOUNTER 2022-01-10 07:02 | Outpatient (CLI) | payer MEDICARE, SELFPAY ==
--- NOTE | 2022-01-10 07:00 | XRR_ITS ---
PROCEDURE INFORMATION: Exam: XR Abdomen Exam date and time: 01/10/2022 7:00 AM Age: 76 years old Clinical indication: Kidney stone. Prior appendectomy. Urolithiasis. TECHNIQUE: Imaging protocol: XR of the abdomen. Views: Frontal supine view of the abdomen. 1 View. COMPARISON: CR XR KUB [id number] 01/03/2021 9:24 AM FINDINGS: Gastrointestinal tract: Nonobstructive bowel gas pattern. Moderate stool in the colon; query constipation. Intraperitoneal space: No gross free air. Organs: There are stones in the right kidney some of which have a staghorn appearance. This suggests infection with urease producing bacterium. Probable calcified fibroids in the pelvis. Bones/joints: A bipolar right hip hemiarthroplasty is incompletely visualized. Severe degenerative changes at the left hip. XR/XR KUB [id number] IMPRESSION: 1. There are stones in the right kidney some of which have a staghorn appearance. This suggests infection with urease producing bacterium. 2. Severe degenerative changes at the left hip. 3. Moderate stool in the colon; query constipation.
== END 2022-01-10 07:03 | disposition home or self-care (01) ==
LOC: RAD 07:03
PROVIDERS: PCP Family Medicine; Visit Provider Urology
DX: N20.0 Calculus of kidney (principal)
CPT/HCPCS: 74018; 81003

== ENCOUNTER → 2022-01-24 13:50 | Outpatient (BNVA) | payer MEDICARE, SELFPAY | PROVIDERS: PCP Family Medicine; Visit Provider Internal Medicine Critical Care Medicine | DX: J44.9 Chronic obstructive pulmonary disease, unspecified (principal); J92.0 Pleural plaque with presence of asbestos; J96.11 Chronic respiratory failure with hypoxia; Z87.891 Personal history of nicotine dependence; G47.33 Obstructive sleep apnea (adult) (pediatric); E11.8 Type 2 diabetes mellitus with unspecified complications | CPT/HCPCS: 99214 ==

== ENCOUNTER → 2022-06-09 08:31 | Outpatient (BNVA) | payer MEDICARE, SELFPAY | PROVIDERS: PCP Family Medicine; Visit Provider Internal Medicine Cardiovascular Disease | DX: I25.10 Atherosclerotic heart disease of native coronary artery without angina pectoris (principal); I11.0 Hypertensive heart disease with heart failure; I50.9 Heart failure, unspecified; Z87.891 Personal history of nicotine dependence | CPT/HCPCS: 99214 ==

== ENCOUNTER → 2022-07-28 08:23 | Outpatient (BNVA) | payer MEDICARE, SELFPAY | PROVIDERS: PCP Family Medicine; Visit Provider Internal Medicine Critical Care Medicine | DX: J44.9 Chronic obstructive pulmonary disease, unspecified (principal); Z87.891 Personal history of nicotine dependence; J96.11 Chronic respiratory failure with hypoxia; J92.0 Pleural plaque with presence of asbestos; J96.12 Chronic respiratory failure with hypercapnia; Z99.81 Dependence on supplemental oxygen | CPT/HCPCS: 99214 ==

== ENCOUNTER → 2023-04-10 14:55 | Outpatient (BNVA) | payer MEDICARE, SELFPAY | PROVIDERS: PCP Family Medicine; Visit Provider Internal Medicine Cardiovascular Disease | DX: I25.10 Atherosclerotic heart disease of native coronary artery without angina pectoris (principal); Z87.891 Personal history of nicotine dependence | CPT/HCPCS: 99214 ==

== ENCOUNTER → 2023-06-01 09:00 | Outpatient (BNVA) | payer MEDICARE, SELFPAY | PROVIDERS: PCP Family Medicine; Visit Provider Internal Medicine Pulmonary Disease | DX: J44.9 Chronic obstructive pulmonary disease, unspecified (principal); J96.11 Chronic respiratory failure with hypoxia; J92.0 Pleural plaque with presence of asbestos; Z87.891 Personal history of nicotine dependence; Z99.81 Dependence on supplemental oxygen | CPT/HCPCS: 99214 ==

== ENCOUNTER 2023-06-18 08:48 | Outpatient (CLI) | payer MEDICARE, MEDICAID, SELFPAY ==
--- NOTE | 2023-06-18 09:15 | CT_ITS ---
WS: [id number] LDCT LUNG CANCER SCREENING TECHNIQUE: Noncontrast CT of the chest with coronal and sagittal reformatted images. CLINICAL INFORMATION: lung screening COMPARISON: 2020 DLP: 53.85 mGy.cm DIvol: Mean CTDIvol: 0.80 (mGy) All CT scans at [facility] use at least one of these dose optimization techniques: automat ed exposure control; mA and/or kV adjustment per patient size (includes targeted exams where dose is matched to clinical indication); or iterative reconstruction. FINDINGS: Noncalcified subpleural and pleural-based nodules in the right middle lobe measuring 5 to 6 mm. Additional smaller pleural-based nodules in the right upper lobe similar to 2020. Right basilar atelectasis. Subsegmental ectasis in the right lower lobe. Aortic calcification. Aortic arch calcification. Coronary calcification. Bilateral pleural plaques. S mall granulomas. Small esophageal hiatal hernia. Adrenal glands are normal. No mediastinal or hilar l ymphadenopathy. No axillary lymphadenopathy. Mild thoracic curve. Mild thoracic kyphosis. IMPRESSION: CT/CT lung screening [id number] LUNG-RADS: 2-Benign Appearance or Behavior FOLLOW UP: 12 Month: Continue annual screening with LDCT
== END 2023-06-18 08:49 | disposition home or self-care (01) ==
PROVIDERS: PCP Family Medicine; Visit Provider Internal Medicine Pulmonary Disease
DX: Z87.891 Personal history of nicotine dependence (principal); Z12.2 Encounter for screening for malignant neoplasm of respiratory organs
CPT/HCPCS: 71271

== ENCOUNTER → 2023-12-03 10:42 | Outpatient (BNVA) | payer MEDICARE, SELFPAY | PROVIDERS: PCP Family Medicine; Visit Provider Internal Medicine Pulmonary Disease | DX: J44.9 Chronic obstructive pulmonary disease, unspecified (principal); J96.11 Chronic respiratory failure with hypoxia; J92.0 Pleural plaque with presence of asbestos; Z87.891 Personal history of nicotine dependence; Z99.81 Dependence on supplemental oxygen | CPT/HCPCS: 99214 ==

== ENCOUNTER → 2024-04-23 14:53 | Outpatient (BNVA) | payer MEDICARE, SELFPAY | PROVIDERS: PCP Family Medicine; Visit Provider Internal Medicine Cardiovascular Disease | DX: R06.02 Shortness of breath | CPT/HCPCS: 80048; 83880; 93005; 99215 ==

== ENCOUNTER 2024-05-14 09:47 | Outpatient (CLI) | payer MEDICARE, SELFPAY ==
[2024-05-14 11:26] LABS: Anion Gap 21.5 (5-19); Blood Urea Nitrogen 25 mg/dL (8-23); Calcium 8.9 mg/dL (8.5-10.5); Carbon Dioxide 23 mmol/L (22-29); Chloride 102 mmol/L (98-107); Glucose 170 mg/dL (65-115); NT Pro B Type Natriuretic Pept 2972 pg/mL (0-450); Osmolality Calculated 302 mOsm/kg (285-295); Potassium 4.5 mmol/L (3.5-5.1); Sodium 142 mmol/L (136-145)
== END 2024-05-14 09:48 | disposition home or self-care (01) ==
LOC: LAB 09:58
PROVIDERS: PCP Family Medicine; Visit Provider Internal Medicine Cardiovascular Disease
DX: I50.32 Chronic diastolic (congestive) heart failure (principal); I25.10 Atherosclerotic heart disease of native coronary artery without angina pectoris
CPT/HCPCS: 36415; 80048; 83880

== ENCOUNTER 2024-05-27 14:05 | Outpatient (CLI) | payer MEDICARE, SELFPAY ==
--- NOTE | 2024-05-27 14:30 | USCV_ITS ---
Purvi Mathis Age: 79 Gender: F : 1945 Exam Date: 05/27/2024 14:43 Ordering Phys: Destini Perez MD ([email or web address]) Technologist: CT Exam Location: [facility] [place] Indication: copd BP: 146 / 78 HR: 69 Rhythm: Sinus Technical Quality: Adequate MEASUREMENTS (Male / Female) Normal Values 2D ECHO LVOT Diameter 2.0 cm LV Ejection Fraction MOD 4C 66.0 % LV Ejection Fraction MOD 2C 62.7 % LV Ejection Fraction 2C AL 61.3 % LA Diameter 3.7 cm RA Systolic Volume 4C AL 16.1 ml RA Systolic Volume 4C MOD 16.3 ml LA Sys Volume AL 38.9 cm cubed LA Sys Volume Index AL 21.9 cm cubed/m squared Aorta at Sinotubular Diameter 2.4 cm IVC Diameter 1.9 cm M-MODE LA Ao Ratio MM 1.4 AV Cusp Separation MM 2.5 cm DOPPLER AV Peak Velocity 111.0 cm/s LVOT Peak Velocity 81.0 cm/s AV Area Cont Eq vti 2.5 cm squared AV Area Cont Eq pk 2.4 cm squared MV Peak Velocity 76.0 cm/s MV Area PHT 3.3 cm squared Mitral E to A Ratio 1.0 TV Peak Velocity 253.0 cm/s TR Peak Velocity 279.0 cm/s TR Peak Gradient 31.1 mmHg TV Peak E Velocity 79.0 cm/s Right Atrial Pressure 3.0 mmHg Pulmonary Artery Systolic Pressu 34.1 mmHg PV Peak Velocity 90.0 cm/s FINDINGS Left Ventricle Normal LV size and ejection fraction of 64%. Mild hypokinesis of the inferobasal segment.Grade I/IV diastolic dysfunction (abnormal relaxation filling pattern), normal to mildly elevated filling pressures. Right Ventricle The right ventricle is normal in size and function. Right Atrium The right atrium is normal in size. Left Atrium Mildly increased left atrial size. Mitral Valve No gross abnormalities noted Aortic Valve Minimally thickened aortic valve Tricuspid Valve Trace tricuspid valve regurgitation. Estimated pulmonary artery peak systolic pressure 34 mmHg Pulmonic Valve Pulmonic valve not well visualized. Pericardium Normal pericardium without effusion. Aorta Normal ascending aorta dimension. IVC Inferior vena cava not visualized. CONCLUSIONS Normal LV size and ejection fraction of 64%. Mild hypokinesis of the inferobasal segment.Grade I/IV diastolic dysfunction (abnormal relaxation filling pattern), normal to mildly elevated filling pressures. Mildly increased left atrial size. The right ventricle is normal in size and function. Minimally thickened aortic valve. Trace tricuspid valve regurgitation. Estimated pulmonary artery peak systolic pressure 34 mmHg. There is no pericardial effusion. There are no intracardiac masses. Compared to the study from 07/16/2020, there may not be a significant change in the 2D findings Dr Destini Perez MD [facility] (Electronically Signed) Final Date: 30 May 2024 18:31 S
== END 2024-05-27 14:06 | disposition home or self-care (01) ==
LOC: RAD 14:06
PROVIDERS: PCP Family Medicine; Visit Provider Internal Medicine Cardiovascular Disease
DX: R06.09 Other forms of dyspnea (principal); I50.30 Unspecified diastolic (congestive) heart failure
CPT/HCPCS: 93306

== ENCOUNTER 2024-06-17 08:05 | Outpatient (CLI) | payer MEDICARE, SELFPAY ==
[2024-06-17 09:02] VITALS: BMI 23.0
--- NOTE | 2024-06-17 09:02 | ECG_ITS ---
[facility] Test Date: 2024-06-17 Pat Name: Purvi Mathis Department: Room: Gender: Female Technical Service Specialist: Autumn Calderonfus : 1945 Requested By: Destini Perez Order Number: [id number] Mal MD: Marty Mantilla M.D. Interpretive Statements NAME OF STUDY: LEXISCAN SESTAMIBI STRESS TEST INDICATION: [CHF; CHF, ] Procedure: At the baseline, the blood pressure was 112/66 mmHg with a heart rate of 85 bpm. The electrocardiogram showed normal sinus rhythm, normal axis with normal ST and T's. LVH changes seen The Lexiscan was infused over a period of 20 seconds. A total of 0.4 mg of Lexiscan was infused. The stress phase was continued for a total of 5 minutes. Heart rate was at the end of stress phase was 89 bpm and a blood pressure of 126/70 mmHg. The EKG at the peak infusion revealed normal sinus rhythm with no significant ST-T wave changes. Sestamibi was injected 20 seconds after the Lexiscan infusion. Blood pressure at the end of recovery phase was 128/73 mmHg with a heart rate of 91 bpm. Conclusion: 1. Normal EKG response to Lexiscan infusion 2. No Lexiscan induced chest pain or cardiac arrhythmia. 3. Normal blood pressure and heart rate response. 4. Sestamibi/sestamibi perfusion scan pending; see separate report. Electronically Signed On 06-27-2024 14:12:53 CDT by Marty Mantilla M.D. [email or web address]
--- NOTE | 2024-06-17 09:03 | NMCV_ITS ---
NM patricia perf SPECT r/s* [id number] Purvi Mathis Age: 79 Gender: F : 1945 Exam Date: 06/17/2024 09:26 Ordering Phys: Destini Perez MD ([email or web address]) Technologist: JACOBO Kwok Exam Location: [facility] Indications: CHF STRESS TEST Please see separate stress test report in [facility] for full findings IMAGE PROTOCOL Rest/Stress 1 Lexiscan Day Radiopharmaceutical Dose (mCi) Administration Site Administered by Rest: Tc-99m 10.4 IV JACOBO Kwok Sestamibi Stress:Tc-99m 32.6 IV JACOBO Kwok Sestamibi Rest: 17-Jun-2024 60 Discovery 630 Stress: 17-Jun-2024 30 Discovery 630 0.4mg Lexiscan. Supine position only as patient was unable to lay prone due to pain. SPECT RESULTS Technical Quality: Good Raw Data Analysis: Subdiaphragmatic activity Image Corrections: No attenuation or motion correction applied Summed Stress Score: 0 Summed Rest Score: 0 Summed Difference Score: 0 PERFUSION FINDINGS SPECT images demonstrate homogeneous tracer distribution throughout the myocardium. FUNCTIONAL RESULTS (calculated via Gated SPECT) Stress Image LV EF (%): 64 Stress EDV (mL):64 TID: 1.21 Stress ESV (mL):23 FUNCTIONAL FINDINGS: There is normal left ventricular systolic function. TID ratio is elevated at 1.21. IMPRESSIONS 1. Normal myocardial perfusion imaging with no evidence of ischemia. 2. LV systolic function is normal. 3. TID ratio is elevated at 1.21. However in the absence of significant perfusion abnormality, significance of this abnormality is equivocal. Marty Mantilla MD (Electronically Signed) Final Date: 17 June 2024 11:44 S
[2024-06-17] MEDS: regadenoson 0.4 Mg/5 ml Syringe IVP (10:13)
[2024-06-17 10:21] VITALS: BP 128/73; PULSE 90
== END 2024-06-17 08:06 | disposition home or self-care (01) ==
PROVIDERS: PCP Family Medicine; Visit Provider Internal Medicine Cardiovascular Disease
DX: I50.9 Heart failure, unspecified (principal)
CPT/HCPCS: 36415; 78452; 93017; 96374; A9500; J2785

== ENCOUNTER → 2024-07-30 09:50 | Outpatient (BNVA) | payer MEDICARE, SELFPAY | PROVIDERS: PCP Family Medicine; Visit Provider Specialist | DX: M25.551 Pain in right hip (principal); M16.12 Unilateral primary osteoarthritis, left hip; I50.9 Heart failure, unspecified; Z99.81 Dependence on supplemental oxygen | CPT/HCPCS: 73502 ==

== ENCOUNTER 2024-08-18 11:43 | Outpatient (CLI) | payer MEDICARE, SELFPAY ==
--- NOTE | 2024-08-18 12:00 | CT_ITS ---
WS: [id number] CT LEFT HIP, NONCONTRAST HISTORY: left hip pain Technique: All CT scans at [facility] use at least one of these dose optimization techniques: automated exposure control; mA and/or kV adjustment per patient size (includes targeted exams where dose is matched to clinical indication); or iterative reconstruction. DLP: 249.71 mGy.cm COMPARISON: Radiograph 07/30/2024 Advanced degenerative changes involving the LEFT hip. There is marked hypertrophic bone formation fro m the acetabulum encasing the hip and extending into the hip joint. Loss of the normal contours of th e LEFT femoral head and neck with remodeling and subchondral cystic changes in osteophytosis. No acut e fracture is identified. Mild superior elevation of the femoral head within the acetabulum from the remodeling. Muscle atrophy. No joint effusion. Minimally distended urinary bladder. Coarse calcifications in the uterus likely related to fibroids. CT/CT hip LT wo con* [id number] IMPRESSION: 1. Severe degenerative changes and osteoarthritis of the LEFT hip with marked hypertrophic bone formation and remodeling of the femoral head. 2. No fracture. 3. Fibroid uterus.
== END 2024-08-18 11:44 | disposition home or self-care (01) ==
LOC: RAD 11:44
PROVIDERS: PCP Family Medicine; Visit Provider Specialist
DX: M16.12 Unilateral primary osteoarthritis, left hip (principal); M25.752 Osteophyte, left hip
CPT/HCPCS: 73700

== ENCOUNTER → 2024-09-03 14:02 | Outpatient (BNVA) | payer MEDICARE, SELFPAY | PROVIDERS: PCP Family Medicine; Visit Provider Internal Medicine Cardiovascular Disease | DX: I11.0 Hypertensive heart disease with heart failure (principal); I50.32 Chronic diastolic (congestive) heart failure; I25.10 Atherosclerotic heart disease of native coronary artery without angina pectoris; I77.9 Disorder of arteries and arterioles, unspecified; I73.9 Peripheral vascular disease, unspecified; Z87.891 Personal history of nicotine dependence | CPT/HCPCS: 99214 ==

== ENCOUNTER → 2025-01-14 13:39 | Outpatient (BNVA) | payer MEDICARE, SELFPAY | PROVIDERS: PCP Family Medicine; Visit Provider Specialist | DX: M87.052 Idiopathic aseptic necrosis of left femur (principal); M16.12 Unilateral primary osteoarthritis, left hip; Z96.641 Presence of right artificial hip joint | CPT/HCPCS: 99214 ==

== ENCOUNTER → 2025-03-02 10:35 | Outpatient (BNVA) | payer MEDICARE, SELFPAY | PROVIDERS: PCP Family Medicine; Visit Provider Nurse Practitioner Family | DX: I25.10 Atherosclerotic heart disease of native coronary artery without angina pectoris (principal); I77.9 Disorder of arteries and arterioles, unspecified; Z87.891 Personal history of nicotine dependence; I11.0 Hypertensive heart disease with heart failure; I50.32 Chronic diastolic (congestive) heart failure; E11.51 Type 2 diabetes mellitus with diabetic peripheral angiopathy without gangrene; Z79.84 Long term (current) use of oral hypoglycemic drugs | CPT/HCPCS: 99214 ==

== ENCOUNTER → 2025-03-16 11:04 | Outpatient (BNVA) | payer MEDICARE, SELFPAY | PROVIDERS: PCP Family Medicine; Visit Provider Specialist | DX: M16.12 Unilateral primary osteoarthritis, left hip (principal); M87.052 Idiopathic aseptic necrosis of left femur | CPT/HCPCS: 73502; 99214 ==

== ENCOUNTER 2025-04-01 10:11 | Outpatient (CLI) | payer MEDICARE, SELFPAY ==
[2025-04-01 11:02] LABS: Bilirubin Urine Negative (Negative); Blood Urine 1+ (Negative); Glucose Urine UA Negative (Normal); Ketones Urine Trace (Negative); Leukocyte Esterase Urine 3+ (Negative); Nitrate Urine Negative (Negative); Protein Urine 1+ (Negative); Specific Gravity, Urine 1.012 (1.005-1.030); Urine Appearance Cloudy (CLEAR); Urine Color Yellow (Yellow); pH Urine 5.5 (5-7)
[2025-04-01 11:05] LABS: Add Urine Microscopic? YES; Bacteria Urine 4+ /hpf; Hyaline Casts Urine 12.81 /lpf; RBC Urine 0-2 /hpf (0-2); Squamous Epithelial Cell Urine 0-5 /hpf (0-5); WBC Urine >100 /hpf (0-5)
[2025-04-01 11:06] LABS: Basophils % 0.2 %; Eosinophils % 0.4 %; Lymphocytes # 0.7 10^3/uL (0.8-4.8); Lymphocytes % 9.2 %; Mean Corpuscular Hemoglobin 27.3 pg (27-33); Mean Corpuscular Volume 91.1 fl (85-98); Mean Platelet Volume 10.2 fL (7.4-10.4); Monocytes # 0.4 10^3/uL (0.2-0.9); Neutrophils # 6.79 10^3/uL (1.8-7.7); Neutrophils % 84.8 %; Nucleated Red Blood Cells % 0 %; Platelet Count 320 10^3/cmm (157-399); Red Blood Count 4.39 10^6/uL (3.85-5.65); Red Cell Distribution Width 15.9 % (12.1-15.1); White Blood Count 8.01 10^3/uL (3.29-11.43)
[2025-04-01 11:08] LABS: Alanine Aminotransferase 8 U/L (0-33); Alkaline Phosphatase 84 U/L (35-105); Anion Gap 15.1 (5-19); Aspartate Amino Transferase 17 U/L (0-32); Blood Urea Nitrogen 22 mg/dL (8-23); Carbon Dioxide 30 mmol/L (22-29); Chloride 98 mmol/L (98-107); Globulin 3.5 g/dL (1.3-4.6); Glucose 138 mg/dL (65-115); Osmolality Calculated 294 mOsm/kg (285-295); Potassium 4.1 mmol/L (3.5-5.1); Sodium 139 mmol/L (136-145); Total Bilirubin 0.3 mg/dL (0.15-1.2); Total Protein 7.5 g/dL (6.6-8.7)
[2025-04-01 11:36] LABS: Add Urine Culture? Yes
== END 2025-04-01 10:12 | disposition home or self-care (01) ==
PROVIDERS: PCP Family Medicine; Visit Provider Specialist
DX: Z01.818 Encounter for other preprocedural examination (principal)
CPT/HCPCS: 36415; 80053; 81001; 85025; 87086

== ENCOUNTER → 2025-04-13 11:16 | Outpatient (BNVA) | payer MEDICARE, SELFPAY | PROVIDERS: PCP Family Medicine; Visit Provider Family Medicine | DX: Z01.818 Encounter for other preprocedural examination (principal); E11.9 Type 2 diabetes mellitus without complications; I51.7 Cardiomegaly; Z79.899 Other long term (current) drug therapy | CPT/HCPCS: 81003; 87086; 93005 ==

== ENCOUNTER 2025-04-21 14:00 | Inpatient (IN) | payer MEDICARE, SELFPAY ==
[2025-04-21] VITALS (18 sets, daily range): BP systolic 91–124; BP diastolic 44–81; PULSE 58–75; RESP 16–22; TEMP 36.1–36.5; O2SAT 91–100; BMI 21.2; BMI 18.0
--- NOTE | 2025-04-21 10:26 | ANES.PREANE2 ---
Pre-Anesthetic Assessment Height/Weight: Height 5 ft 5 in Weight 128 lb Preop Diagnosis: Hip arthritis Operation Date: 04/21/25 11:15 Proposed Procedures p Total Hip Arthroplasty(Left) - Carlita Rodriguez MD Was Beta Ildefonso taken within 24 hours: N/A Was Clonidine taken within 24 hours: N/A Social No alcohol and No tobacco Exam alert, oriented x 3 and regular rate & rhythm Airway Submandibular: within normal limits Cervical ROM: within normal limits Mallampati: Class III Comments: Comments: Edentulous Anesthetic Plan ASA status: 3 Anesthesia: General Other: No prior issues with anesthesia NPO since yesterday evening History of COPD, on chronic inhalers. Uses 3-4 L of supplemental O2 at baseline CAD history s/p stent 2008 CKD Hypertension on amlodipine and atenolol Echo 2023 showing EF of 64% with tricuspid regurg. PA pressure 34 GERD, controlled with Protonix LUNA without CPAP Labs reviewed from 04/01/2025 and acceptable for procedure Placement completed antibiotic for UTI at that time Plan for general anesthesia Medications/Allergies Home Medications ?Medication ?Instructions ?Recorded ?Confirmed ?Last Taken ?Type atorvastatin 20 mg tablet 20 mg PO DAILY@0700 04/21/20 04/20/25 04/20/25 History metformin 1,000 mg tablet 1,000 mg PO BID@0700,1700 04/21/20 04/20/25 04/20/25 History pantoprazole 40 mg tablet,delayed 40 mg PO DAILY@0700 04/21/20 04/20/25 04/20/25 History release aspirin 81 mg tablet,delayed 81 mg PO DAILY@0700 08/03/20 04/20/25 04/14/25 History release (Adult Low Dose Aspirin) fluticasone fur. 100 mcg-umeclid 1 inh inhalation Q24H 30 days #60 09/06/20 04/20/25 04/20/25 Rx 62.5 mcg-vilant 25 mcg ea inhalat.powder (Trelegy Ellipta) nitroglycerin 0.4 mg sublingual 0.4 mg sublingual Q5M PRN Chest 09/08/20 04/20/25 Unknown Rx tablet (Nitrostat) Pain #25 tabs atenolol 50 mg tablet 50 mg PO DAILY@0700 10/26/20 04/20/25 04/20/25 History albuterol sulfate 90 mcg/actuation 2 puff inhalation Q6H PRN 02/07/21 04/20/25 Unknown History aerosol inhaler (ProAir HFA) Shortness Of Breath Or Wheezing amlodipine 10 mg tablet 10 mg PO DAILY 01/10/22 04/20/25 04/20/25 History furosemide 20 mg tablet 20 mg PO DAILY #40 tabs 04/23/24 04/20/25 04/20/25 Rx Allergies Allergy/AdvReac Type Severity Reaction Status Date / Time levofloxacin Allergy ALGY-Difficulty Verified 04/20/25 09:04 Breathing ibuprofen AdvReac Unknown unknown Verified 04/20/25 09:04 naproxen (From Aleve) AdvReac Unknown unknown Verified 04/20/25 09:04 [facility] Anesthesia Medical History Primary osteoarthritis of left hip Recurrent urinary tract infection Hyperdense renal cyst Hypomagnesemia CHF (congestive heart failure) Respiratory failure with hypoxia Acute exacerbation of chronic obstructive airways disease LUNA (obstructive sleep apnea) Cyst at back: removed Urolithiasis Partial staghorn, asymptomatic, 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 Carotid artery disease Peripheral vascular disease Diabetes CAD (coronary artery disease) Oxygen dependent COPD (chronic obstructive pulmonary disease) Primary osteoarthritis of right hip Type 2 diabetes mellitus Accelerated essential hypertension Osteoarthritis Angio-edema Surgical History History of cardiac cath Need to define if stenting was performed History of total right hip arthroplasty Hx of appendectomy History of right knee joint replacement History of right knee surgery Family History Mother , at age 86 Cancer Diabetes Father , at age 88 Cancer Social History Smoking and tobacco/nicotine status: former use of tobacco/nicotine Quit status (tobacco/nicotine): has quit using Year quit tobacco: 2008 [id number] Second hand smoke exposure: No Alcohol intake: never Substance/Drug Use: never Lives independently: Yes Household members: spouse Housing: House Marital status: Current occupational status: retired Do you think of yourself as: Straight/Heterosexual Current gender identity: Female Data Anesthesia Cardiac Studies: Echocardiogram 07/23/24 Echocardiogram Limited Views 09/24/20 Echocardiogram Ultrasound 07/01/20 Sestamibi Stress Test (Cardiology) 06/17/24
--- NOTE | 2025-04-21 10:59 | W.PM.OPSUD ---
Surgery/Procedure H&P Update DATE OF PROCEDURE: April 21, 2025 DATE H&P PERFORMED: 04/13/25 H&P UPDATE INFORMATION: I have reviewed H&P completed within last 30 days, I have examined patient prior to procedure, No changes to prior documentation, H&P is in [facility] EMR on date indicated and Risks and benefits of the procedure reviewed CHANGES TO PREVIOUS DOCUMENTATION: Urine has been treated, and new UA will be obtained today. PRIMARY INDICATION FOR PROCEDURE: Avascular necrosis left hip and resulting severe osteoarthritis PLANNED PROCEDURE: Operation Date: 04/21/25 11:15 Proposed Procedures p Total Hip Arthroplasty(Left) - Carlita Rodriguez MD Related Problem List Diagnoses (1) Avascular necrosis of bone of left hip: (2) Primary osteoarthritis of left hip:
[2025-04-21 11:01] LABS: Bilirubin Urine Negative (Negative); Blood Urine Negative (Negative); Glucose Urine UA Negative (Normal); Ketones Urine Negative (Negative); Leukocyte Esterase Urine 2+ (Negative); Nitrate Urine Negative (Negative); Protein Urine Negative (Negative); Specific Gravity, Urine 1.009 (1.005-1.030); Urine Appearance Clear (CLEAR); Urine Color Yellow (Yellow); Urobilinogen Urine 0.2 mg/dL (Negative); pH Urine 5.5 (5-7)
[2025-04-21 11:06] LABS: Add Urine Microscopic? YES; Bacteria Urine None Seen /hpf; Hyaline Casts Urine 5.77 /lpf; RBC Urine 0-2 /hpf (0-2); Squamous Epithelial Cell Urine 0-5 /hpf (0-5); WBC Urine 21-50 /hpf (0-5)
[2025-04-21 11:09] LABS: Add Urine Culture? Yes
[2025-04-21 11:28] LABS: Glucose Point of Care 104 mg/dL (70-110)
[2025-04-21] MEDS: acetaminophen 1,000 MG/100 ML PIGGYBACK 400 MG IV ×2 (11:39→16:55)
[2025-04-21] MEDS: CELEcoxib 200 mg Capsule 400 MG PO (11:39)
[2025-04-21] MEDS: gabapentin 300 mg Capsule PO (11:39)
[2025-04-21] MEDS: ceFAZolin 2,000 mg SDV 2000 MG IVP ×2 (12:15→20:38)
[2025-04-21] MEDS: tranexamic acid 1,000 MG/100 ML PREMIX 600 MG IV ×2 (12:25→20:38)
[2025-04-21] MEDS: ceFAZolin 1,000 mg SDV 1000 MG IRRIGATION (12:30)
[2025-04-21] MEDS: BUPivacaine liposome 13.3 mg/mL SDV 20 mL 266 MG INFILTRATI (12:53)
[2025-04-21] MEDS: BUPivacaine 0.5% INJ 10 mL 20 ML INJECTION (12:53)
[2025-04-21] MEDS: vancomycin 1,000 MG SDV 1000 MG XX (13:00)
--- NOTE | 2025-04-21 14:27 | XRR_ITS ---
PROCEDURE INFORMATION: Exam: XR Pelvis Exam date and time: 04/21/2025 2:30 PM Age: 80 years old Clinical indication: Device placement; Other: Lt total hip; Prior surgery; Surgery date: Post-operative (0-2 days); Surgery type: Lt hip; Additional info: S/P reyna, low ap pelvis lt hip prev RT hip TECHNIQUE: Imaging protocol: Radiologic exam of the pelvis. Views: 1 or 2 view. COMPARISON: CR XR hip LT 2-3V wo/w pel* [id number] 03/16/2025 11:06 AM FINDINGS: Bones/joints: Bilateral total hip replacement with hardware is seen, with satisfactory/anatomic alignment and position on this single view exam. Left total hip replacement hardware is new from prior exam 03/16/2025. No indication of hardware failure. No periprosthetic fracture or acute osseous abnormality. Mild rotation of the hip with the exam. A component of postsurgical soft tissue changes of recent left hip replacement. Soft tissues: See Bones/joints finding. Organs: Vascular calcification and suggestion of calcified fibroids within the pelvis, as noted with prior exam. XR/XR pelvis 1-2V* [id number] IMPRESSION: Bilateral total hip replacement hardware, more recent on the left, with satisfactory/anatomic alignment and position and without acute findings.
--- NOTE | 2025-04-21 14:43 | P.OP_ITS ---
Operative Report Date of procedure: April 21, 2025 Pre-op diagnosis: Avascular necrosis left hip with severe degenerative osteoarthritic change and femoral head collapse Post-op diagnosis: Avascular necrosis left hip with severe degenerative osteoarthritic change and femoral head collapse Post-op findings: Severe degenerative osteoarthritis with complete obliteration of femoral head architecture, femoral head collapse, denudement of cartilage over femoral head and acetabulum. Significant fibrotic adhesions. Severe limitation in range of motion. Procedure done: Left total hip arthroplasty Implants: Karyn Accolade II total hip system: The size 52 mm solid back acetabular shell with an E alpha code and an MDM liner size 42 mm inner diameter by E alpha code. An Accolade II size 7 x 127 degree neck angle hip stem, femoral head size 28 mm outer diameter and +0 mm offset inside of an MDM insert size inner diameter 28 mm to match the 42E Specimens removed/disposition: Femoral head, disposed of Pathology: None Surgeon: Carlita Rodriguez MD Framing Mill Supervisor: Emma Howard, nurse practitioner, who services were required for positioning, completion of the surgical procedure, retraction, surgical closure Anesthesia: General (Intubated, ASA 3) Estimated blood loss (mL): 300 IV fluids (mL): 1,700 Urine output (mL): 425 Complications: None Findings: As noted above. Disposition: PACU (Admit to to floor under observation status for postop pain management) Brief History: This 80-year-old woman presented to the office complaining of severe left hip pain. The patient previously underwent right total hip arthroplasty in May 2020. She presents today for left total hip arthroplasty. She has been seen preoperatively by her drawer hardware worker and her primary care. She has been approved for surgical intervention. Risks and complications are discussed with her. Consents were signed in the office. She was seen the morning of surgery and given further opportunity to have questions asked and. Procedure: Patient was brought to the operating theater. She was transferred to the operating room table and subsequently administered a general anesthetic intubated, ASA 3. Following administration of adequate anesthesia, the patient was placed in full lateral position and held in position with a pegboard. The patient's left lower extremity was then prepped and draped in usual fashion utilizing DuraPrep. It was draped free. Following prepping and draping a surgical pause was performed. At the time of surgical pause, we identified the site and side of surgery. We also identified the patient and preoperative surgical markings. Confirmation was made of equipment availability. Additionally, the patient's preoperative IV antibiotic, Ancef 2 g and TXA 1 g preoperatively was confirmed as being given in a timely fashion and being the appropriate. An additional dose will be given on the floor. Following the surgical pause, an incision was made centering over the patient's greater trochanter continuing proximally and distally as necessary to allow access to the hip joint. Dissection continued through skin and soft tissues using a scalpel, and hemostasis was obtained using electrocautery. The tensor fascia joey was identified and incised longitudinally. Sciatic nerve was identified and protected throughout the surgical procedure. A Charnley U retrac tor was placed after the tensor fascia joey had been incised longitudinally, and the sciatic nerve had been identified. The hip had significant limitation in range of motion, and most particularly, and external and internal rotation. Retractors were placed, and the piriformis muscle was identified and tagged. Piriformis muscle along with the remaining short external rotators were then incised from the posterior aspect of the hip joint. These were retracted posteriorly. The capsule was entered in a T-type fashion with the edges being tagged. Upon entry through the capsule, there were large osteophytes covering all the way nearly to the greater trochanter along all sides of the neck. In this manner, the hip was nearly autofused accounting for the severe reduction in range of motion. Head was noted to be very deformed. Osteophytes were removed, and appropriate osteotomy was performed of the femoral neck following hip dislocation. We then evaluated the acetabulum. The femur was retracted anteriorly. Soft tissues were retracted, osteophytes were excised, and the acetabulum and surrounding osteophytes were further evaluated. We then began reaming with initial minimal deepening of the acetabulum secondary to findings on preoperative x-ray. Reaming was accomplished sequentially. We reamed to a size 51 to allow for a size 52 acetabular shell. The acetabulum was impacted into position. The dome hole was filled with the appropriate metal plug. Also, we confirmed that the acetabular insert was completely seated prior to addressing the femur. After the acetabulum was in appropriate position, we placed the MDM liner without difficulty. The cup was noted to seat nicely and had good fixation upon impact. Attention was directed to the proximal femur. The proximal femur was lifted out of the wound. A canal finder was passed after the box chisel. The reamer was used to lateralize. We then began broaching. We broached sequentially, and placed a size 7 broach in position for trial reduction. A trial reduction was accomplished with a -4 mm femoral head inside the appropriate MDM insert. This construct was felt to be too loose and with concern for instability, back length was increased to a +0 mm offset. This construct actually match the opposite side. This gave excellent stability, and with this in place, we had the above stabilities, and at that time, we felt that we had acceptable leg lengths. Therefore, the +0 mm offset femoral head was chosen. Trial components were removed after the hip was dislocated. The size 7 Accolade II 127 degree neck angle hip stem was impacted into position without difficulty and onto this was placed a +0 mm offset femoral head with the appropriate MDM liner. The hip was then reduced without difficulty. With this construct, we had stability with 90 degrees of flexion and nearly 80 degrees of internal rotation as well as 30 degrees of adduction. We were also stable to toe hanging and to external rotation. The stem was noted to seat nicely prior to placement of the femoral head. The wound was then copiously irrigated with 20 mL of Betadine and 500 mL of normal saline mixed together. Subsequently, we suctioned this out and irrigated the wound copiously with lactated Ringer's. Exparel was injected into the pericapsular tissues as well. Following reduction of the prosthesis once again, we confirmed the stability of the hip. Leg lengths were also felt to be satisfactory. Being satisfied with the prosthesis, attention was directed to closure. Closure was accomplished with 0 Vicryl in the capsular tissues. Piriformis was reattached with 0 Vicryl as well. Tensor fascia joey was closed with 0 Vicryl in an interrupted fashion. The subcutaneous tissues were closed with 2-0 STRATAFIX. Vancomycin powder and a Gelfoam thrombin mixture was placed into the wound as well. The skin was closed with a running 3-0 STRATAFIX followed by Dermabond, Prineo, and OpSite. The patient was placed in an abduction pillow. She was returned the Recovery Room in a satisfactory condition and will be discharged to the floor for postoperative rehabilitation and pain management. There were no complications. Related Problem List Diagnoses (1) Avascular necrosis of bone of left hip: (2) Primary osteoarthritis of left hip:
--- NOTE | 2025-04-21 14:57 | ANE.PACU2 ---
Inpatient post-anesthesia follow up: Airway intact: Yes Vital signs: Temperature 97.7 F Pulse Rate 67 Respiratory Rate 16 Blood Pressure 108/63 Pulse Oximetry 92 Oxygen Delivery Me thod Nasal Cannula Oxygen Flow Rate 3 Fraction of Inspir ed Oxygen Hydration adequate: Yes Nausea and vomiting: No Pain level: 2 Mental status: Baseline
[2025-04-21] MEDS: ipratropium-albuterol 3 mL Neb INHALATION (16:25)
--- NOTE | 2025-04-21 16:37 | PC.SOCIAL ---
Patient wants rehab and these are her choices 1.[facility] 2. [facility] 3. [facility]. Patient's daughter will bring portable oxygen to transfer to facility or home Home alone Daughter Casandra Esquivel [phone] lives on the same property with her. 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
[2025-04-21] MEDS: mupirocin oint 22 gm 1 APPLIC NASAL (16:49)
[2025-04-21] MEDS: calcium carbonate 500 mg Chew Tablet 1000 MG PO (16:50)
[2025-04-21] MEDS: iron polysaccharide complex 150 mg Capsule PO (16:50)
[2025-04-21] MEDS: oxyCODONE 5 mg IR Tab/Cap PO (16:50)
[2025-04-21] MEDS: gabapentin 300 mg Capsule 600 MG PO (16:50)
[2025-04-21] MEDS: sennosides-docusate Tablet 2 TAB PO (16:50)
[2025-04-21] MEDS: metformin 500 mg Tablet 1000 MG PO (16:51)
[2025-04-21] MEDS: chlorhexidine gluconate 0.12% Btl 473 mL 30 ML MUCOUS MEM ×2 (17:04→20:39)
[2025-04-22] VITALS (13 sets, daily range): BP systolic 95–121; BP diastolic 51–59; PULSE 64–102; RESP 15–20; TEMP 36.4–36.8; O2SAT 92–97
[2025-04-22] MEDS: acetaminophen 1,000 MG/100 ML PIGGYBACK 400 MG IV ×2 (00:08→09:33)
[2025-04-22] MEDS: ceFAZolin 2,000 mg SDV 2000 MG IVP ×2 (04:16→13:30)
[2025-04-22] MEDS: ATORVASTATIN 10 MG TABLET 20 MG PO (05:58)
[2025-04-22] MEDS: pantoprazole DR 40 mg Tablet PO (05:59)
[2025-04-22] MEDS: metformin 500 mg Tablet 1000 MG PO ×2 (05:59→18:41)
[2025-04-22] MEDS: atenolol 50 mg Tablet PO (05:59)
[2025-04-22 07:07] LABS: Basophils % 0.1 %; Eosinophils % 0.1 %; Hematocrit 28.4 % (36-47); Lymphocytes # 0.9 10^3/uL (0.8-4.8); Lymphocytes % 9.5 %; Mean Corpuscular HGB Conc 30.6 g/dL (30-55); Mean Corpuscular Hemoglobin 28.7 pg (27-33); Mean Corpuscular Volume 93.7 fl (85-98); Mean Platelet Volume 10.7 fL (7.4-10.4); Monocytes # 0.8 10^3/uL (0.2-0.9); Neutrophils # 7.26 10^3/uL (1.8-7.7); Neutrophils % 80.7 %; Nucleated Red Blood Cells % 0 %; Platelet Count 280 10^3/cmm (157-399); Red Blood Count 3.03 10^6/uL (3.85-5.65); Red Cell Distribution Width 15.8 % (12.1-15.1); White Blood Count 8.99 10^3/uL (3.29-11.43)
[2025-04-22] MEDS: budesonide 0.5 mg/2 mL Neb INHALATION ×2 (07:19→19:52)
[2025-04-22] MEDS: ipratropium-albuterol 3 mL Neb INHALATION ×4 (07:19→19:52)
[2025-04-22 07:24] LABS: Anion Gap 18.6 (5-19); Blood Urea Nitrogen 31 mg/dL (8-23); Calcium 8.3 mg/dL (8.5-10.5); Carbon Dioxide 20 mmol/L (22-29); Chloride 106 mmol/L (98-107); Creatinine Clr Calc Pharmacy 24.0938; Glucose 106 mg/dL (65-115); Osmolality Calculated 295 mOsm/kg (285-295); Potassium 5.6 mmol/L (3.5-5.1); Sodium 139 mmol/L (136-145)
[2025-04-22 07:42] LABS: Slide Review Slide Review Perform
[2025-04-22] MEDS: iron polysaccharide complex 150 mg Capsule PO ×2 (09:34→18:40)
[2025-04-22] MEDS: aspirin 325 mg EC Tablet PO (09:34)
[2025-04-22] MEDS: FUROsemide 20 mg Tablet PO (09:34)
[2025-04-22] MEDS: sennosides-docusate Tablet 2 TAB PO ×2 (09:34→18:40)
[2025-04-22] MEDS: cholecalciferol (vitamin D3) 1,000 unit Tablet 1000 UNIT PO (09:34)
[2025-04-22] MEDS: calcium carbonate 500 mg Chew Tablet 1000 MG PO ×2 (09:35→18:41)
[2025-04-22] MEDS: multivitamin therapeutic Tablet 1 TAB PO (09:35)
[2025-04-22] MEDS: mupirocin oint 22 gm 1 APPLIC NASAL ×2 (09:41→18:41)
[2025-04-22] MEDS: chlorhexidine gluconate 0.12% Btl 473 mL 30 ML MUCOUS MEM ×4 (09:41→21:56)
--- NOTE | 2025-04-22 10:47 | PC.CHAP ---
Pastoral Care Encounter/Spiritual Assessment Type of Contact [] Declined regional engineer visit [] Patient/Family/Request visit [] Outpatient visit [] Follow-up visit [] Physician referral [] Code/Alert [] Routine visit [] Staff referral [] Actively dying [] Patient sleeping [] Family support [] [] Out of room [] Palliative care [] [x] Receiving care in room [] Pre-surgical visit [] Trauma [] Long length of stay [] ICU visit [] Other: Relational/Emotional Strength [] Patient feels connected with others/family/visitors/staff [] Distress [] Loneliness/isolation [] Abandonment Spirituality of Patient [] Person of Alanis [] Attends Baptism of their Alanis [] Believes in Prayer [] Reads Bible or Gnosticist materials [] There are Spiritual issues to be addressed Loop Cutter Interventions [] Prayer [] Active listening [] Non-anxious presence [] Spiritual/emotional support [] Crisis/trauma care [] Spiritual counseling [] Bereavement support [] Provided bereavement packet [] Provided Bible/devotional materials [] Provided toy/stuffed animal, coloring book to patient or family member [] Provided Communion [] Anointing/Freedom [] Salvation [] Completed spiritual assessment [] Other: Impact on Illness or Injury [] Angry [] Fearful [] Anxious [] Often cries [] Exhaustion [] Unable to work [] Unable to attend anabaptism [] Unable to walk/stand [] Unable to read [] Unable to drive [] Unable to eat/drink [] Unable to sleep [] Unable to be with family [] Patient intubated [] Other: Summary Time spent
--- NOTE | 2025-04-22 14:12 | P.PN_ITS ---
Subjective 2 Subjective: Patient is seen in her room with her family. She is having difficulty participating with physical therapy secondary to weakness. She also notes that she just shakes violently when she attempts to stand. The family states that they have not seen this reaction from her before. This is limiting her physical therapy. Family states that they would like to investigate the possibility of long-term as certainly, at this point, she would not be able to be functional at home. Medications: Reviewed: Yes Vitals/I&O/Wt Last Vital Signs Temp 97.6 F 04/22/25 11:47 Pulse 71 04/22/25 11:47 Resp 18 04/22/25 11:47 BP 108/54 04/22/25 11:47 Pulse Ox 93 04/22/25 11:47 O2 Del Method Nasal Cannula 04/22/25 11:47 O2 Flow Rate 3.5 04/22/25 11:14 04/21/25 04/22/25 04/22/25 22:59 06:59 14:59 Intake Total 660 / 1560 100 / 1660 1460 / 1460 Output Total 725 / 1450 1000 / 2450 Balance -65 / 110 -900 / -790 1460 / 1460 Weight last 48 hrs Weight 115 lb Weight 115 lb Weight 128 lb Physical Exam 2 Const: COMMON NORMALS: no acute distress, patient oriented x3 and alert G ENERAL APPEARANCE: cooperative and comfortable NUTRITIONAL APPEARANCE: u nderweight ORIENTATION/CONSCIOUSNESS: Yes awake HENMT: COMMON NORMALS: normocephalic and atraumatic HEAD & SCALP: n ormocephalic and atraumatic Eye: GENERAL EYE: appearance normal, both eyes and all related structures Chest: COMMONS NORMALS: normal inspection of the chest Resp: COMMON NORMALS: normal respiratory effort EFFORT & INSPECTION: Yes able to speak in complete sentences and Yes symmetric chest movement Extremity: LEFT LOWER EXTREMITY: Yes hip joint (Dressing dry and intact) Left hip: Yes inspection (No significant swelling or ecchymosis), Yes ROM (Not evaluated) and Yes neurovascular exam (Intact distally with no evidence of DVT) Neuro: COMMON NORMALS: patient oriented x3 SENSORIUM/ORIENTATION: Yes alert Psych: COMMON NORMALS: mental status grossly normal APPEARANCE: Yes grossly normal ATTITUDE: Yes calm and Yes engaged ATTENTION/CONCENTRATION: Yes attention grossly intact Skin: COMMON NORMALS: no rashes or lesions noted GENERAL SKIN EXAM: no rashes or lesions noted Urinary Catheter Management: Van: Cath Placed During This Visit: yes Reason for Continuing Indwelling Catheter: Required Immobilization for Trauma or Surgery or Anesthesia Urinary Catheter Date of Insertion: 04/21/25 Urinary Catheter Time of Insertion: 10:30 Data 04/22/25 06:00 04/22/25 06:00 Micro: Microbiology 04/21/25 10:36 Urine Culture - Preliminary Urine,Clean Catch Gram Negative Rods A&P Assessment and plan (1) Status post total hip replacement, left: Patient is having difficulty today with participating in physical therapy. She is quite weak, and she also demonstrates orthostatic hypotension. Additionally, she gets the shakes when she is standing at bedside. Physical therapy attempted therapy, however, she is not able to stand to participate. She will require extended physical therapy to regain function, and she will likely require long-term for this. (2) Avascular necrosis of bone of left hip: (3) Primary osteoarthritis of left hip: PDMP PDMP Reviewed: Not Reviewed Attestations 2 Medical Necessity Statement*: Physical therapy and strengthening following total hip arthroplasty. Coding Level of Care Code Acute Code for Chg Fwd Diagnoses Status post total hip replacement, left Z96.642 Avascular necrosis of bone of left hip M87.052 Primary osteoarthritis of left hip M16.12
[2025-04-22] MEDS: sodium chloride 0.9% 1,000 ML 999 ML IV (17:02)
[2025-04-22 17:16] LABS: Bilirubin Urine Negative (Negative); Blood Urine 1+ (Negative); Glucose Urine UA Negative (Normal); Ketones Urine Negative (Negative); Leukocyte Esterase Urine 3+ (Negative); Nitrate Urine Negative (Negative); Protein Urine Negative (Negative); Specific Gravity, Urine 1.015 (1.005-1.030); Urine Appearance Turbid (CLEAR); Urine Color Yellow (Yellow); Urobilinogen Urine 0.2 mg/dL (Negative)
[2025-04-22 17:21] LABS: Add Urine Microscopic? YES; Bacteria Urine Trace /hpf; Hyaline Casts Urine 27.28 /lpf; Universal Test for UA Present (0); WBC Urine >100 /hpf (0-5)
[2025-04-22 17:34] LABS: Add Urine Culture? Yes; UA Slide Review UA Slide Review Perf
--- NOTE | 2025-04-22 17:42 | PM.CONSULT ---
Providers/Reason For Consult Consulting Physician/Specialty*: Hospitalist Reason for Consult*: Jerking Requesting Physician: Carlita Rodriguez MD Attending Physician: Carlita Rodriguez MD Primary Care Provider: Micky Lindo History of Present Illness History of Present Illness Purvi Mathis is a 80 year old female with hypertension, hyperlipidemia, DM2, LUNA, CAD, PVD, COPD, chronic HFpEF, and osteoarthritis. She had left total hip arthroplasty yesterday. She was noted to have jerking movements today which is new for family. She does not have a history of seizures. She was lethargic today but is fully oriented. Her urine appeared grossly infected and sent off for UA. Her blood pressure has been soft and is nondetectable when she stands. Review of Systems General: Reports: 10 or more systems reviewed and unremarkable except in HPI and below Medications/Allergies Home Medications ?Medication ?Instructions ?Recorded ?Confirmed ?Last Taken ?Type atorvastatin 20 mg tablet 20 mg PO DAILY@0700 04/21/20 04/20/25 04/20/25 History metformin 1,000 mg tablet 1,000 mg PO BID@0700,1700 04/21/20 04/20/25 04/20/25 History pantoprazole 40 mg tablet,delayed 40 mg PO DAILY@0700 04/21/20 04/20/25 04/20/25 History release aspirin 81 mg tablet,delayed 81 mg PO DAILY@0700 08/03/20 04/20/25 04/14/25 History release (Adult Low Dose Aspirin) fluticasone fur. 100 mcg-umeclid 1 inh inhalation Q24H 30 days #60 09/06/20 04/20/25 04/20/25 Rx 62.5 mcg-vilant 25 mcg ea inhalat.powder (Trelegy Ellipta) nitroglycerin 0.4 mg sublingual 0.4 mg sublingual Q5M PRN Chest 09/08/20 04/20/25 Unknown Rx tablet (Nitrostat) Pain #25 tabs atenolol 50 mg tablet 50 mg PO DAILY@0700 10/26/20 04/20/25 04/20/25 History albuterol sulfate 90 mcg/actuation 2 puff inhalation Q6H PRN 02/07/21 04/20/25 Unknown History aerosol inhaler (ProAir HFA) Shortness Of Breath Or Wheezing amlodipine 10 mg tablet 10 mg PO DAILY 01/10/22 04/20/25 04/20/25 History furosemide 20 mg tablet 20 mg PO DAILY #40 tabs 04/23/24 04/20/25 04/20/25 Rx Allergies Allergy/AdvReac Type Severity Reaction Status Date / Time levofloxacin Allergy ALGY-Difficulty Verified 04/20/25 09:04 Breathing ibuprofen AdvReac Unknown unknown Verified 04/20/25 09:04 naproxen (From Aleve) AdvReac Unknown unknown Verified 04/20/25 09:04 Current Medications Generic Name Dose Route Start Last Admin Trade Name Freq PRN Reason Stop Dose Admin Acetaminophen 1,000 mg 04/22/25 14:45 04/22/25 16:27 Acetaminophen 500 Mg Tablet PO Not Given Q8H JUDY Albuterol/Ipratropium 3 ml 04/21/25 16:00 04/22/25 15:34 Ipratropium-Albuterol 3 Ml Neb INHALATION 3 ml QID.RESPIRATORY JUDY Administration Amlodipine Besylate 10 mg 04/22/25 09:00 04/22/25 12:55 Amlodipine 10 Mg Tablet PO Not Given On Hold: 04/22/25 17:39 DAILY JUDY Aspirin 325 mg 04/22/25 09:00 04/22/25 09:34 Aspirin 325 Mg Ec Tablet PO 325 mg DAILY JUDY Administration Atenolol 50 mg 04/22/25 07:00 04/22/25 05:59 Atenolol 50 Mg Tablet PO 50 mg On Hold: 04/22/25 17:39 DAILY@0700 JUDY Administration Atorvastatin Calcium 20 mg 04/22/25 07:00 04/22/25 05:58 Atorvastatin 10 Mg Tablet PO 20 mg DAILY@0700 JUDY Administration Budesonide 0.5 mg 04/21/25 20:00 04/22/25 07:19 Budesonide 0.5 Mg/2 Ml Neb INHALATION 0.5 mg BID.RESPIRATORY JUDY Administration Calcium Carbonate 1,000 mg 04/21/25 18:00 04/22/25 09:35 Calcium Carbonate 500 Mg Chew Tablet PO 1,000 mg BID JUDY Administration Chlorhexidine Gluconate 30 ml 04/21/25 17:00 04/22/25 13:30 Chlorhexidine Gluconate 0.12% Btl 473 Ml MUCOUS MEM 30 ml QID JUDY Administration Furosemide 20 mg 04/22/25 09:00 04/22/25 09:34 Furosemide 20 Mg Tablet PO 20 mg On Hold: 04/22/25 17:40 DAILY JUDY Administration Metformin HCl 1,000 mg 04/21/25 17:00 04/22/25 05:59 Metformin 500 Mg Tablet PO 1,000 mg BID@0700,1700 JUDY Administration Multivitamins Therapeutic 1 tab 04/22/25 09:00 04/22/25 09:35 Multivitamin Therapeutic Tablet PO 1 tab DAILY JUDY Administration Mupirocin 1 applic 04/21/25 18:00 04/22/25 09:41 Mupirocin Oint 22 Gm NASAL 04/26/25 17:59 1 applic BID JUDY Administration Oxycodone HCl 5 - 10 mg 04/21/25 15:11 04/21/25 16:50 Oxycodone 5 Mg Ir Tab/Cap PO 10 mg Q4H PRN Administration MODERATE TO SEVERE PAIN Pantoprazole Sodium 40 mg 04/22/25 07:00 04/22/25 05:[address] 40 Mg Tablet PO 40 mg DAILY@0700 JUDY Administration Polysaccharide Iron Complex 150 mg 04/21/25 18:00 04/22/25 09:34 Iron Polysaccharide Complex 150 Mg Capsule PO 150 mg BIDWM JUDY Administration Senna/Docusate Sodium 2 tab 04/21/25 18:00 04/22/25 09:34 Sennosides-Docusate Tablet PO 2 tab BID JUDY Administration Vitamin D 1,000 unit 04/22/25 09:00 04/22/25 09:34 Cholecalciferol (Vitamin D3) 1,000 Unit Tablet PO 1,000 unit DAILY JUDY Administration PFSH Acute PFSH: Medical History Primary osteoarthritis of left hip Recurrent urinary tract infection Hyperdense renal cyst Hypomagnesemia CHF (congestive heart failure) Respiratory failure with hypoxia Acute exacerbation of chronic obstructive airways disease LUNA (obstructive sleep apnea) Cyst at back: removed Urolithiasis Partial staghorn, asymptomatic, no manager of change time. Carotid artery disease Peripheral vascular disease Diabetes CAD (coronary artery disease) Oxygen dependent COPD (chronic obstructive pulmonary disease) Primary osteoarthritis of right hip Type 2 diabetes mellitus Accelerated essential hypertension Osteoarthritis Angio-edema Surgical History History of cardiac cath Need to define if stenting was performed History of total right hip arthroplasty Hx of appendectomy History of right knee joint replacement History of right knee surgery Family History Mother , at age 86 Cancer Diabetes Father , at age 88 Cancer Social History Smoking and tobacco/nicotine status: former use of tobacco/nicotine Quit status (tobacco/nicotine): has quit using Year quit tobacco: 2008 [id number] Second hand smoke exposure: No Alcohol intake: never Substance/Drug Use: never Lives independently: Yes Household members: spouse Housing: House Marital status: Current occupational status: retired Do you think of yourself as: Straight/Heterosexual Current gender identity: Female Vitals/I&O/Wt Last Vital Signs Temp 97.8 F 04/22/25 16:32 Pulse 102 H 04/22/25 16:32 Resp 16 04/22/25 16:32 BP 105/55 04/22/25 16:32 Pulse Ox 93 04/22/25 16:32 O2 Del Method Nasal Cannula 04/22/25 16:32 O2 Flow Rate 3.5 04/22/25 15:35 04/22/25 04/22/25 04/22/25 06:59 14:59 22:59 Intake Total 100 / 1660 1460 / 1460 100 / 1560 Output Total 1000 / 2450 Balance -900 / -790 1460 / 1460 100 / 1560 Weight last 48 hrs Weight 52.163 kg Weight 52.163 kg Weight 58.06 kg Physical Exam Const: COMMON NORMALS: patient oriented x3 GENERAL APPEARANCE: cooperative and lethargic ORIENTATION/CONSCIOUSNESS: Yes lethargic HENMT: COMMON NORMALS: normocephalic and atraumatic HEAD & SCALP: normocephalic and atraumatic Eye: COMMON NORMALS: Equal, round and reactive pupils present and EOMs intact bilaterally GENERAL EYE: proptosis (Left-sided ptosis which is chronic) PUPIL: Yes Equal, round and reactive pupils present Neck/C-Spine: COMMON NORMALS: supple and no JVD Chest: COMMONS NORMALS: normal inspection of the chest Resp: COMMON NORMALS: normal respiratory effort and clear to auscultation bilaterally AUSCULTATION: clear to auscultation bilaterally Cardio: COMMON NORMALS: no JVD, regular rate, regular rhythm, S1 normal heart sound present, S2 normal heart sound present and No murmurs present (Cardio) RATE: regular rate RHYTHM: regular rhythm HEART SOUNDS: S1 normal heart sound present and S2 normal heart sound present GI: COMMON NORMALS: Normal to inspection, nondistended, normoactive bowel sounds present : COMMON NORMALS: Yes no CVA tenderness BLADDER/KIDNEY EXAM: Yes no CVA tenderness Back/Pelvis: COMMON NORMALS: no CVA tenderness Neuro: COMMON NORMALS: patient oriented x3, moves all extremities, no focal motor deficits, no sensory deficits noted and deep tendon reflexes 2+ bilaterally SENSORIUM/ORIENTATION: Yes lethargic OTHER: Occasional myoclonic jerks. Chronic left eye ptosis Psych: COMMON NORMALS: Normal thought process present and cooperative THOUGHT PROCESS: Normal thought process present Skin: COMMON NORMALS: no rashes or lesions noted GENERAL SKIN EXAM: no rashes or lesions noted Urinary Catheter Management: Van: Cath Placed During This Visit: yes Reason for Continuing Indwelling Catheter: Required Immobilization for Trauma or Surgery or Anesthesia Urinary Catheter Date of Insertion: 04/21/25 Urinary Catheter Time of Insertion: 10:30 Data 04/22/25 18:15 04/22/25 18:15 Micro: Microbiology 04/21/25 10:36 Urine Culture - Preliminary Urine,Clean Catch Gram Negative Rods A&P Assessment and plan (1) Myoclonic jerking: Likely from his hyperkalemia Not concerning for seizure activity (2) Hyperkalemia: Will recheck serum potassium ? Calcium gluconate ? Will give Kayexalate if potassium Is still elevated ? Telemetry monitoring ? Monitor potassium closely (3) GUSTAVO (acute kidney injury): Monitor serum creatinine and avoid nephrotoxic Meds (4) Hypotension: ? Likely from acute anemia in setting of total hip replacement ? Holding antihypertensive meds ? Giving 1 L normal saline bolus ? Will start 1 unit of PRBCs ? Monitor blood pressure (5) Acute anemia: Hemoglobin was 12.0 on 03/24/2025, 8.7 this morning ? Likely acute blood loss from left total hip arthroplasty ? Will give 1 unit of PRBCs (6) Status post total hip replacement, left: (7) Chronic respiratory failure with hypoxia: Uses 3 to 4 L/min O2 baseline (8) COPD (chronic obstructive pulmonary disease): Stable on 3.5 l/min O2 (9) Chronic diastolic heart failure secondary to coronary artery disease: Stable Monitor I's and O's and daily weights Plan Transfusing 1 unit PRBCs Monitor electrolytes Telemetry monitoring PDMP PDMP Reviewed: Not Reviewed Consult Attestations Medical Necessity Statement: Patient requires continued hospitalization due to hypotension, acute anemia, hyperkalemia, and GUSTAVO Time Spent in Patient Care: Total time spent equals 50 minutes. This includes [id number] exam, chart review, formulating plan, and discussion of plan of care with patient, primary provider, and nursing staff. Coding Level of Care Code 83478 Diagnoses Myoclonic jerking G25.3 Hyperkalemia E87.5 GUSTAVO (acute kidney injury) N17.9 Hypotension I95.9 Acute anemia D64.9 Status post total hip replacement, left Z96.642 Chronic respiratory failure with hypoxia J96.11 Chronic obstructive pulmonary disease, unspecified COPD type J44.9 COPD type: unspecified COPD Chronic diastolic heart failure secondary to coronary artery disease I50.32; I25.10
--- NOTE | 2025-04-22 18:17 | ECG_ITS ---
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 Measurements Intervals [place] Rate: 85 P: 84 NC: 144 QRS: 69 QRSD: 87 T: 219 QT: 394 QTc: 471 Interpretive Statements SINUS RHYTHM POSSIBLE RIGHT VENTRICULAR CONDUCTION DELAY [RSR (QR) IN V1/V2] ST DEVIATION AND MODERATE T-WAVE ABNORMALITY, CONSIDER ANTEROLATERAL ISCHEMIA [-0.1+ mV T-WAVE IN V3-V6] ST DEVIATION AND MODERATE T-WAVE ABNORMALITY, CONSIDER INFERIOR ISCHEMIA [-0.1+ mV T-WAVE IN II/aVF] Compared to ECG 04/13/2025 11:37:06 T-wave abnormality now present Possible ischemia now present Left ventricular hypertrophy no longer present ST (T wave) deviation no longer present Electronically Signed On 04-23-2025 06:00:08 CDT by Destini Perez M.D. [id number]
[2025-04-22 18:33] LABS: Hematocrit 26.2 % (36-47)
[2025-04-22 18:40] LABS: Anion Gap 17.4 (5-19); Blood Urea Nitrogen 32 mg/dL (8-23); Calcium 7.7 mg/dL (8.5-10.5); Carbon Dioxide 20 mmol/L (22-29); Chloride 105 mmol/L (98-107); Creatinine Clr Calc Pharmacy 24.0938; Glucose 171 mg/dL (65-115); Lactate (Lactic Acid level) 2.1 mmol/L (0.5-2.2); Osmolality Calculated 297 mOsm/kg (285-295); Potassium 4.4 mmol/L (3.5-5.1); Sodium 138 mmol/L (136-145)
[2025-04-22] MEDS: calcium gluconate 0.9% NaCL 1 GM/50 ML PREMIX IV (18:54)
[2025-04-22] MEDS: cefTRIAXone 1,000 mg SDV 1000 MG IVP (18:54)
[2025-04-22] MEDS: acetaminophen 500 mg Tablet 1000 MG PO (21:56)
[2025-04-23] VITALS (16 sets, daily range): BP systolic 102–123; BP diastolic 57–69; PULSE 85–116; RESP 16–18; TEMP 36.6–37.4; O2SAT 90–95
[2025-04-23 05:11] LABS: Basophils % 0.1 %; Eosinophils # 0.2 10^3/uL (0.0-0.8); Eosinophils % 2.2 %; Hematocrit 32.5 % (36-47); Lymphocytes # 0.8 10^3/uL (0.8-4.8); Lymphocytes % 10.2 %; Mean Corpuscular HGB Conc 30.5 g/dL (30-55); Mean Corpuscular Hemoglobin 27.8 pg (27-33); Mean Corpuscular Volume 91.3 fl (85-98); Mean Platelet Volume 9.6 fL (7.4-10.4); Monocytes # 0.7 10^3/uL (0.2-0.9); Monocytes % 8.8 %; Neutrophils # 5.95 10^3/uL (1.8-7.7); Neutrophils % 77.9 %; Nucleated Red Blood Cells % 0 %; Platelet Count 221 10^3/cmm (157-399); Red Blood Count 3.56 10^6/uL (3.85-5.65); Red Cell Distribution Width 15.5 % (12.1-15.1); White Blood Count 7.64 10^3/uL (3.29-11.43)
[2025-04-23 05:21] LABS: Albumin Level 3.1 g/dL (3.5-5.2); Anion Gap 15.1 (5-19); Blood Urea Nitrogen 30 mg/dL (8-23); Calcium 8.5 mg/dL (8.5-10.5); Carbon Dioxide 25 mmol/L (22-29); Chloride 106 mmol/L (98-107); Creatinine Clr Calc Pharmacy 29.9366; Glucose 131 mg/dL (65-115); Magnesium 1.7 mg/dL (1.7-2.3); Phosphorus 3.4 mg/dL (2.5-4.5); Potassium 5.1 mmol/L (3.5-5.1); Sodium 141 mmol/L (136-145)
[2025-04-23] MEDS: ATORVASTATIN 10 MG TABLET 20 MG PO (06:37)
[2025-04-23] MEDS: acetaminophen 500 mg Tablet 1000 MG PO ×3 (06:37→22:15)
[2025-04-23] MEDS: metformin 500 mg Tablet 1000 MG PO ×2 (06:37→18:18)
[2025-04-23] MEDS: pantoprazole DR 40 mg Tablet PO (06:38)
[2025-04-23] MEDS: budesonide 0.5 mg/2 mL Neb INHALATION ×2 (08:48→20:01)
[2025-04-23] MEDS: ipratropium-albuterol 3 mL Neb INHALATION ×4 (08:48→20:01)
[2025-04-23] MEDS: calcium carbonate 500 mg Chew Tablet 1000 MG PO ×2 (09:11→18:00)
[2025-04-23] MEDS: aspirin 325 mg EC Tablet PO (09:11)
[2025-04-23] MEDS: cholecalciferol (vitamin D3) 1,000 unit Tablet 1000 UNIT PO (09:11)
[2025-04-23] MEDS: iron polysaccharide complex 150 mg Capsule PO ×2 (09:11→18:00)
[2025-04-23] MEDS: sennosides-docusate Tablet 2 TAB PO (09:11)
[2025-04-23] MEDS: chlorhexidine gluconate 0.12% Btl 473 mL 30 ML MUCOUS MEM ×4 (09:12→20:54)
[2025-04-23] MEDS: mupirocin oint 22 gm 1 APPLIC NASAL ×2 (09:12→18:01)
[2025-04-23] MEDS: multivitamin therapeutic Tablet 1 TAB PO (09:12)
[2025-04-23] MEDS: oxyCODONE 5 mg IR Tab/Cap PO ×2 (10:11→22:20)
[2025-04-23] MEDS: sodium polystyrene sulfonate 15 gm/60 mL Btl PO (11:07)
--- NOTE | 2025-04-23 11:47 | P.PN_ITS ---
Subjective 2 Subjective: She received 1 unit of PRBCs yesterday. Her hemoglobin has improved to 9.9 g/dL. She is feeling much better this morning and jerking has stopped. Her pain is well-controlled. Medications: Reviewed: Yes Vitals/I&O/Wt Last Vital Signs Temp 98.2 F 04/23/25 08:10 Pulse 102 H 04/23/25 11:33 Resp 16 04/23/25 11:28 BP 116/64 04/23/25 08:10 Pulse Ox 91 04/23/25 11:28 O2 Del Method Nasal Cannula 04/23/25 11:28 O2 Flow Rate 3 04/23/25 11:28 04/22/25 04/23/25 04/23/25 22:59 06:59 14:59 Intake Total 2110 / 3570 550 / 4120 360 / 360 Balance 2110 / 3570 550 / 4120 360 / 360 Weight last 48 hrs Weight 66.088 kg Weight 52.163 kg Weight 52.163 kg Physical Exam 2 Const: COMMON NORMALS: patient oriented x3 GENERAL APPEARANCE: cooperative and lethargic ORIENTATION/CONSCIOUSNESS: Yes lethargic HENMT: COMMON NORMALS: normocephalic and atraumatic HEAD & SCALP: n ormocephalic and atraumatic Eye: COMMON NORMALS: Equal, round and reactive pupils present and EOMs intact bilaterally GENERAL EYE: proptosis (Left-sided ptosis which is chronic) P UPIL: Yes Equal, round and reactive pupils present Neck/C-Spine: COMMON NORMALS: supple and no JVD Chest: COMMONS NORMALS: normal inspection of the chest Resp: COMMON NORMALS: normal respiratory effort and clear to auscultation bilaterally AUSCULTATION: clear to auscultation bilaterally Cardio: COMMON NORMALS: no JVD, regular rate, regular rhythm, S1 normal heart sound present, S2 normal heart sound present and No murmurs present (Cardio) RATE: regular rate RHYTHM: regular rhythm HEART SOUNDS: S1 normal heart sound present and S2 normal heart sound present GI: COMMON NORMALS: Normal to inspection, nondistended, normoactive bowel sounds present : COMMON NORMALS: Yes no CVA tenderness BLADDER/KIDNEY EXAM: Yes no CVA tenderness Back/Pelvis: COMMON NORMALS: no CVA tenderness Neuro: COMMON NORMALS: patient oriented x3, moves all extremities, no focal motor deficits, no sensory deficits noted and deep tendon reflexes 2+ bilaterally SENSORIUM/ORIENTATION: Yes lethargic OTHER: Occasional myoclonic jerks. Chronic left eye ptosis Psych: COMMON NORMALS: Normal thought process present and cooperative T HOUGHT PROCESS: Normal thought process present Skin: COMMON NORMALS: no rashes or lesions noted GENERAL SKIN EXAM: no rashes or lesions noted Urinary Catheter Management: Van: Cath Placed During This Visit: yes Reason for Continuing Indwelling Catheter: Required Immobilization for Trauma or Surgery or Anesthesia Urinary Catheter Date of Insertion: 04/21/25 Urinary Catheter Time of Insertion: 10:30 Data 04/23/25 04:45 04/23/25 04:45 Micro: Microbiology 04/22/25 18:03 Blood Culture - Preliminary Blood SPECIMEN COLLECTED 04/22/25 18:15 Blood Culture - Preliminary Blood SPECIMEN COLLECTED 04/21/25 10:36 Urine Culture - Preliminary Urine,Clean Catch Gram Negative Rods A&P Assessment and plan (1) Myoclonic jerking: Likely from his hyperkalemia Not concerning for seizure activity (2) Hyperkalemia: Potassium normal today but 5.1 ? She did not get Kayexalate yesterday; will give it 2 hours today just to make sure that her potassium is not continue to increase ? Monitor potassium closely (3) GUSTAVO (acute kidney injury): She has GUSTAVO on CKD stage III ? Baseline creatinine 1.2 to 1.4 mg/dL; creatinine 1.5 today ? Monitor (4) Hypotension: ? Secondary to acute anemia ? Status post 1 L normal saline bolus in 1 unit PRBCs on 04/22 ? BP stable, will continue to hold antihypertensives today ? Restart BP meds tomorrow if blood pressure is okay (5) Acute anemia: Hemoglobin was 12.0 on 03/24/2025, 8.7 this morning ? Likely acute blood loss from left total hip arthroplasty ? Will give 1 unit of PRBCs (6) Acute UTI: Urine culture from 04/21 growing GNR. She had another specimen collected yesterday. Continue ceftriaxone (7) Status post total hip replacement, left: (8) Chronic respiratory failure with hypoxia: Uses 3 to 4 L/min O2 baseline (9) COPD (chronic obstructive pulmonary disease): Stable on 3.5 l/min O2 (10) Chronic diastolic heart failure secondary to coronary artery disease: Stable Monitor I's and O's and daily weights Plan Transfusing 1 unit PRBCs Monitor electrolytes Telemetry monitoring PDMP PDMP Reviewed: Not Reviewed Attestations 2 Medical Necessity Statement*: Patient requires continued hospitalist sedation. Waiting for final urine culture results. Monitor hemoglobin and electrolytes. Waiting for authorization for rehab. Time Spent in Patient Care: Total time spent equals 35 minutes. Coding Level of Care Code 46442 Diagnoses Myoclonic jerking G25.3 Hyperkalemia E87.5 GUSTAVO (acute kidney injury) N17.9 Hypotension I95.9 Acute anemia D64.9 Acute UTI N39.0 Status post total hip replacement, left Z96.642 Chronic respiratory failure with hypoxia J96.11 Chronic obstructive pulmonary disease, unspecified COPD type J44.9 COPD type: unspecified COPD Chronic diastolic heart failure secondary to coronary artery disease I50.32; I25.10
--- NOTE | 2025-04-23 17:47 | P.PN_ITS ---
Subjective 2 Subjective: She received 1 unit of PRBCs yesterday. Her hemoglobin has improved to 9.9 g/dL. She is feeling much better this morning and jerking has stopped. Her pain is well-controlled. She worked with physical therapy and did much better. Plans are transferred to [facility] so that she can regain strength and function. Medications: Reviewed: Yes Vitals/I&O/Wt Last Vital Signs Temp 98.1 F 04/23/25 15:59 Pulse 106 H 04/23/25 16:25 Resp 16 04/23/25 16:25 BP 111/62 04/23/25 15:59 Pulse Ox 90 04/23/25 16:25 O2 Del Method Nasal Cannula 04/23/25 16:25 O2 Flow Rate 3 04/23/25 16:25 04/23/25 04/23/25 04/23/25 06:59 14:59 22:59 Intake Total 550 / 4120 840 / 840 Balance 550 / 4120 840 / 840 Weight last 48 hrs Weight 145 lb 11.2 oz Weight 115 lb Physical Exam 2 Const: COMMON NORMALS: no acute distress, patient oriented x3 and alert G ENERAL APPEARANCE: cooperative and comfortable NUTRITIONAL APPEARANCE: u nderweight ORIENTATION/CONSCIOUSNESS: Yes awake HENMT: COMMON NORMALS: normocephalic and atraumatic HEAD & SCALP: n ormocephalic and atraumatic Eye: GENERAL EYE: appearance normal, both eyes and all related structures Chest: COMMONS NORMALS: normal inspection of the chest Resp: COMMON NORMALS: normal respiratory effort EFFORT & INSPECTION: Yes able to speak in complete sentences and Yes symmetric chest movement Extremity: LEFT LOWER EXTREMITY: Yes hip joint (Dressing remains intact.) Left hip: Yes inspection (No significant ecchymosis or swelling), Yes ROM (Not evaluated) and Yes neurovascular exam (No evidence of DVT) Neuro: COMMON NORMALS: patient oriented x3 SENSORIUM/ORIENTATION: Yes alert Psych: COMMON NORMALS: mental status grossly normal APPEARANCE: Yes grossly normal ATTITUDE: Yes calm and Yes engaged ATTENTION/CONCENTRATION: Yes attention grossly intact Skin: COMMON NORMALS: no rashes or lesions noted GENERAL SKIN EXAM: no rashes or lesions noted Urinary Catheter Management: Van: Cath Placed During This Visit: yes Reason for Continuing Indwelling Catheter: Required Immobilization for Trauma or Surgery or Anesthesia Urinary Catheter Date of Insertion: 04/21/25 Urinary Catheter Time of Insertion: 10:30 Data 04/23/25 04:45 04/23/25 04:45 Micro: Microbiology 04/21/25 10:36 Urine Culture - Final Urine,Clean Catch Klebsiella pneumoniae 04/22/25 13:43 Urine Culture - Preliminary Urine,Clean Catch 04/22/25 18:03 Blood Culture - Preliminary Blood SPECIMEN COLLECTED 04/22/25 18:15 Blood Culture - Preliminary Blood SPECIMEN COLLECTED A&P Assessment and plan (1) Status post total hip replacement, left: Patient is postop day 2 following left total hip arthroplasty. She had difficulty working with physical therapy secondary to weakness and chronic deconditioning. The patient is doing better today after receiving 1 unit of packed red blood cells. She was able to work with physical therapy. Potassium issues were also addressed. The patient was started on Rocephin due to her urine growing Klebsiella, and I will discharge her on Augmentin. She is in good spirits and looking forward to being discharged to the [facility] for full rehabilitation potential. (2) Avascular necrosis of bone of left hip: (3) Primary osteoarthritis of left hip: (4) Physical deconditioning: PDMP PDMP Reviewed: Not Reviewed Attestations 2 Medical Necessity Statement*: Ongoing medical issues following left total hip arthroplasty partially secondary to chronic deconditioning Coding Level of Care Code Acute Code for Chg Fwd Diagnoses Status post total hip replacement, left Z96.642 Avascular necrosis of bone of left hip M87.052 Primary osteoarthritis of left hip M16.12 Physical deconditioning R53.81
[2025-04-23] MEDS: cefTRIAXone 1,000 mg SDV 1000 MG IVP (17:59)
--- NOTE | 2025-04-23 18:02 | PC.NURSE ---
patient refused senna due to bowel movements today.
--- NOTE | 2025-04-23 18:15 | ECG_ITS ---
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 Measurements Intervals [place] Rate: 116 P: 88 MS: 125 QRS: 69 QRSD: 80 T: 262 QT: 303 QTc: 421 Interpretive Statements SINUS TACHYCARDIA ST DEVIATION AND MODERATE T-WAVE ABNORMALITY, CONSIDER LATERAL ISCHEMIA [-0.1+ mV T-WAVE IN I/aVL/V5/V6] ST DEVIATION AND MODERATE T-WAVE ABNORMALITY, CONSIDER INFERIOR ISCHEMIA [-0.1+ mV T-WAVE IN II/aVF] Compared to ECG 04/22/2025 18:17:43 Sinus rhythm no longer present T-wave abnormality still present Possible ischemia still present Electronically Signed On 04-26-2025 19:43:41 CDT by Farhana Waterman M.D. [email or web address] [id number]
--- NOTE | 2025-04-23 18:27 | PC.NURSE ---
Patient became tachycardic on the monitor. EKG performed. Dr. Puckett notified. H&H ordered.
[2025-04-23 19:38] LABS: Hematocrit 31.6 % (36-47)
[2025-04-24 04:00] VITALS: BP 151/76; PULSE 105; RESP 20; TEMP 37; O2SAT 91
[2025-04-24 05:39] LABS: Basophils % 0.2 %; Eosinophils # 0.2 10^3/uL (0.0-0.8); Eosinophils % 2.3 %; Hematocrit 31.9 % (36-47); Lymphocytes # 0.8 10^3/uL (0.8-4.8); Lymphocytes % 9.1 %; Mean Corpuscular HGB Conc 30.7 g/dL (30-55); Mean Corpuscular Hemoglobin 28.7 pg (27-33); Mean Corpuscular Volume 93.3 fl (85-98); Mean Platelet Volume 9.7 fL (7.4-10.4); Monocytes # 0.6 10^3/uL (0.2-0.9); Monocytes % 6.6 %; Neutrophils # 6.94 10^3/uL (1.8-7.7); Nucleated Red Blood Cells % 0 %; Platelet Count 232 10^3/cmm (157-399); Red Blood Count 3.42 10^6/uL (3.85-5.65); Red Cell Distribution Width 15.9 % (12.1-15.1); White Blood Count 8.58 10^3/uL (3.29-11.43)
[2025-04-24 06:03] LABS: Albumin Level 2.9 g/dL (3.5-5.2); Anion Gap 13.7 (5-19); Blood Urea Nitrogen 23 mg/dL (8-23); Calcium 8.6 mg/dL (8.5-10.5); Carbon Dioxide 26 mmol/L (22-29); Chloride 109 mmol/L (98-107); Creatinine Clr Calc Pharmacy 44.4938; Glucose 129 mg/dL (65-115); Magnesium 1.6 mg/dL (1.7-2.3); Phosphorus 1.9 mg/dL (2.5-4.5); Potassium 4.7 mmol/L (3.5-5.1); Sodium 144 mmol/L (136-145)
[2025-04-24] MEDS: metformin 500 mg Tablet 1000 MG PO (06:32)
[2025-04-24] MEDS: acetaminophen 500 mg Tablet 1000 MG PO (06:32)
[2025-04-24] MEDS: ATORVASTATIN 10 MG TABLET 20 MG PO (06:32)
[2025-04-24] MEDS: pantoprazole DR 40 mg Tablet PO (06:32)
[2025-04-24 07:37] VITALS: BP 118/74; PULSE 92; RESP 17; TEMP 36.6; O2SAT 92
[2025-04-24 07:48] VITALS: RESP 16
[2025-04-24] MEDS: oxyCODONE 5 mg IR Tab/Cap PO (07:48)
[2025-04-24 08:00] VITALS: PULSE 93; RESP 18; O2SAT 92
[2025-04-24] MEDS: ipratropium-albuterol 3 mL Neb INHALATION (08:03)
[2025-04-24] MEDS: budesonide 0.5 mg/2 mL Neb INHALATION (08:03)
--- NOTE | 2025-04-24 08:25 | PC.SOCIAL ---
IMM Updated Updated pt on IMM. no questions voiced. Provided pt a copy. Initialed, dated, & timed a copy & placed in chart.
--- NOTE | 2025-04-24 08:34 | PC.NURSE ---
Report called to Javier SEAMAN at [facility] at this time.
[2025-04-24 09:58] VITALS: BP 118/74; PULSE 93; RESP 16; TEMP 36.6; O2SAT 92
--- NOTE | 2025-04-24 11:21 | P.DS_ITS ---
Discharge Providers Date of Admission: 04/22/25 13:36 Date of Discharge: April 24, 2025 Attending Provider at Admission: Carlita Rodriguez MD Attending Provider at Discharge: Carlita Rodriguez MD Consults: Hospitalist team, Dr. 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 An Accolade II size 7 x 127 degree neck angle hip stem, femoral head size 28 mm outer diameter and +0 mm offset inside of an MDM insert size inner diameter 28 mm to match the 42E (2) Avascular necrosis of bone of left hip: Status: Acute (3) Primary osteoarthritis of left hip: Status: Acute (4) Physical deconditioning: Status: Acute Reason for Visit Reason for Visit: M16.12 Brief History: This 80-year-old woman presented to the office complaining of severe left hip pain. The patient previously underwent right total hip arthroplasty in May 2020. She presents today for left total hip arthroplasty. She has been seen preoperatively by her expenditure requisition clerk and her primary care. She has been approved for surgical intervention. Risks and complications are discussed with her. Consents were signed in the office. She was seen the morning of surgery and given further opportunity to have questions asked and answered. Hospital Course Hospital Course This 80-year-old woman was admitted following same-day surgery for left total hip arthroplasty. She was severely deconditioned from significant arthritis making it unable for her to ambulate or perform her activities of daily living. Postoperatively, she was hypotensive particularly orthostatic. She had an elevated potassium. The hospitalist team was consulted and treated the patient's medical issues. On the second postoperative day, she was better able to ambulate and participate with therapies. She was then ready for discharge to longterm. Arrangements have been made for this. The patient and her family were in agreement. Physical Exam Const: COMMON NORMALS: no acute distress, patient oriented x3 and alert GENERAL APPEARANCE: cooperative and comfortable NUTRITIONAL APPEARANCE: underweight ORIENTATION/CONSCIOUSNESS: Yes awake HENMT: COMMON NORMALS: normocephalic and atraumatic HEAD & SCALP: normocephalic and atraumatic Eye: GENERAL EYE: appearance normal, both eyes and all related structures Chest: COMMONS NORMALS: normal inspection of the chest Resp: COMMON NORMALS: normal respiratory effort EFFORT & INSPECTION: Yes able to speak in complete sentences and Yes symmetric chest movement Extremity: NARRATIVE EXTREMITY EXAM: Patient was not seen on her day of discharge, but the evening before, she had no evidence of DVT. Dressing is dry and intact. Per nursing, this remained unchanged. Neuro: COMMON NORMALS: patient oriented x3 SENSORIUM/ORIENTATION: Yes alert Psych: COMMON NORMALS: mental status grossly normal APPEARANCE: Yes grossly normal ATTITUDE: Yes calm and Yes engaged ATTENTION/CONCENTRATION: Yes attention grossly intact Skin: COMMON NORMALS: no rashes or lesions noted GENERAL SKIN EXAM: no rashes or lesions noted Urinary Catheter Management: Van: Cath Placed During This Visit: yes Reason for Continuing Indwelling Catheter: Required Immobilization for Trauma or Surgery or Anesthesia Urinary Catheter Date of Insertion: 04/21/25 Urinary Catheter Time of Insertion: 10:30 Discharge Data Studies Completed and Pending Completed Studies During Hospitalization Category Date Time Status XR pelvis 1-2V* [id number] Routine Exams 04/21/25 14:27 Completed Pending at discharge Category Date Time Status Blood Culture Stat Lab 04/22/25 18:03 Results Urine Culture Routine Lab 04/22/25 13:43 Results Radiology Impressions Pelvis X-Ray 04/21/25 14:27 IMPRESSION: Bilateral total hip replacement hardware, more recent on the left, with satisfactory/anatomic alignment and position and without acute findings. Laboratory Results WBC 8.58 10^3/uL (3.29-11.43) 04/24/25 04:59 RBC 3.42 10^6/uL (3.85-5.65) L 04/24/25 04:59 Hgb 9.80 g/dL (11.27-16.99) L 04/24/25 04:59 Hct 31.9 % (36-47) L 04/24/25 04:59 MCV 93.3 fl (85-98) 04/24/25 04:59 MCH 28.7 pg (27-33) 04/24/25 04:59 MCHC 30.7 g/dL (30-55) 04/24/25 04:59 RDW 15.9 % (12.1-15.1) H 04/24/25 04:59 Plt Count 232 10^3/cmm (157-399) 04/24/25 04:59 MPV 9.7 fL (7.4-10.4) 04/24/25 04:59 Neut % (Auto) 81.0 % 04/24/25 04:59 Lymph % (Auto) 9.1 % 04/24/25 04:59 [place] % (Auto) 6.6 % 04/24/25 04:59 Eos % (Auto) 2.3 % 04/24/25 04:59 Baso % (Auto) 0.2 % 04/24/25 04:59 Neut # (Auto) 6.94 10^3/uL (1.8-7.7) 04/24/25 04:59 Lymph # (Auto) 0.8 10^3/uL (0.8-4.8) 04/24/25 04:59 [place] # (Auto) 0.6 10^3/uL (0.2-0.9) 04/24/25 04:59 Eos # (Auto) 0.2 10^3/uL (0.0-0.8) 04/24/25 04:59 Baso # (Auto) 0.0 10^3/uL (0.0-0.1) 04/24/25 04:59 Nucleated RBC % (auto) 0 % 04/24/25 04:59 Nucleated RBCs # 0.0 /100WBC 04/24/25 04:59 Sodium 144 mmol/L (136-145) 04/24/25 04:59 Potassium 4.7 mmol/L (3.5-5.1) 04/24/25 04:59 Chloride 109 mmol/L (98-107) H 04/24/25 04:59 Carbon Dioxide 26 mmol/L (22-29) 04/24/25 04:59 Anion Gap 13.7 (5-19) 04/24/25 04:59 BUN 23 mg/dL (8-23) 04/24/25 04:59 Creatinine 1.0 mg/dL (0.5-0.9) H 04/24/25 04:59 GFR Calculation Not Reportable 04/24/25 04:59 Glucose 129 mg/dL (65-115) H 04/24/25 04:59 POC Glucose 104 mg/dL (70-110) 04/21/25 11:25 Calculated Osmolality 297 mOsm/kg (285-295) H 04/22/25 18:15 Lactate 2.1 mmol/L (0.5-2.2) 04/22/25 18:15 Calcium 8.6 mg/dL (8.5-10.5) 04/24/25 04:59 Phosphorus 1.9 mg/dL (2.5-4.5) L 04/24/25 04:59 Magnesium 1.6 mg/dL (1.7-2.3) L 04/24/25 04:59 Albumin 2.9 g/dL (3.5-5.2) L 04/24/25 04:59 Urine Color Yellow (Yellow) 04/22/25 13:43 Urine Appearance Turbid (CLEAR) A 04/22/25 13:43 Urine pH 5.0 (5-7) 04/22/25 13:43 Ur Specific [place] 1.015 (1.005-1.030) 04/22/25 13:43 Urine Protein Negative (Negative) 04/22/25 13:43 Urine Glucose (UA) Negative (Normal) 04/22/25 13:43 Urine Ketones Negative (Negative) 04/22/25 13:43 Urine Blood 1+ (Negative) A 04/22/25 13:43 Urine Nitrate Negative (Negative) 04/22/25 13:43 Urine Bilirubin Negative (Negative) 04/22/25 13:43 Urine Urobilinogen 0.2 mg/dL (Negative) 04/22/25 13:43 Ur Leukocyte Esterase 3+ (Negative) A 04/22/25 13:43 Urine RBC 6-10 /hpf (0-2) 04/22/25 13:43 Urine WBC >100 /hpf (0-5) H 04/22/25 13:43 Ur Squamous Epith Cells 6-10 /hpf (0-5) 04/22/25 13:43 Amorphous Sediment Not Reportable 04/22/25 13:43 Urine Bacteria Trace /hpf (NONE) 04/22/25 13:43 Hyaline Casts 27.28 /lpf 04/22/25 13:43 Blood Type A Negative 04/22/25 20:32 Rho(D) Type Rh negative 04/22/25 20:32 Antibody Screen Negative 04/22/25 20:32 Crossmatch See Detail 04/22/25 20:32 Vitals Last Vital Signs Temp 98 F 04/24/25 09:58 Pulse 93 04/24/25 09:58 Resp 16 04/24/25 09:58 BP 118/74 04/24/25 09:58 Pulse Ox 92 04/24/25 09:58 O2 Del Method Nasal Cannula 04/24/25 08:00 O2 Flow Rate 4 04/24/25 08:00 Discharge Plan Discharge Patient Disposition: Xfer SNF Condition: Stable Prescriptions: New acetaminophen 500 mg Tablet 1,000 mg PO Q8H 15 Days Qty: 90 0RF aspirin 325 mg Tablet,Delayed Release (Dr/Ec) 325 mg PO DAILY 30 Days Qty: 30 0RF hydrocodone-acetaminophen 5-325 mg tablet 1 tab PO Q4H PRN (Reason: pain) Qty: 30 0RF amoxicillin-pot clavulanate 875-125 mg tablet 1 tab PO BID 10 Days Qty: 20 0RF Continued Trelegy Ellipta 100-62.5-25 mcg blister with device 1 inh INHALATION Q24H 30 Days Qty: 60 3RF Rx Instructions: take at 0700 nitroglycerin [Nitrostat] 0.4 mg tablet, sublingual 0.4 mg SUBLINGUAL Q5M PRN (Reason: Chest Pain) Qty: 25 6RF Rx Instructions: do not exceed 3 doses per episode albuterol sulfate [ProAir HFA] 90 mcg/actuation HFA aerosol inhaler 2 puff inhalation Q6H PRN (Reason: Shortness Of Breath Or Wheezing) atorvastatin 20 mg tablet 20 mg PO DAILY@0700 metformin 1,000 mg tablet 1,000 mg PO BID@0700,1700 pantoprazole 40 mg tablet,delayed release (DR/EC) 40 mg PO DAILY@0700 aspirin [Adult Low Dose Aspirin] 81 mg tablet,delayed release (DR/EC) 81 mg PO DAILY@0700 amlodipine 10 mg tablet 10 mg PO DAILY furosemide 20 mg tablet 20 mg PO DAILY Qty: 40 3RF Rx Instructions: Take 40 mg for 10 days, then 20 mg daily atenolol 50 mg tablet 50 mg PO DAILY@0700 Discharge Orders: Discharge Order (Routine); Ordered 04/24/25 Ordered By: Carlita Rodriguez Referrals: [facility] [Outside] Carlita Rodriguez MD [Physician, Orthopedics] - 05/04/25 11:15 am Discharge Diet: Advance as tolerated and Usual diet Discharge Activity: Limit activity as instructed, Use walker/crutches as instructed and As per PT/OT instructions Patient Instructions: Hydrocodone/Acetaminophen (By mouth), Amoxicillin/Clavulanate Potassium (By mouth), Acute Wound Care (DC), Total Hip Replacement (GEN), Opioid Safety, Post Anesthesia Care Activity Restrictions/Additional Instructions: Weight-bear as tolerated. Posterior hip precautions. Ambulate with physical therapy. Strengthening per physical therapy. You may shower and get the wound wet, but do not submerge your hip in water. Discharge Attestations Time Spent in Discharge Care*: greater than 30 min Specific Discharge Activities: educating patient, documenting/other paperwork and evaluating patient/reviewing data Status at Discharge: Cognitive status at discharge: cognitively intact , Behavioral status at discharge: cooperative , Quality Metrics Clinical Quality Measures [ No reported AMI, CVA or VTE this stay] Coding Level of Care Code Acute Code for Chg Fwd Diagnoses Status post total hip replacement, left Z96.642 Avascular necrosis of bone of left hip M87.052 Primary osteoarthritis of left hip M16.12 Physical deconditioning R53.81
== END 2025-04-24 08:40 | disposition skilled nursing facility (03) | DRG 470 ==
LOC: MEDSURG 14:00
PROVIDERS: Student in an Organized Health Care Education/Training Program; Admitting Provider Specialist; PCP Family Medicine; Visit Provider Specialist
PROC: 0SRB0JZ Replacement of Left Hip Joint with Synthetic Substitute, Open Approach (ICD-10-PCS; CPT 27130; principal; 2025-04-21 11:15)
DX: M87.052 Idiopathic aseptic necrosis of left femur (principal); I50.32 Chronic diastolic (congestive) heart failure; N17.9 Acute kidney failure, unspecified; D62 Acute posthemorrhagic anemia; J96.11 Chronic respiratory failure with hypoxia; N39.0 Urinary tract infection, site not specified; M16.12 Unilateral primary osteoarthritis, left hip; J44.9 Chronic obstructive pulmonary disease, unspecified; I25.10 Atherosclerotic heart disease of native coronary artery without angina pectoris; I11.0 Hypertensive heart disease with heart failure; K21.9 Gastro-esophageal reflux disease without esophagitis; E78.5 Hyperlipidemia, unspecified; E11.51 Type 2 diabetes mellitus with diabetic peripheral angiopathy without gangrene; Z79.84 Long term (current) use of oral hypoglycemic drugs; G47.33 Obstructive sleep apnea (adult) (pediatric); E87.5 Hyperkalemia; G25.3 Myoclonus; I95.9 Hypotension, unspecified; B96.1 Klebsiella pneumoniae [K. pneumoniae] as the cause of diseases classified elsewhere; Z95.5 Presence of coronary angioplasty implant and graft
CPT/HCPCS: 36415; 36416; 51702; 72170; 80048; 80069; 81001; 82962; 83605; 83735; 85014; 85018; 85025; 86850; 86900; 86920; 87040; 87077; 87086; 87186; 93005; 94640; 97110; 97116; 97162; 97167; 97530; A4216; C1776; G0378; J0131; J0612; J0666; J0690; J0696; J1100; J2405; J2704; J3010; J3370; J3490; J7030; J7626; J9999; P9016

== ENCOUNTER → 2025-05-04 08:20 | Outpatient (BNVA) | payer MEDICARE, SELFPAY | PROVIDERS: PCP Family Medicine; Visit Provider Nurse Practitioner | DX: Z98.890 Other specified postprocedural states (principal); Z96.642 Presence of left artificial hip joint | CPT/HCPCS: 99024 ==

== ENCOUNTER 2025-05-18 10:58 | Emergency (ER) | payer MEDICARE, SELFPAY ==
[2025-05-18 11:00] VITALS: BP 112/56; PULSE 73; RESP 20; TEMP 36.4; O2SAT 85; BMI 17.8
--- NOTE | 2025-05-18 11:04 | ECG_ITS ---
[employer] Test Date: 2025-05-18 Pat Name: Purvi Mathis Department: Room: Gender: Female Picker: : [phone] Requested By: Teddy Lopes Order Number: [id number] Mal MD: Destini Perez M.D. Measurements Intervals [place] Rate: 71 P: 84 AL: 116 QRS: 73 QRSD: 78 T: 204 QT: 421 QTc: 460 Interpretive Statements SINUS RHYTHM WITH SHORT AL INTERVAL LEFT VENTRICULAR HYPERTROPHY AND ST-T CHANGE [VOLTAGE CRITERIA PLUS ST/T ABNORMALITY] POSSIBLE SEPTAL MYOCARDIAL INFARCTION , PROBABLY OLD [30 ms Q WAVE IN V1/V2] Compared to ECG 04/23/2025 18:23:05 Short AL interval now present Left ventricular hypertrophy now present ST (T wave) deviation now present Myocardial infarct finding now present Sinus tachycardia no longer present T-wave abnormality no longer present Possible ischemia no longer present Electronically Signed On 05-19-2025 09:54:33 CDT by Destini Perez M.D. [email or web address] [id number]
--- NOTE | 2025-05-18 11:04 | XRR_ITS ---
PROCEDURE INFORMATION: Exam: XR Chest Exam date and time: 05/18/2025 11:47 AM Age: 80 years old Clinical indication: Cough and dyspnea; Additional info: Dyspnea/cough TECHNIQUE: Imaging protocol: Radiologic exam of the chest. Views: 1 view. COMPARISON: 1. CT lung screening [id number] 06/18/2023 9:06 AM 2. CR XR chest 1V portable [id number] 10/26/2020 12:42 PM FINDINGS: Lungs: A new, focal infiltrate is not identified. Bullous changes in the upper lungs are again noted. Pleural spaces: Extensive calcified pleural plaques are again noted throughout the thorax. No pleural effusion or pneumothorax. Heart/Mediastinum: Heart size remains at the upper limit of normal. Mediastinal size is normal. Vasculature: Aortic arch calcification is again noted. Bones/joints: No suspicious osseous lesions. XR/XR chest 1V portable [id number] IMPRESSION: 1. Extensive calcified pleural plaques are again noted, consistent with asbestos related pleural disease. 2. No acute infiltrate or effusion identified.
--- NOTE | 2025-05-18 11:11 | W.ED.SOB ---
HPI - SOB/Dyspnea General: Chief Complaint: Shortness of Breath/Dyspnea Stated Complaint: cough, sob, diarrhea Time Seen by Provider: 05/18/25 11:04 History of Present Illness: HPI Narrative: 80-year-old female presents emergency room complaint of shortness of breath. Patient recently was found to have a PE postop hip arthroplasty she is still taking her apixaban for a time she was at the intermediate and was discharged home she is normally on 4 L apart due to the PE additionally she has a history of asbestos related interstitial lung fibrosis. She has not had any fever she has had some diarrhea moderately productive cough. No chest pain at this time Associated symptoms: Reports chest congestion; Deny abdominal pain, chest pain or fever(s) Related Data Home Medications ?Medication ?Instructions ?Recorded ?Confirmed atorvastatin 20 mg tablet 20 mg PO DAILY@0700 04/21/20 05/18/25 metformin 1,000 mg tablet 1,000 mg PO BID@0700,1700 04/21/20 05/18/25 pantoprazole 40 mg tablet,delayed 40 mg PO DAILY@0700 04/21/20 05/18/25 release aspirin 81 mg tablet,delayed 81 mg PO DAILY@0700 08/03/20 05/18/25 release (Adult Low Dose Aspirin) atenolol 50 mg tablet 50 mg PO DAILY@0700 10/26/20 05/18/25 amlodipine 10 mg tablet 10 mg PO DAILY 01/10/22 05/18/25 albuterol sulfate 2.5 mg/3 mL 2.5 mg inhalation QID PRN 05/18/25 05/18/25 (0.083 %) solution for nebulization Shortness Of Breath Or Wheezing albuterol sulfate 90 mcg/actuation 2 puff inhalation Q6H PRN 05/18/25 05/18/25 aerosol inhaler Shortness Of Breath Or Wheezing fluticasone fur. 100 mcg-umeclid 1 inh inhalation BID 05/18/25 05/18/25 62.5 mcg-vilant 25 mcg inhalat.powder (Trelegy Ellipta) Previous Rx's ?Medication ?Instructions ?Recorded nitroglycerin 0.4 mg sublingual 0.4 mg sublingual Q5M PRN Chest 09/08/20 tablet (Nitrostat) Pain #25 tabs furosemide 20 mg tablet 20 mg PO DAILY #40 tabs 04/23/24 amoxicillin 875 mg-potassium 1 tab PO BID #14 tabs 05/18/25 clavulanate 125 mg tablet Allergies Allergy/AdvReac Type Severity Reaction Status Date / Time levofloxacin Allergy ALGY-Difficulty Verified 05/04/25 08:29 Breathing ibuprofen AdvReac Unknown unknown Verified 05/04/25 08:29 naproxen (From Aleve) AdvReac Unknown unknown Verified 05/04/25 08:29 Review of Systems Const: Denies: fever(s) or chills Card: Denies: chest pain Resp: Reports: dyspnea, productive cough, wheezing and chest congestion GI: Reports: diarrhea; Denies: abdominal pain : Denies: dysuria, urinary frequency or urinary urgency Musc: Denies: neck pain or back pain Skin/Breast: Denies: rash PFSH ED PFSH: Medical History Primary osteoarthritis of left hip Recurrent urinary tract infection Hyperdense renal cyst Hypomagnesemia CHF (congestive heart failure) Respiratory failure with hypoxia Acute exacerbation of chronic obstructive airways disease LUNA (obstructive sleep apnea) Cyst at back: removed Urolithiasis Partial staghorn, asymptomatic, no pattern changer and repairer time. Carotid artery disease Peripheral vascular disease Diabetes CAD (coronary artery disease) Oxygen dependent COPD (chronic obstructive pulmonary disease) Primary osteoarthritis of right hip Type 2 diabetes mellitus Accelerated essential hypertension Osteoarthritis Angio-edema Surgical History History of cardiac cath Need to define if stenting was performed History of total right hip arthroplasty Hx of appendectomy History of right knee joint replacement History of right knee surgery Family History Mother , at age 86 Cancer Diabetes Father , at age 88 Cancer Social History Smoking and tobacco/nicotine status: never used tobacco/nicotine Quit status (tobacco/nicotine): has quit using Year quit tobacco: 2008 [id number] Second hand smoke exposure: No Alcohol intake: never Substance/Drug Use: never Lives independently: Yes Household members: spouse Housing: House Marital status: Current occupational status: retired Do you think of yourself as: Straight/Heterosexual Current gender identity: Female Physical Exam Const: GENERAL APPEARANCE: cooperative ORIENTATION/CONSCIOUSNESS: Yes awake, Yes oriented to person, Yes oriented to place and Yes oriented to time HENMT: COMMON NORMALS: normocephalic, atraumatic and hearing grossly normal bilaterally HEAD & SCALP: normocephalic and atraumatic Resp: COMMON NORMALS: normal respiratory effort, No retractions, No use of accessory muscles and clear to auscultation bilaterally AUSCULTATION: clear to auscultation bilaterally Cardio: COMMON NORMALS: regular rate, regular rhythm and No murmurs present (Cardio) RATE: regular rate RHYTHM: regular rhythm GI: COMMON NORMALS: Soft to palpation and No hepatosplenomegaly present AUSCULTATION: Yes normoactive bowel sounds PALPATION: Yes Soft to palpation, No Tenderness to palpation present (GI), No Guarding due to palpation present (GI) and Yes No hepatosplenomegaly present Extremity: COMMON NORMALS: normal to inspection, capillary refill normal, no clubbing, cyanosis or edema, no calf tenderness and no pedal edema Neuro: SENSORIUM/ORIENTATION: Yes oriented to person, Yes oriented to place and Yes oriented to time Skin: COMMON NORMALS: no rashes or lesions noted GENERAL SKIN EXAM: no rashes or lesions noted Course Vital Signs: Vital signs: Vital Signs Temperature 97.6 F 05/18/25 11:00 Pulse Rate 70 05/18/25 14:00 Respiratory Rate 16 05/18/25 13:31 Blood Pressure 118/61 05/18/25 14:00 Pulse Oximetry 95 05/18/25 14:00 Oxygen Delivery Me thod Nasal Cannula 05/18/25 13:31 Oxygen Flow Rate 4 05/18/25 13:31 MDM - SOB/Dyspnea Medical Decision Making You are seen evaluated in the emergency room with complaints of shortness of breath. Patient tested positive for COVID. Discharged home with supportive cares for COVID incidental notation of cystitis which she was started on antibiotics based on culture and sensitivity from recent urine culture. Medical Records I reviewed the patient's medical records. Lab Data I reviewed the patient's lab results. 05/18/25 11:28 05/18/25 11:28 Labs/Radiology: Radiology Impressions Chest X-Ray 05/18/25 11:04 IMPRESSION: 1. Extensive calcified pleural plaques are again noted, consistent with asbestos related pleural disease. 2. No acute infiltrate or effusion identified. Laboratory Results WBC 7.48 10^3/uL (3.29-11.43) 05/18/25 11: RBC 3.93 10^6/uL (3.85-5.65) 05/18/25 11:28 Hgb 10.90 g/dL (11.27-16.99) L 05/18/25 11:28 Hct 34.9 % (36-47) L 05/18/25 11:28 MCV 88.8 fl (85-98) 05/18/25 11:28 MCH 27.7 pg (27-33) 05/18/25 11:28 MCHC 31.2 g/dL (30-55) 05/18/25 11: RDW 15.8 % (12.1-15.1) H 05/18/25 11:28 Plt Count 384 10^3/cmm (157-399) 05/18/25 11: MPV 9.7 fL (7.4-10.4) 05/18/25 11:28 Neut % (Auto) 84.9 % 05/18/25 11:28 Lymph % (Auto) 9.2 % 05/18/25 11:28 [place] % (Auto) 4.9 % 05/18/25 11:28 Eos % (Auto) 0.5 % 05/18/25 11: Baso % (Auto) 0.0 % 05/18/25 11:28 Neut # (Auto) 6.34 10^3/uL (1.8-7.7) 05/18/25 11:28 Lymph # (Auto) 0.7 10^3/uL (0.8-4.8) L 05/18/25 11:28 Pepin # (Auto) 0.4 10^3/uL (0.2-0.9) 05/18/25 11:28 Eos # (Auto) 0.0 10^3/uL (0.0-0.8) 05/18/25 11:28 Baso # (Auto) 0.0 10^3/uL (0.0-0.1) 05/18/25 11:28 Nucleated RBC % (auto) 0 % 05/18/25 11:28 Nucleated RBCs # 0.0 /100WBC 05/18/25 11:28 Sodium 143 mmol/L (136-145) 05/18/25 11:28 Potassium 4.5 mmol/L (3.5-5.1) 05/18/25 11:28 Chloride 103 mmol/L (98-107) 05/18/25 11:28 Carbon Dioxide 25 mmol/L (22-29) 05/18/25 11:28 Anion Gap 19.5 (5-19) H 05/18/25 11:28 BUN 16 mg/dL (8-23) 05/18/25 11:28 Creatinine 1.0 mg/dL (0.5-0.9) H 05/18/25 11:28 GFR Calculation Not Reportable 05/18/25 11:28 Glucose 126 mg/dL (65-115) H 05/18/25 11:28 Calculated Osmolality 299 mOsm/kg (285-295) H 05/18/25 11:28 Calcium 9.1 mg/dL (8.5-10.5) 05/18/25 11:28 Total Bilirubin 0.7 mg/dL (0.15-1.2) 05/18/25 11:28 AST 20 U/L (0-32) 05/18/25 11:28 ALT 11 U/L (0-33) 05/18/25 11:28 Alkaline Phosphatase 97 U/L (35-105) 05/18/25 11:28 Total Protein 7.7 g/dL (6.6-8.7) 05/18/25 11:28 Albumin 3.7 g/dL (3.5-5.2) 05/18/25 11:28 Globulin 4.0 g/dL (1.3-4.6) 05/18/25 11:28 Urine Color Yellow (Yellow) 05/18/25 12:05 Urine Appearance Cloudy (CLEAR) A 05/18/25 12:05 Urine pH 5.5 (5-7) 05/18/25 12:05 Ur Specific [place] 1.011 (1.005-1.030) 05/18/25 12:05 Urine Protein Trace (Negative) A 05/18/25 12:05 Urine Glucose (UA) Negative (Normal) 05/18/25 12:05 Urine Ketones Negative (Negative) 05/18/25 12:05 Urine Blood 2+ (Negative) A 05/18/25 12:05 Urine Nitrate Negative (Negative) 05/18/25 12:05 Urine Bilirubin Negative (Negative) 05/18/25 12:05 Urine Urobilinogen 0.2 mg/dL (Negative) 05/18/25 12:05 Ur Leukocyte Esterase 1+ (Negative) A 05/18/25 12:05 Urine RBC 11-20 /hpf (0-2) H 05/18/25 12:05 Urine WBC 11-20 /hpf (0-5) H 05/18/25 12:05 Ur Squamous Epith Cells 0-5 /hpf (0-5) 05/18/25 12:05 Amorphous Sediment Not Reportable 05/18/25 12:05 Urine Bacteria 2+ /hpf (NONE) H 05/18/25 12:05 Hyaline Casts 7.42 /lpf 05/18/25 12:05 Influenza A (PCR) Negative (Negative) 05/18/25 11:54 Influenza Type B (PCR) Negative (Negative) 05/18/25 11:54 RSV (PCR) Negative (Negative) 05/18/25 11:54 SARS-CoV-2 (PCR) Positive (Negative) A 05/18/25 11:54 All radiology interpretation(s) finalized by discharge Discharge Plan Discharge Patient Disposition: Home Clinical Impression: COVID-19, Cystitis Condition: Stable Prescriptions: New amoxicillin-pot clavulanate 875-125 mg tablet 1 tab PO BID Qty: 14 0RF No Action nitroglycerin [Nitrostat] 0.4 mg tablet, sublingual 0.4 mg SUBLINGUAL Q5M PRN (Reason: Chest Pain) Qty: 25 6RF Rx Instructions: do not exceed 3 doses per episode atorvastatin 20 mg tablet 20 mg PO DAILY@0700 metformin 1,000 mg tablet 1,000 mg PO BID@0700,1700 pantoprazole 40 mg tablet,delayed release (DR/EC) 40 mg PO DAILY@0700 aspirin [Adult Low Dose Aspirin] 81 mg tablet,delayed release (DR/EC) 81 mg PO DAILY@0700 amlodipine 10 mg tablet 10 mg PO DAILY furosemide 20 mg tablet 20 mg PO DAILY Qty: 40 3RF Rx Instructions: Take 40 mg for 10 days, then 20 mg daily atenolol 50 mg tablet 50 mg PO DAILY@0700 albuterol sulfate 2.5 mg /3 mL (0.083 %) Solution For Nebulization 2.5 mg INHALATION QID PRN (Reason: Shortness Of Breath Or Wheezing) albuterol sulfate 90 mcg/actuation HFA aerosol inhaler 2 puff INHALATION Q6H PRN (Reason: Shortness Of Breath Or Wheezing) Trelegy Ellipta 100-62.5-25 mcg blister with device 1 inh INHALATION BID Discharge Orders: Discharge ED (Routine); Ordered 05/18/25 Ordered By: Teddy Moseley Referrals: Micky Lindo MD [Primary Care Provider, [facility]] Discharge Diet: Usual diet Discharge Activity: Increase activity as tolerated Patient Instructions: Urinary Tract Infection in Men (ED), COVID-19 (Coronavirus Disease 2019) (ED), Opioid Safety, Pain Management, Patient Portal & Alem Instructions Activity Restrictions/Additional Instructions: [facility]. It is very important that you follow up as instructed or that you return to the Emergency Department should you have concerns or if your condition changes or worsens in any way. You were seen in the emergency room with complaints of shortness of breath. Evaluation in the ER found that you have COVID-19. Your oxygen saturations remained the same on your usual baseline oxygen supplement your white count is normal. You are also noted to have a mild cystitis. Start antibiotics based on her previous culture of your urine. Continue your oxygen and recommend that you follow-up with your primary care doctor within the next week. Return to the emergency room if you have worsening of symptoms. 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
--- OUTSIDE RECORDS SUMMARY | 2025-05-18 11:14 | XMS_ITS | Clinical Summary ---
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 Active FISH OIL PO Take 1 Cap by mouth 2 times daily. Active Active Problems Problem Noted Date Diagnosed Date Coronary artery disease 11/26/2008 Overview (11/26/2008): S/p PCI with bare metal stent to ramus of cxf HTN (hypertension) 11/24/2008 Overview (11/29/2010): Updating IMO/ICD9 Code and Description Cigarette smoker 11/24/2008 Resolved Problems Problem Noted Date Diagnosed Date Resolved Date Acute chest pain 11/24/2008 11/26/2008 Abdominal pain, right upper quadrant 11/24/2008 11/26/2008 Pneumonia 11/24/2008 11/26/2008 Immunizations Immunization Administration Dates Next Due Influenza Seasonal Unspecified Formulation IM Family History Medical History Relation Name Comments Healthy Daughter 1 Healthy Daughter 2 Healthy Daughter 3 Breast Cancer Mother Breast Cancer Sister 1 Healthy Son Relation Name Status Comments Brother 1 Alive Brother 2 Alive Brother 3 Brother 4 Daughter 1 Alive Daughter 2 Alive Daughter 3 Alive Father Mother Sister 1 Alive Sister 2 Alive Sister 3 Sister 4 Alive Son Alive Social History Tobacco Use Types Packs/Day Years Used Date Smoking Tobacco: Every Day Cigarettes 1 25 Alcohol Use Standard Drinks/Week Comments Yes 0 (1 standard drink = 0.6 oz pure alcohol) Hx light intake -- None for past 10 years Comments Unknown Sex and Gender Information Value Date Recorded Sex Assigned at Not on file Legal Sex 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 Gender Identity Not on file Sexual Orientation Not on file Last Filed Vital Signs Vital Sign Reading Time Taken Comments Blood Pressure 93/51 11/24/2008 2:30 AM 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 Pulse 69 11/24/2008 2:30 AM 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 Temperature 36.8 C (98.2 F) 11/23/2008 8:55 PM 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 Respiratory Rate 23 11/24/2008 2:30 AM 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 Oxygen Saturation 95% 11/24/2008 2:30 AM 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 Inhaled Oxygen Concentration - - Weight 79.4 kg (175 lb 0.7 oz) 11/24/2008 3:58 A M 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 Height 175.3 cm (5' 9 ) 11/24/2008 3:58 AM 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 Body Mass Index 25.85 11/24/2008 3:58 AM 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 Plan of Treatment Health Maintenance Due Date Last Done Comments DTAP/TDAP/TD VACCINES (1 - Tdap) 1964 PNEUMOCOCCAL VACCINE 50+ YEARS (1 of 1 - PCV) 04/21/19 95 ZOSTER VACCINE (1 of 2) 1995 OSTEOPOROSIS SCREENING 2010 RSV VACCINE (60+ or ) (1 - 1-dose 75+ series) 2020 INFLUENZA VACCINE (#1) 2025 09/24/2008 Advance Directives For more information, please contact: [phone] * Full Code (Latest Code Status on File) Date Activated Date Inactivated Comments 11/25/2008 12:31 PM 11/26/2008 4:27 PM * Full Code Date Activated Date Inactivated Comments 11/24/2008 3:43 AM 11/25/2008 12:31 PM * Full Code Date Activated Date Inactivated Comments 11/24/2008 3:25 AM 11/24/2008 3:43 AM
--- OUTSIDE RECORDS SUMMARY | 2025-05-18 11:15 | XMS_ITS | Data Portability ---
Author Organization SATYA Lindo, [facility] Address [address] [place] [address] SATYA Mcleod [id number] Care Team Providers Care Candy Spreader Name Role Phone ENOCH LINDO Primary Care Provider [phone] JOHANNA BROWNING Color Technician Assessment No assessment recorded. Plan of Treatment Reminders Order Date Submit Date Provider Last Modified By Organization Details Last Modified Time Details Appointments None recorded. Lab CBC w/ auto diff 2023 024 LAVONNE Not available 4 08:34:08 CMP, serum or plasma 2023 024 LAVONNE Not available 4 08:34:06 lipid panel, serum 2023 024 LAVONNE Not available 4 08:34:07 urinalysis, complete 2023 024 [email or web address] Not available 4 08:31:57 venipunctur e 2023 024 [email or web address] Not available 4 08:31:57 HbA1c (hemoglobin A1c), blood 2023 024 LAVONNE Not available 4 08:34:07 albumin/cre atinine, mass ratio, urine 2023 024 Not available 4 08:31:57 HbA1c (hemoglobin A1c), blood 2023 024 LAVONNE Not available 4 07:11:47 CBC w/ auto diff 2023 024 LAVONNE Not available 4 07:11:48 CMP, serum or plasma 2023 024 LAVONNE Not available 4 07:11:46 lipid panel, serum 2023 024 LAVONNE Not available 4 07:11:47 venipunctur e 2023 024 [email or web address] Not available 4 08:21:24 CBC w/ auto diff 2022 023 LAVONNE Not available 3 07:36:07 CMP, serum or plasma 2022 023 LAVONNE Not available 3 07:36:05 lipid panel, serum 2022 023 LAVONNE Not available 3 07:36:06 HbA1c (hemoglobin A1c), blood 2022 023 LAVONNE Not available 3 07:36:07 HbA1c (hemoglobin A1c), blood 2021 022 LAVONNE Not available 2 08:18:00 CMP, serum or plasma 2021 022 LAVONNE Not available 2 08:17:58 CBC w/ auto diff 2021 022 LAVONNE Not available 2 08:18:01 CBC w/ auto diff 2021 022 LAVONNE Not available 2 06:21:18 CMP, serum or plasma 2021 022 LAVONNE Not available 2 06:21:17 lipid panel, serum 2021 022 LAVONNE Not available 2 06:21:17 urinalysis, complete 2021 022 LAVONNE Not available 2 06:21:18 venipunctur e 2021 022 Not available 2 09:01:08 HbA1c (hemoglobin A1c), blood 2021 022 LAVONNE Not available 2 06:21:18 Referral orthopedic surgeon referral 2023 024 Carlita Rodriguez MD, [address] [place], [address], 4 16:14:[address] referral [email or web address] [place] [address] Pulmonology - Dr Datar, [address] [facility], [address], [address], 3 12:03:18 Procedures None recorded. Surgeries None recorded. Imaging None recorded. Medication Orders Trelegy Ellipta 100 mcg-62.5 mcg-25 mcg powder for inhalation 2023 024 LAVONNEHALLEY Castillo, [address] [place], [address], 4 10:58:45 albuterol sulfate 2.5 mg/3 mL (0.083 %) solution for nebulizatio n 2023 024 LAV[facility]NEHALLEY [facility], [address] [place], [address], 4 10:58:46 atorvastati n 20 mg tablet 2023 024 [facility]NEHAL[facility], [address] [place], [address], 4 10:58:45 pantoprazol e 40 mg tablet,drew yed release 2023 024 LAVONNEHALLEY [facility], [address] [place], [address], 4 10:58:47 alprazolam 0.25 mg tablet 2023 024 L[facility]NEHALLEY [facility], [address] [place], [address], 4 10:58:48 furosemide 20 mg tablet 2023 024 LAV[facility]NEHALLEY [facility], [address] [place], [address], 4 10:58:44 atenolol 50 mg tablet 2023 024 L[facility]NEHALLEY [facility], [address] [place], [address], 4 10:58:44 amlodipine 10 mg tablet 2023 024 LAVONNEHALLEY [facility], [address] [place], [address], 4 10:58:43 metformin 1,000 mg tablet 2023 024 LAVONNE [facility], [address] [place], [address], 4 10:58:42 Nitrostat 0.4 mg sublingual tablet 2023 024 LAVONNEHALLEY [facility], [address] [place], [address], 4 10:58:47 trazodone 50 mg tablet 2023 024 LAVONNE [facility], [address] [place], [address], 4 10:12:51 dexamethaso ne sodium phosphate 10 mg/mL injection solution 2023 024 Not available 11:42:03 citalopram 10 mg tablet 2022 023 [email or web address] 2 [facility], [address] [place], [address], 4 10:23:34 Patient TargetsNo targets recorded. Patient Instructions Encounter Date Encounter Id Patient Instructions Last Modified By Organization Details Last Modified Time 01/11/2022 [id number] arthritis: care instructions Not available 01/11/2022 09:20:39 osteoarthritis: care instructions Not available 01/11/2022 09:20:38 high blood pressure: care instructions Not available 01/11/2022 09:20:38 learning about h igh blood pressure Not available 01/11/2022 09:20:38 type 2 diabetes: care instructions Not available 01/11/2022 09:20:38 chronic obstruct jolie pulmonary disease (COPD): care instructions Not available 01/11/2022 09:20:38 learning about c opd and how to prevent lung infections Not available 01/11/2022 09:20:38 advance care planning: care instructions Not available 01/11/2022 09:20:39 Screening Recommendations 1. Vaccines Pneumococcal No further needed Influenza: Your next one in the fall of: Shingles: No further needed Tetanus: Your next one in: 2. Mammography Screening No screening necessary 3. Colorectal cancer Screening Colonoscopy No screening necessary Fecal Occult Blood No screening necessary 4. Bone Mass Measurement No screening necessary 5. Pap test / Pelvic Exam Screening No screening necessary 6. Eye Exam Screening Your next exam in: 7. Cholesterol Screening Ordered 8. Diabetes Screening Ordered [email or web address] Not available 01/11/2022 09:18:42 07/20/2022 [id number] arthritis: care instructions Not available 07/20/2022 09:42:09 osteoarthritis: care instructions Not available 07/20/2022 09:42:09 type 2 diabetes: care instructions Not available 07/20/2022 09:42:09 chronic obstruct jolie pulmonary disease (COPD): care instructions Not available 07/20/2022 09:42:09 learning about c opd and how to prevent lung infections Not available 07/20/2022 09:42:09 heart failure: c are instructions Not available 07/20/2022 09:42:09 learning about heart failure Not available 07/20/2022 09:42:09 01/19/2023 [id number] arthritis: care instructions Not available 01/19/2023 09:37:54 osteoarthritis: care instructions Not available 01/19/2023 09:37:54 angioedema: care instructions Not available 01/19/2023 09:37:55 type 2 diabetes: care instructions Not available 01/19/2023 09:50:11 learning about t ype 2 diabetes Not available 01/19/2023 09:50:12 type 2 diabetes: care instructions Not available 01/19/2023 09:50:11 advance care planning: care instructions Not available 01/19/2023 09:37:54 atrial fibrillation: care instructions Not available 01/19/2023 09:50:11 high blood pressure: care instructions Not available 01/19/2023 09:37:55 learning about h igh blood pressure Not available 01/19/2023 09:37:55 heart failure: c are instructions Not available 01/19/2023 09:50:11 learning about heart failure Not available 01/19/2023 09:50:12 Screening Recommendations 1. Vaccines Pneumococcal Influenza: Shingles: Tetanus: 2. Mammography Screening Your next mammogram in: 3. Colorectal cancer Screening Colonoscopy Your next one in: Fecal Occult Blood No screening necessary 4. Bone Mass Measurement Your next DEXA in: 5. Pap test / Pelvic Exam Screening No screening necessary 6. Eye Exam Screening Your next exam in: 7. Cholesterol Screening Your next check in: 8. Diabetes Screening Your next check in: Not available 01/19/2023 09:02:37 01/17/2024 [id number] learning about t ype 2 diabetes Not available 01/17/2024 10:26:05 type 2 diabetes: care instructions Not available 01/17/2024 10:26:05 insomnia: care instructions Not available 01/17/2024 10:26:05 anemia: care instructions Not available 01/17/2024 14:11:39 high cholesterol : care instructions Not available 01/17/2024 14:11:39 hip arthritis: c are instructions Not available 01/17/2024 10:26:05 osteoarthritis: care instructions Not available 01/17/2024 10:26:05 high blood pressure: care instructions Not available 01/17/2024 14:11:39 learning about h igh blood pressure Not available 01/17/2024 14:11:39 atrial fibrillation: care instructions Not available 01/17/2024 14:11:39 07/21/2024 [id number] advance care planning: care instructions Not available 07/21/2024 10:57:45 hip arthritis: c are instructions Not available 07/21/2024 11:01:47 Screening Recommendations 1. Vaccines Pneumococcal Influenza: Shingles: Tetanus: 2. Mammography Screening Your next mammogram in: 3. Colorectal cancer Screening Colonoscopy Your next one in: Fecal Occult Blood No screening necessary 4. Bone Mass Measurement Your next DEXA in: 5. Pap test / Pelvic Exam Screening No screening necessary 6. Eye Exam Screening Your next exam in: 7. Cholesterol Screening Your next check in: 8. 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 Referral for C hronic obstructive pulmonary disease Referring Physician: Enoch Lindo [facility], Encounter Date: 01/19/2023 Orthopedic Surgeon Referral for Osteoarthritis of hip Referring Physician: Enoch Lindo [facility], Encounter Date: 07/21/2024 Results Created Date Observation Date Name Description Value Unit Range Abnormal Flag Note LastModifiedBy Organization Detail LastModifiedTime 01/12/20 22 01/12/2022 COMP METAB OLIC PANEL sodium 142 mEq/L 135-14 6 Not Available [facility] [address] [place], [address], 01/12/2022 06:21:17 01/12/20 22 01/12/2022 COMP METAB OLIC PANEL potassium 4.4 mEq/L 3.5-5. 4 Not Available [facility] [address] [place], [address], 01/12/2022 06:21:17 01/12/20 22 01/12/2022 COMP METAB OLIC PANEL chloride 98 mEq/L 95-107 Not Available [facility] [address] [place], [address], 01/12/2022 06:21:17 01/12/20 22 01/12/2022 COMP METAB OLIC PANEL carbon dioxide 25 mEq/L 19-31 Not Available [facility] [address] [place], [address], 01/12/2022 06:21:17 01/12/20 22 01/12/2022 COMP METAB OLIC PANEL anion gap 19 mEq/L 7-23 Not Available [facility] [address] [place], [place], [address], 01/12/2022 06:21:17 01/12/20 22 01/12/2022 COMP METAB OLIC PANEL glucose fasting 110 mg/dL 70-99 high Not Available [facility] [address] [place], [place], [address], 01/12/2022 06:21:17 01/12/20 22 01/12/2022 COMP METAB OLIC PANEL urea nitrogen (BUN) 20 mg/dL 8-23 Not Available [facility] [address] [place], [place], [address], 01/12/2022 06:21:17 01/12/20 22 01/12/2022 COMP METAB OLIC PANEL creatinine 0.92 mg/dL 0.60-1 .30 Not Available [facility] [address] [place], [address], 01/12/2022 06:21:17 01/12/20 22 01/12/2022 COMP METAB OLIC PANEL 2020 CKD-epi eGFR-cr 65 mL/mi n/1.7 3m'2 >59 Not Available [facility] [address] [place], [place], [address], 01/12/2022 06:21:17 01/12/20 22 01/12/2022 COMP METAB OLIC PANEL BUN/creatini ne ratio 22 ratio Not Available [facility] [address] [place], [place], [address], 01/12/2022 06:21:17 01/12/20 22 01/12/2022 COMP METAB OLIC PANEL calcium total 9.8 mg/dL 8.5-10 .5 Not Available [facility] [address] [place], [place], [address], 01/12/2022 06:21:17 01/12/20 22 01/12/2022 COMP METAB OLIC PANEL protein total 7.6 g/dL 6.1-8. 3 Not Available [facility] [address] [place], [place], [address], 01/12/2022 06:21:17 01/12/20 22 01/12/2022 COMP METAB OLIC PANEL albumin 4.8 g/dL 3.5-5. 2 Not Available [facility] [address] [place], [place], [address], 01/12/2022 06:21:17 01/12/20 22 01/12/2022 COMP METAB OLIC PANEL globulin 2.8 g/dL 1.7-4. 3 Not Available [facility] [address] [place], [place], [address], 01/12/2022 06:21:17 01/12/20 22 01/12/2022 COMP METAB OLIC PANEL A/G ratio 1.7 ratio 0.9-2. 8 Not Available [facility] [address] [place], [address], 01/12/2022 06:21:17 01/12/20 22 01/12/2022 COMP METAB OLIC PANEL bilirubin total 0.3 mg/dL 0.0-1. 2 Not Available [facility] [address] [place], [address], 01/12/2022 06:21:17 01/12/20 22 01/12/2022 COMP METAB OLIC PANEL alkaline phosphatase 89 U/L 40-142 Not Available [facility] [address] [place], [address], 01/12/2022 06:21:17 01/12/20 22 01/12/2022 COMP METAB OLIC PANEL AST (SGOT) 22 U/L 9-40 Not Available [facility] [address] [place], [address], 01/12/2022 06:21:17 01/12/20 22 01/12/2022 COMP METAB OLIC PANEL ALT (SGPT) 17 U/L 5-40 Not Available [facility] [address] [place], [address], 01/12/2022 06:21:17 01/12/20 22 01/12/2022 LIPID PROFI LE cholesterol 134 mg/dL <200 Not Available [facility] [address] [place], [address], 01/12/2022 06:21:17 01/12/20 22 01/12/2022 LIPID PROFI LE triglyceride s 75 mg/dL 0-149 Not Available [facility] [address] [place], [address], 01/12/2022 06:21:17 01/12/20 22 01/12/2022 LIPID PROFI LE HDL cholesterol 57 mg/dL >39 Not Available [facility] [address] [place], [address], 01/12/2022 06:21:17 01/12/20 22 01/12/2022 LIPID PROFI LE LDL cholesterol 61 mg/dL <100 Not Available [facility] [address] [place], [place], [address], 01/12/2022 06:21:17 01/12/20 22 01/12/2022 LIPID PROFI LE non HDL cholesterol 77 mg/dL <130 Not Available [facility] [address] [place], [address], 01/12/2022 06:21:17 01/12/20 22 01/12/2022 LIPID PROFI LE coronary risk ratio 2.35 <4.44 Comme nt for LIPID PROFI LE Non-H DL Lorie stero l is a carisa r indic ator for cardi ovasc ular risk than LDL-C holes terol for patie nts who have incre ased trigl yceri jose roberto or are non-f astin g. Non-H DL Lorie stero l: < 130 mg/dL (Opti mal) < 160 mg/dL (Near Optim al/Ab ove Optim al) LDL Lorie stero l: < 100 mg/dL (Opti mal) < 130 mg/dL (Near Optim al/Ab ove Optim al) Coron verónica Risk Ratio : [place] ge for femal es < 4.44 Not Available [facility] [address] [place], [address], 01/12/2022 06:21:17 01/12/20 22 01/12/2022 HEMOG LOBIN A1C hemoglobin A1C 7.0 % 4.2-5. 6 high Not Available [facility] [address] [place], [address], 01/12/2022 06:21:18 01/12/20 22 01/12/2022 HEMOG LOBIN A1C mean glucose est 154 mg/dL Comme nt for HEMOG LOBIN A1C [facility] n Guide lines for Hgb A1c: Predi abete s/Inc rease d risk: 5.7 - 6.4 % Diagn osis of diabe consuelo: >= 6.5 % (with confi rmati on or appro priat e sympt oms) Assay may be affec kathie by hemog lobin opath ies (sick le cell anemi a, SC disea se, other s) or artif icial ly lower ed by decre ased red cell survi shiv (hemo lytic anemi as, blood loss, etc.) . Consi tracy alter ale testi ng or labor atory consu ltati on. Not Available [facility] [address] [facility] [place], [address], 01/12/2022 06:21:18 01/12/20 22 01/12/2022 CBC WITH DIFFE RENTI AL WBC 8.6 K/uL 4.0-11 .0 Not Available [facility] [address] [facility] [place], [address], 01/12/2022 06:21:18 01/12/20 22 01/12/2022 CBC WITH DIFFE RENTI AL RBC 5.07 M/uL 4.00-5 .50 Not Available [facility] [address] [facility] [place], [address], 01/12/2022 06:21:18 01/12/20 22 01/12/2022 CBC WITH DIFFE RENTI AL hemoglobin 12.6 g/dL 12.0-1 6.0 Not Available [facility] [address] [facility] [place], [address], 01/12/2022 06:21:18 01/12/20 22 01/12/2022 CBC WITH DIFFE RENTI AL hematocrit 41.8 % 36.0-4 8.0 Not Available [facility] [address] [place], [place], [address], 01/12/2022 06:21:18 01/12/20 22 01/12/2022 CBC WITH DIFFE RENTI AL MCV 82.4 fL 78.0-1 02.0 Not Available [facility] [address] [place], [place], [address], 01/12/2022 06:21:18 01/12/20 22 01/12/2022 CBC WITH DIFFE RENTI AL MCH 24.9 pg 25.0-3 5.0 low Not Available [facility] [address] [place], [place], [address], 01/12/2022 06:21:18 01/12/20 22 01/12/2022 CBC WITH DIFFE RENTI AL MCHC 30.1 g/dL 30.0-3 8.0 Not Available [facility] [address] [place], [place], [address], 01/12/2022 06:21:18 01/12/20 22 01/12/2022 CBC WITH DIFFE RENTI AL RDW 15.1 % 11.5-1 6.0 Not Available [facility] [address] [place], [place], [address], 01/12/2022 06:21:18 01/12/20 22 01/12/2022 CBC WITH DIFFE RENTI AL platelet count 417 K/uL 150-45 0 Not Available [facility] [address] [place], [place], [address], 01/12/2022 06:21:18 01/12/20 22 01/12/2022 CBC WITH DIFFE RENTI AL abs neutrophils 6.4 K/uL 1.8-7. 0 Not Available [facility] [address] [place], [address], 01/12/2022 06:21:18 01/12/20 22 01/12/2022 CBC WITH DIFFE RENTI AL abs lymphocytes 1.6 K/uL 1.0-4. 0 Not Available [facility] [address] [place], [address], 01/12/2022 06:21:18 01/12/20 22 01/12/2022 CBC WITH DIFFE RENTI AL abs monocytes 0.4 K/uL 0.1-1. 1 Not Available [facility] [address] [place], [address], 01/12/2022 06:21:18 01/12/20 22 01/12/2022 CBC WITH DIFFE RENTI AL abs eosinophils 0.1 K/uL 0.0-0. 5 Not Available [facility] [address] [place], [address], 01/12/2022 06:21:18 01/12/20 22 01/12/2022 CBC WITH DIFFE RENTI AL abs basophils 0.0 K/uL 0.0-0. 3 Not Available [facility] [address] [place], [address], 01/12/2022 06:21:18 01/12/20 22 01/12/2022 CBC WITH DIFFE RENTI AL abs immature grans 0.0 K/uL 0.0-0. 1 Not Available [facility] [address] [place], [address], 01/12/2022 06:21:18 01/12/20 22 01/12/2022 CBC WITH DIFFE RENTI AL neutrophils 74.8 % Not Available [facility] [address] [place], [address], 01/12/2022 06:21:18 01/12/20 22 01/12/2022 CBC WITH DIFFE RENTI AL lymphocytes 18.3 % Not Available [facility] [address] [place], [place], [address], 01/12/2022 06:21:18 01/12/20 22 01/12/2022 CBC WITH DIFFE RENTI AL monocytes 5.1 % Not Available [facility] [address] [place], [place], [address], 01/12/2022 06:21:18 01/12/20 22 01/12/2022 CBC WITH DIFFE RENTI AL eosinophils 1.0 % Not Available [facility] [address] [place], [address], 01/12/2022 06:21:18 01/12/20 22 01/12/2022 CBC WITH DIFFE RENTI AL basophils 0.5 % Not Available [facility] [address] [place], [address], 01/12/2022 06:21:18 01/12/20 22 01/12/2022 CBC WITH DIFFE RENTI AL immature grans 0.3 % Not Available [facility] [address] [place], [address], 01/12/2022 06:21:18 01/12/20 22 01/12/2022 CBC WITH DIFFE RENTI AL nucleated RBCs <1.0 /100_ WBCs <1 Not Available [facility] [address] [place], [address], 01/12/2022 06:21:18 01/12/20 22 01/12/2022 URINA LYSIS W/KARLIE RO color Yellow yellow Not Available [facility] [address] [place], [address], 01/12/2022 06:21:18 01/12/20 22 01/12/2022 URINA LYSIS W/KARLIE RO clarity Clear clear Not Available [facility] [address] [place], [place], [address], 01/12/2022 06:21:18 01/12/20 22 01/12/2022 URINA LYSIS W/KARLIE RO glucose Negati ve negati ve Not Available [facility] [address] [place], [place], [address], 01/12/2022 06:21:18 01/12/20 22 01/12/2022 URINA LYSIS W/KARLIE RO bilirubin Negati ve negati ve Not Available [facility] [address] [place], [place], [address], 01/12/2022 06:21:18 01/12/20 22 01/12/2022 URINA LYSIS W/KARLIE RO ketones Negati ve negati ve Not Available [facility] [address] [place], [place], [address], 01/12/2022 06:21:18 01/12/20 22 01/12/2022 URINA LYSIS W/KARLIE RO specific gravity 1.009 1.005- 1.030 Not Available [facility] [address] [place], [place], [address], 01/12/2022 06:21:18 01/12/20 22 01/12/2022 URINA LYSIS W/KARLIE RO blood Negati ve negati ve Not Available [facility] [address] [place], [place], [address], 01/12/2022 06:21:18 01/12/20 22 01/12/2022 URINA LYSIS W/KARLIE RO pH 6.0 4.6-8. 5 Not Available [facility] [address] [place], [address], 01/12/2022 06:21:18 01/12/20 22 01/12/2022 URINA LYSIS W/KARLIE RO protein Negati ve negati ve Not Available [facility] [address] [facility] [place], [address], 01/12/2022 06:21:18 01/12/20 22 01/12/2022 URINA LYSIS W/KARLIE RO nitrite Negati ve negati ve Not Available [facility] [address] [facility] [place], [address], 01/12/2022 06:21:18 01/12/20 22 01/12/2022 URINA LYSIS W/KARLIE RO leukocyte esterase 2+ negati ve abnormal Not Available [facility] [address] [facility] [place], [address], 01/12/2022 06:21:18 01/12/20 22 01/12/2022 URINA LYSIS W/KARLIE RO white blood cells 56 /hpf 0-2 high Not Available [facility] [address] [facility] [place], [address], 01/12/2022 06:21:18 01/12/20 22 01/12/2022 URINA LYSIS W/KARLIE RO red blood cells <1 /hpf 0-4 Not Available [facility] [address] [facility] [place], [address], 01/12/2022 06:21:18 01/12/20 22 01/12/2022 URINA LYSIS W/KARLIE RO bacteria 4+ negati ve abnormal Not Available [facility] [address] [facility] [place], [address], 01/12/2022 06:21:18 01/12/20 22 01/12/2022 URINA LYSIS W/KARLIE RO epith-squamo us 1 Not Available [facility] [address] [place], [address], 01/12/2022 06:21:18 01/12/20 22 01/12/2022 URINA LYSIS W/KARLIE RO casts-hyalin e 3 Not Available [facility] [address] [place], [address], 01/12/2022 06:21:18 07/20/20 22 07/21/2022 COMP METAB OLIC PANEL sodium 143 mEq/L 135-14 6 Not Available [facility] [address] [place], [address], 07/21/2022 08:17:57 07/20/20 22 07/21/2022 COMP METAB OLIC PANEL potassium 4.6 mEq/L 3.5-5. 4 Not Available [facility] [address] [place], [address], 07/21/2022 08:17:57 07/20/20 22 07/21/2022 COMP METAB OLIC PANEL chloride 100 mEq/L 95-107 Not Available [facility] [address] [place], [address], 07/21/2022 08:17:57 07/20/20 22 07/21/2022 COMP METAB OLIC PANEL carbon dioxide 25 mEq/L 19-31 Not Available [facility] [address] [place], [address], 07/21/2022 08:17:57 07/20/20 22 07/21/2022 COMP METAB OLIC PANEL anion gap 18 mEq/L 7-23 Not Available [facility] [address] [place], [address], 07/21/2022 08:17:57 07/20/20 22 07/21/2022 COMP METAB OLIC PANEL glucose non-fasting 115 mg/dL 70-139 Not Available [facility] [address] [place], [address], 07/21/2022 08:17:57 07/20/20 22 07/21/2022 COMP METAB OLIC PANEL urea nitrogen (BUN) 21 mg/dL 8-23 Not Available [facility] [address], [place], [address], 07/21/2022 08:17:57 07/20/20 22 07/21/2022 COMP METAB OLIC PANEL creatinine 0.81 mg/dL 0.60-1 .30 Not Available [facility] ([facility] [address] [place], [address], 07/21/2022 08:17:57 07/20/20 22 07/21/2022 COMP METAB OLIC PANEL 2020 CKD-epi eGFR-cr 75 mL/mi n/1.7 3m'2 >59 Not Available [facility] ([facility] [address], [place], [address], 07/21/2022 08:17:57 07/20/20 22 07/21/2022 COMP METAB OLIC PANEL BUN/creatini ne ratio 26 ratio Not Available [facility] ([facility] [address], [place], [address], 07/21/2022 08:17:57 07/20/20 22 07/21/2022 COMP METAB OLIC PANEL calcium total 9.2 mg/dL 8.5-10 .5 Not Available [facility] ([facility] [address], [place], [address], 07/21/2022 08:17:57 07/20/20 22 07/21/2022 COMP METAB OLIC PANEL protein total 7.2 g/dL 6.1-8. 3 Not Available [facility] ([facility] [address] [place], [address], 07/21/2022 08:17:57 07/20/20 22 07/21/2022 COMP METAB OLIC PANEL albumin 4.7 g/dL 3.5-5. 2 Not Available [facility] ([facility] [address] [place], [address], 07/21/2022 08:17:57 07/20/20 22 07/21/2022 COMP METAB OLIC PANEL globulin 2.5 g/dL 1.7-4. 3 Not Available [facility] ([facility] [address] [place], [address], 07/21/2022 08:17:57 07/20/20 22 07/21/2022 COMP METAB OLIC PANEL A/G ratio 1.9 ratio 0.9-2. 8 Not Available [facility] ([facility] [address] [place], [address], 07/21/2022 08:17:57 07/20/20 22 07/21/2022 COMP METAB OLIC PANEL bilirubin total 0.3 mg/dL 0.0-1. 2 Not Available [facility] ([facility] [address] [place], [address], 07/21/2022 08:17:57 07/20/20 22 07/21/2022 COMP METAB OLIC PANEL alkaline phosphatase 67 U/L 40-142 Not Available [facility] ([facility]) [address] [place], [address], 07/21/2022 08:17:57 07/20/20 22 07/21/2022 COMP METAB OLIC PANEL AST (SGOT) 20 U/L 9-40 Not Available [facility] ([facility]) [address] [place], [address], 07/21/2022 08:17:57 07/20/20 22 07/21/2022 COMP METAB OLIC PANEL ALT (SGPT) 13 U/L 5-40 Comme nt for COMP METAB OLIC PANEL Fasti ng statu s not provi ded. If the patie nt faste d the appro priat e gluco se refer ence range is 70-99 mg/dL . Not Available [facility] ([facility] [address] [facility] [place], [address], 07/21/2022 08:17:57 07/20/20 22 07/21/2022 HEMOG LOBIN A1C hemoglobin A1C 6.7 % 4.2-5. 6 high Not Available [facility] ([facility]) [address] [facility] [place], [address], 07/21/2022 08:18:00 07/20/20 22 07/21/2022 HEMOG LOBIN A1C mean glucose est 146 mg/dL Comme nt for HEMOG LOBIN A1C [facility] Guide lines for Hgb A1c: Predi abete s/Inc rease d risk: 5.7 - 6.4 % Diagn osis of diabe consuelo: >= 6.5 % (with confi rmati on or appro priat e sympt oms) Assay may be affec kathie by hemog lobin opath ies (sick le cell anemi a, SC disea se, other s) or artif icial ly lower ed by decre ased red cell survi shiv (hemo lytic anemi as, blood loss, etc.) . Consi tracy alter ale testi ng or labor atory consu ltati on. Not Available [facility] ([facility] [address] [facility] [place], [address], 07/21/2022 08:18:00 07/20/20 22 07/21/2022 CBC WITH DIFFE MARCELINATI AL WBC 9.3 K/uL 4.0-11 .0 Not Available [facility] ([facility] [address] [facility] [place], [address], 07/21/2022 08:18:01 07/20/20 22 07/21/2022 CBC WITH DIFFE RENTI AL RBC 4.41 M/uL 4.00-5 .50 Not Available [facility] ([facility] [address] [place], [address], 07/21/2022 08:18:01 07/20/20 22 07/21/2022 CBC WITH DIFFE RENTI AL hemoglobin 11.8 g/dL 12.0-1 6.0 low Not Available [facility] ([facility] [address] [place], [address], 07/21/2022 08:18:01 07/20/20 22 07/21/2022 CBC WITH DIFFE RENTI AL hematocrit 37.2 % 36.0-4 8.0 Not Available [facility] ([facility] [address] [place], [address], 07/21/2022 08:18:01 07/20/20 22 07/21/2022 CBC WITH DIFFE RENTI AL MCV 84.4 fL 78.0-1 02.0 Not Available [facility] ([facility] [address] [place], [address], 07/21/2022 08:18:01 07/20/20 22 07/21/2022 CBC WITH DIFFE RENTI AL MCH 26.8 pg 25.0-3 5.0 Not Available [facility] ([facility] [address] [place], [address], 07/21/2022 08:18:01 07/20/20 22 07/21/2022 CBC WITH DIFFE RENTI AL MCHC 31.7 g/dL 30.0-3 8.0 Not Available [facility] ([facility] [address] [place], [address], 07/21/2022 08:18:01 07/20/20 22 07/21/2022 CBC WITH DIFFE RENTI AL RDW 15.6 % 11.5-1 6.0 Not Available [facility] ([facility] [address], [place], [address], 07/21/2022 08:18:01 07/20/20 22 07/21/2022 CBC WITH DIFFE RENTI AL platelet count 358 K/uL 150-45 0 Not Available [facility] ([facility]) [address] [place], [address], 07/21/2022 08:18:01 07/20/20 22 07/21/2022 CBC WITH DIFFE RENTI AL abs neutrophils 7.2 K/uL 1.8-7. 0 high Not Available [facility] ([facility] [address] [place], [address], 07/21/2022 08:18:01 07/20/20 22 07/21/2022 CBC WITH DIFFE RENTI AL abs lymphocytes 1.3 K/uL 1.0-4. 0 Not Available [facility] ([facility] [address] [place], [address], 07/21/2022 08:18:01 07/20/20 22 07/21/2022 CBC WITH DIFFE RENTI AL abs monocytes 0.6 K/uL 0.1-1. 1 Not Available [facility] ([facility] [address] [place], [address], 07/21/2022 08:18:01 07/20/20 22 07/21/2022 CBC WITH DIFFE RENTI AL abs eosinophils 0.1 K/uL 0.0-0. 5 Not Available [facility] ([facility] [address] [place], [address], 07/21/2022 08:18:01 07/20/20 22 07/21/2022 CBC WITH DIFFE RENTI AL abs basophils 0.0 K/uL 0.0-0. 3 Not Available [facility] ([facility] [address] [place], [address], 07/21/2022 08:18:01 07/20/20 22 07/21/2022 CBC WITH DIFFE RENTI AL abs immature grans 0.0 K/uL 0.0-0. 1 Not Available [facility] ([facility] [address] [place], [address], 07/21/2022 08:18:01 07/20/20 22 07/21/2022 CBC WITH DIFFE RENTI AL neutrophils 77.0 % Not Available [facility] [address] [place], [address], 07/21/2022 08:18:01 07/20/20 22 07/21/2022 CBC WITH DIFFE RENTI AL lymphocytes 14.5 % Not Available [facility] [address] [place], [address], 07/21/2022 08:18:01 07/20/20 22 07/21/2022 CBC WITH DIFFE RENTI AL monocytes 6.9 % Not Available [facility] ([facility] [address] [place], [address], 07/21/2022 08:18:01 07/20/20 22 07/21/2022 CBC WITH DIFFE RENTI AL eosinophils 1.2 % Not Available [facility] ([facility] [address] [place], [address], 07/21/2022 08:18:01 07/20/20 22 07/21/2022 CBC WITH DIFFE RENTI AL basophils 0.2 % Not Available [facility] ([facility] [address] [place], [address], 07/21/2022 08:18:01 09/15/20 22 07/21/2022 CBC WITH DIFFE JELLY AL immature grans 0.2 % Not Available [facility] [address] [place], [place], [address], 07/21/2022 08:18:01 07/20/20 22 07/21/2022 CBC WITH DIFFE JELLY AL nucleated RBCs <1.0 /100_ WBCs <1 Not Available [facility] ([facility]) [address] [place], [address], 07/21/2022 08:18:01 01/20/20 23 01/20/2023 COMP METAB OLIC PANEL sodium 143 mEq/L 135-14 6 Not Available [facility] ([facility] [address] [place], [address], 01/20/2023 07:36:05 01/20/20 23 01/20/2023 COMP METAB OLIC PANEL potassium 4.6 mEq/L 3.5-5. 4 Not Available [facility] ([facility] [address] [place], [address], 01/20/2023 07:36:05 01/20/20 23 01/20/2023 COMP METAB OLIC PANEL chloride 97 mEq/L 95-107 Not Available [facility] ([facility]) [address] [place], [address], 01/20/2023 07:36:05 01/20/20 23 01/20/2023 COMP METAB OLIC PANEL carbon dioxide 25 mEq/L 19-31 Not Available [facility] ([facility] [address] [place], [address], 01/20/2023 07:36:05 01/20/20 23 01/20/2023 COMP METAB OLIC PANEL anion gap 21 mEq/L 7-23 Not Available [facility] ([facility] [address] [place], [address], 01/20/2023 07:36:05 01/20/20 23 01/20/2023 COMP METAB OLIC PANEL glucose fasting 138 mg/dL 70-99 high Not Available [facility] ([facility] [address] [place], [address], 01/20/2023 07:36:05 01/20/20 23 01/20/2023 COMP METAB OLIC PANEL urea nitrogen (BUN) 17 mg/dL 8-23 Not Available [facility] ([facility] [address] [place], [place], [address], 01/20/2023 07:36:05 01/20/20 23 01/20/2023 COMP METAB OLIC PANEL creatinine 0.79 mg/dL 0.60-1 .30 Not Available [facility] ([facility] [address] [place], [address], 01/20/2023 07:36:05 01/20/20 23 01/20/2023 COMP METAB OLIC PANEL 2020 CKD-epi eGFR-cr 77 mL/mi n/1.7 3m'2 >59 Not Available [facility] ([facility] [address] [place], [address], 01/20/2023 07:36:05 01/20/20 23 01/20/2023 COMP METAB OLIC PANEL BUN/creatini ne ratio 22 ratio Not Available [facility] ([facility] [address] [place], [address], 01/20/2023 07:36:05 01/20/20 23 01/20/2023 COMP METAB OLIC PANEL calcium total 9.9 mg/dL 8.5-10 .5 Not Available [facility] ([facility] [address] [place], [address], 01/20/2023 07:36:05 01/20/20 23 01/20/2023 COMP METAB OLIC PANEL protein total 7.3 g/dL 6.1-8. 3 Not Available [facility] ([facility] [address] [place], [place], [address], 01/20/2023 07:36:05 01/20/20 23 01/20/2023 COMP METAB OLIC PANEL albumin 4.7 g/dL 3.5-5. 2 Not Available [facility] ([facility] [address] [place], [address], 01/20/2023 07:36:05 01/20/20 23 01/20/2023 COMP METAB OLIC PANEL globulin 2.6 g/dL 1.7-4. 3 Not Available [facility] ([facility] [address] [place], [address], 01/20/2023 07:36:05 01/20/20 23 01/20/2023 COMP METAB OLIC PANEL A/G ratio 1.8 ratio 0.9-2. 8 Not Available [facility] ([facility] [address] [place], [address], 01/20/2023 07:36:05 01/20/20 23 01/20/2023 COMP METAB OLIC PANEL bilirubin total 0.3 mg/dL 0.0-1. 2 Not Available [facility] ([facility] [address] [place], [address], 01/20/2023 07:36:05 01/20/20 23 01/20/2023 COMP METAB OLIC PANEL alkaline phosphatase 80 U/L 40-142 Not Available [facility] ([facility] [address] [place], [address], 01/20/2023 07:36:05 01/20/20 23 01/20/2023 COMP METAB OLIC PANEL AST (SGOT) 20 U/L 9-40 Not Available [facility] ([facility] [address] [place], [address], 01/20/2023 07:36:05 01/20/20 23 01/20/2023 COMP METAB OLIC PANEL ALT (SGPT) 12 U/L 5-40 Not Available [facility] ([facility] [address] [place], [address], 01/20/2023 07:36:05 01/20/20 23 01/20/2023 LIPID PROFI LE cholesterol 149 mg/dL <200 Not Available [facility] ([facility]) [address] [place], [address], 01/20/2023 07:36:06 01/20/20 23 01/20/2023 LIPID PROFI LE triglyceride s 79 mg/dL 0-149 Not Available [facility] ([facility]) [address] [place], [address], 01/20/2023 07:36:06 01/20/20 23 01/20/2023 LIPID PROFI LE HDL cholesterol 71 mg/dL >39 Not Available [facility] ([facility] [address] [place], [address], 01/20/2023 07:36:06 01/20/20 23 01/20/2023 LIPID PROFI LE LDL cholesterol 62 mg/dL <100 Not Available [facility] ([facility] [address] [place], [address], 01/20/2023 07:36:06 01/20/20 23 01/20/2023 LIPID PROFI LE non HDL cholesterol 78 mg/dL <130 Not Available [facility] ([facility] [address] [place], [address], 01/20/2023 07:36:06 01/20/20 23 01/20/2023 LIPID PROFI LE coronary risk ratio 2.10 <4.44 Comme nt for LIPID PROFI LE Non-H DL Lorie stero l is a carisa r indic ator for cardi ovasc ular risk than LDL-C holes terol for patie nts who have incre ased trigl yceri jose roberto or are non-f astin g. Non-H DL Lorie stero l: < 130 mg/dL (Opti mal) < 160 mg/dL (Near Optim al/Ab ove Optim al) LDL Lorie stero l: < 100 mg/dL (Opti mal) < 130 mg/dL (Near Optim al/Ab ove Optim al) Coron verónica Risk Ratio : Aurora ge for femal es < 4.44 Not Available [facility] ([facility] [address] [place], [address], 01/20/2023 07:36:06 01/20/20 23 01/20/2023 HEMOG LOBIN A1C hemoglobin A1C 7.2 % 4.2-5. 6 high Not Available [facility] ([facility] [address] [place], [address], 01/20/2023 07:36:07 01/20/20 23 01/20/2023 HEMOG LOBIN A1C mean glucose est 160 mg/dL Comme nt for HEMOG LOBIN A1C [facility] Guide lines for Hgb A1c: Predi abete s/Inc rease d risk: 5.7 - 6.4 % Diagn osis of diabe consuelo: >= 6.5 % (with confi rmati on or appro priat e sympt oms) Assay may be affec kathie by hemog lobin opath ies (sick le cell anemi a, SC disea se, other s) or artif icial ly lower ed by decre ased red cell survi shiv (hemo lytic anemi as, blood loss, etc.) . Consi tracy alter ale testi ng or labor atory consu ltati on. Not Available [facility] ([facility] [address] [place], [address], 01/20/2023 07:36:07 01/20/20 23 01/20/2023 CBC WITH DIFFE RENTI AL WBC 10.5 K/uL 4.0-11 .0 Not Available [facility] ([facility] [address] [place], [place], [address], 01/20/2023 07:36:07 01/20/20 23 01/20/2023 CBC WITH DIFFE RENTI AL RBC 4.78 M/uL 4.00-5 .50 Not Available [facility] ([facility] [address] [place], [address], 01/20/2023 07:36:07 01/20/20 23 01/20/2023 CBC WITH DIFFE RENTI AL hemoglobin 12.7 g/dL 12.0-1 6.0 Not Available [facility] ([facility] [address] [place], [place], [address], 01/20/2023 07:36:07 01/20/20 23 01/20/2023 CBC WITH DIFFE RENTI AL hematocrit 40.0 % 36.0-4 8.0 Not Available [facility] ([facility] [address] [place], [place], [address], 01/20/2023 07:36:07 01/20/20 23 01/20/2023 CBC WITH DIFFE RENTI AL MCV 83.7 fL 78.0-1 02.0 Not Available [facility] ([facility] [address] [place], [address], 01/20/2023 07:36:07 01/20/20 23 01/20/2023 CBC WITH DIFFE RENTI AL MCH 26.6 pg 25.0-3 5.0 Not Available [facility] ([facility] [address] [place], [address], 01/20/2023 07:36:07 01/20/20 23 01/20/2023 CBC WITH DIFFE RENTI AL MCHC 31.8 g/dL 30.0-3 8.0 Not Available [facility] ([facility] [address] [place], [place], [address], 01/20/2023 07:36:07 01/20/20 23 01/20/2023 CBC WITH DIFFE RENTI AL RDW 15.3 % 11.5-1 6.0 Not Available [facility] ([facility] [address] [place], [address], 01/20/2023 07:36:07 01/20/20 23 01/20/2023 CBC WITH DIFFE RENTI AL platelet count 379 K/uL 150-45 0 Not Available [facility] ([facility] [address] [place], [address], 01/20/2023 07:36:07 01/20/20 23 01/20/2023 CBC WITH DIFFE RENTI AL abs neutrophils 8.3 K/uL 1.8-7. 0 high Not Available [facility] ([facility] [address] [place], [address], 01/20/2023 07:36:07 01/20/20 23 01/20/2023 CBC WITH DIFFE RENTI AL abs lymphocytes 1.4 K/uL 1.0-4. 0 Not Available [facility] ([facility] [address] [place], [address], 01/20/2023 07:36:07 01/20/20 23 01/20/2023 CBC WITH DIFFE RENTI AL abs monocytes 0.6 K/uL 0.1-1. 1 Not Available [facility] ([facility] [address] [place], [address], 01/20/2023 07:36:07 01/20/20 23 01/20/2023 CBC WITH DIFFE RENTI AL abs eosinophils 0.1 K/uL 0.0-0. 5 Not Available [facility] ([facility] [address] [place], [address], 01/20/2023 07:36:07 01/20/20 23 01/20/2023 CBC WITH DIFFE RENTI AL abs basophils 0.0 K/uL 0.0-0. 3 Not Available [facility] ([facility] [address] [place], [address], 01/20/2023 07:36:07 01/20/20 23 01/20/2023 CBC WITH DIFFE RENTI AL abs immature grans 0.0 K/uL 0.0-0. 1 Not Available [facility] ([facility] [address] [place], [address], 01/20/2023 07:36:07 01/20/20 23 01/20/2023 CBC WITH DIFFE RENTI AL neutrophils 79.0 % Not Available [facility] [address] [place], [address], 01/20/2023 07:36:07 01/20/20 23 01/20/2023 CBC WITH DIFFE RENTI AL lymphocytes 13.5 % Not Available [facility] [address] [place], [address], 01/20/2023 07:36:07 01/20/20 23 01/20/2023 CBC WITH DIFFE RENTI AL monocytes 6.0 % Not Available [facility] ([facility] [address] [place], [address], 01/20/2023 07:36:07 01/20/20 23 01/20/2023 CBC WITH DIFFE RENTI AL eosinophils 0.8 % Not Available [facility] [address] [place], [address], 01/20/2023 07:36:07 01/20/20 23 01/20/2023 CBC WITH DIFFE RENTI AL basophils 0.4 % Not Available [facility] ([facility] [address] [place], [place], [address], 01/20/2023 07:36:07 01/20/20 23 01/20/2023 CBC WITH DIFFE RENTI AL immature grans 0.3 % Not Available [facility] ([facility] [address] [place], [address], 01/20/2023 07:36:07 01/20/20 23 01/20/2023 CBC WITH DIFFE RENTI AL nucleated RBCs <1.0 /100_ WBCs <1 Not Available [facility] ([facility] [address] [place], [address], 01/20/2023 07:36:07 01/17/20 24 01/18/2024 COMP METAB OLIC PANEL sodium 141 mEq/L 135-14 6 Not Available [facility] ([facility] [address] [place], [address], 01/18/2024 07:11:46 01/17/20 24 01/18/2024 COMP METAB OLIC PANEL potassium 5.4 mEq/L 3.5-5. 4 Not Available [facility] ([facility] [address] [place], [address], 01/18/2024 07:11:46 01/17/20 24 01/18/2024 COMP METAB OLIC PANEL chloride 99 mEq/L 95-107 Not Available [facility] ([facility] [address] [place], [address], 01/18/2024 07:11:46 01/17/20 24 01/18/2024 COMP METAB OLIC PANEL carbon dioxide 22 mEq/L 19-31 Not Available [facility] ([facility] [address] [place], [address], 01/18/2024 07:11:46 01/17/20 24 01/18/2024 COMP METAB OLIC PANEL anion gap 20 mEq/L 7-23 Not Available [facility] ([facility] [address] [place], [place], [address], 01/18/2024 07:11:46 01/17/20 24 01/18/2024 COMP METAB OLIC PANEL glucose fasting 124 mg/dL 70-99 high Not Available [facility] ([facility] [address] [place], [place], [address], 01/18/2024 07:11:46 01/17/20 24 01/18/2024 COMP METAB OLIC PANEL urea nitrogen (BUN) 33 mg/dL 8-23 high Not Available [facility] ([facility] [address] [place], [place], [address], 01/18/2024 07:11:46 01/17/20 24 01/18/2024 COMP METAB OLIC PANEL creatinine 1.32 mg/dL 0.60-1 .30 high Not Available [facility] ([facility] [address] [place], [place], [address], 01/18/2024 07:11:46 01/17/20 24 01/18/2024 COMP METAB OLIC PANEL 2020 CKD-epi eGFR-cr 41 mL/mi n/1.7 3m'2 >59 low Not Available [facility] ([facility] [address] [place], [address], 01/18/2024 07:11:46 01/17/20 24 01/18/2024 COMP METAB OLIC PANEL BUN/creatini ne ratio 25 ratio Not Available [facility] ([facility] [address] [place], [address], 01/18/2024 07:11:46 01/17/20 24 01/18/2024 COMP METAB OLIC PANEL calcium total 10.1 mg/dL 8.5-10 .5 Not Available [facility] ([facility] [address] [place], [place], [address], 01/18/2024 07:11:46 01/17/20 24 01/18/2024 COMP METAB OLIC PANEL protein total 7.6 g/dL 6.1-8. 3 Not Available [facility] ([facility] [address] [place], [address], 01/18/2024 07:11:46 01/17/20 24 01/18/2024 COMP METAB OLIC PANEL albumin 4.7 g/dL 3.5-5. 2 Not Available [facility] ([facility] [address] [place], [address], 01/18/2024 07:11:46 01/17/20 24 01/18/2024 COMP METAB OLIC PANEL globulin 2.9 g/dL 1.7-4. 3 Not Available [facility] ([facility] [address] [place], [address], 01/18/2024 07:11:46 01/17/20 24 01/18/2024 COMP METAB OLIC PANEL A/G ratio 1.6 ratio 0.9-2. 8 Not Available [facility] ([facility] [address] [place], [address], 01/18/2024 07:11:46 01/17/20 24 01/18/2024 COMP METAB OLIC PANEL bilirubin total 0.3 mg/dL 0.0-1. 2 Not Available [facility] ([facility] [address] [place], [address], 01/18/2024 07:11:46 01/17/20 24 01/18/2024 COMP METAB OLIC PANEL alkaline phosphatase 77 U/L 40-142 Not Available [facility] ([facility] [address] [place], [place], [address], 01/18/2024 07:11:46 01/17/20 24 01/18/2024 COMP METAB OLIC PANEL AST (SGOT) 20 U/L 9-40 Not Available [facility] ([facility] [address] [place], [address], 01/18/2024 07:11:46 01/17/20 24 01/18/2024 COMP METAB OLIC PANEL ALT (SGPT) 14 U/L 5-40 Not Available [facility] ([facility] [address] [place], [address], 01/18/2024 07:11:46 01/17/20 24 01/18/2024 LIPID PROFI LE cholesterol 138 mg/dL <200 Not Available [facility] ([facility] [address] [place], [address], 01/18/2024 07:11:47 01/17/20 24 01/18/2024 LIPID PROFI LE triglyceride s 89 mg/dL 0-149 Not Available [facility] ([facility] [address] [place], [address], 01/18/2024 07:11:47 01/17/20 24 01/18/2024 LIPID PROFI LE HDL cholesterol 57 mg/dL >39 Not Available [facility] ([facility] [address] [place], [address], 01/18/2024 07:11:47 01/17/20 24 01/18/2024 LIPID PROFI LE LDL cholesterol 64 mg/dL <100 Not Available [facility] ([facility] [address] [place], [address], 01/18/2024 07:11:47 01/17/20 24 01/18/2024 LIPID PROFI LE non HDL cholesterol 81 mg/dL <130 Not Available [facility] ([facility] [address] [place], [address], 01/18/2024 07:11:47 01/17/20 24 01/18/2024 LIPID PROFI LE coronary risk ratio 2.42 <4.44 Comme nt for LIPID PROFI LE Non-H DL Lorie stero l is a carisa r indic ator for cardi ovasc ular risk than LDL-C holes terol for patie nts who have incre ased trigl yceri jose roberto or are non-f astin g. Non-H DL Lorie stero l: < 130 mg/dL (Opti mal) < 160 mg/dL (Near Optim al/Ab ove Optim al) LDL Lorie stero l: < 100 mg/dL (Opti mal) < 130 mg/dL (Near Optim al/Ab ove Optim al) Coron verónica Risk Ratio : [place] ge for femal es < 4.44 Not Available [facility] [address] [place], [address], 01/18/2024 07:11:47 01/17/20 24 01/18/2024 HEMOG LOBIN A1C hemoglobin A1C 6.8 % 4.2-5. 6 high Not Available [facility] [address] [place], [address], 01/18/2024 07:11:47 01/17/20 24 01/18/2024 HEMOG LOBIN A1C mean glucose est 148 mg/dL Comme nt for HEMOG LOBIN A1C [facility] Guide lines for Hgb A1c: Predi abete s/Inc rease d risk: 5.7 - 6.4 % Diagn osis of diabe consuelo: >= 6.5 % (with confi rmati on or appro priat e sympt oms) Assay may be affec kathie by hemog lobin opath ies (sick le cell anemi a, SC disea se, other s) or artif icial ly lower ed by decre ased red cell survi shiv (hemo lytic anemi as, blood loss, etc.) . Consi tracy alter ale testi ng or labor atory consu ltati on. Not Available [facility] [address], [place], [address], 01/18/2024 07:11:47 01/17/20 24 01/18/2024 CBC WITH DIFFE RENTI AL WBC 9.9 K/uL 4.0-11 .0 Not Available [facility] [address] [place], [place], [address], 01/18/2024 07:11:48 01/17/20 24 01/18/2024 CBC WITH DIFFE RENTI AL RBC 4.25 M/uL 4.00-5 .50 Not Available [facility] [address], [place], [address], 01/18/2024 07:11:48 01/17/20 24 01/18/2024 CBC WITH DIFFE RENTI AL hemoglobin 11.8 g/dL 12.0-1 6.0 low Not Available [facility] [address] [place], [address], 01/18/2024 07:11:48 01/17/20 24 01/18/2024 CBC WITH DIFFE RENTI AL hematocrit 37.0 % 36.0-4 8.0 Not Available [facility] [address] [place], [address], 01/18/2024 07:11:48 01/17/20 24 01/18/2024 CBC WITH DIFFE RENTI AL MCV 87.1 fL 78.0-1 02.0 Not Available [facility] [address] [place], [address], 01/18/2024 07:11:48 01/17/20 24 01/18/2024 CBC WITH DIFFE RENTI AL MCH 27.8 pg 25.0-3 5.0 Not Available [facility] [address] [place], [address], 01/18/2024 07:11:48 01/17/20 24 01/18/2024 CBC WITH DIFFE RENTI AL MCHC 31.9 g/dL 30.0-3 8.0 Not Available [facility] [address], [place], [address], 01/18/2024 07:11:48 01/17/20 24 01/18/2024 CBC WITH DIFFE RENTI AL RDW 13.5 % 11.5-1 6.0 Not Available [facility] [address], [place], [address], 01/18/2024 07:11:48 01/17/20 24 01/18/2024 CBC WITH DIFFE RENTI AL platelet count 387 K/uL 150-45 0 Not Available [facility] [address], [place], [address], 01/18/2024 07:11:48 01/17/20 24 01/18/2024 CBC WITH DIFFE RENTI AL abs neutrophils 8.3 K/uL 1.8-7. 0 high Not Available [facility] [address], [place], [address], 01/18/2024 07:11:48 01/17/20 24 01/18/2024 CBC WITH DIFFE RENTI AL abs lymphocytes 1.1 K/uL 1.0-4. 0 Not Available [facility] [address] [place], [address], 01/18/2024 07:11:48 01/17/20 24 01/18/2024 CBC WITH DIFFE RENTI AL abs monocytes 0.4 K/uL 0.1-1. 1 Not Available [facility] [address] [place], [address], 01/18/2024 07:11:48 01/17/20 24 01/18/2024 CBC WITH DIFFE RENTI AL abs eosinophils 0.0 K/uL 0.0-0. 5 Not Available [facility] [address] [place], [address], 01/18/2024 07:11:48 01/17/20 24 01/18/2024 CBC WITH DIFFE RENTI AL abs basophils 0.0 K/uL 0.0-0. 3 Not Available [facility] [address] [place], [address], 01/18/2024 07:11:48 01/17/20 24 01/18/2024 CBC WITH DIFFE RENTI AL abs immature grans 0.0 K/uL 0.0-0. 1 Not Available [facility] ([facility] [address] [place], [address], 01/18/2024 07:11:48 01/17/20 24 01/18/2024 CBC WITH DIFFE RENTI AL neutrophils 83.8 % Not Available [facility] [address] [place], [address], 01/18/2024 07:11:48 01/17/20 24 01/18/2024 CBC WITH DIFFE RENTI AL lymphocytes 10.8 % Not Available [facility] [address] [place], [address], 01/18/2024 07:11:48 01/17/20 24 01/18/2024 CBC WITH DIFFE RENTI AL monocytes 4.5 % Not Available [facility] [address] [place], [address], 01/18/2024 07:11:48 01/17/20 24 01/18/2024 CBC WITH DIFFE RENTI AL eosinophils 0.3 % Not Available [facility] [facility] ([facility] [address], [place], [address], 01/18/2024 07:11:48 01/17/20 24 01/18/2024 CBC WITH DIFFE RENTI AL basophils 0.3 % Not Available [facility] ([facility]) [address] [place], [address], 01/18/2024 07:11:48 01/17/20 24 01/18/2024 CBC WITH DIFFE RENTI AL immature grans 0.3 % Not Available [facility] ([facility] [address] [place], [address], 01/18/2024 07:11:48 01/17/20 24 01/18/2024 CBC WITH DIFFE RENTI AL nucleated RBCs <1.0 /100_ WBCs <1 Not Available [facility] ([facility]) [address] [place], [address], 01/18/2024 07:11:48 07/21/20 24 07/22/2024 COMP METAB OLIC PANEL sodium 141 mEq/L 135-14 6 Not Available [facility] ([facility]) [address] [place], [address], 07/22/2024 08:34:06 07/21/20 24 07/22/2024 COMP METAB OLIC PANEL potassium 5.3 mEq/L 3.5-5. 4 Not Available [facility] ([facility] [address] [place], [address], 07/22/2024 08:34:06 07/21/20 24 07/22/2024 COMP METAB OLIC PANEL chloride 101 mEq/L 95-107 Not Available [facility] ([facility] [address] [place], [address], 07/22/2024 08:34:06 07/21/20 24 07/22/2024 COMP METAB OLIC PANEL carbon dioxide 23 mEq/L 19-31 Not Available [facility] ([facility] [address] [place], [address], 07/22/2024 08:34:06 07/21/20 24 07/22/2024 COMP METAB OLIC PANEL anion gap 17 mEq/L 7-23 Not Available [facility] ([facility]) [address] [place], [address], 07/22/2024 08:34:06 07/21/20 24 07/22/2024 COMP METAB OLIC PANEL glucose fasting 108 mg/dL 70-99 high Not Available [facility] ([facility] [address], [place], [address], 07/22/2024 08:34:06 07/21/20 24 07/22/2024 COMP METAB OLIC PANEL urea nitrogen (BUN) 24 mg/dL 8-23 high Not Available [facility] ([facility] [address] [place], [address], 07/22/2024 08:34:06 07/21/20 24 07/22/2024 COMP METAB OLIC PANEL creatinine 1.47 mg/dL 0.60-1 .30 high Not Available [facility] ([facility] [address] [place], [address], 07/22/2024 08:34:06 07/21/20 24 07/22/2024 COMP METAB OLIC PANEL 2020 CKD-epi eGFR-cr 36 mL/mi n/1.7 3m'2 >59 low Not Available [facility] ([facility] [address] [place], [address], 07/22/2024 08:34:06 07/21/20 24 07/22/2024 COMP METAB OLIC PANEL BUN/creatini ne ratio 16 ratio Not Available [facility] ([facility] [address], [place], [address], 07/22/2024 08:34:06 07/21/20 24 07/22/2024 COMP METAB OLIC PANEL calcium total 9.5 mg/dL 8.5-10 .5 Not Available [facility] ([facility] [address] [place], [address], 07/22/2024 08:34:06 07/21/20 24 07/22/2024 COMP METAB OLIC PANEL protein total 7.2 g/dL 6.1-8. 3 Not Available [facility] ([facility] [address] [place], [address], 07/22/2024 08:34:06 07/21/20 24 07/22/2024 COMP METAB OLIC PANEL albumin 4.4 g/dL 3.5-5. 2 Not Available [facility] ([facility] [address] [place], [address], 07/22/2024 08:34:06 07/21/20 24 07/22/2024 COMP METAB OLIC PANEL globulin 2.8 g/dL 1.7-4. 3 Not Available [facility] ([facility] [address], [place], [address], 07/22/2024 08:34:06 07/21/20 24 07/22/2024 COMP METAB OLIC PANEL A/G ratio 1.6 ratio 0.9-2. 8 Not Available [facility] ([facility] [address] [place], [address], 07/22/2024 08:34:06 07/21/20 24 07/22/2024 COMP METAB OLIC PANEL bilirubin total 0.4 mg/dL 0.0-1. 2 Not Available [facility] ([facility] [address] [place], [address], 07/22/2024 08:34:06 07/21/20 24 07/22/2024 COMP METAB OLIC PANEL alkaline phosphatase 70 U/L 40-142 Not Available [facility] ([facility] [address] [place], [address], 07/22/2024 08:34:06 07/21/20 24 07/22/2024 COMP METAB OLIC PANEL AST (SGOT) 17 U/L 9-40 Not Available [facility] ([facility]) [address] [place], [address], 07/22/2024 08:34:06 07/21/20 24 07/22/2024 COMP METAB OLIC PANEL ALT (SGPT) 11 U/L 5-40 Not Available [facility] ([facility]) [address] [place], [address], 07/22/2024 08:34:06 07/21/20 24 07/22/2024 LIPID PROFI LE cholesterol 146 mg/dL <200 Not Available [facility] ([facility] [address] [place], [address], 07/22/2024 08:34:07 07/21/20 24 07/22/2024 LIPID PROFI LE triglyceride s 78 mg/dL 0-149 Not Available [facility] ([facility] [address] [place], [address], 07/22/2024 08:34:07 07/21/20 24 07/22/2024 LIPID PROFI LE HDL cholesterol 63 mg/dL >39 Not Available [facility] ([facility] [address] [place], [address], 07/22/2024 08:34:07 07/21/20 24 07/22/2024 LIPID PROFI LE LDL cholesterol 67 mg/dL <100 Not Available [facility] [address] [facility] [place], [address], 07/22/2024 08:34:07 07/21/20 24 07/22/2024 LIPID PROFI LE non HDL cholesterol 83 mg/dL <130 Not Available [facility] [address] [facility] [place], [address], 07/22/2024 08:34:07 07/21/20 24 07/22/2024 LIPID PROFI LE coronary risk ratio 2.32 <4.44 Comme nt for LIPID PROFI LE Non-H DL Lorie stero l is a carisa r indic ator for cardi ovasc ular risk than LDL-C holes terol for patie nts who have incre ased trigl yceri jose roberto or are non-f astin g. Non-H DL Lorie stero l: < 130 mg/dL (Opti mal) < 160 mg/dL (Near Optim al/Ab ove Optim al) LDL Lorie stero l: < 100 mg/dL (Opti mal) < 130 mg/dL (Near Optim al/Ab ove Optim al) Coron verónica Risk Ratio : Aurora ge for femal es < 4.44 Not Available [facility] ([facility] [address] [facility] [place], [address], 07/22/2024 08:34:07 07/21/20 24 07/22/2024 HEMOG LOBIN A1C hemoglobin A1C 6.7 % 4.2-5. 6 high Not Available [facility] ([facility] [address] [facility] [place], [address], 07/22/2024 08:34:07 07/21/20 24 07/22/2024 HEMOG LOBIN A1C mean glucose est 146 mg/dL Comme nt for HEMOG LOBIN A1C [facility] Guide lines for Hgb A1c: Predi abete s/Inc rease d risk: 5.7 - 6.4 % Diagn osis of diabe consuelo: >= 6.5 % (with confi rmati on or appro priat e sympt oms) Assay may be affec kathie by hemog lobin selene ies (sick le cell anemi a, SC disea se, other s) or artif icial ly lower ed by decre ased red cell survi shiv (hemo lytic anemi as, blood loss, etc.) . Consi tracy alter ale testi ng or labor atory consu ltati on. Not Available [facility] ([facility]) [address] [facility] [place], [address], 07/22/2024 08:34:07 07/21/20 24 07/22/2024 CBC WITH DIFFE RENTI AL WBC 9.5 K/uL 4.0-11 .0 Not Available [facility] ([facility] [address] [facility] [place], [address], 07/22/2024 08:34:08 07/21/20 24 07/22/2024 CBC WITH DIFFE RENTI AL RBC 4.48 M/uL 4.00-5 .50 Not Available [facility] ([facility] [address] [facility] [place], [address], 07/22/2024 08:34:08 07/21/20 24 07/22/2024 CBC WITH DIFFE RENTI AL hemoglobin 12.1 g/dL 12.0-1 6.0 Not Available [facility] ([facility]) [address] [facility] [place], [address], 07/22/2024 08:34:08 07/21/20 24 07/22/2024 CBC WITH DIFFE RENTI AL hematocrit 38.7 % 36.0-4 8.0 Not Available [facility] ([facility]) [address] [facility] [place], [address], 07/22/2024 08:34:08 07/21/20 24 07/22/2024 CBC WITH DIFFE RENTI AL MCV 86.4 fL 78.0-1 02.0 Not Available [facility] ([facility]) [address] [place], [address], 07/22/2024 08:34:08 07/21/20 24 07/22/2024 CBC WITH DIFFE RENTI AL MCH 27.0 pg 25.0-3 5.0 Not Available [facility] ([facility]) [address], [place], [address], 07/22/2024 08:34:08 07/21/20 24 07/22/2024 CBC WITH DIFFE RENTI AL MCHC 31.3 g/dL 30.0-3 8.0 Not Available [facility] ([facility]) [address], [place], [address], 07/22/2024 08:34:08 07/21/20 24 07/22/2024 CBC WITH DIFFE RENTI AL RDW 15.3 % 11.5-1 6.0 Not Available [facility] ([facility]) [address], [place], [address], 07/22/2024 08:34:08 07/21/20 24 07/22/2024 CBC WITH DIFFE RENTI AL platelet count 345 K/uL 150-45 0 Not Available [facility] ([facility]) [address], [place], [address], 07/22/2024 08:34:08 07/21/20 24 07/22/2024 CBC WITH DIFFE RENTI AL abs neutrophils 7.8 K/uL 1.8-7. 0 high Not Available [facility] ([facility]) [address], [place], [address], 07/22/2024 08:34:08 07/21/20 24 07/22/2024 CBC WITH DIFFE RENTI AL abs lymphocytes 1.2 K/uL 1.0-4. 0 Not Available [facility] ([facility]) [address], [place], [address], 07/22/2024 08:34:08 07/21/20 24 07/22/2024 CBC WITH DIFFE RENTI AL abs monocytes 0.5 K/uL 0.1-1. 1 Not Available [facility] ([facility]) [address] [place], [address], 07/22/2024 08:34:08 07/21/20 24 07/22/2024 CBC WITH DIFFE RENTI AL abs eosinophils 0.0 K/uL 0.0-0. 5 Not Available [facility] ([facility]) [address] [place], [address], 07/22/2024 08:34:08 07/21/20 24 07/22/2024 CBC WITH DIFFE RENTI AL abs basophils 0.0 K/uL 0.0-0. 3 Not Available [facility] ([facility]) [address] [place], [address], 07/22/2024 08:34:08 07/21/20 24 07/22/2024 CBC WITH DIFFE RENTI AL abs immature grans 0.0 K/uL 0.0-0. 1 Not Available [facility] ([facility]) [address] [place], [address], 07/22/2024 08:34:08 07/21/20 24 07/22/2024 CBC WITH DIFFE RENTI AL neutrophils 81.6 % Not Available [facility] ([facility] [address] [place], [address], 07/22/2024 08:34:08 07/21/20 24 07/22/2024 CBC WITH DIFFE RENTI AL lymphocytes 12.2 % Not Available [facility] ([facility] [address] [place], [address], 07/22/2024 08:34:08 07/21/20 24 07/22/2024 CBC WITH DIFFE RENTI AL monocytes 5.3 % Not Available [facility] ([facility]) [address] [place], [address], 07/22/2024 08:34:08 07/21/20 24 07/22/2024 CBC WITH DIFFE RENTI AL eosinophils 0.3 % Not Available [facility] ([facility] [address], [place], [address], 07/22/2024 08:34:08 07/21/20 24 07/22/2024 CBC WITH DIFFE RENTI AL basophils 0.3 % Not Available [facility] ([facility]) [address] [place], [address], 07/22/2024 08:34:08 07/21/20 24 07/22/2024 CBC WITH DIFFE RENTI AL immature grans 0.3 % Not Available [facility] [address] [place], [place], [address], 07/22/2024 08:34:08 07/21/20 24 07/22/2024 CBC WITH DIFFE RENTI AL nucleated RBCs <1.0 /100_ WBCs <1 Not Available [facility] ([facility]) [address] [place], [address], 07/22/2024 08:34:08 Result Notes None recorded. Problems Name Problem SNOMED Code Status Onset Date Resolution Date Notes Provider Name and Address Organization Details Recorded Time Wound abscess 580460759 Completed 06/11/2018 SATYA Goff 8 09:23:17 Abscess of back 704691142 Completed 06/11/2018 SATYA Goff 8 09:23:20 Angioedema 99015172 Active Enoch Lindo [place] [facility] [place], [address] , [place] Lindo 5 14:24:08 Basal cell carcinoma of skin 654458799 Active Enoch Lindo MD [address] [place], [address], [place] - Enoch Holguinibner 5 16:18:44 Type 2 diabetes mellitus without complicatio n 856852699 Active Enoch Lindo MD [address] [place], [address], [place] - Enoch Holgu[place]ner 6 09:30:39 Osteoarthri tis 079028777 Active Enoch Lindo MD [address] [place], [address], [place] - Enoch [place] 6 09:30:39 Essential hypertensio n 13197118 Active Enoch Lindo MD [address] [place], [address], [place] - Enoch [place] 6 09:30:39 Problem Notes None recorded. Procedures Surgical History Date Name Laterality Status Provider Name and Address Organization Details Recorded Time 07/21/20 24 ACP w/ MAWV completed Ernestina HERNADEZ - Enoch Holguinibner 07/21/2024 10:09:06 07/21/20 24 Medicare AWV completed Ernestina HERNADEZ - Enoch Holguinibner 07/21/2024 10:09:06 01/20/20 23 ACP w/ MAWV completed Elton HERNADEZ - Enoch Holguinibner 01/19/2023 09:02:37 01/20/20 23 Medicare AWV completed Elton Holguinibner 01/19/2023 09:02:37 01/12/20 22 ACP w/ MAWV completed Cindy HERNADEZ - Enoch [place] 01/11/2022 08:56:44 01/12/20 22 Medicare AWV completed Cindy HERNADEZ - Enoch Holgu[place]ner 01/11/2022 08:56:44 05/24/20 15 I&D completed Enoch Lindo MD [address] [place], [address], SATYA - Enoch Lindo 05/24/2015 22:51:39 Orthopedic Surgery completed Radha Lindo 06/11/2018 09:27:28 Appendectomy completed Cindy Armas SATYA Lnido 09/09/2014 09:14:06 Imaging Results None recorded. Procedure Notes None recorded. Medical Equipment None Reported. Allergies Allergen ID Allergen Name Allergen Category Reaction Reaction Severity Criticality Documentation Date Start Date Code Code System Note Provider Name and Address Organization Details Recorded Time 9102 lisinopri l medicatio n angioedem a severe Not available 07/13/20152014 02785 RxNorm Enoch Lindo MD [address] [place], [address] [facility] SATYA Lindo 5 10:39:48 Medications Name Sig Start Date Stop Date Status Note LastModified by Organization Details LastModified Time accu-chek guide test strips strp active Not Available Not Available Not Available accu-chek guide me w/device kit active Not Available Not Available Not Available celecoxib 200 mg capsule Take 1 capsule every day by oral route. 01/19 completed Not Available Not Available Not Available prednisone 10 mg tablet 07/14 completed Not Available Not Available Not Available atorvastati n 20 mg tablet TAKE ONE TABLET BY MOUTH EVERY DAY BEDTIME 2023 active Not Available Not Available Not Avai lable albuterol sulfate 2.5 mg/3 mL (0.083 %) solution for nebulizatio n Inhale 3 mL every 4 hours by nebulizat ion route as needed. active Not Available Not Available No t Available trazodone 50 mg tablet Take 1 tablet every day by oral route at bedtime, for sleep. 07/21 completed Not Available Not Available Not Available cetirizine 10 mg tablet Take 1 tablet every day by oral route. 03/12 completed Not Available Not Available Not Available benzonatate 200 mg capsule Take 1 capsule 3 times a day by oral route as needed. 01/03 completed Not Available Not Available Not Available citalopram 10 mg tablet Take 1 tablet every day by oral route. 01/16 completed Not Available Not Available Not Available hydrocodone 5 mg-acetamin ophen 325 mg tablet 06/11 completed Not Available Not Available Not Available prednisone 20 mg tablet Take 2 tablets every day by oral route for 5 days. 10/04 completed Not Available Not Available Not Available metoprolol succinate ER 100 mg tablet,exte nded release 24 hr Take 1 tablet twice a day by oral route. 07/21 completed Not Available Not Available Not Available Zithromax Z-Mitchell 250 mg tablet TAKE 2 TABLETS (500 MG) BY ORAL ROUTE ONCE DAILY FOR 1 DAY THEN 1 TABLET (250 MG) BY ORAL ROUTE ONCE DAILY FOR 4 DAYS 01/19 completed Not Available Not Available Not Available Accu-Chek Softclix Lancets active Not Available Not Available Not Available Advair Diskus 100 mcg-50 mcg/dose powder for inhalation Inhale 1 puff every day by inhalatio n route. 10/04 completed Not Available Not Available Not Available potassium chloride ER 10 mEq tablet,exte nded release Take 1 tablet every day by oral route. 03/24 completed Not Available Not Available Not Available acetaminoph en 300 mg-codeine 30 mg tablet TAKE ONE TABLET BY MOUTH EVERY 6 HOURS 06/11 completed Not Available Not Available Not Available Aspir-Low 81 mg tablet,drew yed release Take 1 tablet every day by oral route. 05/26 completed Not Available Not Available Not Available sulfamethox azole 800 mg-trimetho prim 160 mg tablet active Not Available Not Available Not Available tramadol 50 mg tablet Take 1 tablet twice a day by oral route as needed. 07/21 completed Not Available Not Available Not Available spironolact one 25 mg tablet Take 1 tablet every day by oral route. 07/21 completed Not Available Not Available Not Available simvastatin 40 mg tablet Take 1 tablet every day by oral route. active Not Available Not Available No t Available meloxicam 7.5 mg tablet Take 1 tablet every day by oral route as needed for 30 days. 03/12 completed Not Available Not Available Not Available Tessalon Perles 100 mg capsule Take 1 capsule 3 times a day by oral route for 30 days. 07/21 completed Not Available Not Available Not Available amoxicillin 875 mg tablet 01/16 completed Not Available Not Available Not Available alprazolam 0.25 mg tablet Take 1 tablet every day by oral route as needed. active Not Available Not Available No t Available potassium chloride ER 20 mEq tablet,exte nded release(par t/cryst) TAKE ONE TABLET BY MOUTH EVERY DAY WITH A LOT OF WATER 10/04 completed Not Available Not Available Not Available OneTouch Ultra Test strips USE DAILY DIRECTED 07/31 completed Not Available Not Available Not Available amlodipine 10 mg tablet TAKE ONE TABLET BY MOUTH EVERY DAY active Not Available Not Available No t Available cephalexin 500 mg capsule Take 1 capsule 3 times a day by oral route. active Not Available Not Available No t Available pantoprazol e 40 mg tablet,drew yed release TAKE ONE TABLET BY MOUTH EVERY DAY BEFORE A MEAL 2023 active Not Available Not Available Not Avai lable metformin 1,000 mg tablet TAKE ONE TABLET BY MOUTH TWICE DAILY 2023 active Not Available Not Available Not Avai lable bupropion HCl 75 mg tablet Take 1 tablet twice a day by oral route. 03/12 completed Not Available Not Available Not Available nitroglycer in 0.[address] 1 tablet by sublingua l route as directed for 30 days. active Not Available Not Available No t Available budesonide 0.5 mg/2 mL suspension for nebulizatio n Inhale 2 mL twice a day by nebulizat ion route. 10/04 completed Not Available Not Available Not Available hydrochloro thiazide 25 mg tablet TAKE ONE TABLET BY MOUTH EVERY MORNING 02/10 completed Not Available Not Available Not Available furosemide 20 mg tablet TAKE ONE TABLET BY MOUTH EVERY MORNING active Not Available Not Available No t Available levofloxaci n 750 mg tablet 11/13 completed Not Available Not Available Not Available methylpredn isolone 4 mg tablets in a dose pack 09/02 completed Not Available Not Available Not Available albuterol sulfate HFA 90 mcg/actuati on aerosol inhaler Inhale 2 puffs 4 times a day by inhalatio n route as needed. active Not Available Not Available No t Available cefdinir 300 mg capsule 10/04 completed Not Available Not Available Not Available dexamethaso ne sodium phosphate 10 mg/mL injection solution Take 1 mL by injection route. 07/31 completed Not Available Not Available Not Available doxycycline hyclate 100 mg tablet 07/14 completed Not Available Not Available Not Available atenolol 50 mg tablet TAKE ONE TABLET BY MOUTH EVERY DAY active Not Available Not Available No t Available amoxicillin 875 mg-fabiola m clavulanate 125 mg tablet Take 1 tablet every 12 hours by oral route for 7 days. 03/21 completed Not Available Not Available Not Available Aspir-Carmela 325 mg tablet,drew yed release Take 1 tablet every day by oral route. active Not Available Not Available No t Available oxycodone 5 mg tablet Take 1 tablet every 4 hours by oral route as needed. 09/02 completed Not Available Not Available Not Available amlodipine 10 mg-benazepr il 20 mg capsule TAKE ONE CAPSULE BY MOUTH EVERY DAY active Not Available Not Available No t Available Fish Oil 1000mg twice a day 07/21 completed Not Available Not Available Not Available atenolol 50mg once a day active Not Available Not Available No t Available Breeze 2 Test Strips 01/19 completed Not Available Not Available Not Available Symbicort 160 mcg-4.5 mcg/actuati on HFA aerosol inhaler Inhale 1 puff twice a day by inhalatio n route. 06/23 completed Not Available Not Available Not Available Mucinex 1,200 mg tablet, extended release Take 1 tablet twice a day by oral route as needed. 01/16 completed Not Available Not Available Not Available Biofreeze (menthol) 4 % topical gel Apply 1 mg twice a day by topical route. 03/12 completed Not Available Not Available Not Available Anoro Ellipta 62.5 mcg-25 mcg/actuati on powder for inhalation 10/04 completed Not Available Not Available Not Available ProAir RespiClick 90 mcg/actuati on breath activated 01/19 completed Not Available Not Available Not Available Trelegy Ellipta 100 mcg-62.5 mcg-25 mcg powder for inhalation Inhale 1 puff every day by inhalatio n route. 2023 active Not Available Not Available Not Avai lable OneTouch Ultra Blue Test Strip USE DAILY DIRECTED 07/31 completed Not Available Not Available Not Available Vitals Date Recorded Body height Body mass index (BMI) Body weight Heart rate Oxygen saturation Oxygen saturation in Arterial blood by Pulse oximetry Inhaled oxygen flow rate Body temperature Systolic And Diastolic Provider Name and Address Organization Details Last Updated DateTime 2 170.18 cm 25.2 kg/m2 56144.3 7 g 72 /min 85 % 85 % 3 L/min 96.3 [degF] 132/71 mm[Hg] Cindy Pawel Lindo 2 08:57:15 Date Recorded Body height Body mass index (BMI) Body weight Body temperature Oxygen saturation Oxygen saturation in Arterial blood by Pulse oximetry Heart rate Systolic And Diastolic Provider Name and Address Organization Details Last Updated DateTime 4 170.18 cm 23 kg/m2 00216.0 8 g 98.2 [degF] 91 % 91 % 116 /min 120/59 mm[Hg] Yuki chacko SATYA Lindo 4 09:23:20 Date Recorded Systolic And Diastolic Provider Name and Address Organization Details Last Updated DateTime 01/19/2023 137/82 mm[Hg] [place], [address], SATYA Lindo 01/19/2023 09:42:51 Date Recorded Body height Body mass index (BMI) Body weight Body temperature Oxygen saturation Oxygen saturation in Arterial blood by Pulse oximetry Inhaled oxygen flow rate Heart rate Provider Name and Address Organization Details Last Updated DateTime 3 170.18 cm 23.6 kg/m2 67550.4 5 g 96.9 [degF] 84 % 84 % 2 L/min 86 /min Elton Lindo 3 09:05:54 Date Recorded Body height Heart rate Oxygen saturation Oxygen saturation in Arterial blood by Pulse oximetry Inhaled oxygen flow rate Body temperature Systolic And Diastolic Provider Name and Address Organization Details Last Updated DateTime 2 170.18 cm 77 /min 92 % 92 % 3 L/min 97.1 [degF] 135/71 mm[Hg] Elton Lindo 2 09:06:03 Date Recorded Body height Body mass index (BMI) Body weight Respiratory rate Body temperature Oxygen saturation Oxygen saturation in Arterial blood by Pulse oximetry Inhaled oxygen flow rate Heart rate Systolic And Diastolic Provider Name and Address Organization Details Last Updated DateTime 4 170.18 cm 21.2 kg/m2 02923.1 3 g 22 /min 96 [degF] 91 % 91 % 4 L/min 82 /min 96/54 mm[Hg] Ernestinadejon Lindo 4 10:18:01 Social History Question Answer Notes LastModified by Organizat ion Details LastModified Time Tobacco Smoking Status Former Smoker Not Available [employer] 09/07/2020 03:38:59 Do You Have An Advance Directive? Yes Filled Forms Out In Office. [id number] Information not available 09/07/2020 How Many Years Have You Consumed Alcohol? 0 [id number] Information not available 09/07/2020 Are You Blind Or Do You Have Difficulty Seeing? No [id number] Information not available 09/07/2020 What Is Your Level Of Caffeine Consumption? Occasional [id number] Information not available 09/07/2020 How Much Tobacco Do You Chew? None [id number] Information not available 09/07/2020 In The 14 Days Before Symptom Onset, Have You Had Close Contact With A Laboratory-confir med COVID-19 While That Case Was Ill? No Information not available 10/04/2020 In The 14 Days Before Symptom Onset, Have You Had Close Contact With A Person Who Is Under Investigation For COVID-19 While That Person Was Ill? No Information not available 10/04/2020 Have You Been To An Area Known To Be High Risk For COVID-19? No Information not available 10/04/2020 Are You Deaf Or Do You Have Serious Difficulty Hearing? No [id number] Information not available 09/07/2020 What Type Of Diet Are You Following? REGULAR [id number] Information not available 09/07/2020 Education 9 Information no t available 09/23/2019 What Is The Highest Grade Or Level Of School You Have Completed Or The Highest Degree You Have Received? [id number] [id number] Information not available 09/07/2020 How Many Days Of Moderate To Strenuous Exercise, Like A Brisk Walk, Did You Do In The Last 7 Days? 0 [id number] Information not available 09/07/2020 On Those Days That You Engage In Moderate To Strenuous Exercise, How Many Minutes, On Average, Do You Exercise? 0 [id number] Information not available 09/07/2020 How Hard Is It For You To Pay For The Very Basics Like Food, Housing, Medical Care, And Heating? [id number] [email or web address] Information not available 06/11/2018 How Many Days In The Past Year Have You Had A Heavy Drinking Consumption (4+ Female, 5+ Male)? 0 Information no t available 11/03/2016 Are There Any Guns Present In Your Home? Yes [id number] Information not available 09/07/2020 Hard Of Hearing Or Deaf In One Or Both Ears? No [email or web address] Information not available 06/11/2018 Single Or Multi-level Home/work? Single Level Home [email or web address] Information not available 06/11/2018 Legally Blind In One Or Both Eyes? No [email or web address] Information no t available 06/11/2018 Live Alone Or With Others? With Others Information not available 05/24/2015 Risk Assessment Medium [email or web address] Informa tion not available 05/20/2018 Episodic Care Management No [email or web address] Information not available 06/11/2018 Longitudinal Care Management No [email or web address] Information not available 06/11/2018 Marital Status Informatio n not available 09/09/2014 What Was The Date Of Your Most Recent Tobacco Screening? 07/21/2024 [email or web address] Information not available 07/21/2024 How Many Children Do You Have? 6 [id number] Information not available 09/07/2020 Performs Monthly Self-breast Exam? Yes Information no t available 09/09/2014 Seat Belts Used Routinely Yes Information not available 09/09/2014 Are You Sexually Active? No [id number] Information not available 09/07/2020 Smoke Alarm In Home Yes Information not available 09/09/2014 At What Age Did You Start Smoking Tobacco? 17 [id number] Information not available 09/07/2020 Are You Passively Exposed To Smoke? No Information no t available 05/24/2015 How Much Tobacco Do You Smoke? No [id number] Information not available 09/07/2020 General Stress Level Medium [email or web address] Information not available 06/11/2018 Do You Use Sunscreen Routinely? No [id number] Information not available 09/07/2020 Has Tobacco Cessation Counseling Been Provided? No [email or web address] Information not available 07/21/2024 How Many Years Have You Smoked Tobacco? 46 [id number] Information not available 09/07/2020 Do You Have Difficulty Walking Or Climbing Stairs? No [id number] Information not available 09/07/2020 Sex: Unknown Functional Status Question Answer Note LastModified by Organizat ion Details LastModified Time Do you or have you ever used any other forms of tobacco or nicotine? No [email or web address] Information not available 07/21/2024 What is your level of alcohol consumption? None [id number] Information not available 09/07/2020 Do you or have you ever used smokeless tobacco? Never used smokeless tobacco [id number] Information not available 09/07/2020 Are you currently employed? No [id number] Information not available 09/07/2020 Urinary incontinence assessment performed? Yes Information not available 11/03/2016 Do you have difficulty doing errands alone? No [id number] Information not available 09/07/2020 Are you able to care for yourself? Yes [id number] Information not available 09/07/2020 What is your occupation? [employer] [id number] Information not available 09/07/2020 Do you have difficulty dressing or bathing? No [id number] Information not available 09/07/2020 Do you or have you ever used e-cigarettes or vape? Never used electronic cigarettes [id number] Information not available 09/07/2020 What is your exercise level? Occasional [id number] Information not available 09/07/2020 Do you or have you ever used any nicotine-free cigarettes, vape, or chewing tobacco? No [email or web address] Information not available 07/21/2024 Mental Status Question Answer Note LastModified by Organizat ion Details LastModified Time Do you feel stressed (tense, restless, nervous, or anxious, or unable to sleep at night)? [id number] Information not available 09/07/2020 Do you have difficulty concentrating, remembering or making decisions? No [id number] Information no t available 09/07/2020 Family History Relationship Description Onset Age of this Age Resolved Age Notes LastModified by Organization Details LastModified Time Mother Diabetes mellitus Not available 2013 09:14:06 Mother Malignant tumor of breast Not available 2013 09:14:06 Father Malignant neoplasm of lung Not available 2013 09:14:06 Medical History Condition Response High Cholesterol Y Diabetes Y Hypertension Y Gynecological History Statement/Question Response Age at Menarche 13 Date of Last Colonoscopy Date of Last Mammogram LMP Approximate Age at First Child 16 Obstetrics History GPAL:G 0 P 0 0 0 0 Immunizations Vaccine Type Date Status Note Provider Nam e and Address Organization Details Recorded Time influenza, [id number] 4 completed C[place], [place] [facility] 05/24/2015 13:30:15 zoster live 2 completed [place] [facility] [place] 05/24/2015 13:30:15 Pneumococcal conjugate PCV 13 0 completed Radha Puck[place] - [facility] [place] 06/11/2018 09:11:43 tetanus toxoid, unspecified formulation 6 completed Radha Puck[place] [facility] [place] 06/11/2018 09:23:11 influenza, unspecified formulation 8 completed Cindy Arm[place] [facility] [place] 08/19/2018 09:59:11 Influenza, split virus, quadrivalent, preservative 9 completed Cindy [place] [facility] [place] 08/19/2019 09:49:18 Influenza, split virus, quadrivalent, preservative 0 completed Shruthi Taylor [place], [place] - [facility] [place] 08/13/2020 12:57:16 Influenza, split virus, quadrivalent, preservative 1 completed Bailey Lr null, [place] - [facility] [place] 09/07/2021 16:04:45 Influenza, split virus, quadrivalent, preservative 2 completed Bailey Lr [place] - [facility] [place] 09/14/2022 15:29:59 Influenza, high-dose, trivalent, PF 5 completed Not Available [facility] 11/22/2019 02:41:18 pneumococcal polysaccharide PPV23 6 completed Not Available [facility] 11/22/2019 02:41:17 Influenza, split virus, trivalent, PF 6 completed Not Available [facility] 11/22/2019 02:41:18 Influenza, split virus, trivalent, PF 7 completed Not Available [facility] 11/22/2019 02:41:17 Past Encounters Encounter ID Performer Location Encounter Start Date Encounter Closed Date Diagnosis/Indication Diagnosis SNOMED-CT Code Diagnosis ICD10 Code Diagnosis Note [id number] [facility]o MD Main Office [address] [place] [address] 23283-882 1 09/09/2014 09:00:28 09/09/2014 09:55:08 Type 2 diabetes mellitus without complication [id number] cbc,cmp,fl p,a1c. cont meds and will follow Osteoarthritis 829230033 severe right knee pain. pt putting off knee surgery for now Essential hypertension 08824107 [id number] [facility] MD Main Office [address] [place] [address] 67145-423 1 03/09/2015 08:50:24 03/09/2015 09:43:20 Type 2 diabetes mellitus without complication 901456600 cbc,cmp,fl p,a1c. cont meds and will follow Essential hypertension 44870828 Osteoarthritis 333837857 Pt states she is ready to consider surgery. would like set up with ortho [id number] [facility] Lindo MD Main Office [address] [place] [address] 94613-599 1 05/24/2015 10:41:00 05/24/2015 14:21:59 Wound abscess [id number] [facility] Lindo MD Main Office [address] [place] [address] 18761-784 1 05/25/2015 08:49:11 05/25/2015 09:29:13 Abscess of back 961134110 abscess cleaned and re packed. swelling and redness much improved. will see back in 2 days. [id number] [facility] MD Main Office [address] [place] [address] 77173-651 1 05/27/2015 08:53:15 05/27/2015 10:02:06 Abscess of back 982061906 abscess cleaned and re packed. swelling and redness much improved. will see back in 2 days. [id number] [facility] Lindo MD Main Office [address] [place] [address] 82974-734 1 05/31/2015 08:56:26 05/31/2015 09:24:33 Abscess of back 964348122 wound healing very well and will apply dressing. packing removed and not repacked. closing up nicely. [id number] [facility] MD Main Office [address] [place] [address] 28362-338 1 06/07/2015 08:58:28 06/07/2015 09:32:07 Wound abscess 247318829 much improved and applied bandaid to wound. cont til healed. f[place]n [id number] E[facility] Lindo MD Main Office [address] [place] [address] 94697-401 1 07/13/2015 08:56:26 07/13/2015 10:43:18 Angioedema 25113095 discontinu e enedina -i. will follow. reviewed er records Type 2 rikki betes mellitus without complication 954542194 cont to monitor. expected higher levels with steroid Essential hypertension 88651677 [id number] [facility] MD Main Office [address] [place] [address] 77325-502 1 09/09/2015 08:57:22 09/09/2015 09:47:29 Administration of influenza vaccine 50085278 Z23 Type 2 rikki betes mellitus without complication 934657489 E11.9 improved. check labs next visit Essential hypertension 25490259 I10 Basal cell carcinoma of skin 269087034 C44.91 [id number] [facility]o MD Main Office [address] [place] [address] 97551-999 1 03/09/2016 08:48:04 03/09/2016 09:42:41 Type 2 diabetes mellitus without complication 925987734 E11.9 improved. check labs next visit Osteoarthritis 351758240 M19.90 meloxicam Essential hypertension 80426593 I10 Adult heal th examination 344527744 Z00.01 Administra tion of pneumococcal vaccine 29723416 Z23 [id number] [facility]o MD Main Office [address] [place] [address] 47889-524 1 09/11/2016 08:48:28 09/11/2016 09:29:13 Type 2 diabetes mellitus without complication 941677794 E11.9 Osteoarthritis 303916704 M19.90 Essential hypertension 98452487 I10 Depressive disorder 3548 9007 F32.9 Depression screening 171 674855 Z13.89 [id number] E[facility] Lindo MD Main Office [address] [place] [address] 61780-980 1 11/03/2016 10:33:48 11/03/2016 11:25:50 Chest pain 91413749 R07.1 EKG - NSR at 80, No acute changes, twave inversion in all leads Cough 45017289 R05 Chest - bibasilar infiltrate s Community acquired pneumonia 395641592 J18.9 [id number] [facility]o MD Main Office [address] [place] [address] 68929-364 1 11/08/2016 10:09:02 11/08/2016 11:01:42 Community acquired pneumonia 879918726 J18.9 Pulmonary emphysema 8743 3001 J43.9 Eruption c aused by drug 38801580 L27.0 [id number] [facility] MD Main Office [address] [place] [address] 22087-037 1 11/13/2016 09:33:45 11/13/2016 10:32:06 Community acquired pneumonia 960379299 J18.9 Pulmonary emphysema 8743 3001 J43.9 Eruption c aused by drug 96117733 L27.0 [id number] [facility] Lind[facility] MD Main Office [address] [place] [address] 04724-613 1 12/11/2016 09:13:06 12/11/2016 10:02:23 Gastro-esophageal reflux disease with esophagitis 272936482 K21.0 Pneumonia 547166894 J18. 9 Type 2 rikki betes mellitus without complication 699048055 E11.9 Coronary arteriosclerosis 84991750 I25.10 EKG - NSR at 75 bpm and no acute changes. Compared to ekg in oct 2016 [id number] [facility] MD Main Office [address] [place] [address] 93030-866 1 03/12/2017 08:51:18 03/12/2017 09:49:23 Type 2 diabetes mellitus without complication 558334758 E11.9 Essential hypertension 34358052 I10 Adult heal th examination 106087236 Z00.01 Osteoarthritis 954847648 M19.90 [id number] E[facility] Lind[facility] MD Main Office [address] [place] [address] 35547-004 1 09/10/2017 09:43:34 09/10/2017 11:32:49 Type 2 diabetes mellitus without complication 518075256 E11.9 Essential hypertension 96075866 I10 Osteoarthritis 686223017 M19.90 Administra tion of influenza vaccine 34677863 Z23 Fall W19.XXXA Right hip - severe degenerati ve changes, no obvious fractures [id number] [facility] Lindo MD Main Office [address] [place] [address] 38243-004 1 12/10/2017 08:39:54 12/10/2017 10:18:25 Type 2 diabetes mellitus without complication 504750991 E11.9 Essential hypertension 10381041 I10 Osteoarthr itis of knee 954410836 M17.9 [id number] E[facility] Lindo MD Main Office [address] [place] [address] 66479-514 1 06/11/2018 08:47:33 06/11/2018 10:14:29 Adult health examination 370284862 Z00.00 Patient states she is doing well today. She reports that she eats a healthy diet. She reports that she is not able to exercise due to the condition of her knees. She is going to try again to make an effort to ride her exercise bike a few times a week. She refuses a mammogram. Sent hemoccult cards home with her today. No social needs voiced at this time. She denies any self harm or suicidal thoughts. Informed patient that she can call the office 28/05 to speak with a staff member if need or concerns arise. Depression screening 171 430412 Z13.89 Type 2 rikki betes mellitus without complication 539677582 E11.9 Osteoarthritis of hip 23 0156917 M16.11 Advance care planning 71 3533773 Z71.89 Spoke with patient concerning advance directives . Benefits for patient, family and medical team was explained. Patient would like to fill forms out today in the office with Radha Montgomery RN. Insrtucted to return to the front to have forms notarized and a copy will be placed in her chart as well as sent home with her. Face to face duration with patient 30 minutes. Pulmonary emphysema 8743 3001 J43.9 [id number] [facility] MD Main Office [address] [place] [address] 00170-433 1 09/12/2018 09:50:40 09/12/2018 11:06:21 Type 2 diabetes mellitus without complication 491323764 E11.9 Osteoarthritis 111889280 M19.90 Essential hypertension 60456443 I10 Gastroesop hageal reflux disease 838210524 K21.9 [id number] E[facility] Lind[facility] MD Main Office [address] [place] [address] 00995-266 1 12/16/2018 08:50:53 12/16/2018 09:55:36 Type 2 diabetes mellitus without complication 727723238 E11.9 Essential hypertension 88876631 I10 Osteoarthritis 125755261 M19.90 Acute exac erbation of chronic bronchitis 416489011 J44.1 [id number] [facility] Lind[facility] MD Main Office [address] [place] [address] 25639-634 1 01/03/2019 09:13:34 01/03/2019 10:23:18 Acute exacerbation of chronic bronchitis 633019414 J44.1 albuterol UD CHest - fibrosis changes c/w previous xr. no infiltrate s Fibrosis of lung 2437636 1 J84.10 [id number] [facility] MD Main Office [address] [place] [address] 28050-689 1 01/16/2019 15:29:24 01/16/2019 16:18:09 Fibrosis of lung 57576221 J84.10 Hypoxia 033327198 R09.02 Acute exac erbation of chronic bronchitis 937120657 J44.1 [id number] E[facility] Lindo MD Main Office [address] [place] [address] 97209-712 1 03/21/2019 09:06:19 03/21/2019 16:26:44 Essential hypertension 03880658 I10 Osteoarthritis 407932274 M19.90 Pulmonary emphysema 8743 3001 J43.9 Edema of l ower extremity 811429409 R60.0 [id number] E[facility] Lindo MD Main Office [address] [place] [address] 48167-020 1 09/23/2019 08:41:28 09/23/2019 09:52:17 Adult health examination 058826378 Z00.00 Patient states she is doing well today. She reports that she eats a healthy diet. . She refuses a mammogram. No social needs voiced at this time. She denies any self harm or suicidal thoughts. Informed patient that she can call the office 28/05 to speak with a staff member if need or concerns arise. Essential hypertension 89677206 I10 Type 2 rikki betes mellitus without complication 568992744 E11.9 Osteoarthritis 052205025 M19.90 Pulmonary emphysema 8743 3001 J43.9 [id number] E[facility] Lindo MD Main Office [address] [place] [address] [place] [address] 1 03/24/2020 09:01:41 03/24/2020 09:51:08 Type 2 diabetes mellitus without complication 113543489 E11.9 Osteoarthritis 412117440 M19.90 Essential hypertension 74496912 I10 Hyperlipidemia 92868041 E78.5 [id number] E[facility] Lindo MD Main Office [address] [place] [address] 32448-690 1 05/26/2020 10:35:57 05/26/2020 11:15:47 Osteoarthritis of hip 232770022 M16.11 Swelling of lower leg 44 5123702 R22.40 Anemia 044794348 D64.9 [id number] Eno[facility] Lindo MD Main Office [address] [place] [address] 99000-358 1 06/23/2020 10:06:49 06/23/2020 16:40:42 Chronic obstructive pulmonary disease 88452019 J44.9 [facility] Osteoarthritis 391312359 M19.90 Type 2 rikki betes mellitus without complication 023750861 E11.9 [id number] E[facility] Lindo MD Main Office [address] [place] [address] 56434-574 1 07/14/2020 10:54:27 07/14/2020 15:00:35 Essential hypertension 49842462 I10 Type 2 rikki betes mellitus without complication 485216368 E11.9 Osteoarthritis 816708874 M19.90 Chronic ob structive pulmonary disease 37495064 J44.9 [id number] E[facility] Lindo MD Main Office [address] [place] [address] 02020-959 1 09/02/2020 11:06:30 09/02/2020 16:41:38 Chronic obstructive pulmonary disease 94572587 J44.9 Renal mass 818986230 N28 .89 Osteoarthritis 845502067 M19.90 Rib pain 533897108 R07.8 1 [id number] E[facility]o MD Main Office [address] [place] [address] 88283-810 1 10/04/2020 08:57:55 10/04/2020 09:43:55 Adult health examination 060243081 Z00.00 Patient states she is doing well today. She reports that she eats a healthy diet. . She refuses a mammogram. No social needs voiced at this time. She denies any self harm or suicidal thoughts. Informed patient that she can call the office 28/05 to speak with a staff member if need or concerns arise. Chronic ob structive pulmonary disease 64960043 J44.9 Coronary arteriosclerosis 98599568 I25.10 Type 2 rikki betes mellitus without complication 929425380 E11.9 Essential hypertension 40829818 I10 Hyperlipidemia 14603968 E78.5 [id number] SANCHO Rasmussen Main Office [address] [place] [address] 35016-554 1 11/03/2020 10:48:38 11/03/2020 11:09:57 Chronic obstructive pulmonary disease 41960859 J44.9 advised pt to continue using nebulizer and inhaler as directed, pt states that she got steroid in hospital and is feeling much better now. [id number] [facility] Lindo MD Main Office [address] [place] [address] 78994-279 1 12/29/2020 11:04:31 12/29/2020 14:27:09 Chronic obstructive pulmonary disease 41967394 J44.9 Air hunger 143817932 R06 .89 Essential hypertension 33695982 I10 Type 2 rikki betes mellitus without complication 942465672 E11.9 [id number] E[facility] Lindo MD Main Office [address] [place] [address] 50145-633 1 04/05/2021 09:06:08 04/05/2021 09:52:44 Type 2 diabetes mellitus without complication 051210654 E11.9 Osteoarthritis 566452983 M19.90 Essential hypertension 80476148 I10 Chronic ob structive pulmonary disease 77832801 J44.9 [id number] Eno[facility] Lindo MD Main Office [address] [place] [address] 02429-550 1 07/12/2021 08:41:38 07/12/2021 09:45:40 Type 2 diabetes mellitus without complication 577789628 E11.9 Osteoarthritis 690231647 M19.90 Essential hypertension 65252673 I10 Chronic ob structive pulmonary disease 66094812 J44.9 [id number] Eno[facility] Lindo MD Main Office [address] [place] [address] 10062-484 1 01/11/2022 08:43:17 01/11/2022 11:22:31 Type 2 diabetes mellitus without complication 499419251 E11.9 Osteoarthritis 694748261 M19.90 Essential hypertension 60844533 I10 Adult heal th examination 478232283 Z00.01 Patient states she is doing well today. She reports that she eats a healthy diet. . She refuses a mammogram. No social needs voiced at this time. She denies any self harm or suicidal thoughts. Informed patient that she can call the office 28/05 to speak with a staff member if need or concerns arise. Chronic ob structive pulmonary disease 82407017 J44.9 pt asking for a smaller concentrat or for weight. will send request but informed her it will depend on her insurance [id number] Enoch Lindo MD Main Office [address] [place] [address] 02461-224 1 07/20/2022 08:55:45 07/20/2022 09:58:52 Type 2 diabetes mellitus without complication 616423613 E11.9 check labs and cont to follow. pt hasnt checked bg in awhile. was good according to pt Osteoarthritis 809504735 M19.90 Pt may need another hip surgery. cont to follow Congestive heart failure 26159204 I50.9 Chronic ob structive pulmonary disease 68460430 J44.9 cont oxygen and monitor disease [id number] Enoch Lindo MD Main Office [address] [place] [address] 93042-303 1 01/19/2023 08:56:42 01/19/2023 09:38:25 Adult health examination 397410588 Z00.01 Patient states she is doing well today. She reports that she eats a healthy diet. . She refuses a mammogram. No social needs voiced at this time. She denies any self harm or suicidal thoughts. Informed patient that she can call the office 28/05 to speak with a staff member if need or concerns arise. Osteoarthritis 935294712 M19.90 Pt may need another hip surgery. cont to follow Angioedema 97278555 T78. 3XXA discontinu e enedina -i. will follow. reviewed er records Essential hypertension 96216507 I10 bp looks good after rest. recheck Type 2 rikki betes mellitus 09065288 E11.69 E11.59 check labs and cont to follow. pt hasnt checked bg in awhile. was good according to pt Complicated grieving 427 182689 F43.21 will start low dose celexa Chronic ob structive pulmonary disease 39959063 J44.9 cont oxygen and monitor disease. will set up with pulmonolog y at [place] Congestive heart failure 30378900 I50.9 I11.0 cont meds and will cont to follow. no swelling today Ataxia 92793112 R27.0 R26.2 Z74.09 R54 Z99.81 Z99.89 R53.83 use walker. pt gets alot of help from family Atrial fibrillation 4943 6004 I48.91 rate controlled . cont to manage Coronary arteriosclerosis 68879352 I25.119 cont meds and monitor for chest pain [id number] Enoch Lindo MD Main Office [address] [place] [address] 1 01/17/2024 09:13:06 01/22/2024 17:04:12 Type 2 diabetes mellitus 24925656 E11.69 E11.59 check labs and cont to follow. pt hasnt checked bg in awhile. was good according to pt Osteoarthritis of hip 23 8245191 M16.11 IM med. very cautious about giving IM steroid. pt promises to watch BG Insomnia 261491618 G47.0 0 add trazodone. will try to stay away from benzos when possible Heart failure 65063642 I 50.9 I11.0 no edema today. cont meds. Chronic hy poxemic respiratory failure 817406901 J96.11 J44.9 cont oxygen and stay active as tolerated Atrial fibrillation 4943 6004 I48.91 rate controlled . cont to manage Coronary arteriosclerosis 60988295 I25.119 cont meds and monitor for chest pain Anemia 323447030 D64.9 check labs. has been chronicall y anemic for years Disorder of artery 60655 7001 I77.9 on meds and will monitor for skin failure. Hyperlipidemia 28340674 E78.5 cont statin. will cont to manage Essential hypertension 69411284 I10 bp looks good after rest. recheck Fatigue 60867024 R53.83 R26.2 R54 Z99.81 cont to follow. using walker and will follow [id number] Enoch Lindo MD Main Office [address] [place] [address] 1 07/21/2024 09:38:53 07/21/2024 11:13:08 Adult health examination 522307544 Z00.01 Patient states she is doing well today. She reports that she eats a healthy diet. . She refuses a mammogram. No social needs voiced at this time. She denies any self harm or suicidal thoughts. Informed patient that she can call the office 28/05 to speak with a staff member if need or concerns arise. Chronic ob structive pulmonary disease 46696999 J44.9 cont oxygen and monitor disease. will set up with pulmonolog y at [place] Type 2 rikki betes mellitus without complication 066367511 E11.9 check labs and cont to follow. pt hasnt checked bg in awhile. was good according to pt Essential hypertension 08600341 I10 bp looks good after rest. recheck Hyperlipidemia 60198290 E78.5 cont statin. will cont to manage Air hunger 329489216 R06 .89 Osteoarthritis of hip 23 9713136 M16.11 Health Concerns Section Related Observation LastModified by Organization Detai ls LastModified Time None Recorded Concern Status LastModified by Organization Details LastModified Time None Recorded Advance Directives Directive Y: Filled forms out in offic e. Payers Insurance Date Sequence Insurance Name Policy Number Policy Motley Covered Member ID Motley Member ID Guarantor Name 07/21/2024 1 CARE IMPROVEMENT PLUS - OPEN ACCESS (MEDICARE REPLACEMENT PPO) [id number] [facility] [id number] [facility] 07/21/2024 1 [facility] - CARE [facility] PLUS - GOLD RX [facility] (MEDICARE REPLACEMENT PPO) [id number] [facility] [id number] [facility] 07/29/2024 1 [facility] (MEDICARE REPLACEMENT/AD VANTAGE - PPO) [id number] [facility] [id number] [facility] Notes Date Note Type Note Provider Name and Address Organization Details Recorded Time 01/11/2022 text/html COPDReported bypatient.Onset/Timing :chronic Severity:very limiting; severe Quality:symptoms worse during the day; symptoms worse in the evening Alleviating factors:relieved with rest; relieved with oxygen; relieved with bronchodilator Aggravating factors:worse with exertion Associated Symptoms:no snoring; no excessive daytime sleepiness; no arousals from sleep; no decrease in exercise capacity; no fatigue; not coughing up sputum; no fever; no wheezing; no weight loss; no depression;dyspnea;dys pnea during exertion;coughDiabetes F/UReported bypatient.Labs:last A1C result: 6.9 Context:normal range of home blood sugars (in the low 100s); seeing eye doctor regularly; checking feet regularly Associated Symptoms:no weight gain; no weight loss; no dizziness; no sweats; no headaches; no confusion; no increased thirst; no increased appetite; no increased urination; no blurred vision; no numbness of feet; no calluses on feetHypertension F/UReported bypatient.Associated Symptoms:no dizziness; no lightheadedness; no chest pain; no shortness of breath; no palpitations; no edema; no calf pain with exertion Lifestyle:limiting/nikita iding salt;not exercising regularly Medications:taking medications as directed; no side effects from medicationNotes: Medicare Annual Wellness VisitReported bypatient.Diet and Nutrition:healthy diet; discussed vitamin and supplement use; discussed portion control; discussed maintaining calcium balance; discussed diet improvement Fracture Risk:no history of fractures; no recent explained fracture; no sudden unexplained fractures;previous musculoskeletal injuries Physical Activity:exercises on a regular basis; recent increase in physical activity; good physical condition Orientation:no disorientation to time; no disorientation to date; no disorientation to place Concentration and Memory:no decreased concentrating ability; no memory lapses or loss; does not forget words Speech/Motor difficulties:no speech difficulties; no difficulty expressing formulated concepts; no difficulty with fine manipulative tasks; no difficulty writing/copying; no slowed reaction time; does not knock things over when trying to pick them up Hearing:no loss of hearing Vision:no vision problems Activities of Daily Living:able to bathe with limited or no assistance; able to contol urination and bowels; able to dress with limited or no assistance; able to feed self with limited or no assistance; able to get out of chair or bed with limited or no assistance; able to groom with limited or no assistance; able to toilet with limited or no assistance Instrumental Activities of Daily Living:able to do house work with limited or no assistance; able to grocery shop with limited or no assistance; able to manage medications with limited or no assistance; able to manage money with limited or no assistance; able to prepare meals with limited or no assistance; able to use the phone with limited or no assistance Home Safety:no unsafe melissa hazzards; no unsafe stairs (no steps into house and has rails); no unsafe gas appliances; working smoke/CO detectors; wears protective head gear for biking/high velocity; use of seatbelts; practicing 'safer sex'; no vision or hearing loss while driving; has hand bars in the bathroom/shower; good lighting in the home Patient is here for a wellness exam and fasting lab. Enoch Lindo MD [address] [place], [id number], SATYA Lindo 01/11/2022 12:28:20 07/20/2022 text/html COPDReported bypatient.Onset/Timing :chronic Severity:very limiting; severe Quality:symptoms worse during the day; symptoms worse in the evening Alleviating factors:relieved with rest; relieved with oxygen; relieved with bronchodilator Aggravating factors:worse with exertion Associated Symptoms:no snoring; no excessive daytime sleepiness; no arousals from sleep; no decrease in exercise capacity; no fatigue; not coughing up sputum; no fever; no wheezing; no weight loss; no depression;dyspnea;dys pnea during exertion;coughDiabetes F/UReported bypatient.Labs:last A1C result: 6.9 Context:normal range of home blood sugars (in the low 100s); seeing eye doctor regularly; checking feet regularly Associated Symptoms:no weight gain; no weight loss; no dizziness; no sweats; no headaches; no confusion; no increased thirst; no increased appetite; no increased urination; no blurred vision; no numbness of feet; no calluses on feetHypertension F/UReported bypatient.Associated Symptoms:no dizziness; no lightheadedness; no chest pain; no shortness of breath; no palpitations; no edema; no calf pain with exertion Lifestyle:limiting/nikita iding salt;not exercising regularly Medications:taking medications as directed; no side effects from medicationNotes: Pt here for a f/u appt, she reports that she is doing well this am; has been taking all of her medications as directed. She is not fasting this am. Enoch Lindo MD [address] [place], [id number], SATYA Lindo 07/20/2022 15:14:22 01/19/2023 text/html COPDReported bypatient.Onset/Timing :chronic Severity:very limiting; severe Quality:symptoms worse during the day; symptoms worse in the evening Alleviating factors:relieved with rest; relieved with oxygen; relieved with bronchodilator Aggravating factors:worse with exertion Associated Symptoms:no snoring; no excessive daytime sleepiness; no arousals from sleep; no decrease in exercise capacity; no fatigue; not coughing up sputum; no fever; no wheezing; no weight loss; no depression;dyspnea;dys pnea during exertion;coughDiabetes F/UReported bypatient.Labs:last A1C result: 6.9 Context:normal range of home blood sugars (in the low 100s); seeing eye doctor regularly; checking feet regularly Associated Symptoms:no weight gain; no weight loss; no dizziness; no sweats; no headaches; no confusion; no increased thirst; no increased appetite; no increased urination; no blurred vision; no numbness of feet; no calluses on feetHypertension F/UReported bypatient.Associated Symptoms:no dizziness; no lightheadedness; no chest pain; no shortness of breath; no palpitations; no edema; no calf pain with exertion Lifestyle:limiting/nikita iding salt;not exercising regularly Medications:taking medications as directed; no side effects from medicationNotes: Pt here for a MAWV, she reports that she is having some issues with fatigue and depression. She says that since her in October she has been having a very difficult time. She is with her daughter at this time. Enoch Lindo MD [address] [place], [id number], SATYA Lindo 01/19/2023 09:52:11 01/17/2024 text/html Musculoskeletal PainReported bypatient.Location:yefri n is not radiating Severity:improving Associated Symptoms:no fever; no weak limbs; no tingling; no numbness of the legs/feet; on incontinence ADL (Activities of Daily Living)improve with medication pt here for long overdo checkup. pt states she in left side of hip and knee. pt states she also having lower back pain. pt states she is not sleeping well. pt needs med refills as well. Enoch Lindo MD [address] [place], [id number], SATYA Linod 01/17/2024 14:15:43 07/21/2024 text/html Medicare Annual Wellness VisitReported bypatient.Diet and Nutrition:healthy diet; discussed vitamin and supplement use; discussed portion control; discussed maintaining calcium balance; discussed diet improvement Fracture Risk:no history of fractures; no recent explained fracture; no sudden unexplained fractures;previous musculoskeletal injuries Physical Activity:decreased physical activity;poor physical condition;deconditione d due to sedentary lifestyle; discussed weightbearing activities; discussed exercise habits Orientation:no disorientation to time; no disorientation to date; no disorientation to place Concentration and Memory:no decreased concentrating ability; no memory lapses or loss; does not forget words Speech/Motor difficulties:no speech difficulties; no difficulty expressing formulated concepts; no difficulty with fine manipulative tasks; no difficulty writing/copying; no slowed reaction time; does not knock things over when trying to pick them up Hearing:fluctuating Vision:worsening Activities of Daily Living:able to bathe with limited or no assistance; able to contol urination and bowels; able to dress with limited or no assistance; able to feed self with limited or no assistance; able to get out of chair or bed with limited or no assistance; able to groom with limited or no assistance; able to toilet with limited or no assistance;unable to bathe without assistance Instrumental Activities of Daily Living:able to manage medications with limited or no assistance; able to manage money with limited or no assistance; able to prepare meals with limited or no assistance; able to use the phone with limited or no assistance;unable to do house work without assistance;unable to grocery shop without assistance Home Safety:no unsafe melissa hazzards; no unsafe stairs; no unsafe gas appliances; working smoke/CO detectors; use of seatbelts; no vision or hearing loss while driving; no fire arms; has hand bars in the bathroom/shower; good lighting in the home Patient is here for her medicare annual wellness and is fasting for labs. 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 Her current specialist left so until they get a new one hired they will need us to take over her medications. Patient is also wanting a referral to [facility] for joint injections to help with her left hip pain, she has stopped the Tramadol due to it not helping with the pain. Enoch Lindo MD [address] [place], [id number], SATYA - Enoch Lindo 07/21/2024 13:59:58 OBGyn Episode No OBEpisode recorded.
--- OUTSIDE RECORDS SUMMARY | 2025-05-18 11:15 | XMS_ITS | Clinical Summary ---
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 Name Role Phone Unavailable Primary Care Provider Unavailabl e Allergies No known active allergies Active Problems Problem Noted Date Diagnosed Date Coronary artery disease 11/26/2008 Overview (03/03/2021): S/p PCI with bare metal stent to ramus of cxf Cigarette smoker 11/24/2008 HTN (hypertension) 11/24/2008 Overview (03/03/2021): Updating IMO/ICD9 Code and Description Resolved Problems Problem Noted Date Diagnosed Date [...] Son Relation Name Status Comments Brother 1 Brother 2 Brother 3 Alive Brother 4 Alive Daughter 1 Alive Daughter 2 Alive Daughter 3 Alive Father Mother Sister 1 Alive Sister 2 Alive Sister 3 Sister 4 Alive Son Alive Social History Tobacco Use Types Packs/Day Years Used Date Smoking Tobacco: Every Day Cigarettes Alcohol Use Standard Drinks/Week Comments Yes 0 (1 standard drink = 0.6 oz pur e alcohol) Comments Unknown Sex and Gender Information Value Date Recorded Sex Assigned at Not on file 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
--- OUTSIDE RECORDS SUMMARY | 2025-05-18 11:15 | XMS_ITS | Data Portability ---
Author Organization [facility], autoContract Address [address] [place] [address] Assessment No assessment recorded. Plan of Treatment Reminders Order Date Submit Date Provider Last Modified By Organization Details Last Modified Time Details Appointments SICK 2024 01:00P Jeff Lindo MD Not available Not available Not available RETURN 2024 09:00A Jeff Lindo MD Not available Not available Not available Lab TSH, serum or plasma 2024 025 [place] [facility] - Marisela Morgan, [address], [place], [address], 02/17/2025 06:42:11 HbA1c (hemoglo bin A1c), blood 2024 025 [place] [facility] ([facility] - Marisela Rock, [address], [place], [address], 02/17/2025 06:42:10 CBC w/ auto diff 2024 025 [place] [facility] ([facility] - [place] Rock, [address], [place], [address], 02/17/2025 06:42:11 CMP, serum or plasma 2024 025 [place] [facility] ([facility] - Marisela Rock, [address], [place], [address], 02/17/2025 06:42:09 lipid panel, serum 2024 025 [place] [facility] - [facility] [place], [address], [place], [address], 02/17/2025 06:42:10 Referral None recorded . Procedures None recorded . Surgeries None recorded . Imaging None recorded . Medication Orders None recorded . Patient TargetsNo targets recorded. Patient InstructionsNo instructions recorded. Reason for Referral None Reported. Results Created Date Observation Date Name Description Value Unit Range Abnormal Flag Note LastModifiedBy Organization Detail LastModifiedTime 07/20/2007/21/2022 CBC WITH DIFFE RENTI AL WBC 9.3 K/uL 4.0-11 .0 Not Available [facility] [address] [place], [address], 07/21/2022 08:18:01 07/20/20 22 07/21/2022 CBC WITH DIFFE RENTI AL RBC 4.41 M/uL 4.00-5 .50 Not Available [facility] [address] [place], [address], 07/21/2022 08:18:01 07/20/20 22 07/21/2022 CBC WITH DIFFE RENTI AL hemoglobin 11.8 g/dL 12.0-1 6.0 low Not Available [facility] [address] [place], [address], 07/21/2022 08:18:01 07/20/20 22 07/21/2022 CBC WITH DIFFE RENTI AL hematocrit 37.2 % 36.0-4 8.0 Not Available [facility] [address] [place], [address], 07/21/2022 08:18:01 07/20/20 22 07/21/2022 CBC WITH DIFFE RENTI AL MCV 84.4 fL 78.0-1 02.0 Not Available [facility] [address] [place], [address], 07/21/2022 08:18:01 07/20/20 22 07/21/2022 CBC WITH DIFFE RENTI AL MCH 26.8 pg 25.0-3 5.0 Not Available [facility] [address] [place], [place], [address], 07/21/2022 08:18:01 07/20/20 22 07/21/2022 CBC WITH DIFFE RENTI AL MCHC 31.7 g/dL 30.0-3 8.0 Not Available [facility] [address] [place], [place], [address], 07/21/2022 08:18:01 07/20/20 22 07/21/2022 CBC WITH DIFFE RENTI AL RDW 15.6 % 11.5-1 6.0 Not Available [facility] [address] [place], [place], [address], 07/21/2022 08:18:01 07/20/20 22 07/21/2022 CBC WITH DIFFE RENTI AL platelet count 358 K/uL 150-45 0 Not Available [facility] [address] [place], [address], 07/21/2022 08:18:01 07/20/20 22 07/21/2022 CBC WITH DIFFE RENTI AL abs neutrophils 7.2 K/uL 1.8-7. 0 high Not Available [facility] [address] [place], [address], 07/21/2022 08:18:01 07/20/20 22 07/21/2022 CBC WITH DIFFE RENTI AL abs lymphocytes 1.3 K/uL 1.0-4. 0 Not Available [facility] [address] [place], [address], 07/21/2022 08:18:01 07/20/20 22 07/21/2022 CBC WITH DIFFE RENTI AL abs monocytes 0.6 K/uL 0.1-1. 1 Not Available [facility] [address] [place], [place], [address], 07/21/2022 08:18:01 07/20/20 22 07/21/2022 CBC WITH DIFFE RENTI AL abs eosinophils 0.1 K/uL 0.0-0. 5 Not Available [facility] [address] [place], [place], [address], 07/21/2022 08:18:01 07/20/20 22 07/21/2022 CBC WITH DIFFE RENTI AL abs basophils 0.0 K/uL 0.0-0. 3 Not Available [facility] [address] [place], [place], [address], 07/21/2022 08:18:01 07/20/20 22 07/21/2022 CBC WITH DIFFE RENTI AL abs immature grans 0.0 K/uL 0.0-0. 1 Not Available [facility] [address] [place], [place], [address], 07/21/2022 08:18:01 07/20/20 22 07/21/2022 CBC WITH DIFFE RENTI AL neutrophils 77.0 % Not Available [facility] [address] [place], [place], [address], 07/21/2022 08:18:01 07/20/20 22 07/21/2022 CBC WITH DIFFE RENTI AL lymphocytes 14.5 % Not Available [facility] [address] [place], [place], [address], 07/21/2022 08:18:01 07/20/20 22 07/21/2022 CBC WITH DIFFE RENTI AL monocytes 6.9 % Not Available [facility] [address] [place], [place], [address], 07/21/2022 08:18:01 07/20/20 22 07/21/2022 CBC WITH DIFFE RENTI AL eosinophils 1.2 % Not Available [facility] [address] [place], [address], 07/21/2022 08:18:01 07/20/20 22 07/21/2022 CBC WITH DIFFE RENTI AL basophils 0.2 % Not Available [facility] [address] [place], [address], 07/21/2022 08:18:01 07/20/20 22 07/21/2022 CBC WITH DIFFE RENTI AL immature grans 0.2 % Not Available [facility] [address] [place], [address], 07/21/2022 08:18:01 07/20/20 22 07/21/2022 CBC WITH DIFFE RENTI AL nucleated RBCs <1.0 /100_ WBCs <1 Not Available [facility] [address] [place], [address], 07/21/2022 08:18:01 07/20/20 22 07/21/2022 HEMOG LOBIN A1C hemoglobin A1C 6.7 % 4.2-5. 6 high Not Available [facility] [address] [facility] [place], [address], 07/21/2022 08:18:00 07/20/20 22 07/21/2022 HEMOG LOBIN [...] Assay may be affec kathie by hemog lobmoses morton ies (sick le cell anemi a, SC disea se, other s) or artif icial ly lower ed by decre ased red cell survi shiv (hemo lytic anemi as, blood loss, etc.) . Consi tracy alter ale testi ng or labor atory consu ltati on. Not Available [facility] [address] [place], [place], [address], 07/21/2022 08:18:00 07/20/20 22 07/21/2022 COMP METAB OLIC PANEL sodium 143 mEq/L 135-14 6 Not Available [facility] [address] [place], [address], 07/21/2022 08:17:57 07/20/20 22 07/21/2022 COMP METAB OLIC PANEL potassium 4.6 mEq/L 3.5-5. 4 Not Available [facility] [address] [place], [address], 07/21/2022 08:17:57 07/20/20 22 07/21/2022 COMP METAB OLIC PANEL chloride 100 mEq/L 95-107 Not Available [facility] [address] [place], [address], 07/21/2022 08:17:57 07/20/20 22 07/21/2022 COMP METAB OLIC PANEL carbon dioxide 25 mEq/L 19-31 Not Available [facility] [address] [place], [address], 07/21/2022 08:17:57 07/20/20 22 07/21/2022 COMP METAB OLIC PANEL anion gap 18 mEq/L 7-23 Not Available [facility] [address] [place], [address], 07/21/2022 08:17:57 07/20/20 22 07/21/2022 COMP METAB OLIC PANEL glucose non-fasting 115 mg/dL 70-139 Not Available [facility] [address] [place], [address], 07/21/2022 08:17:57 07/20/20 22 07/21/2022 COMP METAB OLIC PANEL urea nitrogen (BUN) 21 mg/dL 8-23 Not Available [facility] [address] [place], [place], [address], 07/21/2022 08:17:57 07/20/20 22 07/21/2022 COMP METAB OLIC PANEL calcium total 9.2 mg/dL 8.5-10 .5 Not Available [facility] [address] [place], [place], [address], 07/21/2022 08:17:57 07/20/20 22 07/21/2022 COMP METAB OLIC PANEL AST (SGOT) 20 U/L 9-40 Not Available [facility] [address] [place], [place], [address], 07/21/2022 08:17:57 07/20/20 22 07/21/2022 COMP METAB OLIC PANEL ALT (SGPT) 13 U/L 5-40 Comme nt for COMP METAB OLIC PANEL Fasti ng statu s not provi ded. If the patie nt faste d the appro priat e gluco se refer ence range is 70-99 mg/dL . Not Available [facility] [address] [place], [place], [address], 07/21/2022 08:17:57 07/20/20 22 07/21/2022 COMP METAB OLIC PANEL creatinine 0.81 mg/dL 0.60-1 .30 Not Available [facility] [address] [place], [address], 07/21/2022 08:17:57 07/20/20 22 07/21/2022 COMP METAB OLIC PANEL 2020 CKD-epi eGFR-cr 75 mL/mi n/1.7 3m'2 >59 Not Available [facility] [address] [place], [address], 07/21/2022 08:17:57 07/20/20 22 07/21/2022 COMP METAB OLIC PANEL BUN/creatini ne ratio 26 ratio Not Available [facility] [address] [place], [address], 07/21/2022 08:17:57 07/20/20 22 07/21/2022 COMP METAB OLIC PANEL protein total 7.2 g/dL 6.1-8. 3 Not Available [facility] [address] [place], [address], 07/21/2022 08:17:57 07/20/20 22 07/21/2022 COMP METAB OLIC PANEL albumin 4.7 g/dL 3.5-5. 2 Not Available [facility] [address] [place], [address], 07/21/2022 08:17:57 07/20/20 22 07/21/2022 COMP METAB OLIC PANEL globulin 2.5 g/dL 1.7-4. 3 Not Available [facility] [address] [place], [address], 07/21/2022 08:17:57 07/20/20 22 07/21/2022 COMP METAB OLIC PANEL A/G ratio 1.9 ratio 0.9-2. 8 Not Available [facility] [address] [place], [address], 07/21/2022 08:17:57 07/20/20 22 07/21/2022 COMP METAB OLIC PANEL bilirubin total 0.3 mg/dL 0.0-1. 2 Not Available [facility] [address] [place], [place], [address], 07/21/2022 08:17:57 07/20/20 22 07/21/2022 COMP METAB OLIC PANEL alkaline phosphatase 67 U/L 40-142 Not Available [facility] [address] [place], [address], 07/21/2022 08:17:57 01/20/20 23 01/20/2023 CBC WITH DIFFE RENTI AL abs immature grans 0.0 K/uL 0.0-0. 1 Not Available [facility] [address] [place], [address], 01/20/2023 07:36:07 01/20/20 23 01/20/2023 CBC WITH DIFFE RENTI AL neutrophils 79.0 % Not Available [facility] [address] [place], [address], 01/20/2023 07:36:07 01/20/20 23 01/20/2023 CBC WITH DIFFE RENTI AL lymphocytes 13.5 % Not Available [facility] [address] [place], [address], 01/20/2023 07:36:07 01/20/20 23 01/20/2023 CBC WITH DIFFE RENTI AL monocytes 6.0 % Not Available [facility] [address] [place], [address], 01/20/2023 07:36:07 01/20/20 23 01/20/2023 CBC WITH DIFFE RENTI AL eosinophils 0.8 % Not Available [facility] [address] [place], [address], 01/20/2023 07:36:07 01/20/20 23 01/20/2023 CBC WITH DIFFE RENTI AL basophils 0.4 % Not Available [facility] [address] [place], [place], [address], 01/20/2023 07:36:07 01/20/20 23 01/20/2023 CBC WITH DIFFE RENTI AL immature grans 0.3 % Not Available [facility] [address] [place], [place], [address], 01/20/2023 07:36:07 01/20/20 23 01/20/2023 CBC WITH DIFFE RENTI AL nucleated RBCs <1.0 /100_ WBCs <1 Not Available [facility] [address] [place], [place], [address], 01/20/2023 07:36:07 01/20/20 23 01/20/2023 CBC WITH DIFFE RENTI AL WBC 10.5 K/uL 4.0-11 .0 Not Available [facility] [address] [place], [place], [address], 01/20/2023 07:36:07 01/20/20 23 01/20/2023 CBC WITH DIFFE RENTI AL RBC 4.78 M/uL 4.00-5 .50 Not Available [facility] [address] [place], [place], [address], 01/20/2023 07:36:07 01/20/20 23 01/20/2023 CBC WITH DIFFE RENTI AL hemoglobin 12.7 g/dL 12.0-1 6.0 Not Available [facility] [address] [place], [place], [address], 01/20/2023 07:36:07 01/20/20 23 01/20/2023 CBC WITH DIFFE RENTI AL hematocrit 40.0 % 36.0-4 8.0 Not Available [facility] [address] [place], [address], 01/20/2023 07:36:07 01/20/20 23 01/20/2023 CBC WITH DIFFE RENTI AL MCV 83.7 fL 78.0-1 02.0 Not Available [facility] [address] [place], [place], [address], 01/20/2023 07:36:07 01/20/20 23 01/20/2023 CBC WITH DIFFE RENTI AL MCH 26.6 pg 25.0-3 5.0 Not Available [facility] [address] [place], [place], [address], 01/20/2023 07:36:07 01/20/20 23 01/20/2023 CBC WITH DIFFE RENTI AL MCHC 31.8 g/dL 30.0-3 8.0 Not Available [facility] [address] [place], [place], [address], 01/20/2023 07:36:07 01/20/20 23 01/20/2023 CBC WITH DIFFE RENTI AL RDW 15.3 % 11.5-1 6.0 Not Available [facility] [address] [place], [address], 01/20/2023 07:36:07 01/20/20 23 01/20/2023 CBC WITH DIFFE RENTI AL platelet count 379 K/uL 150-45 0 Not Available [facility] [address] [place], [place], [address], 01/20/2023 07:36:07 01/20/20 23 01/20/2023 CBC WITH DIFFE RENTI AL abs neutrophils 8.3 K/uL 1.8-7. 0 high Not Available [facility] [address] [place], [address], 01/20/2023 07:36:07 01/20/20 23 01/20/2023 CBC WITH DIFFE RENTI AL abs lymphocytes 1.4 K/uL 1.0-4. 0 Not Available [facility] [address] [facility] [place], [address], 01/20/2023 07:36:07 01/20/20 23 01/20/2023 CBC WITH DIFFE RENTI AL abs monocytes 0.6 K/uL 0.1-1. 1 Not Available [facility] [address] [facility] [place], [address], 01/20/2023 07:36:07 01/20/20 23 01/20/2023 CBC WITH DIFFE RENTI AL abs eosinophils 0.1 K/uL 0.0-0. 5 Not Available [facility] [address] [facility] [place], [address], 01/20/2023 07:36:07 01/20/20 23 01/20/2023 CBC WITH DIFFE RENTI AL abs basophils 0.0 K/uL 0.0-0. 3 Not Available [facility] [address] [facility] [place], [address], 01/20/2023 07:36:07 01/20/20 23 01/20/2023 HEMOG LOBIN A1C hemoglobin A1C 7.2 % 4.2-5. 6 high Not Available [facility] [address] [facility] [place], [address], 01/20/2023 07:36:07 01/20/20 23 01/20/2023 HEMOG LOBIN [...] labor atory consu ltati on. Not Available [facility] [address] [place], [address], 01/20/2023 07:36:07 01/20/20 23 01/20/2023 LIPID PROFI LE cholesterol 149 mg/dL <200 Not Available [facility] [address] [place] [place], [address], 01/20/2023 07:36:06 01/20/20 23 01/20/2023 LIPID PROFI LE triglyceride s 79 mg/dL 0-149 Not Available [facility] [address] [place], [address], 01/20/2023 07:36:06 01/20/20 23 01/20/2023 LIPID PROFI LE HDL cholesterol 71 mg/dL >39 Not Available [facility] [address] [place], [address], 01/20/2023 07:36:06 01/20/20 23 01/20/2023 LIPID PROFI LE LDL cholesterol 62 mg/dL <100 Not Available [facility] [address] [place], [address], 01/20/2023 07:36:06 01/20/20 23 01/20/2023 LIPID PROFI LE non HDL cholesterol 78 mg/dL <130 Not Available [facility] [address] [place], [address], 01/20/2023 07:36:06 01/20/20 23 01/20/2023 LIPID PROFI [...] Optim al) Coron verónica Risk Ratio : [place] ge for femal es < 4.44 Not Available [facility] [address] [facility] [place], [address], 01/20/2023 07:36:06 01/20/20 23 01/20/2023 COMP METAB OLIC PANEL sodium 143 mEq/L 135-14 6 Not Available [facility] [address] [place] [place], [address], 01/20/2023 07:36:05 01/20/20 23 01/20/2023 COMP METAB OLIC PANEL potassium 4.6 mEq/L 3.5-5. 4 Not Available [facility] [address] [place] [place], [address], 01/20/2023 07:36:05 01/20/20 23 01/20/2023 COMP METAB OLIC PANEL chloride 97 mEq/L 95-107 Not Available [facility] [address] [place] [place], [address], 01/20/2023 07:36:05 01/20/20 23 01/20/2023 COMP METAB OLIC PANEL carbon dioxide 25 mEq/L 19-31 Not Available [facility] [address] [place], [place], [address], 01/20/2023 07:36:05 01/20/20 23 01/20/2023 COMP METAB OLIC PANEL anion gap 21 mEq/L 7-23 Not Available [facility] [address] [place], [place], [address], 01/20/2023 07:36:05 01/20/20 23 01/20/2023 COMP METAB OLIC PANEL glucose fasting 138 mg/dL 70-99 high Not Available [facility] [address] [place], [place], [address], 01/20/2023 07:36:05 01/20/20 23 01/20/2023 COMP METAB OLIC PANEL urea nitrogen (BUN) 17 mg/dL 8-23 Not Available [facility] [address] [place], [place], [address], 01/20/2023 07:36:05 01/20/20 23 01/20/2023 COMP METAB OLIC PANEL creatinine 0.79 mg/dL 0.60-1 .30 Not Available [facility] [address] [place], [place], [address], 01/20/2023 07:36:05 01/20/20 23 01/20/2023 COMP METAB OLIC PANEL 2020 CKD-epi eGFR-cr 77 mL/mi n/1.7 3m'2 >59 Not Available [facility] [address] [place], [place], [address], 01/20/2023 07:36:05 01/20/20 23 01/20/2023 COMP METAB OLIC PANEL BUN/creatini ne ratio 22 ratio Not Available [facility] [address] [place], [place], [address], 01/20/2023 07:36:05 01/20/20 23 01/20/2023 COMP METAB OLIC PANEL calcium total 9.9 mg/dL 8.5-10 .5 Not Available [facility] [address] [place], [address], 01/20/2023 07:36:05 01/20/20 23 01/20/2023 COMP METAB OLIC PANEL protein total 7.3 g/dL 6.1-8. 3 Not Available [facility] [address] [place], [address], 01/20/2023 07:36:05 01/20/20 23 01/20/2023 COMP METAB OLIC PANEL albumin 4.7 g/dL 3.5-5. 2 Not Available [facility] [address] [place], [address], 01/20/2023 07:36:05 01/20/20 23 01/20/2023 COMP METAB OLIC PANEL globulin 2.6 g/dL 1.7-4. 3 Not Available [facility] [address] [place], [address], 01/20/2023 07:36:05 01/20/20 23 01/20/2023 COMP METAB OLIC PANEL A/G ratio 1.8 ratio 0.9-2. 8 Not Available [facility] [address] [place], [address], 01/20/2023 07:36:05 01/20/20 23 01/20/2023 COMP METAB OLIC PANEL bilirubin total 0.3 mg/dL 0.0-1. 2 Not Available [facility] [address] [place], [address], 01/20/2023 07:36:05 01/20/20 23 01/20/2023 COMP METAB OLIC PANEL alkaline phosphatase 80 U/L 40-142 Not Available [facility] [address] [place], [place], [address], 01/20/2023 07:36:05 01/20/20 23 01/20/2023 COMP METAB OLIC PANEL AST (SGOT) 20 U/L 9-40 Not Available [facility] [address] [place], [address], 01/20/2023 07:36:05 01/20/20 23 01/20/2023 COMP METAB OLIC PANEL ALT (SGPT) 12 U/L 5-40 Not Available [facility] [address] [place], [address], 01/20/2023 07:36:05 01/17/20 24 01/18/2024 CBC WITH DIFFE RENTI AL abs immature grans 0.0 K/uL 0.0-0. 1 Not Available [facility] [address] [place], [address], 01/18/2024 07:11:48 01/17/20 24 01/18/2024 CBC WITH DIFFE RENTI AL abs neutrophils 8.3 K/uL 1.8-7. 0 high Not Available [facility] [address] [place], [address], 01/18/2024 07:11:48 01/17/20 24 01/18/2024 CBC WITH DIFFE RENTI AL abs lymphocytes 1.1 K/uL 1.0-4. 0 Not Available [facility] [address] [place], [address], 01/18/2024 07:11:48 01/17/20 24 01/18/2024 CBC WITH DIFFE RENTI AL abs monocytes 0.4 K/uL 0.1-1. 1 Not Available [facility] [address] [place], [address], 01/18/2024 07:11:48 01/17/20 24 01/18/2024 CBC WITH DIFFE RENTI AL abs eosinophils 0.0 K/uL 0.0-0. 5 Not Available [facility] [address] [place], [address], 01/18/2024 07:11:48 01/17/20 24 01/18/2024 CBC WITH DIFFE RENTI AL abs basophils 0.0 K/uL 0.0-0. 3 Not Available [facility] [address] [place], [address], 01/18/2024 07:11:48 01/17/20 24 01/18/2024 CBC WITH DIFFE RENTI AL neutrophils 83.8 % Not Available [facility] [address] [place], [address], 01/18/2024 07:11:48 01/17/20 24 01/18/2024 CBC WITH DIFFE RENTI AL lymphocytes 10.8 % Not Available [facility] [address] [place], [address], 01/18/2024 07:11:48 01/17/20 24 01/18/2024 CBC WITH DIFFE RENTI AL monocytes 4.5 % Not Available [facility] [address] [place], [address], 01/18/2024 07:11:48 01/17/20 24 01/18/2024 CBC WITH DIFFE RENTI AL eosinophils 0.3 % Not Available [facility] [address] [place], [address], 01/18/2024 07:11:48 01/17/20 24 01/18/2024 CBC WITH DIFFE RENTI AL basophils 0.3 % Not Available [facility] [address], [place], [address], 01/18/2024 07:11:48 01/17/20 24 01/18/2024 CBC WITH DIFFE RENTI AL immature grans 0.3 % Not Available [facility] [address], [place], [address], 01/18/2024 07:11:48 01/17/20 24 01/18/2024 CBC WITH DIFFE RENTI AL nucleated RBCs <1.0 /100_ WBCs <1 Not Available [facility] ([facility] [address], [place], [address], 01/18/2024 07:11:48 01/17/20 24 01/18/2024 CBC WITH DIFFE RENTI AL WBC 9.9 K/uL 4.0-11 .0 Not Available [facility] ([facility] [address], [place], [address], 01/18/2024 07:11:48 01/17/20 24 01/18/2024 CBC WITH DIFFE RENTI AL RBC 4.25 M/uL 4.00-5 .50 Not Available [facility] ([facility] [address], [place], [address], 01/18/2024 07:11:48 01/17/20 24 01/18/2024 CBC WITH DIFFE RENTI AL hemoglobin 11.8 g/dL 12.0-1 6.0 low Not Available [facility] ([facility] [address], [place], [address], 01/18/2024 07:11:48 01/17/20 24 01/18/2024 CBC WITH DIFFE RENTI AL hematocrit 37.0 % 36.0-4 8.0 Not Available [facility] [address], [place], [address], 01/18/2024 07:11:48 01/17/20 24 01/18/2024 CBC WITH DIFFE RENTI AL MCV 87.1 fL 78.0-1 02.0 Not Available [facility] [address], [place], [address], 01/18/2024 07:11:48 01/17/20 24 01/18/2024 CBC WITH DIFFE RENTI AL MCH 27.8 pg 25.0-3 5.0 Not Available [facility] [address], [place], [address], 01/18/2024 07:11:48 01/17/20 24 01/18/2024 CBC WITH DIFFE RENTI AL MCHC 31.9 g/dL 30.0-3 8.0 Not Available [facility] [address], [place], [address], 01/18/2024 07:11:48 01/17/20 24 01/18/2024 CBC WITH DIFFE RENTI AL RDW 13.5 % 11.5-1 6.0 Not Available [facility] [address] [place], [place], [address], 01/18/2024 07:11:48 01/17/20 24 01/18/2024 CBC WITH DIFFE RENTI AL platelet count 387 K/uL 150-45 0 Not Available [facility] [address] [place], [address], 01/18/2024 07:11:48 01/17/20 24 01/18/2024 HEMOG LOBIN A1C hemoglobin A1C 6.8 % 4.2-5. 6 high Not Available [facility] [address] [place], [place], [address], 01/18/2024 07:11:47 01/17/20 24 01/18/2024 HEMOG LOBIN [...] labor atory consu ltati on. Not Available [facility] [address] [place], [address], 01/18/2024 07:11:47 01/17/20 24 01/18/2024 LIPID PROFI LE cholesterol 138 mg/dL <200 Not Available [facility] [address] [place], [address], 01/18/2024 07:11:47 01/17/20 24 01/18/2024 LIPID PROFI LE triglyceride s 89 mg/dL 0-149 Not Available [facility] [address] [place], [address], 01/18/2024 07:11:47 01/17/20 24 01/18/2024 LIPID PROFI LE HDL cholesterol 57 mg/dL >39 Not Available [facility] [address] [place], [address], 01/18/2024 07:11:47 01/17/20 24 01/18/2024 LIPID PROFI LE LDL cholesterol 64 mg/dL <100 Not Available [facility] [address] [facility], [address], 01/18/2024 07:11:47 01/17/20 24 01/18/2024 LIPID PROFI LE non HDL cholesterol 81 mg/dL <130 Not Available [facility] [address] [place], [address], 01/18/2024 07:11:47 01/17/20 24 01/18/2024 LIPID PROFI [...] Optim al) Coron verónica Risk Ratio : [place] for femal es < 4.44 Not Available [facility] [address] [place], [address], 01/18/2024 07:11:47 01/17/20 24 01/18/2024 COMP METAB OLIC PANEL sodium 141 mEq/L 135-14 6 Not Available [facility] [address] [place], [address], 01/18/2024 07:11:46 01/17/20 24 01/18/2024 COMP METAB OLIC PANEL potassium 5.4 mEq/L 3.5-5. 4 Not Available [facility] ([facility] [address] [place], [address], 01/18/2024 07:11:46 01/17/20 24 01/18/2024 COMP METAB OLIC PANEL chloride 99 mEq/L 95-107 Not Available [facility] ([facility] [address] [place], [address], 01/18/2024 07:11:46 01/17/20 24 01/18/2024 COMP METAB OLIC PANEL carbon dioxide 22 mEq/L 19-31 Not Available [facility] [address] [place], [address], 01/18/2024 07:11:46 01/17/20 24 01/18/2024 COMP METAB OLIC PANEL anion gap 20 mEq/L 7-23 Not Available [facility] ([facility] [address], [place], [address], 01/18/2024 07:11:46 01/17/20 24 01/18/2024 COMP METAB OLIC PANEL glucose fasting 124 mg/dL 70-99 high Not Available [facility] [address], [place], [address], 01/18/2024 07:11:46 01/17/20 24 01/18/2024 COMP METAB OLIC PANEL urea nitrogen (BUN) 33 mg/dL 8-23 high Not Available [facility] [address], [place], [address], 01/18/2024 07:11:46 01/17/20 24 01/18/2024 COMP METAB OLIC PANEL creatinine 1.32 mg/dL 0.60-1 .30 high Not Available [facility] ([facility] [address], [place], [address], 01/18/2024 07:11:46 01/17/20 24 01/18/2024 COMP METAB OLIC PANEL 2020 CKD-epi eGFR-cr 41 mL/mi n/1.7 3m'2 >59 low Not Available [facility] ([facility] [address], [place], [address], 01/18/2024 07:11:46 01/17/20 24 01/18/2024 COMP METAB OLIC PANEL BUN/creatini ne ratio 25 ratio Not Available [facility] ([facility]) [address], [place], [address], 01/18/2024 07:11:46 01/17/20 24 01/18/2024 COMP METAB OLIC PANEL calcium total 10.1 mg/dL 8.5-10 .5 Not Available [facility] ([facility] [address] [place], [address], 01/18/2024 07:11:46 01/17/20 24 01/18/2024 COMP METAB OLIC PANEL protein total 7.6 g/dL 6.1-8. 3 Not Available [facility] ([facility] [address] [place], [address], 01/18/2024 07:11:46 01/17/20 24 01/18/2024 COMP METAB OLIC PANEL albumin 4.7 g/dL 3.5-5. 2 Not Available [facility] [address] [place], [address], 01/18/2024 07:11:46 01/17/20 24 01/18/2024 COMP METAB OLIC PANEL globulin 2.9 g/dL 1.7-4. 3 Not Available [facility] ([facility] [address] [place], [address], 01/18/2024 07:11:46 01/17/20 24 01/18/2024 COMP METAB OLIC PANEL A/G ratio 1.6 ratio 0.9-2. 8 Not Available [facility] ([facility] [address] [place], [address], 01/18/2024 07:11:46 01/17/20 24 01/18/2024 COMP METAB OLIC PANEL bilirubin total 0.3 mg/dL 0.0-1. 2 Not Available [facility] [address] [place], [address], 01/18/2024 07:11:46 01/17/20 24 01/18/2024 COMP METAB OLIC PANEL alkaline phosphatase 77 U/L 40-142 Not Available [facility] [address] [place], [address], 01/18/2024 07:11:46 01/17/20 24 01/18/2024 COMP METAB OLIC PANEL AST (SGOT) 20 U/L 9-40 Not Available [facility] [address], [place], [address], 01/18/2024 07:11:46 01/17/20 24 01/18/2024 COMP METAB OLIC PANEL ALT (SGPT) 14 U/L 5-40 Not Available [facility] [address], [place], [address], 01/18/2024 07:11:46 07/21/20 24 07/22/2024 CBC WITH DIFFE RENTI AL WBC 9.5 K/uL 4.0-11 .0 Not Available [facility] [address] [place], [address], 07/22/2024 08:34:08 07/21/20 24 07/22/2024 CBC WITH DIFFE RENTI AL RBC 4.48 M/uL 4.00-5 .50 Not Available [facility] [address] [place], [address], 07/22/2024 08:34:08 07/21/20 24 07/22/2024 CBC WITH DIFFE RENTI AL hemoglobin 12.1 g/dL 12.0-1 6.0 Not Available [facility] ([facility] [address], [place], [address], 07/22/2024 08:34:08 07/21/20 24 07/22/2024 CBC WITH DIFFE RENTI AL hematocrit 38.7 % 36.0-4 8.0 Not Available [facility] ([facility] [address] [place], [address], 07/22/2024 08:34:08 07/21/20 24 07/22/2024 CBC WITH DIFFE RENTI AL MCV 86.4 fL 78.0-1 02.0 Not Available [facility] ([facility] [address] [place], [address], 07/22/2024 08:34:08 07/21/20 24 07/22/2024 CBC WITH DIFFE RENTI AL MCH 27.0 pg 25.0-3 5.0 Not Available [facility] [address] [place], [address], 07/22/2024 08:34:08 07/21/20 24 07/22/2024 CBC WITH DIFFE RENTI AL MCHC 31.3 g/dL 30.0-3 8.0 Not Available [facility] [address] [place], [address], 07/22/2024 08:34:08 07/21/20 24 07/22/2024 CBC WITH DIFFE RENTI AL RDW 15.3 % 11.5-1 6.0 Not Available [facility] [address] [place], [address], 07/22/2024 08:34:08 07/21/20 24 07/22/2024 CBC WITH DIFFE RENTI AL platelet count 345 K/uL 150-45 0 Not Available [facility] ([facility] [address] [place], [address], 07/22/2024 08:34:08 07/21/20 24 07/22/2024 CBC WITH DIFFE RENTI AL abs neutrophils 7.8 K/uL 1.8-7. 0 high Not Available [facility] [address] [place], [address], 07/22/2024 08:34:08 07/21/20 24 07/22/2024 CBC WITH DIFFE RENTI AL abs lymphocytes 1.2 K/uL 1.0-4. 0 Not Available [facility] [address] [place], [address], 07/22/2024 08:34:08 07/21/20 24 07/22/2024 CBC WITH DIFFE RENTI AL abs monocytes 0.5 K/uL 0.1-1. 1 Not Available [facility] [address] [place], [address], 07/22/2024 08:34:08 07/21/20 24 07/22/2024 CBC WITH DIFFE RENTI AL abs eosinophils 0.0 K/uL 0.0-0. 5 Not Available [facility] [address] [place], [address], 07/22/2024 08:34:08 07/21/20 24 07/22/2024 CBC WITH DIFFE RENTI AL abs basophils 0.0 K/uL 0.0-0. 3 Not Available [facility] [address] [place], [address], 07/22/2024 08:34:08 07/21/20 24 07/22/2024 CBC WITH DIFFE RENTI AL abs immature grans 0.0 K/uL 0.0-0. 1 Not Available [facility] [address] [place], [address], 07/22/2024 08:34:08 07/21/20 24 07/22/2024 CBC WITH DIFFE RENTI AL neutrophils 81.6 % Not Available [facility] [address], [place], [address], 07/22/2024 08:34:08 07/21/20 24 07/22/2024 CBC WITH DIFFE RENTI AL lymphocytes 12.2 % Not Available [facility] [address] [place], [address], 07/22/2024 08:34:08 07/21/20 24 07/22/2024 CBC WITH DIFFE RENTI AL monocytes 5.3 % Not Available [facility] [address] [place], [address], 07/22/2024 08:34:08 07/21/20 24 07/22/2024 CBC WITH DIFFE RENTI AL eosinophils 0.3 % Not Available [facility] [address] [place], [address], 07/22/2024 08:34:08 07/21/20 24 07/22/2024 CBC WITH DIFFE RENTI AL basophils 0.3 % Not Available [facility] [address] [place], [address], 07/22/2024 08:34:08 07/21/20 24 07/22/2024 CBC WITH DIFFE RENTI AL immature grans 0.3 % Not Available [facility] [address] [place], [address], 07/22/2024 08:34:08 07/21/20 24 07/22/2024 CBC WITH DIFFE RENTI AL nucleated RBCs <1.0 /100_ WBCs <1 Not Available [facility] [address] [place], [address], 07/22/2024 08:34:08 07/21/20 24 07/22/2024 HEMOG LOBIN A1C hemoglobin A1C 6.7 % 4.2-5. 6 high Not Available [facility] [address] [place], [address], 07/22/2024 08:34:07 07/21/20 24 07/22/2024 HEMOG LOBIN [...] labor atory consu ltati on. Not Available [facility] [address] [place], [address], 07/22/2024 08:34:07 07/21/20 24 07/22/2024 LIPID PROFI LE cholesterol 146 mg/dL <200 Not Available [facility] [address] [place], [address], 07/22/2024 08:34:07 07/21/20 24 07/22/2024 LIPID PROFI LE triglyceride s 78 mg/dL 0-149 Not Available [facility] [address] [place], [address], 07/22/2024 08:34:07 07/21/20 24 07/22/2024 LIPID PROFI LE HDL cholesterol 63 mg/dL >39 Not Available [facility] [address] [place], [address], 07/22/2024 08:34:07 07/21/20 24 07/22/2024 LIPID PROFI LE LDL cholesterol 67 mg/dL <100 Not Available [facility] [address] [place], [address], 07/22/2024 08:34:07 07/21/20 24 07/22/2024 LIPID PROFI LE non HDL cholesterol 83 mg/dL <130 Not Available [facility] [address] [place], [address], 07/22/2024 08:34:07 07/21/20 24 07/22/2024 LIPID PROFI [...] Optim al) Coron verónica Risk Ratio : [place] for femal es < 4.44 Not Available [facility] [address] [place], [address], 07/22/2024 08:34:07 07/21/20 24 07/22/2024 COMP METAB OLIC PANEL carbon dioxide 23 mEq/L 19-31 Not Available [facility] [address] [place], [address], 07/22/2024 08:34:06 07/21/20 24 07/22/2024 COMP METAB OLIC PANEL sodium 141 mEq/L 135-14 6 Not Available [facility] [address], [place], [address], 07/22/2024 08:34:06 07/21/20 24 07/22/2024 COMP METAB OLIC PANEL potassium 5.3 mEq/L 3.5-5. 4 Not Available [facility] [address] [place], [address], 07/22/2024 08:34:06 07/21/20 24 07/22/2024 COMP METAB OLIC PANEL chloride 101 mEq/L 95-107 Not Available [facility] [address] [place], [address], 07/22/2024 08:34:06 07/21/20 24 07/22/2024 COMP METAB OLIC PANEL anion gap 17 mEq/L 7-23 Not Available [facility] [address] [place], [address], 07/22/2024 08:34:06 07/21/20 24 07/22/2024 COMP METAB OLIC PANEL glucose fasting 108 mg/dL 70-99 high Not Available [facility] [address] [place], [address], 07/22/2024 08:34:06 07/21/20 24 07/22/2024 COMP METAB OLIC PANEL urea nitrogen (BUN) 24 mg/dL 8-23 high Not Available [facility] [address] [place], [address], 07/22/2024 08:34:06 07/21/20 24 07/22/2024 COMP METAB OLIC PANEL creatinine 1.47 mg/dL 0.60-1 .30 high Not Available [facility] [address] [place], [address], 07/22/2024 08:34:06 07/21/20 24 07/22/2024 COMP METAB OLIC PANEL 2020 CKD-epi eGFR-cr 36 mL/mi n/1.7 3m'2 >59 low Not Available [facility] [address], [place], [address], 07/22/2024 08:34:06 07/21/20 24 07/22/2024 COMP METAB OLIC PANEL BUN/creatini ne ratio 16 ratio Not Available [facility] [address] [place], [address], 07/22/2024 08:34:06 07/21/20 24 07/22/2024 COMP METAB OLIC PANEL calcium total 9.5 mg/dL 8.5-10 .5 Not Available [facility] [address] [place], [address], 07/22/2024 08:34:06 07/21/20 24 07/22/2024 COMP METAB OLIC PANEL protein total 7.2 g/dL 6.1-8. 3 Not Available [facility] [address] [place], [address], 07/22/2024 08:34:06 07/21/20 24 07/22/2024 COMP METAB OLIC PANEL albumin 4.4 g/dL 3.5-5. 2 Not Available [facility] [address] [place], [address], 07/22/2024 08:34:06 07/21/20 24 07/22/2024 COMP METAB OLIC PANEL globulin 2.8 g/dL 1.7-4. 3 Not Available [facility] [address] [place], [address], 07/22/2024 08:34:06 07/21/20 24 07/22/2024 COMP METAB OLIC PANEL A/G ratio 1.6 ratio 0.9-2. 8 Not Available [facility] [address] [place], [address], 07/22/2024 08:34:06 07/21/20 24 07/22/2024 COMP METAB OLIC PANEL bilirubin total 0.4 mg/dL 0.0-1. 2 Not Available [facility] [address] [place], [address], 07/22/2024 08:34:06 07/21/20 24 07/22/2024 COMP METAB OLIC PANEL alkaline phosphatase 70 U/L 40-142 Not Available [facility] [address] [place], [address], 07/22/2024 08:34:06 07/21/20 24 07/22/2024 COMP METAB OLIC PANEL AST (SGOT) 17 U/L 9-40 Not Available [facility] [address] [place], [address], 07/22/2024 08:34:06 07/21/20 24 07/22/2024 COMP METAB OLIC PANEL ALT (SGPT) 11 U/L 5-40 Not Available [facility] [address] [place], [address], 07/22/2024 08:34:06 02/17/20 25 02/17/2025 COMP METAB OLIC PANEL sodium 140 mEq/L 135-14 6 Not Available [facility] [address] [place], [address], 02/17/2025 06:42:09 02/17/20 25 02/17/2025 COMP METAB OLIC PANEL potassium 4.9 mEq/L 3.5-5. 4 Not Available [facility] [address] [place], [address], 02/17/2025 06:42:09 02/17/20 25 02/17/2025 COMP METAB OLIC PANEL chloride 100 mEq/L 95-107 Not Available [facility] [address], [place], [address], 02/17/2025 06:42:09 02/17/20 25 02/17/2025 COMP METAB OLIC PANEL carbon dioxide 23 mEq/L 19-31 Not Available [facility] [address] [place], [address], 02/17/2025 06:42:09 02/17/20 25 02/17/2025 COMP METAB OLIC PANEL anion gap 17 mEq/L 7-23 Not Available [facility] [address], [place], [address], 02/17/2025 06:42:09 02/17/20 25 02/17/2025 COMP METAB OLIC PANEL glucose non-fasting 126 mg/dL 70-139 Not Available [facility] [address], [place], [address], 02/17/2025 06:42:09 02/17/20 25 02/17/2025 COMP METAB OLIC PANEL urea nitrogen (BUN) 30 mg/dL 8-23 high Not Available [facility] [address], [place], [address], 02/17/2025 06:42:09 02/17/20 25 02/17/2025 COMP METAB OLIC PANEL creatinine 1.28 mg/dL 0.60-1 .30 Not Available [facility] [address] [place], [address], 02/17/2025 06:42:09 02/17/20 25 02/17/2025 COMP METAB OLIC PANEL 2020 CKD-epi eGFR-cr 43 mL/mi n/1.7 3m'2 >59 low Not Available [facility] [address], [place], [address], 02/17/2025 06:42:09 02/17/20 25 02/17/2025 COMP METAB OLIC PANEL BUN/creatini ne ratio 23 ratio Not Available [facility] [address], [place], [address], 02/17/2025 06:42:09 02/17/20 25 02/17/2025 COMP METAB OLIC PANEL calcium total 10.3 mg/dL 8.5-10 .5 Not Available [facility] [address] [place], [address], 02/17/2025 06:42:09 02/17/20 25 02/17/2025 COMP METAB OLIC PANEL protein total 7.3 g/dL 6.1-8. 3 Not Available [facility] [address] [place], [address], 02/17/2025 06:42:09 02/17/20 25 02/17/2025 COMP METAB OLIC PANEL albumin 4.1 g/dL 3.5-5. 2 Not Available [facility] [address] [place], [address], 02/17/2025 06:42:09 02/17/20 25 02/17/2025 COMP METAB OLIC PANEL globulin 3.2 g/dL 1.7-4. 3 Not Available [facility] [address] [place], [address], 02/17/2025 06:42:09 02/17/20 25 02/17/2025 COMP METAB OLIC PANEL A/G ratio 1.3 ratio 0.9-2. 8 Not Available [facility] [address] [place], [address], 02/17/2025 06:42:09 02/17/2002/17/2025 COMP METAB OLIC PANEL bilirubin total 0.3 mg/dL 0.0-1. 2 Not Available [facility] [address] [place], [address], 02/17/2025 06:42:09 02/17/2002/17/2025 COMP METAB OLIC PANEL alkaline phosphatase 98 U/L 40-142 Not Available [facility] [address] [place], [address], 02/17/2025 06:42:09 02/17/2002/17/2025 COMP METAB OLIC PANEL AST (SGOT) 18 U/L 9-40 Not Available [facility] [address] [place], [address], 02/17/2025 06:42:09 02/17/2002/17/2025 COMP METAB OLIC PANEL ALT (SGPT) 10 U/L 5-40 Comme nt for COMP METAB OLIC PANEL Fasti ng statu s not provi ded. If the patie nt faste d the appro priat e gluco se refer ence range is 70-99 mg/dL . Not Available [facility] [address] [place], [address], 02/17/2025 06:42:09 02/17/2002/17/2025 LIPID PROFI LE cholesterol 162 mg/dL <200 Not Available [facility] [address] [place], [address], 02/17/2025 06:42:10 02/17/2002/17/2025 LIPID PROFI LE triglyceride s 122 mg/dL 0-149 Not Available [facility] [address] [place], [address], 02/17/2025 06:42:10 02/17/20 25 02/17/2025 LIPID PROFI LE HDL cholesterol 62 mg/dL >39 Not Available [facility] [address] [place], [address], 02/17/2025 06:42:10 02/17/20 25 02/17/2025 LIPID PROFI LE LDL cholesterol 78 mg/dL <100 Not Available [facility] [address] [facility] [place], [address], 02/17/2025 06:42:10 02/17/20 25 02/17/2025 LIPID PROFI LE non HDL cholesterol 100 mg/dL <130 Not Available [facility] [address] [place], [address], 02/17/2025 06:42:10 02/17/20 25 02/17/2025 LIPID PROFI LE coronary risk ratio 2.61 <4.44 Comme nt for LIPID PROFI LE [...] Optim al) Coron verónica Risk Ratio : [place] for femal es < 4.44 Not Available [facility] [address] [facility] [place], [address], 02/17/2025 06:42:10 02/17/20 25 02/17/2025 HEMOG LOBIN A1C hemoglobin A1C 6.6 % 4.2-5. 6 high Not Available [facility] [address] [place] [place], [address], 02/17/2025 06:42:10 02/17/2002/17/2025 HEMOG LOBIN A1C mean glucose est 143 mg/dL Comme nt for HEMOG LOBIN A1C [...] labor atory consu ltati on. Not Available [facility] [address] [place], [address], 02/17/2025 06:42:10 02/17/2002/17/2025 THYRO ID STIM HORMO NE TSH 2.1 mIU/L 0.40-4 .1 Not Available [facility] [address] [place], [address], 02/17/2025 06:42:11 02/17/2002/17/2025 CBC WITH DIFFE RENTI AL WBC 10.3 K/uL 4.0-11 .0 Not Available [facility] [address] [place], [address], 02/17/2025 06:42:11 02/17/2002/17/2025 CBC WITH DIFFE RENTI AL RBC 4.51 M/uL 4.00-5 .50 Not Available [facility] [address] [place], [address], 02/17/2025 06:42:11 02/17/20 25 02/17/2025 CBC WITH DIFFE RENTI AL hemoglobin 12.0 g/dL 12.0-1 6.0 Not Available [facility] [address], [place], [address], 02/17/2025 06:42:11 02/17/2002/17/2025 CBC WITH DIFFE RENTI AL hematocrit 38.4 % 36.0-4 8.0 Not Available [facility] ([facility] [address] [place], [address], 02/17/2025 06:42:11 02/17/2002/17/2025 CBC WITH DIFFE RENTI AL MCV 85.1 fL 78.0-1 02.0 Not Available [facility] ([facility] [address] [place], [address], 02/17/2025 06:42:11 02/17/2002/17/2025 CBC WITH DIFFE RENTI AL MCH 26.6 pg 25.0-3 5.0 Not Available [facility] [address] [place], [address], 02/17/2025 06:42:11 02/17/2002/17/2025 CBC WITH DIFFE RENTI AL MCHC 31.3 g/dL 30.0-3 8.0 Not Available [facility] ([facility] [address] [place], [address], 02/17/2025 06:42:11 02/17/2002/17/2025 CBC WITH DIFFE RENTI AL RDW 15.6 % 11.5-1 6.0 Not Available [facility] ([facility] [address] [place], [address], 02/17/2025 06:42:11 02/17/20 25 02/17/2025 CBC WITH DIFFE RENTI AL platelet count 389 K/uL 150-45 0 Not Available [facility] ([facility] [address], [place], [address], 02/17/2025 06:42:11 02/17/20 25 02/17/2025 CBC WITH DIFFE RENTI AL abs neutrophils 9.0 K/uL 1.8-7. 0 high Not Available [facility] ([facility] [address] [place], [address], 02/17/2025 06:42:11 02/17/20 25 02/17/2025 CBC WITH DIFFE RENTI AL abs lymphocytes 0.8 K/uL 1.0-4. 0 low Not Available [facility] [address], [place], [address], 02/17/2025 06:42:11 02/17/20 25 02/17/2025 CBC WITH DIFFE RENTI AL abs monocytes 0.5 K/uL 0.1-1. 1 Not Available [facility] [address], [place], [address], 02/17/2025 06:42:11 02/17/20 25 02/17/2025 CBC WITH DIFFE RENTI AL abs eosinophils 0.0 K/uL 0.0-0. 5 Not Available [facility] ([facility] [address] [place], [address], 02/17/2025 06:42:11 02/17/20 25 02/17/2025 CBC WITH DIFFE RENTI AL abs basophils 0.0 K/uL 0.0-0. 3 Not Available [facility] ([facility] [address] [place], [address], 02/17/2025 06:42:11 02/17/20 25 02/17/2025 CBC WITH DIFFE RENTI AL abs immature grans 0.0 K/uL 0.0-0. 1 Not Available [facility] ([facility] [address], [place], [address], 02/17/2025 06:42:11 02/17/20 25 02/17/2025 CBC WITH DIFFE RENTI AL neutrophils 87.0 % Not Available [facility] [address], [place], [address], 02/17/2025 06:42:11 02/17/20 25 02/17/2025 CBC WITH DIFFE RENTI AL lymphocytes 7.8 % Not Available [facility] [address], [place], [address], 02/17/2025 06:42:11 02/17/20 25 02/17/2025 CBC WITH DIFFE RENTI AL monocytes 4.4 % Not Available [facility] ([facility] [address] [place], [address], 02/17/2025 06:42:11 02/17/20 25 02/17/2025 CBC WITH DIFFE RENTI AL eosinophils 0.3 % Not Available [facility] [address] [place], [address], 02/17/2025 06:42:11 02/17/20 25 02/17/2025 CBC WITH DIFFE RENTI AL basophils 0.3 % Not Available [facility] ([facility] [address] [place], [address], 02/17/2025 06:42:11 02/17/20 25 02/17/2025 CBC WITH DIFFE RENTI AL immature grans 0.2 % Not Available [facility] [address] [place], [address], 02/17/2025 06:42:11 02/17/20 25 02/17/2025 CBC WITH DIFFE RENTI AL nucleated RBCs <1.0 /100_ WBCs <1 Not Available [facility] [address] [facility], [place], [address], 02/17/2025 06:42:11 Result Notes None recorded. Problems Name Problem SNOMED Code Status Onset Date Resolution Date Notes Provider Name and Address Organization Details Recorded Time Wound abscess 773599897 Completed Not Available [facility] 4 20:17:29 Basal cell carcinoma of skin 652133399 Active Not Available [facility] 20:17:29 Abscess of back 331593161 Completed Not Available [facility] 20:17:30 Type 2 diabetes mellitus without complicati on 005538843 Active Not Available [facility] 20:17:30 Osteoarthr itis 043956270 Active Not Available [facility] 20:17:30 Angioedema 41543678 Active Not Available [facility] 20:17:30 Essential hypertensi on 89116697 Active Not Available [facility] 20:17:30 Problem Notes None recorded. Procedures Surgical History Date Name Laterality Status Provider Name and Address Organization Details Recorded Time Appendectomy completed Not Available [facility] 09/14/2024 20:01:28 Orthopedic Surgery completed Not Available [facility] 09/14/2024 20:01:28 Imaging Results None recorded. Procedure Notes None recorded. Medical Equipment None Reported. Allergies Allergen ID Allergen Name Allergen Category Reaction Reaction Severity Criticality Documentation Date Start Date Code Code System Note Provider Name and Address Organization Details Recorded Time 47524 lisinopri l medicatio n angioedem a severe Not available 09/14/20242014 93292 RxNorm Not Available [facility] 4 20:25:45 Medications Name Sig Start Date Stop Date Status Note LastModified by Organization Details LastModified Time celecoxib 200 mg capsule Take 1 capsule every day by oral route. 01/19 completed Not Available Not Available Not Available prednisone 10 mg tablet 07/14 completed Not Available Not Available Not Available atorvastati n 20 mg tablet TAKE ONE TABLET BY MOUTH EVERY DAY BEDTIME active Not Available Not Available No t Available albuterol sulfate 2.5 mg/3 mL (0.083 %) solution for nebulizatio n Inhale 3 mL every 4 hours by nebulizat ion route as needed. active Not Available Not Available No t Available trazodone 50 mg tablet Take 1 tablet every day by oral route at bedtime. active Not Available Not Available No t Available cetirizine 10 mg tablet Take 1 [...] hydrocodone 5 mg-acetamin ophen 325 mg tablet active Not Available Not Available No t Available prednisone 20 mg tablet Take 2 [...] Not Available Not Available Aspir-Low 81 mg tablet,rdew yed release Take 1 tablet every day by oral route. 05/26 completed Not Available Not Available Not Available sulfamethox azole 800 mg-trimetho prim 160 mg tablet active Not Available Not Available Not Available tramadol 50 mg tablet 03/12 completed Not Available Not Available Not Available spironolact one 25 mg tablet Take 1 tablet every day by oral route. 07/21 completed Not Available Not Available Not Available simvastatin 40 mg tablet Take 1 tablet every day by oral route. 2013 active Not Available Not Available Not Avai lable meloxicam 7.5 mg tablet Take 1 tablet [...] BY MOUTH EVERY DAY BEFORE A MEAL active Not Available Not Available No t Available metformin 1,000 mg tablet TAKE ONE TABLET BY MOUTH TWICE DAILY active Not Available Not Available No t Available bupropion HCl 75 mg tablet Take 1 tablet twice a day by oral route. active Not Available Not Available No t Available nitroglycer in 0.[address] 1 tablet by sublingua l route as directed for 30 days. active Not Available Not Available No t Available budesonide 0.5 mg/2 mL suspension for nebulizatio n Inhale 2 mL twice a day by nebulizat ion route. active Not Available Not Available No t Available hydrochloro thiazide 25 mg tablet TAKE [...] Not Available No t Available amoxicillin 875 mg-potassiu m clavulanate 125 mg tablet Take 1 tablet every 12 hours by oral route for 7 days. active Not Available Not Available No t Available Aspir-Carmela 325 mg tablet,drew yed release Take 1 tablet every day by oral route. 2019 active Not Available Not Available Not Avai lable oxycodone 5 mg tablet Take 1 tablet [...] Not Available atenolol 50mg once a day 2013 active Not Available Not Available Not Avai lable Breeze 2 Test Strips 01/19 completed Not Available Not Available Not Available Symbicort 160 mcg-4.5 mcg/actuati on HFA aerosol inhaler Inhale 1 puff twice a day by inhalatio n route. 06/23 completed Not Available Not Available Not Available Mucinex 1,200 mg tablet, extended release Take 1 tablet twice a day by oral route as needed. 01/16 completed Not Available Not Available Not Available Eliquis 5 mg tablet Take 1 tablet twice a day by oral route. 2024 active Not Available Not Available Not Avai lable Biofreeze (menthol) 4 % topical gel Apply [...] puff every day by inhalatio n route. active Not Available Not Available No t Available AdhereTechTouch Ultra Blue Test Strip USE DAILY DIRECTED active Not Available Not Available No t Available Vitals Date Recorded Oxygen saturation Oxygen saturation in Arterial blood by Pulse oximetry Heart rate Body height Body mass index (BMI) Body weight Body temperature Systolic And Diastolic Provider Name and Address Organization Details Last Updated DateTime 4 91 % 91 % 116 /min 170.18 cm 23 kg/m2 11229.0 8 g 98.2 [degF] 120/59 mm[Hg] Not Available [facility] 4 20:17:11 Date Recorded Body height Oxygen saturation Oxygen saturation in Arterial blood by Pulse oximetry Inhaled oxygen flow rate Body temperature Heart rate Body mass index (BMI) Body weight Systolic And Diastolic Provider Name and Address Organization Details Last Updated DateTime 3 170.18 cm 84 % 84 % 2 L/min 96.9 [degF] 86 /min 23.6 kg/m2 93833.4 5 g 137/82 mm[Hg] Not Available [facility] 4 20:17:11 Date Recorded Body height Body mass index (BMI) Body weight Body temperature Heart rate Oxygen saturation Oxygen saturation in Arterial blood by Pulse oximetry Inhaled oxygen flow rate Systolic And Diastolic Provider Name and Address Organization Details Last Updated DateTime 5 170.18 cm 17.9 kg/m2 90794.5 3 g 98.1 [degF] 74 /min 92 % 92 % 4 L/min 105/64 mm[Hg] jeny [facility] 5 10:01:46 Date Recorded Heart rate Oxygen saturation Oxygen saturation in Arterial blood by Pulse oximetry Inhaled oxygen flow rate Body temperature Body height Systolic And Diastolic Provider Name and Address Organization Details Last Updated DateTime 2 77 /min 92 % 92 % 3 L/min 97.1 [degF] 170.18 cm 135/71 mm[Hg] Not Available [facility] 4 20:17:11 Date Recorded Oxygen saturation Oxygen saturation in Arterial blood by Pulse oximetry Inhaled oxygen flow rate Body height Respiratory rate Body mass index (BMI) Body weight Heart rate Body temperature Systolic And Diastolic Provider Name and Address Organization Details Last Updated DateTime 4 91 % 91 % 4 L/min 170.18 cm 22 /min 21.2 kg/m2 46280.1 3 g 82 /min 96 [degF] 96/54 mm[Hg] Not Available [facility] 4 20:17:11 Social History Question Answer Notes LastModified by [employer] ion Details LastModified Time Tobacco Smoking Status Former Smoker Not Available [facility] 09/14/2024 20:02:03 Do You Have An Advance Directive? Yes Filled Forms Out In Office. MIGRATION.[id number] [id number] Information not available 09/14/2024 How Many Years Have You Consumed Alcohol? 0 MIGRATION.97353 37043 Information not available 09/14/2024 Are You Blind Or Do You Have Difficulty Seeing? No MIGRATION.45903 90334 Information not available 09/14/2024 What Is Your Level Of Caffeine Consumption? Occasional MIGRATION.72153 11924 Information not available 09/14/2024 How Much Tobacco Do You Chew? None MIGRATION.85447 34649 Information not available 09/14/2024 In The 14 Days Before Symptom Onset, Have You Had Close Contact With A Laboratory-confir med COVID-19 While That Case Was Ill? No MIGRATION.23736 81006 Information not available 09/14/2024 In The 14 Days Before Symptom Onset, Have You Had Close Contact With A Person Who Is Under Investigation For COVID-19 While That Person Was Ill? No MIGRATION.51536 39519 Information not available 09/14/2024 Have You Been To An Area Known To Be High Risk For COVID-19? No MIGRATION.52651 49071 Information not available 09/14/2024 Are You Deaf Or Do You Have Serious Difficulty Hearing? No MIGRATION.27020 41475 Information not available 09/14/2024 What Type Of Diet Are You Following? REGULAR MIGRATION.56536 04295 Information not available 09/14/2024 What Is The Highest Grade Or Level Of School You Have Completed Or The Highest Degree You Have Received? [id number] MIGRATION.74733 31931 Information not available 09/14/2024 How Many Days Of Moderate To Strenuous Exercise, Like A Brisk Walk, Did You Do In The Last 7 Days? 0 MIGRATION.74027 88953 Information not available 09/14/2024 On Those Days That You Engage In Moderate To Strenuous Exercise, How Many Minutes, On Average, Do You Exercise? 0 MIGRATION.67298 96170 Information not available 09/14/2024 Are There Any Guns Present In Your Home? Yes MIGRATION.06926 18411 Information not available 09/14/2024 Longitudinal Care Management No MIGRATION.19007 34008 Information not available 09/14/2024 Episodic Care Management No MIGRATION.74244 85262 Information not available 09/14/2024 Risk Assessment Medium MIGRATION.11 102 50659 Information not available 09/14/2024 What Was The Date Of Your Most Recent Tobacco Screening? 07/21/2024 MIGRATION.70575 48350 Information not available 09/14/2024 How Many Children Do You Have? 6 MIGRATION.16908 81007 Information not available 09/14/2024 Are You Sexually Active? No MIGRATION.33976 16507 Information not available 09/14/2024 At What Age Did You Start Smoking Tobacco? 17 MIGRATION.26784 33775 Information not available 09/14/2024 Are You Passively Exposed To Smoke? No MIGRATION.51038 51485 Information not available 09/14/2024 How Much Tobacco Do You Smoke? No MIGRATION.24813 17484 Information not available 09/14/2024 Do You Use Sunscreen Routinely? No MIGRATION.20627 02550 Information not available 09/14/2024 Has Tobacco Cessation Counseling Been Provided? No MIGRATION.20619 83282 Information not available 09/14/2024 How Many Years Have You Smoked Tobacco? 46 MIGRATION.35585 73118 Information not available 09/14/2024 Do You Have Difficulty Walking Or Climbing Stairs? No MIGRATION.88011 19086 Information not available 09/14/2024 Sex: Unknown Functional Status Question Answer Note LastModified by Organizat ion Details LastModified Time Do you or have you ever used any other forms of tobacco or nicotine? No MIGRATION.9905537 900 Information not available 09/14/2024 What is your level of alcohol consumption? None MIGRATION.2939811 900 Information not available 09/14/2024 Do you or have you ever used smokeless tobacco? Never used smokeless tobacco MIGRATION.2225631 900 Information not available 09/14/2024 Are you currently employed? No MIGRATION.4504436 900 Information not available 09/14/2024 Do you have difficulty doing errands alone? No MIGRATION.2971434 900 Information not available 09/14/2024 Are you able to care for yourself? Yes MIGRATION.8575939 900 Information not available 09/14/2024 What is your occupation? [employer] MIGRATION.9642172 900 Information not available 09/14/2024 Do you have difficulty dressing or bathing? No MIGRATION.7437085 900 Information not available 09/14/2024 Do you or have you ever used e-cigarettes or vape? Never used electronic cigarettes MIGRATION.6034259 900 Information not available 09/14/2024 What is your exercise level? Occasional MIGRATION.1045965 900 Information not available 09/14/2024 Do you or have you ever used any nicotine-free cigarettes, vape, or chewing tobacco? No MIGRATION.8361063 900 Information not available 09/14/2024 Mental Status Question Answer Note LastModified by Organizat ion Details LastModified Time Do you feel stressed (tense, restless, nervous, or anxious, or unable to sleep at night)? [id number] MIGRATION.[id number] 00 Information not available 09/14/2024 Do you have difficulty concentrating, remembering or making decisions? No MIGRATION.03905672 00 Information not available 09/14/2024 Family History Relationship Description Onset Age of this Age Resolved Age Notes LastModified by Organization Details LastModified Time Mother Diabetes mellitus MIGRATION.339 [id number] Not available 09/14/2024 20:03:14 Mother Malignant tumor of breast MIGRATION.464 [id number] Not available 09/14/2024 20:03:14 Father Malignant neoplasm of lung MIGRATION.084 [id number] Not available 09/14/2024 20:03:14 Medical History Condition Response Diabetes Y High Cholesterol Y Hypertension Y Gynecological History Statement/Question Response Age at Menarche 13 Date of Last Mammogram Date of Last Colonoscopy LMP Approximate Age at First Child 16 Obstetrics History GPAL:G 0 P 0 0 0 0 Immunizations Vaccine Type Date Status Note Provider Nam e and Address Organization Details Recorded Time Influenza, split virus, quadrivalent, preservative 1 completed Not Available [facility] 09/14/2024 20:25:32 Influenza, split virus, quadrivalent, preservative 2 completed Not Available [facility] 09/14/2024 20:25:32 Influenza, split virus, quadrivalent, preservative 9 completed Not Available [facility] 09/14/2024 20:25:32 Influenza, split virus, quadrivalent, preservative 0 completed Not Available [facility] 09/14/2024 20:25:32 tetanus toxoid, unspecified formulation 6 completed Not Available [facility] 09/14/2024 20:25:32 influenza, [id number] 4 completed Not Available [facility] 09/14/2024 20:25:32 zoster live 2 completed Not Available [facility] 09/14/2024 20:25:32 Pneumococcal conjugate PCV 13 0 completed Not Available [facility] 09/14/2024 20:25:33 Influenza, split virus, trivalent, PF 7 completed Not Available [facility] 09/14/2024 20:25:33 Influenza, split virus, trivalent, PF 6 completed Not Available [facility] 09/14/2024 20:25:33 pneumococcal polysaccharide PPV23 6 completed Not Available [facility] 09/14/2024 20:25:33 Influenza, high-dose, trivalent, PF 5 completed Not Available [facility] 09/14/2024 20:25:33 influenza, unspecified formulation 8 completed Not Available [facility] 09/14/2024 20:25:33 Past Encounters Encounter ID Performer Location Encounter Start Date Encounter Closed Date Diagnosis/Indication Diagnosis SNOMED-CT Code Diagnosis ICD10 Code Diagnosis Note [id number] MD LYNSEY Robertson [address] [place] [id number] 09/09/2014 00:00:00 09/09/2014 09:39:40 [id number] [place] [id number] 03/09/2015 00:00:00 03/09/2015 13:45:16 [id number] MD LYNSEY Robertson [place] [id number] 06/07/2015 00:00:00 06/07/2015 10:32:05 [id number] [place] [id number] 07/13/2015 00:00:00 07/13/2015 14:24:10 [id number] [place] [id number] 09/09/2015 00:00:00 09/09/2015 16:18:46 [id number] [place] [id number] 05/25/2015 00:00:00 05/25/2015 19:39:37 [id number] [place] [id number] 0 05/24/2015 00:00:00 05/24/2015 22:51:40 [id number] [place] [id number] 05/27/2015 00:00:00 05/28/2015 06:53:07 [id number] [place] [id number] 05/31/2015 00:00:00 05/31/2015 10:35:32 [id number] [place] [id number] 09/11/2016 00:00:00 09/11/2016 12:44:19 [id number] [place] [id number] 0 03/09/2016 00:00:00 03/09/2016 22:09:06 [id number] [place] [id number] 0 11/03/2016 00:00:00 11/03/2016 11:21:53 [id number] MD LYNSEY Robertson [address] [place] [id number] 11/08/2016 00:00:00 11/08/2016 13:28:30 [id number] [place] [id number] 0 12/11/2016 00:00:00 12/11/2016 12:51:50 [id number] MD LYNSEY Robertson [address] [place] [id number] 0 03/12/2017 00:00:00 03/12/2017 13:11:52 [id number] MD LYNSEY Robertson [place] [id number] 0 11/13/2016 00:00:00 11/13/2016 14:15:53 [id number] MD LYNSEY Robertson [address] [place] [id number] 0 09/10/2017 00:00:00 09/10/2017 13:19:55 [id number] MD LYNSEY Robertson [address] [place] [id number] 0 12/10/2017 00:00:00 12/10/2017 09:44:47 [id number] [place] [id number] 0 06/11/2018 00:00:00 06/11/2018 12:38:01 [id number] MD LYNSEY Robertson [address] [place] [id number] 09/12/2018 00:00:00 09/12/2018 12:31:05 [id number] MD LYNSEY Robertson [address] [place] [id number] 0 01/16/2019 00:00:00 01/16/2019 17:31:50 [id number] MD LYNSEY Robertson [address] [place] [id number] 12/16/2018 00:00:00 12/16/2018 12:48:09 [id number] MD LYNSEY Robertson [address] [place] [id number] 0 01/03/2019 00:00:00 01/03/2019 12:50:48 [id number] [place] [id number] 0 03/21/2019 00:00:00 03/21/2019 14:18:06 [id number] MD LYNSEY Robertson [address] [place] [id number] 0 09/23/2019 00:00:00 09/23/2019 10:30:08 [id number] [place] [id number] 0 03/24/2020 00:00:00 03/24/2020 12:06:58 [id number] [place] [id number] 09/02/2020 00:00:00 09/02/2020 12:19:00 [id number] MD [place] [id number] 0 05/26/2020 00:00:00 05/26/2020 12:52:28 [id number] [place] [id number] 0 06/23/2020 00:00:00 06/23/2020 12:27:52 [id number] MD LYNSEY Robertson [address] [place] [id number] 07/14/2020 00:00:00 07/14/2020 12:47:10 [id number] [place] [id number] 0 10/04/2020 00:00:00 10/04/2020 12:44:34 [id number] SAGE ROSARIO [address] [place] [id number] 11/03/2020 00:00:00 11/03/2020 11:09:22 [id number] MD LYNSEY Robertson [address] [id number] 12/29/2020 00:00:00 12/29/2020 16:41:21 [id number] MD LYNSEY Robertson [address] [id number] 04/05/2021 00:00:00 04/05/2021 09:45:44 [id number] MD LYNSEY Robertson [address] [id number] 07/12/2021 00:00:00 07/12/2021 13:32:17 [id number] MD LYNSEY Robertson [address] [id number] 0 01/11/2022 00:00:00 01/11/2022 12:28:20 [id number] MD LYNSEY Robertson [address] [id number] 0 07/20/2022 00:00:00 07/20/2022 15:14:22 [id number] MD LYNSEY Robertson [address] [id number] 01/19/2023 00:00:00 01/19/2023 09:52:11 [id number] MD LYNSEY Robertson [address] [id number] 01/17/2024 00:00:00 01/17/2024 14:15:43 [id number] MD LYNSEY Robertson [address] [id number] 07/21/2024 00:00:00 07/21/2024 13:59:58 [id number] MD LYNSEY Robertson [address] [place] [id number] 02/16/2025 09:49:09 02/18/2025 12:16:03 Essential hypertension 92490545 I10 check labs. cont to follow Osteoarthritis 584822230 M19.90 pt wants to have hip and knee surgery. I am very concerned about this. especially with weight loss Type 2 rikki betes mellitus 28392200 E11.69 check a1c and cont meds Abnormal weight loss 267 368392 R63.4 check thyroid and will cont to follow Chronic ob structive pulmonary disease 93083520 J44.9 J96.11 cont oxygen and nebulizers Congestive heart failure 76570304 I50.9 I11.0 labs and will cont diuretics Atrial fibrillation 4943 6004 I48.91 rate well controlled . Anemia 744000908 D64.9 check cbc and increase po intake Hyperlipidemia 92500197 E78.5 check lipids Difficulty walking 21497 2002 R26.2 R53.83 R54 Z99.81 R63.6 cont oxygen. getting frail at this point Health Concerns Section Related Observation LastModified by Organization Detai ls LastModified Time None Recorded Concern Status LastModified by Organization Details LastModified Time None Recorded Advance Directives Directive Y: Filled forms out in offic e. Payers Insurance Date Sequence Insurance Name Policy Number Policy Motley Covered Member ID Motley Member ID Guarantor Name 05/17/2025 1 [facility] (MEDICARE REPLACEMENT/A DVANTAGE - PPO) [id number] Purvi Mathis [id number] Purvi Mathis Notes Date Note Type Note Provider Name and Address Organization Details Recorded Time 07/20/2022 text/html COPDReported bypatient.Onset/Timing :chronic Severity:very limiting; [...] as directed; no side effects from medicationNotes: MD Jim Robertson [address], [place], [id number], SATYA [facility] 07/20/2022 15:14:22 01/19/2023 text/html COPDReported bypatient.Onset/Timing :chronic [...] as directed; no side effects from medicationNotes: MD Jim Robertson/Thony, [place], [id number], SATYA [facility] 01/19/2023 09:52:11 01/17/2024 text/html Musculoskeletal PainReported bypatient.Location:yefri n is not radiating Severity:improving Associated Symptoms:no fever; no weak limbs; no tingling; no numbness of the legs/feet; on incontinence ADL (Activities of Daily Living)improve with medication MD Jim Robertson/Thony, [place], [id number], SATYA [facility] 01/17/2024 14:15:43 07/21/2024 text/html Medicare Annual Wellness [...] the bathroom/shower; good lighting in the home Micky Lindo MD [address], [place], [id number], [place] - Y[facility] 07/21/2024 13:59:58 02/16/2025 text/html Care Management - DiabetesReported bypatient.Self Care:seeing eye doctor yearly for dilated eye exam; checking feet regularly; normal range of home blood sugars (in the low 100s); no side effects from medications Associated Symptoms:symptoms are usually well controlled; no fatigue; no dizziness; no excessive sweating; no headaches; no confusion; no increased thirst; no increased appetite; no increased urination; no blurred vision; no numbness of feet; no calluses on feetHypertension F/UReported bypatient.Associated Symptoms:no dizziness; no lightheadedness; no chest pain; no shortness of breath; no palpitations; no edema; no calf pain with exertion Lifestyle:regular exercise; limiting/avoiding salt Medications:taking medications as directed; no side effects from medication Pt. is here today for a wellness check, fasting labs, and wanting to talk about medications. Micky Lindo MD [address], [place], [phone], [place] - [facility] 02/16/2025 13:04:15 OBGyn Episode No OBEpisode recorded.
[2025-05-18 11:47] LABS: Hematocrit 34.9 % (36-47); Hemoglobin 10.90 g/dL (11.27-16.99); Mean Corpuscular HGB Conc 31.2 g/dL (30-55); Mean Corpuscular Hemoglobin 27.7 pg (27-33); Mean Corpuscular Volume 88.8 fl (85-98); Nucleated Red Blood Cells % 0 %; Platelet Count 384 10^3/cmm (157-399); Red Blood Count 3.93 10^6/uL (3.85-5.65); White Blood Count 7.48 10^3/uL (3.29-11.43)
[2025-05-18 12:01] LABS: Slide Review Slide Review Perform
[2025-05-18 12:10] LABS: Alanine Aminotransferase 11 U/L (0-33); Albumin Level 3.7 g/dL (3.5-5.2); Alkaline Phosphatase 97 U/L (35-105); Anion Gap 19.5 (5-19); Aspartate Amino Transferase 20 U/L (0-32); Blood Urea Nitrogen 16 mg/dL (8-23); Calcium 9.1 mg/dL (8.5-10.5); Carbon Dioxide 25 mmol/L (22-29); Chloride 103 mmol/L (98-107); Creatinine Clr Calc Pharmacy 40.8312; Globulin 4.0 g/dL (1.3-4.6); Glucose 126 mg/dL (65-115); Osmolality Calculated 299 mOsm/kg (285-295); Potassium 4.5 mmol/L (3.5-5.1); Sodium 143 mmol/L (136-145); Total Protein 7.7 g/dL (6.6-8.7)
[2025-05-18 12:19] LABS: Glucose Urine UA Negative (Normal); Nitrate Urine Negative (Negative); Specific Gravity, Urine 1.011 (1.005-1.030)
[2025-05-18 12:21] LABS: Add Urine Microscopic? YES
[2025-05-18 12:34] LABS: UA Slide Review UA Slide Review Perf
[2025-05-18 12:43] LABS: Respiratory Syncytial Virus Ce NEGATIVE (Negative)
[2025-05-18 12:49] LABS: SARS-CoV-2 PCR Positive (Negative)
[2025-05-18 13:31] VITALS: PULSE 74; RESP 16; O2SAT 95
[2025-05-18 13:51] VITALS: PULSE 70; O2SAT 94
[2025-05-18 14:00] VITALS: BP 118/61; PULSE 70; O2SAT 95
== END 2025-05-18 14:16 | disposition home or self-care (01) ==
PROVIDERS: Emergency Provider Family Medicine; PCP Family Medicine
DX: U07.1 COVID-19 (principal); Z11.52 Encounter for screening for COVID-19; N30.90 Cystitis, unspecified without hematuria; Z79.84 Long term (current) use of oral hypoglycemic drugs; Z79.82 Long term (current) use of aspirin; Z87.891 Personal history of nicotine dependence; J44.9 Chronic obstructive pulmonary disease, unspecified; I25.10 Atherosclerotic heart disease of native coronary artery without angina pectoris; E11.9 Type 2 diabetes mellitus without complications; I11.0 Hypertensive heart disease with heart failure; I50.9 Heart failure, unspecified
CPT/HCPCS: 71045; 80053; 81001; 85025; 87077; 87086; 87186; 87637; 93005; 94640; 99285; J9999

== ENCOUNTER → 2025-06-22 13:24 | Outpatient (BNVA) | payer MEDICARE, SELFPAY | PROVIDERS: PCP Family Medicine; Visit Provider Nurse Practitioner | DX: Z98.890 Other specified postprocedural states (principal); Z96.642 Presence of left artificial hip joint | CPT/HCPCS: 73502; 99024 ==

== ENCOUNTER → 2025-07-13 10:04 | Outpatient (BNVA) | payer MEDICARE, SELFPAY | PROVIDERS: PCP Family Medicine; Visit Provider Internal Medicine | DX: J44.9 Chronic obstructive pulmonary disease, unspecified (principal); J96.10 Chronic respiratory failure, unspecified whether with hypoxia or hypercapnia; I26.99 Other pulmonary embolism without acute cor pulmonale; Z77.090 Contact with and (suspected) exposure to asbestos; Z99.81 Dependence on supplemental oxygen; Z87.891 Personal history of nicotine dependence | CPT/HCPCS: 99214 ==